=== PATIENT | female | born 1945 | race Caucasian/White ===

== ENCOUNTER → 2016-07-06 | Outpatient (CLI) | payer MEDICARE, BC ==
[2016-07-06 10:20] LABS: CHOLESTEROL 131.81 mg/dL (0-200); Direct HDL 52 mg/dL (>40); TRIGLYCERIDES 154 mg/dL (<150)
[2016-07-06 10:30] LABS: DIRECT LDL 56 mg/dL (<100)
[2016-07-06 10:31] LABS: VLDL CHOLESTEROL 30.8 mg/dL (10-31)
[2016-07-06 11:45] LABS: ABSOLUTE EOSINOPHILS # (AUTO) 0.2 10^3/uL (0.0-0.6); ABSOLUTE MONOCYTES (AUTO) 0.4 10^3/uL (0.1-1.4); ABSOLUTE NEUT (AUTO) 4.1 10^3/uL (1.7-8.2); BASOPHILS % (AUTO) 0.8 % (0-2); EOSINOPHILS % (AUTO) 3.3 % (0-6); HEMATOCRIT 35.7 % (36.0-47.0); HEMOGLOBIN 12.7 g/dL (12.0-15.5); HGB HCT DIFFERENCE 2.4; LYMPHOCYTES % (AUTO) 17.3 % (13-45); MEAN CORPUSCULAR HEMOGLOBIN 30.9 pg (27.0-33.4); MEAN CORPUSCULAR HGB CONC 35.5 g/dL (32.0-36.0); MEAN CORPUSCULAR VOLUME 87 fl (80-97); MONOCYTES % (AUTO) 7.7 % (3-13); RED CELL DISTRIBUTION WIDTH 13.2 % (11.5-14.0); SEGMENTED NEUTROPHILS % (AUTO) 70.9 % (42-78); WHITE BLOOD COUNT 5.8 10^3/uL (4.0-10.5)
[2016-07-06 11:59] LABS: ALANINE AMINOTRANSFERASE 16 U/L (9-52); ALBUMIN 3.8 g/dL (3.5-5.0); ALKALINE PHOSPHATASE 69 U/L (38-126); ANION GAP 13 (5-19); ASPARTATE AMINO TRANSFERASE 23 U/L (14-36); BILIRUBIN,TOTAL 0.9 mg/dL (0.2-1.3); BLOOD UREA NITROGEN 38 mg/dL (7-20); CALCIUM 9.6 mg/dL (8.4-10.2); CARBON DIOXIDE 25 mmol/L (22-30); CHLORIDE 106 mmol/L (98-107); CREATININE RESULT 1.16 mg/dL (0.52-1.25); GLUCOSE 73 mg/dL (75-110); MAGNESIUM 1.5 mg/dL (1.6-2.3); POTASSIUM 4.4 mmol/L (3.6-5.0); SODIUM 143.9 mmol/L (137-145); TOTAL PROTEIN 6.7 g/dL (6.3-8.2)
[2016-07-06 12:02] LABS: CHOLESTEROL 131.81 mg/dL (0-200); DIRECT LDL 56 mg/dL (<100); Direct HDL 52 mg/dL (>40); TRIGLYCERIDES 154 mg/dL (<150); VLDL CHOLESTEROL 30.8 mg/dL (10-31)
== END ==
LOC: OD 08:37
PROVIDERS: ATTEND Internal Medicine
DX: I25.10 Atherosclerotic heart disease of native coronary artery without angina pectoris (principal); D51.0 Vitamin B12 deficiency anemia due to intrinsic factor deficiency; N18.9 Chronic kidney disease, unspecified; E78.5 Hyperlipidemia, unspecified; M10.9 Gout, unspecified; R53.83 Other fatigue
CPT/HCPCS: 36415; 80053; 80061; 82607; 83735; 84443; 85025

== ENCOUNTER → 2017-03-28 | Outpatient (CLI) | payer MEDICARE, BC ==
[2017-03-28 17:40] LABS: ANION GAP 17 (5-19); BLOOD UREA NITROGEN 108 mg/dL (7-20); CARBON DIOXIDE 31 mmol/L (22-30); CHLORIDE 90 mmol/L (98-107); CREATININE RESULT 3.01 mg/dL (0.52-1.25); POTASSIUM 3.8 mmol/L (3.6-5.0); SODIUM 138.2 mmol/L (137-145)
[2017-03-29 10:10] LABS: APPEARANCE,URINE SLIGHTLY-CLOUDY; BILIRUBIN,URINE NEGATIVE (NEGATIVE); GLUCOSE, URINE NEGATIVE (NEGATIVE); KETONES,URINE NEGATIVE (NEGATIVE); LEUKOCYTE ESTERASE,URINE LARGE (NEGATIVE); NITRITE,URINE NEGATIVE (NEGATIVE); PROTEIN,URINE NEGATIVE (NEGATIVE); URINE SPECIFIC GRAVITY 1.013; UROBILINOGEN,URINE NEGATIVE mg/dL (<2.0)
== END ==
LOC: OD 15:53
PROVIDERS: ATTEND Internal Medicine
DX: I25.10 Atherosclerotic heart disease of native coronary artery without angina pectoris (principal); N39.0 Urinary tract infection, site not specified
CPT/HCPCS: 36415; 80051; 81001; 82565; 84520; 87086; 87088; 87186

== ENCOUNTER → 2017-07-17 | Outpatient (CLI) | payer MEDICARE, BC ==
[2017-07-17 17:03] LABS: ABSOLUTE EOSINOPHILS # (AUTO) 0.1 10^3/uL (0.0-0.6); ABSOLUTE LYMPHOCYTES (AUTO) 0.6 10^3/uL (0.5-4.7); ABSOLUTE MONOCYTES (AUTO) 0.7 10^3/uL (0.1-1.4); ABSOLUTE NEUT (AUTO) 6.5 10^3/uL (1.7-8.2); BASOPHILS % (AUTO) 0.4 % (0-2); EOSINOPHILS % (AUTO) 1.3 % (0-6); HEMATOCRIT 30.1 % (36.0-47.0); HEMOGLOBIN 10.4 g/dL (12.0-15.5); LYMPHOCYTES % (AUTO) 7.2 % (13-45); MEAN CORPUSCULAR HEMOGLOBIN 30.9 pg (27.0-33.4); MEAN CORPUSCULAR HGB CONC 34.5 g/dL (32.0-36.0); MEAN CORPUSCULAR VOLUME 90 fl (80-97); MONOCYTES % (AUTO) 9.3 % (3-13); PLATELET COUNT 179 10^3/uL (150-450); RED BLOOD COUNT 3.36 10^6/uL (3.72-5.28); RED CELL DISTRIBUTION WIDTH 16.8 % (11.5-14.0); SEGMENTED NEUTROPHILS % (AUTO) 81.8 % (42-78); TOTAL CELLS COUNTED % (AUTO) 100 %
[2017-07-17 17:32] LABS: ALANINE AMINOTRANSFERASE 29 U/L (9-52); ALBUMIN 4.6 g/dL (3.5-5.0); ALKALINE PHOSPHATASE 130 U/L (38-126); ASPARTATE AMINO TRANSFERASE 26 U/L (14-36); BILIRUBIN,DIRECT 0.7 mg/dL (0.0-0.4); BILIRUBIN,TOTAL 0.8 mg/dL (0.2-1.3); CALCIUM 9.8 mg/dL (8.4-10.2); GLUCOSE 102 mg/dL (75-110); MAGNESIUM 2.7 mg/dL (1.6-2.3); TOTAL PROTEIN 7.5 g/dL (6.3-8.2)
[2017-07-17 18:04] LABS: CARBON DIOXIDE 30 mmol/L (22-30); CHLORIDE 76 mmol/L (98-107); POTASSIUM 5.1 mmol/L (3.6-5.0)
[2017-07-17 18:10] LABS: BLOOD UREA NITROGEN 154 mg/dL (7-20); URIC ACID 17.5 mg/dL (2.5-7.5)
[2017-07-17 18:11] LABS: ANION GAP 22 (5-19)
== END ==
LOC: OD 15:39
PROVIDERS: ATTEND Internal Medicine
DX: N17.9 Acute kidney failure, unspecified (principal); N18.9 Chronic kidney disease, unspecified; K50.119 Crohn's disease of large intestine with unspecified complications; M10.9 Gout, unspecified; R53.83 Other fatigue
CPT/HCPCS: 36415; 80053; 83735; 84443; 84550; 85025

== ENCOUNTER → 2017-08-21 | Outpatient (CLI) | payer MEDICARE, BC ==
[2017-08-21 08:40] LABS: ABSOLUTE EOSINOPHILS # (AUTO) 0.1 10^3/uL (0.0-0.6); ABSOLUTE LYMPHOCYTES (AUTO) 0.9 10^3/uL (0.5-4.7); ABSOLUTE MONOCYTES (AUTO) 0.7 10^3/uL (0.1-1.4); ABSOLUTE NEUT (AUTO) 6.7 10^3/uL (1.7-8.2); BASOPHILS % (AUTO) 0.6 % (0-2); EOSINOPHILS % (AUTO) 1.2 % (0-6); HEMATOCRIT 26.6 % (36.0-47.0); HEMOGLOBIN 9.3 g/dL (12.0-15.5); LYMPHOCYTES % (AUTO) 10.8 % (13-45); MEAN CORPUSCULAR HEMOGLOBIN 30.8 pg (27.0-33.4); MEAN CORPUSCULAR VOLUME 88 fl (80-97); MONOCYTES % (AUTO) 8.4 % (3-13); PLATELET COUNT 239 10^3/uL (150-450); RED BLOOD COUNT 3.02 10^6/uL (3.72-5.28); RED CELL DISTRIBUTION WIDTH 17.1 % (11.5-14.0); TOTAL CELLS COUNTED % (AUTO) 100 %; WHITE BLOOD COUNT 8.5 10^3/uL (4.0-10.5)
[2017-08-21 08:56] LABS: ALANINE AMINOTRANSFERASE 26 U/L (9-52); ALBUMIN 4.2 g/dL (3.5-5.0); ALKALINE PHOSPHATASE 87 U/L (38-126); ASPARTATE AMINO TRANSFERASE 21 U/L (14-36); BILIRUBIN,DIRECT 0.6 mg/dL (0.0-0.4); BILIRUBIN,TOTAL 0.7 mg/dL (0.2-1.3); BLOOD UREA NITROGEN 106 mg/dL (7-20); CALCIUM 9.4 mg/dL (8.4-10.2); CHLORIDE 79 mmol/L (98-107); GLUCOSE 86 mg/dL (75-110); IRON(TIBC) 34.4 ug/dL (37-170); PHOSPHORUS 5.3 mg/dL (2.5-4.5); POTASSIUM 3.2 mmol/L (3.6-5.0); TOTAL PROTEIN 7.1 g/dL (6.3-8.2); URIC ACID 16.1 mg/dL (2.5-7.5)
[2017-08-21 09:01] LABS: APPEARANCE,URINE CLEAR; BILIRUBIN,URINE NEGATIVE (NEGATIVE); COLOR,URINE STRAW; GLUCOSE, URINE NEGATIVE (NEGATIVE); KETONES,URINE NEGATIVE (NEGATIVE); LEUKOCYTE ESTERASE,URINE MODERATE (NEGATIVE); NITRITE,URINE NEGATIVE (NEGATIVE); PROTEIN,URINE 30 mg/dL (NEGATIVE); URINE SPECIFIC GRAVITY 1.008; UROBILINOGEN,URINE NEGATIVE mg/dL (<2.0)
[2017-08-21 09:35] LABS: CARBON DIOXIDE 34 mmol/L (22-30); SODIUM 133.4 mmol/L (137-145)
[2017-08-21 09:38] LABS: ANION GAP 20 (5-19)
[2017-08-22 16:39] LABS: A/G RATIO 1.2 (0.7-1.7); ALBUMIN 2 3.8 g/dL (2.9-4.4); ALPHA-2-GLOBULIN 2 0.8 g/dL (0.4-1.0); BETA GLOBULINS 1.5 g/dL (0.7-1.3); GAMMA GLOBULIN 0.8 g/dL (0.4-1.8); GLOBULIN TOTAL 3.3 g/dL (2.2-3.9); MONOCLONAL SPIKE Not Observed g/dL (Not Observed); PROTEIN TOTAL SERUM 7.1 g/dL (6.0-8.5)
== END ==
LOC: OD 07:43
PROVIDERS: ATTEND Internal Medicine Nephrology
DX: N18.3 Chronic kidney disease, stage 3 (moderate) (principal); D64.9 Anemia, unspecified; E83.42 Hypomagnesemia; C34.90 Malignant neoplasm of unspecified part of unspecified bronchus or lung
CPT/HCPCS: 36415; 80053; 81001; 82533; 82728; 82784; 83540; 83550; 83735; 83970; 84100; 84165; 84550; 85025

== ENCOUNTER 2017-09-01 09:06 | Outpatient (CLI) | payer MEDICARE, BC ==
[2017-09-01] MEDS ORDERED: FERUMOXYTOL (NON-ESRD) 510 MG/NS 100 ML IV PRN ×2 (09:19)
[2017-09-01 10:58] VITALS: BP 135/40
== END 2017-09-01 11:25 | disposition home or self-care (01) ==
LOC: II 09:06 → 5TH 09:08 → II 11:25
PROVIDERS: ATTEND Internal Medicine Nephrology
PROC: 3E033GC Introduction of Other Therapeutic Substance into Peripheral Vein, Percutaneous Approach (ICD-10-PCS; principal; 2017-09-01)
DX: E61.1 Iron deficiency (principal); N18.9 Chronic kidney disease, unspecified
CPT/HCPCS: 96365; Q0138

== ENCOUNTER 2017-09-08 09:05 | Outpatient (CLI) | payer MEDICARE, BC ==
[2017-09-08] MEDS ORDERED: FERUMOXYTOL (ESRD) 510 MG/NS 100 ML IV PRN ×2 (10:00)
[2017-09-08 17:27] VITALS: BP 116/58
== END 2017-09-08 10:31 | disposition home or self-care (01) ==
LOC: II 09:05
PROVIDERS: ATTEND Internal Medicine Nephrology
PROC: 3E033GC Introduction of Other Therapeutic Substance into Peripheral Vein, Percutaneous Approach (ICD-10-PCS; principal; 2017-09-08)
DX: D50.8 Other iron deficiency anemias (principal); N18.9 Chronic kidney disease, unspecified
CPT/HCPCS: 96365; Q0139

== ENCOUNTER → 2017-10-11 | Outpatient (CLI) | payer MEDICARE, BC ==
[2017-10-11 12:22] LABS: HEMATOCRIT 29.3 % (36.0-47.0); HEMOGLOBIN 10.2 g/dL (12.0-15.5); MEAN CORPUSCULAR HEMOGLOBIN 32.5 pg (27.0-33.4); MEAN CORPUSCULAR HGB CONC 34.8 g/dL (32.0-36.0); MEAN CORPUSCULAR VOLUME 93 fl (80-97); PLATELET COUNT 181 10^3/uL (150-450); RED BLOOD COUNT 3.14 10^6/uL (3.72-5.28); RED CELL DISTRIBUTION WIDTH 18.4 % (11.5-14.0); WHITE BLOOD COUNT 6.4 10^3/uL (4.0-10.5)
[2017-10-11 12:23] LABS: APPEARANCE,URINE SLIGHTLY-CLOUDY; BILIRUBIN,URINE NEGATIVE (NEGATIVE); COLOR,URINE YELLOW; GLUCOSE, URINE NEGATIVE (NEGATIVE); KETONES,URINE NEGATIVE (NEGATIVE); LEUKOCYTE ESTERASE,URINE LARGE (NEGATIVE); NITRITE,URINE NEGATIVE (NEGATIVE); PROTEIN,URINE 30 mg/dL (NEGATIVE); URINE SPECIFIC GRAVITY 1.012; UROBILINOGEN,URINE NEGATIVE mg/dL (<2.0)
[2017-10-11 12:53] LABS: ALANINE AMINOTRANSFERASE 33 U/L (9-52); ALBUMIN 4.7 g/dL (3.5-5.0); ALKALINE PHOSPHATASE 83 U/L (38-126); ANION GAP 14 (5-19); ASPARTATE AMINO TRANSFERASE 31 U/L (14-36); BILIRUBIN,DIRECT 0.5 mg/dL (0.0-0.4); BILIRUBIN,TOTAL 0.5 mg/dL (0.2-1.3); CALCIUM 11.1 mg/dL (8.4-10.2); CARBON DIOXIDE 38 mmol/L (22-30); CHLORIDE 85 mmol/L (98-107); CREATINE KINASE 25 U/L (30-135); GLUCOSE 70 mg/dL (75-110); IRON(TIBC) 121.9 ug/dL (37-170); POTASSIUM 3.7 mmol/L (3.6-5.0); SODIUM 136.7 mmol/L (137-145); TOTAL PROTEIN 7.6 g/dL (6.3-8.2)
[2017-10-11 12:59] LABS: UR PRO/CREAT RATIO RESULT 0.5 mg/mg (0.0-0.2); URINE CREATININE 79.5 mg/dL (15-278); URINE PROTEIN 38.5 mg/dL (<12)
[2017-10-11 13:08] LABS: BLOOD UREA NITROGEN 136 mg/dL (7-20)
== END ==
LOC: OD 11:23
PROVIDERS: ATTEND Internal Medicine Nephrology
DX: N18.3 Chronic kidney disease, stage 3 (moderate) (principal); D64.9 Anemia, unspecified; E83.42 Hypomagnesemia; M10.00 Idiopathic gout, unspecified site; R30.0 Dysuria
CPT/HCPCS: 36415; 80053; 81001; 82043; 82550; 82570; 82728; 83540; 83550; 83735; 84156; 84443; 85027; 87086; 87088; 87186

== ENCOUNTER → 2017-10-16 | Outpatient (CLI) | payer MEDICARE, BC ==
[2017-10-16 10:19] LABS: HEMATOCRIT 27.3 % (36.0-47.0); HEMOGLOBIN 9.6 g/dL (12.0-15.5); MEAN CORPUSCULAR HEMOGLOBIN 32.8 pg (27.0-33.4); MEAN CORPUSCULAR HGB CONC 35.3 g/dL (32.0-36.0); MEAN CORPUSCULAR VOLUME 93 fl (80-97); PLATELET COUNT 159 10^3/uL (150-450); RED BLOOD COUNT 2.94 10^6/uL (3.72-5.28); RED CELL DISTRIBUTION WIDTH 17.6 % (11.5-14.0); WHITE BLOOD COUNT 6.1 10^3/uL (4.0-10.5)
[2017-10-16 10:46] LABS: PHOSPHORUS 4.4 mg/dL (2.5-4.5)
[2017-10-16 11:18] LABS: APPEARANCE,URINE CLEAR; BILIRUBIN,URINE NEGATIVE (NEGATIVE); COLOR,URINE YELLOW; GLUCOSE, URINE NEGATIVE (NEGATIVE); KETONES,URINE NEGATIVE (NEGATIVE); LEUKOCYTE ESTERASE,URINE MODERATE (NEGATIVE); NITRITE,URINE NEGATIVE (NEGATIVE); PROTEIN,URINE NEGATIVE (NEGATIVE); URINE SPECIFIC GRAVITY 1.009; UROBILINOGEN,URINE NEGATIVE mg/dL (<2.0)
[2017-10-16 12:19] LABS: ANION GAP 17 (5-19); BLOOD UREA NITROGEN 108 mg/dL (7-20); CALCIUM 10.1 mg/dL (8.4-10.2); CARBON DIOXIDE 33 mmol/L (22-30); CHLORIDE 82 mmol/L (98-107); GLUCOSE 116 mg/dL (75-110); SODIUM 131.9 mmol/L (137-145)
== END ==
LOC: OD 09:41
PROVIDERS: ATTEND Internal Medicine Nephrology
DX: I12.9 Hypertensive chronic kidney disease with stage 1 through stage 4 chronic kidney disease, or unspecified chronic kidney disease (principal); N18.4 Chronic kidney disease, stage 4 (severe)
CPT/HCPCS: 36415; 80048; 80053; 81001; 82533; 83735; 83970; 84100; 85027

== ENCOUNTER → 2017-11-04 | Outpatient (CLI) | payer MEDICARE, BC ==
[2017-11-04 13:01] LABS: HEMATOCRIT 27.5 % (36.0-47.0); HEMOGLOBIN 9.7 g/dL (12.0-15.5); MEAN CORPUSCULAR HEMOGLOBIN 32.9 pg (27.0-33.4); MEAN CORPUSCULAR HGB CONC 35.2 g/dL (32.0-36.0); MEAN CORPUSCULAR VOLUME 93 fl (80-97); PLATELET COUNT 180 10^3/uL (150-450); RED BLOOD COUNT 2.94 10^6/uL (3.72-5.28); RED CELL DISTRIBUTION WIDTH 15.2 % (11.5-14.0); WHITE BLOOD COUNT 7.6 10^3/uL (4.0-10.5)
[2017-11-04 13:17] LABS: OSMOLALITY,URINE 329 mOsm/kg (300-900)
[2017-11-04 13:24] LABS: ANION GAP 14 (5-19); BLOOD UREA NITROGEN 110 mg/dL (7-20); CALCIUM 10.3 mg/dL (8.4-10.2); CARBON DIOXIDE 38 mmol/L (22-30); CHLORIDE 80 mmol/L (98-107); GLUCOSE 86 mg/dL (75-110); PHOSPHORUS 5.3 mg/dL (2.5-4.5); POTASSIUM 3.9 mmol/L (3.6-5.0); SODIUM 131.5 mmol/L (137-145); URIC ACID 10.9 mg/dL (2.5-7.5)
[2017-11-04 13:37] LABS: URINE SODIUM < 5 mmol/L (30-90)
== END ==
LOC: OD 11:18
PROVIDERS: ATTEND Internal Medicine Nephrology
DX: N18.4 Chronic kidney disease, stage 4 (severe) (principal); D64.9 Anemia, unspecified; E87.6 Hypokalemia
CPT/HCPCS: 36415; 80048; 83735; 83930; 83935; 83970; 84100; 84300; 84550; 85027

== ENCOUNTER → 2017-11-10 | Outpatient (CLI) | payer MEDICARE, BC ==
[2017-11-10 17:05] LABS: ANION GAP 13 (5-19); BLOOD UREA NITROGEN 88 mg/dL (7-20); CALCIUM 10.2 mg/dL (8.4-10.2); CARBON DIOXIDE 34 mmol/L (22-30); CHLORIDE 88 mmol/L (98-107); GLUCOSE 136 mg/dL (75-110); SODIUM 135.3 mmol/L (137-145)
[2017-11-10 17:29] LABS: POTASSIUM 2.9 mmol/L (3.6-5.0)
== END ==
LOC: OD 16:05
PROVIDERS: ATTEND Internal Medicine Nephrology
DX: I12.0 Hypertensive chronic kidney disease with stage 5 chronic kidney disease or end stage renal disease (principal); N18.5 Chronic kidney disease, stage 5; E87.5 Hyperkalemia
CPT/HCPCS: 36415; 80048

== ENCOUNTER → 2017-12-04 | Outpatient (CLI) | payer MEDICARE, BC ==
[2017-12-04 09:35] LABS: HEMATOCRIT 25.6 % (36.0-47.0); HEMOGLOBIN 9.1 g/dL (12.0-15.5); MEAN CORPUSCULAR HEMOGLOBIN 32.6 pg (27.0-33.4); MEAN CORPUSCULAR HGB CONC 35.5 g/dL (32.0-36.0); MEAN CORPUSCULAR VOLUME 92 fl (80-97); PLATELET COUNT 171 10^3/uL (150-450); RED BLOOD COUNT 2.78 10^6/uL (3.72-5.28); WHITE BLOOD COUNT 5.1 10^3/uL (4.0-10.5)
[2017-12-04 10:04] LABS: ANION GAP 17 (5-19); BLOOD UREA NITROGEN 109 mg/dL (7-20); CALCIUM 10.3 mg/dL (8.4-10.2); CARBON DIOXIDE 37 mmol/L (22-30); CHLORIDE 77 mmol/L (98-107); GLUCOSE 82 mg/dL (75-110); PHOSPHORUS 6.1 mg/dL (2.5-4.5); POTASSIUM 3.4 mmol/L (3.6-5.0); SODIUM 130.6 mmol/L (137-145)
[2017-12-06 08:52] LABS: CHOLESTEROL 141.66 mg/dL (0-200); TRIGLYCERIDES 188 mg/dL (<150)
[2017-12-06 09:04] LABS: DIRECT LDL 67 mg/dL (<100)
[2017-12-06 09:10] LABS: VLDL CHOLESTEROL 37.6 mg/dL (10-31)
[2017-12-07 08:41] LABS: ALANINE AMINOTRANSFERASE 35 U/L (9-52); ALBUMIN 4.3 g/dL (3.5-5.0); ALKALINE PHOSPHATASE 86 U/L (38-126); ASPARTATE AMINO TRANSFERASE 32 U/L (14-36); BILIRUBIN,DIRECT 0.2 mg/dL (0.0-0.4); BILIRUBIN,TOTAL 0.4 mg/dL (0.2-1.3)
== END ==
LOC: OD 08:34
PROVIDERS: ATTEND Internal Medicine Nephrology
DX: I12.0 Hypertensive chronic kidney disease with stage 5 chronic kidney disease or end stage renal disease (principal); N18.5 Chronic kidney disease, stage 5; E87.1 Hypo-osmolality and hyponatremia; E87.5 Hyperkalemia; E78.2 Mixed hyperlipidemia
CPT/HCPCS: 36415; 80048; 80061; 80076; 83970; 84100; 85027

== ENCOUNTER 2017-12-13 09:07 | Outpatient (CLI) | payer MEDICARE, BC ==
[~2017-12-13 09:07] MED LIST: NORMAL SALINE 1000 ML 1,000 ML IV PRN
[2017-12-13] MEDS ORDERED: NORMAL SALINE 1000 ML 500 ML IV PRN (09:30)
[2017-12-13 09:53] VITALS: BP 103/46
== END 2017-12-13 13:18 | disposition home or self-care (01) ==
LOC: II 09:07 → 5TH 09:10 → II 13:18
PROVIDERS: ATTEND Internal Medicine
PROC: 3E0337Z Introduction of Electrolytic and Water Balance Substance into Peripheral Vein, Percutaneous Approach (ICD-10-PCS; principal; 2017-12-13)
DX: E86.0 Dehydration (principal); N17.9 Acute kidney failure, unspecified
CPT/HCPCS: 96360; 96361

== ENCOUNTER 2017-12-14 09:05 | Outpatient (CLI) | payer MEDICARE, BC ==
[~2017-12-14 09:05] MED LIST changes: -NORMAL SALINE 1000 ML 1,000 ML IV PRN; +NORMAL SALINE 1000 ML 500 ML IV PRN
[2017-12-14 10:26] VITALS: BP 108/48
== END 2017-12-14 13:28 | disposition home or self-care (01) ==
LOC: II 09:05 → 5TH 09:09 → II 13:28
PROVIDERS: ATTEND Internal Medicine
PROC: 3E033GC Introduction of Other Therapeutic Substance into Peripheral Vein, Percutaneous Approach (ICD-10-PCS; principal; 2017-12-14)
DX: E86.0 Dehydration (principal); N17.9 Acute kidney failure, unspecified
CPT/HCPCS: 96365; 96366

== ENCOUNTER 2017-12-17 19:35 | Inpatient (IN) | payer MEDICARE, BC ==
[2017-12-17] MEDS ORDERED: NORMAL SALINE 1000 ML 1,000 ML IV ONE (19:40)
--- NOTE | 2017-12-17 20:36 | ER Document Report ---
ED Respiratory Problem - General Chief Complaint: Breathing Difficulty Stated Complaint: DIFFICULTY BREATHING Time Seen by Provider: 12/17/17 19:39 Notes: The patient is a 72 yo female, PMHx COPD, CKD, Crohn's with ileostomy bag in 1987, high output from her ileostomy, presents with increased shortness of breath, fever and hypoxia down to 80% on room air. She was found to have a temperature of 101.7 by EMS and was given 975 mg Tylenol prior to arrival. She is not on any immunomodulators. Patient is supposed to have a central line placed by Dr. Haney tomorrow for IV hydration due to her high output ileostomy. Patient denies headache, neck stiffness, chest pain, rash, hemoptysis , abdominal pain or urinary symptoms. TRAVEL OUTSIDE OF THE [place] IN LAST 30 DAYS: No - Related Data Allergies/Adverse Reactions: allopurinol Allergy (Unknown, Verified 09/01/17 09:22) amoxicillin Allergy (Verified 09/01/17 09:22) Cephalosporins Allergy (Verified 09/01/17 09:23) levofloxacin [From Levaquin] Allergy (Verified 09/01/17 09:23) Past Medical History - General Information source: Patient, Emergency Med Personnel - Social History Smoking Status: Former Smoker Family History: Reviewed & Not Pertinent Pulmonary Medical History: Reports: Hx COPD, Hx Pneumonia GI Medical History: Reports: Hx Gastroesophageal Reflux Disease Review of Systems - Review of Systems Notes: REVIEW OF SYSTEMS: CONSTITUTIONAL: +fevers, +chills EENT: -eye pain, -difficulty swallowing, -nasal congestion CARDIOVASCULAR: -chest pain, -syncope. RESPIRATORY: +cough, +SOB GASTROINTESTINAL: -abdominal pain, -nausea, -vomiting, -diarrhea GENITOURINARY: -dysuria, -hematuria MUSCULOSKELETAL: -back pain, -neck pain SKIN: -rash or skin lesions. HEMATOLOGIC: -easy bruising or bleeding. LYMPHATIC: -swollen, enlarged glands. NEUROLOGICAL: -altered mental status or loss of consciousness, -headache, - neurologic symptoms PSYCHIATRIC: -anxiety, -depression. ALL OTHER SYSTEMS REVIEWED AND NEGATIVE. Physical Exam - Vital signs Vitals: Resp BP 28 H 102/56 L 12/17/17 20:08 12/17/17 20:08 - Notes Notes: PHYSICAL EXAMINATION: GENERAL: In no acute distress. HEAD: Atraumatic, normocephalic. EYES: Pupils equal round and reactive to light, extraocular movements intact, sclera anicteric, conjunctiva are normal. ENT: nares patent, oropharynx clear without exudates. Moist mucous membranes. NECK: Normal range of motion, supple without lymphadenopathy LUNGS: Left-sided rhonchi. HEART: Regular rate and rhythm without murmurs ABDOMEN: Soft, nontender, normoactive bowel sounds. No guarding, no rebound. No masses appreciated. EXTREMITIES: Normal range of motion, no pitting or edema. No cyanosis. NEUROLOGICAL: Cranial nerves grossly intact. Normal speech, normal gait. Normal sensory and motor exams. PSYCH: Normal mood, normal affect. SKIN: Warm, Dry, normal turgor, no rashes or lesions noted. Course - Re-evaluation Re-evalutation: Patient's hypoxia of 80% on room air improved to 98% on 3 L nasal cannula. She has a home pulse ox and said that her oxygenation usually runs above 95%. Oxygen was running 80-85% while at home over the past 2 days and she does not wear oxygen. Patient also has a productive cough and fever. Chest x-ray does not show a focal infiltrate, but will treat her for CAP. With her extensive Abx allergies (she thinks they were anphylaxis), will treat her with Doxycycline. Pt 's kidney function is at baseline and she follows with Dr. Cummings. Her potassium is low, most likely due to her high output ileostomy. Will replete, keeping in mind her CKD. Her PMD is Dr. Busby. With her hypoxia, she requires admission. 12/17/17 22:[address] Darvin Brandt and he has accepted the patient for admission. - Vital Signs Vital signs: Temp Pulse Resp BP Pulse Ox 18 115/59 L 83 L 12/17/17 21:01 12/17/17 21:01 12/17/17 21:18 - Laboratory Result Diagrams: 12/17/17 20:00 12/17/17 20:00 Laboratory results interpreted by me: 12/17/17 12/17/17 12/17/17 20:00 20:00 20:00 WBC 3.7 L RBC 2.72 L Hgb 8.7 L Hct 24.6 L RDW 16.3 H Plt Count 123 L Seg Neuts % (Manual) 84 H Lymphocytes % (Manual) 5 L Abs Lymphs (Manual) 0.2 L VBG pH VBG HCO3 Sodium 132.1 L Potassium 3.0 L* Chloride 80 L Carbon Dioxide 39 H BUN 63 H Creatinine 3.13 H Est GFR ( Amer) 18 L Est GFR (Non-Af Amer) 15 L Glucose 127 H Lactic Acid 2.8 H Calcium 10.4 H NT-Pro-B Natriuret Pep Urine Protein 12/17/17 12/17/17 12/17/17 20:00 20:00 21:25 WBC RBC Hgb Hct RDW Plt Count Seg Neuts % (Manual) Lymphocytes % (Manual) Abs Lymphs (Manual) VBG pH 7.50 H VBG HCO3 43.3 H Sodium Potassium Chloride Carbon Dioxide BUN Creatinine Est GFR ( Amer) Est GFR (Non-Af Amer) Glucose Lactic Acid Calcium NT-Pro-B Natriuret Pep 1000 H Urine Protein 100 H - Diagnostic Test Radiology reviewed: Image reviewed, Reports reviewed Radiology results interpreted by me: CXR: NAD - EKG Interpretation by Me EKG shows normal: Sinus rhythm, Herrin, Intervals, QRS Complexes, ST-T Waves Discharge - Discharge Clinical Impression: Hypoxia, Productive cough, Hypokalemia Sepsis Qualifiers: Sepsis type: sepsis due to unspecified organism Qualified Code(s): A41.9 - Sepsis, unspecified organism Condition: Stable Disposition: ADMITTED INPATIENT Admitting Provider: Hospitalist [facility] Admitted: Telemetry
[2017-12-17] MEDS ORDERED: DOXYCYCLINE HYCLATE INJ 100 MG VIAL IV ONE (20:40)
--- NOTE | 2017-12-17 20:47 | RADIOLOGY REPORT (SQ) ---
EXAM DESCRIPTION: CHEST SINGLE VIEW COMPLETED DATE/TIME: 12/17/2017 8:23 pm REASON FOR STUDY: hypoxia, fever COMPARISON: Chest x-ray 12/15/2017. EXAM PARAMETERS: NUMBER OF VIEWS: One view. TECHNIQUE: Single frontal radiographic view of the chest acquired. RADIATION DOSE: NA LIMITATIONS: None. FINDINGS: LUNGS AND PLEURA: No consolidation, pleural effusion or pneumothorax. Hyperlucent lungs a re suggestive of emphysema. MEDIASTINUM AND HILAR STRUCTURES: No masses. Contour normal. HEART AND VASCULAR STRUCTURES: Heart normal in size. Normal vasculature. BONES: Orthopedic hardware noted along the left 6 rib. HARDWARE: The patient is status post open heart surgery with sternotomy wires present. Surgical clip s are seen at the right axilla. IMPRESSION: No acute radiographic finding in the chest. Emphysema. TECHNICAL DOCUMENTATION: JOB ID: [id number] 2010 [employer]- All Rights Reserved Reading location - IP/workstation name: [email or web address]
[2017-12-17 21:01] LABS: HEMATOCRIT 24.6 % (36.0-47.0); HEMOGLOBIN 8.7 g/dL (12.0-15.5); MEAN CORPUSCULAR HEMOGLOBIN 31.8 pg (27.0-33.4); MEAN CORPUSCULAR HGB CONC 35.2 g/dL (32.0-36.0); MEAN CORPUSCULAR VOLUME 90 fl (80-97); PLATELET COUNT 123 10^3/uL (150-450); RED BLOOD COUNT 2.72 10^6/uL (3.72-5.28); RED CELL DISTRIBUTION WIDTH 16.3 % (11.5-14.0); WHITE BLOOD COUNT 3.7 10^3/uL (4.0-10.5)
--- NOTE | 2017-12-17 21:10 | EKG REPORT ---
SEVERITY:- ABNORMAL ECG - SINUS RHYTHM PROBABLE LEFT ATRIAL ABNORMALITY NONSPECIFIC INTRAVENTRICULAR CONDUCTION DELAY LEFT VENTRICULAR HYPERTROPHY : Confirmed by: Adonis Bermudez 17-Dec-2017 21:09:28
[2017-12-17 21:18] LABS: ALANINE AMINOTRANSFERASE 26 U/L (9-52); ALBUMIN 3.9 g/dL (3.5-5.0); ALKALINE PHOSPHATASE 68 U/L (38-126); APPEARANCE,URINE CLEAR; ASPARTATE AMINO TRANSFERASE 35 U/L (14-36); BILIRUBIN,DIRECT 0.4 mg/dL (0.0-0.4); BILIRUBIN,TOTAL 0.9 mg/dL (0.2-1.3); BILIRUBIN,URINE NEGATIVE (NEGATIVE); BLOOD UREA NITROGEN 63 mg/dL (7-20); CALCIUM 10.4 mg/dL (8.4-10.2); COLOR,URINE YELLOW; GLUCOSE 127 mg/dL (75-110); GLUCOSE, URINE NEGATIVE (NEGATIVE); KETONES,URINE NEGATIVE (NEGATIVE); LEUKOCYTE ESTERASE,URINE NEGATIVE (NEGATIVE); NITRITE,URINE NEGATIVE (NEGATIVE); PROTEIN,URINE 100 mg/dL (NEGATIVE); TOTAL PROTEIN 6.6 g/dL (6.3-8.2); URINE SPECIFIC GRAVITY 1.012; UROBILINOGEN,URINE NEGATIVE mg/dL (<2.0)
[2017-12-17] MEDS ORDERED: IPRATROPIUM/ALBUTEROL 0.5-2.5 MG/3 ML AMPUL NEB ONE (21:23)
[2017-12-17 21:28] LABS: ABSOLUTE LYMPHOCYTES# (MANUAL) 0.2 10^3/uL (0.5-4.7); ABSOLUTE MONOCYTES # (MANUAL) 0.4 10^3/uL (0.1-1.4); ABSOLUTE NEUTROPHILS# (MANUAL) 3.1 10^3/uL (1.7-8.2); BASOPHILS % (MANUAL) 0 % (0-2); EOSINOPHILS % (MANUAL) 1 % (0-6); LYMPHOCYTES % (MANUAL) 5 % (13-45); MONOCYTES % (MANUAL) 10 % (3-13); SEGMENTED NEUTROPHILS % (MAN) 84 % (42-78); TOTAL CELLS COUNTED 100
[2017-12-17 21:29] LABS: ANISOCYTOSIS 1+; HYPOCHROMASIA 2+; OVALOCYTES 1+; PLATELET COMMENT DECREASED; TROPONIN I 0.024 ng/mL
[2017-12-17 21:39] LABS: ANION GAP 13 (5-19); CARBON DIOXIDE 39 mmol/L (22-30); CHLORIDE 80 mmol/L (98-107); SODIUM 132.1 mmol/L (137-145)
[2017-12-17 21:40] LABS: VENOUS BLOOD BASE EXCESS 17.9 mmol/L; VENOUS BLOOD HCO3 43.3 mmol/L (20-32); VENOUS BLOOD PCO2 56.9 mmHg (35-63); VENOUS BLOOD PH 7.5 (7.30-7.42)
[2017-12-17] MEDS ORDERED: IPRATROPIUM/ALBUTEROL 0.5-2.5 MG/3 ML AMPUL NEB PRN (21:55)
[2017-12-17] MEDS ORDERED: ACETAMINOPHEN 325 MG TABLET PO PRN (21:55)
[2017-12-18] MEDS: NORMAL SALINE 1000 ML 1,000 ML IV PRN ×2 (00:23→04:33)
[2017-12-18] MEDS: POTASSI CL 20 MEQ/50 ML RIDER 20 MEQ/50 ML RTUPB IV SCH ×2 (00:26→02:08)
[2017-12-18] MEDS ORDERED: POTASSI CL 20 MEQ/50 ML RIDER 20 MEQ/50 ML RTUPB IV ONE (00:32)
[2017-12-18] MEDS: IPRATROPIUM/ALBUTEROL 0.5-2.5 MG/3 ML AMPUL NEB SCH ×4 (02:08→19:44)
[2017-12-18] MEDS: GUAIFENESIN SYRP 200 MG/10 ML UDC PO PRN ×2 (02:09→06:03)
[2017-12-18] MEDS ORDERED: CHLORPHENIRAMINE MALEATE 4 MG TABLET PO ONE (03:21)
[2017-12-18] MEDS ORDERED: HYDROCODONE BIT/HOMATROPINE SYRUP 5 ML UDCUP PO PRN (03:21)
[2017-12-18] MEDS ORDERED: FLUTICASONE NASAL SPRAY 50 MCG/SPRY 120 SPRAY/16 GM NASL ONE (03:45)
[2017-12-18] MEDS ORDERED: CHLORPHENIRAMINE MALEATE 4 MG TABLET ONE (03:47)
[2017-12-18] MEDS ORDERED: FLUTICASONE NASAL SPRAY 50 MCG/SPRY 120 SPRAY/16 GM ONE (03:47)
[2017-12-18] MEDS ORDERED: HYDROCODONE BIT/HOMATROPINE 5-1.5 MG TABLET PO PRN (04:21)
--- NOTE | 2017-12-18 05:12 | PDOC H&P ---
History of Present Illness Admission Date/PCP: 12/17/17 22:11 CLINT REED, Patient complains of: Shortness of breath History of Present Illness: FABRICIO BARR is a 72 year old female with an extensive past medical history including ulcerative colitis status post colectomy with colostomy resulting in high-output state, chronic metabolic alkalosis and kidney disease. She presents with 48 hours of rhinorrhea, postnasal drip, nonproductive cough, shortness of breath and a temperature of 101.7 by EMS. In the emergency room she is found to have an unremarkable chest x-ray but persistent shortness of breath, anemia, hypokalemia and chronic kidney disease with metabolic alkalosis. She started on empiric antibiotics and referred to the hospitalist for admission. She reports plan for port placement this week with surgeon Dr. Haney in an effort to optimize hydration and chronic kidney disease treated by sales and service consultant Dr. Vijay Cummings. Past Medical History Cardiac Medical History: Reports: Hypertension, Other - Aortic valve replacement Pulmonary Medical History: Reports: Bronchitis, Chronic Obstructive Pulmonary Disease (COPD), Pneumonia Endocrine Medical History: Reports: None Renal/ Medical History: Reports: End Stage Renal Disease GI Medical History: Reports: Gastroesophageal Reflux Disease, Ulcerative Colitis Musculoskeltal Medical History: Reports: None Skin Medical History: Reports: None Psychiatric Medical History: Reports: None Traumatic Medical History: Reports: None Hematology: Reports: Anemia Infectious Medical History: Reports: None Past Surgical History Past Surgical History: Reports: Valve Replacement - Aortic valve Social History Information Source: Patient Lives with: Spouse/Significant other Smoking Status: Former Smoker Number of Years Smokin Last Time Smoked: 2000 Frequency of Alcohol Use: Social Hx Recreational Drug Use: No Drugs: None Hx Prescription Drug Abuse: No - Advance Directive Resuscitation Status: Full Code Family History Family History: COPD, Hypertension Parental Family History Reviewed: Yes Children Family History Reviewed: Yes Sibling(s) Family History Reviewed.: Yes Medication/Allergy Home Medications: Alprazolam [Xanax] 1 tab PO TID PRN 12/18/17 Aspirin [Aspirin 81 mg Chewable Tablet] 1 tab PO DAILY 12/18/17 Calcitriol 1 cap PO DAILY 12/18/17 Calcium Carbonate [Calcium] 1 tab PO DAILY 12/18/17 Clindamycin HCl 4 cap PO ASDIR PRN 12/18/17 Colchicine [Colchicine 0.6 mg Tablet] 2 tab PO ASDIR PRN 12/18/17 Ergocalciferol (Vitamin D2) [Vitamin D2] 50,000 unit PO [id number] 12/18/17 Ezetimibe 1 tab PO DAILY 12/18/17 Famotidine [Pepcid AC] 1 tab PO QAM 12/18/17 Febuxostat [Uloric 40 mg Tablet] 1 tab PO DAILY 12/18/17 Magnesium Oxide [Magox] 2 tab PO BID 12/18/17 Meloxicam [Mobic 7.5 mg Tablet] 1 tab PO DAILY 12/18/17 [place]-3 Fatty Acids/Fish Oil [Fish Oil Concentrate Softgel] 1 cap PO DAILY 12/18 Potassium Chloride [Klor-Con M10] 1 tab PO DAILY 12/18/17 Promethazine HCl [Phenergan 25 mg Tablet] 1 tab PO QID PRN 12/18/17 Sertraline HCl 50 mg PO BID 12/18/17 Allergies/Adverse Reactions: allopurinol Allergy (Unknown, Verified 09/01/17 09:22) amoxicillin Allergy (Verified 09/01/17 09:22) Cephalosporins Allergy (Verified 09/01/17 09:23) levofloxacin [From Levaquin] Allergy (Verified 09/01/17 09:23) mesalamine [From Pentasa] Allergy (Verified 12/18/17 00:52) Review of Systems Constitutional: PRESENT: as per HPI, chills, fatigue, fever(s), weakness. ABSENT: headache(s), night sweats Eyes: ABSENT: visual disturbances Ears: ABSENT: hearing changes Cardiovascular: ABSENT: chest pain, dyspnea on exertion, edema, orthropnea, palpitations Respiratory: PRESENT: as per HPI, cough, dyspnea. ABSENT: hemoptysis, sputum Gastrointestinal: ABSENT: abdominal pain, constipation, diarrhea, hematemesis, hematochezia, nausea, vomiting Genitourinary: ABSENT: dysuria, hematuria Musculoskeletal: ABSENT: joint swelling Integumentary: ABSENT: rash, wounds Neurological: ABSENT: abnormal gait, abnormal speech, confusion, dizziness, focal weakness, syncope Psychiatric: ABSENT: anxiety, depression, homidical ideation, suicidal ideation Endocrine: ABSENT: cold intolerance, heat intolerance, polydipsia, polyuria Hematologic/Lymphatic: ABSENT: easy bleeding, easy bruising Physical Exam Vital Signs: Temp Pulse Resp BP Pulse Ox 99.3 F 81 17 136/53 H 95 12/18/17 03:10 12/18/17 03:10 12/18/17 03:10 12/18/17 03:10 12/18/17 03:10 Intake & Output 12/16/17 12/17/17 12/18/17 11:59 11:59 11:59 Output Total 300 Balance -300 Weight 46.4 kg General appearance: PRESENT: cooperative, mild distress, thin, other - Chronically ill appearing with temporal wasting. ABSENT: hard of hearing Head exam: PRESENT: atraumatic, normocephalic Eye exam: PRESENT: conjunctiva pink, EOMI, PERRLA. ABSENT: scleral icterus Ear exam: PRESENT: normal external ear exam Mouth exam: PRESENT: dry mucosa, neck supple, tongue midline. ABSENT: moist Neck exam: ABSENT: carotid bruit, JVD, lymphadenopathy, thyromegaly Respiratory exam: PRESENT: accessory muscle use, crackles, prolonged expiratory phas, rales, retraction, rhonchi, symmetrical, tachypnea Cardiovascular exam: PRESENT: RRR, systolic murmur. ABSENT: diastolic murmur, gallop, rubs Pulses: PRESENT: normal dorsalis pedis pul Vascular exam: PRESENT: normal capillary refill GI/Abdominal exam: PRESENT: normal bowel sounds, soft. ABSENT: distended, guarding, mass, organolmegaly, rebound, tenderness Rectal exam: PRESENT: deferred Extremities exam: PRESENT: full ROM. ABSENT: calf tenderness, clubbing, pedal edema Neurological exam: PRESENT: alert, awake, oriented to person, oriented to place , oriented to time, oriented to situation, CN II-XII grossly intact. ABSENT: motor sensory deficit Psychiatric exam: PRESENT: appropriate affect, normal mood. ABSENT: homicidal ideation, suicidal ideation Skin exam: PRESENT: dry, intact, warm. ABSENT: cyanosis, rash Results Laboratory Results: 12/18/17 00:34 Lactic Acid 2.1 Impressions: Chest X-Ray 12/17/17 19:39 IMPRESSION: No acute radiographic finding in the chest. Emphysema. Assessment & Plan - Diagnosis (1) Pneumonia Is this a current diagnosis for this admission?: Yes Plan: Pneumonia care set, Flonase, chlorpheniramine, empiric antibiotics, incentive spirometry, flutter valve, supplemental oxygen. Follow-up CBC and culture (2) Chronic kidney disease Is this a current diagnosis for this admission?: Yes Plan: Significantly prerenal, IV fluid challenge, consult sales and service consultant Dr. Vijay Cummings if not improved. (3) Metabolic alkalosis Is this a current diagnosis for this admission?: Yes Plan: Secondary to colostomy with high output state. IV fluid challenge, consider trial modified diet or cholestyramine. (4) Anemia Is this a current diagnosis for this admission?: Yes Plan: Likely secondary to chronic kidney disease, follow-up labs for anemia pending (5) Hypokalemia Is this a current diagnosis for this admission?: Yes Plan: Secondary to high-output colostomy state. Repletion and reevaluation (6) Sepsis Qualifiers: Sepsis type: sepsis due to unspecified organism Qualified Code(s): A41.9 - Sepsis, unspecified organism Is this a current diagnosis for this admission?: Yes Plan: Complicated by hypovolemia with pneumonia. Follow-up lactic acid, treatment of underlying cause underway. - Time Time Spent: 50 to 70 Minutes - Inpatient Certification Medical Necessity: Need Close Monitoring Due to Risk of Patient Decompensation
[2017-12-18] MEDS: HEPARIN SOD (PORCINE) 5,000 UNIT/ML 1 ML SYRINGE SUBCUT SCH ×3 (06:00→21:42)
[2017-12-18 06:48] LABS: ABSOLUTE LYMPHOCYTES (AUTO) 0.1 10^3/uL (0.5-4.7); ABSOLUTE MONOCYTES (AUTO) 0.4 10^3/uL (0.1-1.4); ABSOLUTE NEUT (AUTO) 2.3 10^3/uL (1.7-8.2); BASOPHILS % (AUTO) 0.2 % (0-2); HEMATOCRIT 22.6 % (36.0-47.0); LYMPHOCYTES % (AUTO) 5.1 % (13-45); MEAN CORPUSCULAR HGB CONC 34.7 g/dL (32.0-36.0); MEAN CORPUSCULAR VOLUME 89 fl (80-97); MONOCYTES % (AUTO) 14.5 % (3-13); RED BLOOD COUNT 2.53 10^6/uL (3.72-5.28); RED CELL DISTRIBUTION WIDTH 15.5 % (11.5-14.0); SEGMENTED NEUTROPHILS % (AUTO) 79.2 % (42-78); TOTAL CELLS COUNTED % (AUTO) 100 %; WHITE BLOOD COUNT 2.9 10^3/uL (4.0-10.5)
[2017-12-18 06:56] LABS: IRON(TIBC) 30.1 ug/dL (37-170)
[2017-12-18 07:03] LABS: ANION GAP 11 (5-19); BLOOD UREA NITROGEN 56 mg/dL (7-20); CARBON DIOXIDE 36 mmol/L (22-30); CHLORIDE 88 mmol/L (98-107); GLUCOSE 91 mg/dL (75-110); POTASSIUM 3.1 mmol/L (3.6-5.0); SODIUM 134.9 mmol/L (137-145)
[2017-12-18 07:11] LABS: ABSOLUTE RETICS # 0.053 10^6/uL (0.028-0.122)
[2017-12-18 07:43] LABS: HEMOGLOBIN 7.8 g/dL (12.0-15.5); PLATELET COUNT 99 10^3/uL (150-450)
--- NOTE | 2017-12-18 08:06 | PDOC PROGRESS REPORT ---
Subjective Progress Note for:: 12/18/17 Subjective:: The patient is complaining of being very short of breath. She has been given a lot of IV fluids down in the emergency room. She does complain of some cough. The events of Monday and Monday have been reviewed with patient. Reason For Visit: COPD EXACERBATION,PNEUMONIA,MET ALKALOSIS, Physical Exam Vital Signs: Temp Pulse Resp BP Pulse Ox 99.3 F 81 17 136/53 H 95 12/18/17 03:10 12/18/17 03:10 12/18/17 03:10 12/18/17 03:10 12/18/17 03:10 Intake & Output 12/17/17 12/18/17 12/19/17 06:59 06:59 06:59 Intake Total 1497 Output Total 500 Balance 997 Weight 46.4 kg General appearance: PRESENT: mild distress Head exam: PRESENT: atraumatic Eye exam: PRESENT: conjunctiva pink Neck exam: ABSENT: carotid bruit, JVD Respiratory exam: PRESENT: rales, rhonchi. ABSENT: wheezes Cardiovascular exam: PRESENT: RRR, +S1, +S2, systolic murmur Pulses: PRESENT: +1 pedal pulses bilateral GI/Abdominal exam: PRESENT: normal bowel sounds, soft Extremities exam: PRESENT: full ROM Musculoskeletal exam: PRESENT: full ROM Neurological exam: PRESENT: alert, awake Results Laboratory Results: 12/18/17 06:18 12/18/17 06:18 12/18/17 12/18/17 12/18/17 00:34 06:18 06:18 WBC 2.9 L RBC 2.53 L Hgb 7.8 L Hct 22.6 L MCV 89 MCH 31.0 MCHC 34.7 RDW 15.5 H Plt Count 99 L Seg Neutrophils % 79.2 H Lymphocytes % 5.1 L Monocytes % 14.5 H Eosinophils % 1.0 Basophils % 0.2 Absolute Neutrophils 2.3 Absolute Lymphocytes 0.1 L Absolute Monocytes 0.4 Absolute Eosinophils 0.0 Absolute Basophils 0.0 Retic Count (auto) Absolute Retic Sodium 134.9 L Potassium 3.1 L Chloride 88 L Carbon Dioxide 36 H Anion Gap 11 BUN 56 H Creatinine 2.84 H Est GFR ( Amer) 20 L Est GFR (Non-Af Amer) 16 L Glucose 91 Lactic Acid 2.1 Calcium 9.0 12/18/17 06:18 WBC RBC Hgb Hct MCV MCH MCHC RDW Plt Count Seg Neutrophils % Lymphocytes % Monocytes % Eosinophils % Basophils % Absolute Neutrophils Absolute Lymphocytes Absolute Monocytes Absolute Eosinophils Absolute Basophils Retic Count (auto) 2.10 Absolute Retic 0.053 Sodium Potassium Chloride Carbon Dioxide Anion Gap BUN Creatinine Est GFR ( Amer) Est GFR (Non-Af Amer) Glucose Lactic Acid Calcium Impressions: Chest X-Ray 12/17/17 19:39 IMPRESSION: No acute radiographic finding in the chest. Emphysema. Assessment & Plan - Diagnosis (1) CHF (congestive heart failure) Is this a current diagnosis for this admission?: Yes Plan: We will stop the IV fluids and start diuretics (2) Anemia Qualifiers: Anemia type: due to chronic kidney disease Chronic kidney disease stage: stage 4 (severe) Qualified Code(s): N18.4 - Chronic kidney disease, stage 4 ( severe); D63.1 - Anemia in chronic kidney disease; D63.1 - Anemia in chronic kidney disease Is this a current diagnosis for this admission?: Yes Plan: Nephrology consultation (3) Chronic kidney disease Is this a current diagnosis for this admission?: Yes Plan: Nephrology consultation (4) Hypoxia Is this a current diagnosis for this admission?: Yes Plan: We will force diureses (5) COPD (chronic obstructive pulmonary disease) Is this a current diagnosis for this admission?: Yes Plan: We will continue nebulizer treatments (6) Bronchitis Is this a current diagnosis for this admission?: Yes Plan: We will use doxycycline and azithromycin (7) Coronary artery disease Is this a current diagnosis for this admission?: Yes Plan: We will reduce to fluid intake and continue with diureses (8) CC (Crohn's colitis) Is this a current diagnosis for this admission?: Yes Plan: High output ileostomy will continue with hydration
[2017-12-18] MEDS: FUROSEMIDE INJ/PF 40 MG/4 ML SDV IV SCH ×2 (09:28→21:39)
[2017-12-18] MEDS: DOXYCYCLINE HYCLATE 100 MG in DEXTROSE 5%-WATER 250 ML IV SCH ×2 (09:29→21:39)
--- NOTE | 2017-12-18 10:54 | PDOC CONSULTATION ---
Consultation Consult reason:: Port placement History of Present Illness Admission Date/PCP: 12/17/17 22:11 CLINT REED, History of Present Illness: FABRICIO BARR is a 72 year old female The patient was seen by Dr. Haney 72 hours ago at [facility], and tentatively set up for a port placement today, December 18. During that visit the patient had shortness of breath and a dry cough. She had dyspnea on exertion. He was sent to [facility] for chest x-ray. Since that time she has been admitted with passive shortness of breath dry cough, and a working diagnosis of respiratory insufficiency due to either volume overload or sepsis. Past Medical History Cardiac Medical History: Reports: Hypertension, Other - Aortic valve replacement Pulmonary Medical History: Reports: Bronchitis, Chronic Obstructive Pulmonary Disease (COPD), Pneumonia Endocrine Medical History: Reports: None Renal/ Medical History: Reports: End Stage Renal Disease GI Medical History: Reports: Gastroesophageal Reflux Disease, Ulcerative Colitis Musculoskeltal Medical History: Reports: None Skin Medical History: Reports: None Psychiatric Medical History: Reports: None Traumatic Medical History: Reports: None Hematology: Reports: Anemia Infectious Medical History: Reports: None Past Surgical History Past Surgical History: Total abdominal colectomy, ileostomy for Crohn's disease; left lobectomy for lung carcinoma. Past Surgical History: Reports: Valve Replacement - Aortic valve, Other Social History Lives with: Spouse/Significant other Smoking Status: Former Smoker Number of Years Smokin Last Time Smoked: 2000 Frequency of Alcohol Use: Social Hx Recreational Drug Use: No Drugs: None Hx Prescription Drug Abuse: No - Advance Directive Resuscitation Status: Full Code Family History Family History: COPD, Hypertension Parental Family History Reviewed: Yes Children Family History Reviewed: Yes Sibling(s) Family History Reviewed.: Yes Medication/Allergy Home Medications: Alprazolam [Xanax] 1 tab PO TID PRN 12/18/17 Aspirin [Aspirin 81 mg Chewable Tablet] 1 tab PO DAILY 12/18/17 Calcitriol 1 cap PO DAILY 12/18/17 Calcium Carbonate [Calcium] 1 tab PO DAILY 12/18/17 Clindamycin HCl 4 cap PO ASDIR PRN 12/18/17 Colchicine [Colchicine 0.6 mg Tablet] 2 tab PO ASDIR PRN 12/18/17 Ergocalciferol (Vitamin D2) [Vitamin D2] 50,000 unit PO [id number] 12/18/17 Ezetimibe 1 tab PO DAILY 12/18/17 Famotidine [Pepcid AC] 1 tab PO QAM 12/18/17 Febuxostat [Uloric 40 mg Tablet] 1 tab PO DAILY 12/18/17 Magnesium Oxide [Magox] 2 tab PO BID 12/18/17 Meloxicam [Mobic 7.5 mg Tablet] 1 tab PO DAILY 12/18/17 [place]-3 Fatty Acids/Fish Oil [Fish Oil Concentrate Softgel] 1 cap PO DAILY 12/18 Potassium Chloride [Klor-Con M10] 1 tab PO DAILY 12/18/17 Promethazine HCl [Phenergan 25 mg Tablet] 1 tab PO QID PRN 12/18/17 Sertraline HCl 50 mg PO BID 12/18/17 Allergies/Adverse Reactions: allopurinol Allergy (Unknown, Verified 09/01/17 09:22) amoxicillin Allergy (Verified 09/01/17 09:22) Cephalosporins Allergy (Verified 09/01/17 09:23) levofloxacin [From Levaquin] Allergy (Verified 09/01/17 09:23) mesalamine [From Pentasa] Allergy (Verified 12/18/17 00:52) Review of Systems Constitutional: PRESENT: as per HPI Endocrine: ABSENT: cold intolerance, heat intolerance, polydipsia, polyuria Hematologic/Lymphatic: ABSENT: easy bleeding, easy bruising Physical Exam Vital Signs: Temp Pulse Resp BP Pulse Ox 99.6 F 86 22 H 136/62 H 92 12/18/17 07:38 12/18/17 08:42 12/18/17 08:42 12/18/17 07:38 12/18/17 08:42 Intake & Output 12/17/17 12/18/17 12/19/17 06:59 06:59 06:59 Intake Total 1497 Output Total 500 Balance 997 Weight 46.4 kg General appearance: PRESENT: mild distress Head exam: PRESENT: atraumatic Neck exam: PRESENT: full ROM Respiratory exam: PRESENT: other - Decrease lung volumes; mild tachypnea; mild rales. No JVD Results Laboratory Results: 12/18/17 06:18 12/18/17 06:18 12/18/17 12/18/17 12/18/17 00:34 06:18 06:18 WBC 2.9 L RBC 2.53 L Hgb 7.8 L Hct 22.6 L MCV 89 MCH 31.0 MCHC 34.7 RDW 15.5 H Plt Count 99 L Seg Neutrophils % 79.2 H Lymphocytes % 5.1 L Monocytes % 14.5 H Eosinophils % 1.0 Basophils % 0.2 Absolute Neutrophils 2.3 Absolute Lymphocytes 0.1 L Absolute Monocytes 0.4 Absolute Eosinophils 0.0 Absolute Basophils 0.0 Retic Count (auto) Absolute Retic Sodium 134.9 L Potassium 3.1 L Chloride 88 L Carbon Dioxide 36 H Anion Gap 11 BUN 56 H Creatinine 2.84 H Est GFR ( Amer) 20 L Est GFR (Non-Af Amer) 16 L Glucose 91 Lactic Acid 2.1 Calcium 9.0 Iron TIBC % Saturation Ferritin Vitamin B12 Folate 12/18/17 12/18/17 06:18 06:18 WBC RBC Hgb Hct MCV MCH MCHC RDW Plt Count Seg Neutrophils % Lymphocytes % Monocytes % Eosinophils % Basophils % Absolute Neutrophils Absolute Lymphocytes Absolute Monocytes Absolute Eosinophils Absolute Basophils Retic Count (auto) 2.10 Absolute Retic 0.053 Sodium Potassium Chloride Carbon Dioxide Anion Gap BUN Creatinine Est GFR ( Amer) Est GFR (Non-Af Amer) Glucose Lactic Acid Calcium Iron 30.1 L TIBC 466 H % Saturation 6 Ferritin 46.60 Vitamin B12 832.0 Folate 17.20 Impressions: Chest X-Ray 12/17/17 19:39 IMPRESSION: No acute radiographic finding in the chest. Emphysema. Assessment & Plan - Diagnosis (1) COPD (chronic obstructive pulmonary disease) Is this a current diagnosis for this admission?: Yes Plan: Exacerbation thereof versus respiratory infection. Recommendation: 1. Given the acute instability the patient's clinical condition we abort the port placement today, 2. Currently has satisfactory IV access; prone central line placement at this time; consult surgery if needed. (2) Metabolic alkalosis Is this a current diagnosis for this admission?: Yes (3) Productive cough Is this a current diagnosis for this admission?: Yes - Time Time Spent: 30 to 50 Minutes Smoking Cessation Education: over 10 minutes Medications reviewed and adjusted accordingly: Yes Anticipated discharge: Home - Inpatient Certification Based on my medical assessment, after consideration of the patient's comorbidities, presenting symptoms, or acuity I expect that the services needed warrant INPATIENT care.: Yes I certify that my determination is in accordance with my understanding of Medicare's requirements for reasonable and necessary INPATIENT services [42 CFR 412.3e].: Yes Medical Necessity: Need For IV Fluids
[2017-12-18] MEDS ORDERED: POTASSIUM CHLORIDE 10 MEQ CAPSULE.ER PO ONE (11:30)
[2017-12-18] MEDS: AZITHROMYCIN 500 MG in DEXTROSE 5%-WATER 250 ML IV SCH (11:43)
[2017-12-18] MEDS: ONDANSETRON 4 MG TAB.RAPDIS PO PRN ×3 (13:17→23:09)
--- NOTE | 2017-12-18 13:48 | PDOC CONSULTATION ---
Consultation Consult Date: 12/18/17 Consult reason:: Acute on chronic kidney disease History of Present Illness Admission Date/PCP: 12/17/17 22:11 DAVIDSON REED, History of Present Illness: FABRICIO BARR is a 72 year old female with history of complicated issues including COPD, ulcerative colitis status post colectomy with ileostomy and high output, CKD stage IV with base creatinine of around 3 with issues of acute exacerbations precipitated by her high-output status was admitted with history of progressive shortness of breath, nonproductive cough and fever.She just had been recently given gentle hydration followed by a unit of blood transfusion prior to her day of admission. After her recent admission she has been begun on antibiotics and vigorous fluid resuscitation. Dr. Sy saw the patient today and cut back on her fluids and began her on IV Lasix because of concern of fluid overload on top of her possible infective exacerbation of his COPD. Patient presently comfortable and she is able to talk well sitting upright.Labs and medications were reviewed with the patient. Past Medical History Cardiac Medical History: Reports: Other - Aortic valve replacement Pulmonary Medical History: Reports: Bronchitis, Chronic Obstructive Pulmonary Disease (COPD), Pneumonia Endocrine Medical History: Reports: None Complications of Diabetes: Reports: None Renal/ Medical History: Reports: Chronic Kidney Disease Stage IV GI Medical History: Reports: Gastroesophageal Reflux Disease, Ulcerative Colitis Musculoskeltal Medical History: Reports: None Skin Medical History: Reports: None Psychiatric Medical History: Reports: None Traumatic Medical History: Reports: None Infectious Medical History: Reports: None Hematology Medical History: Reports Anemia of Chronic Kidney Disease, Reports Iron Deficiency Anemia Past Surgical History Past Surgical History: Reports: Colostomy, Valve Replacement - Aortic valve, Other Social History Lives with: Spouse/Significant other Smoking Status: Former Smoker Number of Years Smokin Last Time Smoked: 2000 Frequency of Alcohol Use: Social Hx Recreational Drug Use: No Drugs: None Hx Prescription Drug Abuse: No - Advance Directive Resuscitation Status: Full Code Family History Parental Family History Reviewed: Yes - Negative for CKD Children Family History Reviewed: No Sibling(s) Family History Reviewed.: No Medication/Allergy Home Medications: Alprazolam [Xanax] 1 tab PO TID PRN 12/18/17 Aspirin [Aspirin 81 mg Chewable Tablet] 1 tab PO DAILY 12/18/17 Calcitriol 1 cap PO DAILY 12/18/17 Calcium Carbonate [Calcium] 1 tab PO DAILY 12/18/17 Clindamycin HCl 4 cap PO ASDIR PRN 12/18/17 Colchicine [Colchicine 0.6 mg Tablet] 2 tab PO ASDIR PRN 12/18/17 Ergocalciferol (Vitamin D2) [Vitamin D2] 50,000 unit PO [id number] 12/18/17 Ezetimibe 1 tab PO DAILY 12/18/17 Famotidine [Pepcid AC] 1 tab PO QAM 12/18/17 Febuxostat [Uloric 40 mg Tablet] 1 tab PO DAILY 12/18/17 Magnesium Oxide [Magox] 2 tab PO BID 12/18/17 Meloxicam [Mobic 7.5 mg Tablet] 1 tab PO DAILY 12/18/17 Edison-3 Fatty Acids/Fish Oil [Fish Oil Concentrate Softgel] 1 cap PO DAILY 12/18 Potassium Chloride [Klor-Con M10] 1 tab PO DAILY 12/18/17 Promethazine HCl [Phenergan 25 mg Tablet] 1 tab PO QID PRN 12/18/17 Sertraline HCl 50 mg PO BID 12/18/17 Allergies/Adverse Reactions: allopurinol Allergy (Unknown, Verified 09/01/17 09:22) amoxicillin Allergy (Verified 09/01/17 09:22) Cephalosporins Allergy (Verified 09/01/17 09:23) levofloxacin [From Levaquin] Allergy (Verified 09/01/17 09:23) mesalamine [From Pentasa] Allergy (Verified 12/18/17 00:52) Review of Systems Constitutional: PRESENT: fever(s), weakness. ABSENT: headache(s), night sweats Eyes: ABSENT: visual disturbances Ears: ABSENT: hearing changes Nose, Mouth, and Throat: ABSENT: headache(s), mouth pain, sore throat Cardiovascular: PRESENT: dyspnea on exertion, orthropnea. ABSENT: chest pain, edema, palpitations Respiratory: PRESENT: cough, dyspnea. ABSENT: hemoptysis Gastrointestinal: PRESENT: diarrhea, nausea. ABSENT: abdominal pain, constipation, dysphagia, heartburn, hematemesis, hematochezia, vomiting Neurological: ABSENT: abnormal movements, abnormal speech, focal weakness Hematologic/Lymphatic: ABSENT: easy bruising, lymphadenopathy Physical Exam Vital Signs: Temp Pulse Resp BP Pulse Ox 98.9 F 85 22 H 134/69 H 96 12/18/17 12:14 12/18/17 12:14 12/18/17 12:14 12/18/17 12:14 12/18/17 12:14 Intake & Output 12/17/17 12/18/17 12/19/17 06:59 06:59 06:59 Intake Total 1497 355 Output Total 500 400 Balance 997 -45 Weight 46.4 kg General appearance: PRESENT: no acute distress Eye exam: PRESENT: EOMI, PERRLA. ABSENT: conjunctiva pink Ear exam: PRESENT: normal external ear exam Mouth exam: PRESENT: neck supple. ABSENT: moist Neck exam: ABSENT: lymphadenopathy, meningismus, tenderness, thyromegaly, tracheal deviation Respiratory exam: PRESENT: clear to auscultation delfino, crackles, decreased breath sounds, rhonchi, symmetrical, tachypnea Cardiovascular exam: PRESENT: +S1, +S2, systolic murmur GI/Abdominal exam: PRESENT: normal bowel sounds, soft. ABSENT: distended, organomegaly, tenderness Extremities exam: ABSENT: calf tenderness, pedal edema Neurological exam: PRESENT: alert, awake, oriented to person, oriented to place Skin exam: ABSENT: cyanosis, erythema, mottled Results Laboratory Results: 12/18/17 06:18 12/18/17 06:18 12/18/17 12/18/17 12/18/17 00:34 06:18 06:18 WBC 2.9 L RBC 2.53 L Hgb 7.8 L Hct 22.6 L MCV 89 MCH 31.0 MCHC 34.7 RDW 15.5 H Plt Count 99 L Seg Neutrophils % 79.2 H Lymphocytes % 5.1 L Monocytes % 14.5 H Eosinophils % 1.0 Basophils % 0.2 Absolute Neutrophils 2.3 Absolute Lymphocytes 0.1 L Absolute Monocytes 0.4 Absolute Eosinophils 0.0 Absolute Basophils 0.0 Retic Count (auto) Absolute Retic Sodium 134.9 L Potassium 3.1 L Chloride 88 L Carbon Dioxide 36 H Anion Gap 11 BUN 56 H Creatinine 2.84 H Est GFR ( Amer) 20 L Est GFR (Non-Af Amer) 16 L Glucose 91 Lactic Acid 2.1 Calcium 9.0 Iron TIBC % Saturation Ferritin Vitamin B12 Folate 12/18/17 12/18/17 06:18 06:18 WBC RBC Hgb Hct MCV MCH MCHC RDW Plt Count Seg Neutrophils % Lymphocytes % Monocytes % Eosinophils % Basophils % Absolute Neutrophils Absolute Lymphocytes Absolute Monocytes Absolute Eosinophils Absolute Basophils Retic Count (auto) 2.10 Absolute Retic 0.053 Sodium Potassium Chloride Carbon Dioxide Anion Gap BUN Creatinine Est GFR ( Amer) Est GFR (Non-Af Amer) Glucose Lactic Acid Calcium Iron 30.1 L TIBC 466 H % Saturation 6 Ferritin 46.60 Vitamin B12 832.0 Folate 17.20 Impressions: Chest X-Ray 12/17/17 19:39 IMPRESSION: No acute radiographic finding in the chest. Emphysema. Assessment & Plan - Diagnosis (1) KAMILA (acute kidney injury) Plan: Patient is obviously benefited from the fluids even though I agree the fluid rate has been a bit on the higher side. She has evidences of both congestive heart failure and COPD exacerbation. Agree with stopping the fluids and starting on IV Lasix which can to be modified in the next day or 2. (2) Chronic renal disease, stage IV Plan: She has a baseline creatinine of between 2.5 and 3. Acute exacerbation of her CKD from dehydration. Monitor. No indications for renal replacements. (3) CHF (congestive heart failure) Is this a current diagnosis for this admission?: Yes Plan: Early. Agree with stoppage of IV fluids and starting IV Lasix. Monitor. (4) Iron deficiency anemia Plan: Plan for IV iron infusion. Discuss pros and cons including allergic reactions and anaphylaxis. Patient willing to proceed. Following this we will start on erythropoietin. (5) COPD (chronic obstructive pulmonary disease) Is this a current diagnosis for this admission?: Yes Plan: Acute infective exacerbation. Presently on antibiotics and seemingly better. As per Davidson Reed MD. (6) Hypokalemia Is this a current diagnosis for this admission?: Yes Plan: Needs replacement. Orders been placed. Monitor. (7) Hypoxia Is this a current diagnosis for this admission?: Yes Plan: From a combination of CHF and COPD exacerbation. Presently much better. Monitor. (8) Anemia in CKD (chronic kidney disease) Plan: Following IV iron replacements will consider starting on erythropoietin. (9) Metabolic alkalosis Is this a current diagnosis for this admission?: Yes Plan: Mainly from COPD. Monitor. (10) Ulcerative colitis Plan: With status post colectomy and now with ileostomy. High output state.Otherwise stable. (11) Ileostomy present Plan: High output. Leads to intermittent acute exacerbations of her CKD. She would need intermittent fluid hydration for which a Port-A-Cath was in the making. However this has been postponed by Dr. Haney given her current status.
[2017-12-18] MEDS: POTASSIUM CHLORIDE 10 MEQ CAPSULE.ER PO SCH (17:48)
[2017-12-18] MEDS: FLUTICASONE NASAL SPRAY 50 MCG/SPRY 120 SPRAY/16 GM NASL SCH (21:39)
[2017-12-19] MEDS: IPRATROPIUM/ALBUTEROL 0.5-2.5 MG/3 ML AMPUL NEB SCH ×4 (01:52→20:23)
[2017-12-19] MEDS: HEPARIN SOD (PORCINE) 5,000 UNIT/ML 1 ML SYRINGE SUBCUT SCH ×2 (05:21→17:17)
[2017-12-19 05:24] LABS: ABSOLUTE LYMPHOCYTES (AUTO) 0.3 10^3/uL (0.5-4.7); ABSOLUTE MONOCYTES (AUTO) 0.6 10^3/uL (0.1-1.4); ABSOLUTE NEUT (AUTO) 2.7 10^3/uL (1.7-8.2); BASOPHILS % (AUTO) 0.2 % (0-2); EOSINOPHILS % (AUTO) 0.8 % (0-6); HEMATOCRIT 21.2 % (36.0-47.0); LYMPHOCYTES % (AUTO) 7.6 % (13-45); MEAN CORPUSCULAR HEMOGLOBIN 31.5 pg (27.0-33.4); MEAN CORPUSCULAR HGB CONC 35.5 g/dL (32.0-36.0); MEAN CORPUSCULAR VOLUME 89 fl (80-97); PLATELET COUNT 100 10^3/uL (150-450); RED BLOOD COUNT 2.39 10^6/uL (3.72-5.28); RED CELL DISTRIBUTION WIDTH 16.1 % (11.5-14.0); SEGMENTED NEUTROPHILS % (AUTO) 74.4 % (42-78); TOTAL CELLS COUNTED % (AUTO) 100 %; WHITE BLOOD COUNT 3.7 10^3/uL (4.0-10.5)
[2017-12-19 05:50] LABS: HEMOGLOBIN 7.5 g/dL (12.0-15.5)
[2017-12-19 06:13] LABS: ALANINE AMINOTRANSFERASE 26 U/L (9-52); ALKALINE PHOSPHATASE 58 U/L (38-126); ANION GAP 12 (5-19); ASPARTATE AMINO TRANSFERASE 40 U/L (14-36); BILIRUBIN,DIRECT 0.5 mg/dL (0.0-0.4); BILIRUBIN,TOTAL 0.5 mg/dL (0.2-1.3); BLOOD UREA NITROGEN 54 mg/dL (7-20); CALCIUM 8.5 mg/dL (8.4-10.2); CARBON DIOXIDE 34 mmol/L (22-30); CHLORIDE 81 mmol/L (98-107); GLUCOSE 85 mg/dL (75-110); SODIUM 126.8 mmol/L (137-145); TOTAL PROTEIN 5.4 g/dL (6.3-8.2)
[2017-12-19 06:28] LABS: POTASSIUM 2.6 mmol/L (3.6-5.0)
[2017-12-19] MEDS ORDERED: FERUMOXYTOL (ESRD) 510 MG/NS 100 ML IV ONE ×2 (08:00)
--- NOTE | 2017-12-19 08:03 | PDOC PROGRESS REPORT ---
Subjective Progress Note for:: 12/19/17 Subjective:: The patient states to feel much better. She is still having some cough. Her breathing has improved. She had a nosebleed last night. She is upset about her renal diet. Reason For Visit: COPD EXACERBATION,PNEUMONIA,MET ALKALOSIS, Physical Exam Vital Signs: Temp Pulse Resp BP Pulse Ox 97.3 F 72 21 H 104/49 L 100 12/19/17 03:19 12/19/17 03:19 12/19/17 03:19 12/19/17 03:19 12/19/17 03:19 Intake & Output 12/18/17 12/19/17 12/20/17 06:59 06:59 06:59 Intake Total 1497 1797 Output Total 500 1335 Balance 997 462 Weight 46.4 kg 50.3 kg General appearance: PRESENT: mild distress Head exam: PRESENT: atraumatic Eye exam: PRESENT: conjunctiva pink Neck exam: PRESENT: carotid bruit. ABSENT: JVD Respiratory exam: PRESENT: crackles, rhonchi. ABSENT: wheezes Cardiovascular exam: PRESENT: RRR, +S1, +S2, systolic murmur GI/Abdominal exam: PRESENT: normal bowel sounds, soft Extremities exam: PRESENT: full ROM Musculoskeletal exam: PRESENT: ambulatory Neurological exam: PRESENT: awake Results Laboratory Results: 12/19/17 04:26 12/19/17 04:26 12/18/17 12/19/17 12/19/17 06:18 04:26 04:26 WBC 3.7 L RBC 2.39 L Hgb 7.5 L Hct 21.2 L MCV 89 MCH 31.5 MCHC 35.5 RDW 16.1 H Plt Count 100 L Seg Neutrophils % 74.4 Lymphocytes % 7.6 L Monocytes % 17.0 H Eosinophils % 0.8 Basophils % 0.2 Absolute Neutrophils 2.7 Absolute Lymphocytes 0.3 L Absolute Monocytes 0.6 Absolute Eosinophils 0.0 Absolute Basophils 0.0 Sodium 126.8 L Potassium 2.6 L* Chloride 81 L Carbon Dioxide 34 H Anion Gap 12 BUN 54 H Creatinine 2.65 H Est GFR ( Amer) 22 L Est GFR (Non-Af Amer) 18 L Glucose 85 Calcium 8.5 Iron 30.1 L TIBC 466 H % Saturation 6 Ferritin 46.60 Total Bilirubin 0.5 AST 40 H ALT 26 Alkaline Phosphatase 58 Total Protein 5.4 L Albumin 3.0 L Vitamin B12 832.0 Folate 17.20 Impressions: Chest X-Ray 12/17/17 19:39 IMPRESSION: No acute radiographic finding in the chest. Emphysema. Assessment & Plan - Diagnosis (1) CHF (congestive heart failure) Is this a current diagnosis for this admission?: Yes Plan: Continue diureses (2) Anemia Qualifiers: Anemia type: due to chronic kidney disease Chronic kidney disease stage: stage 4 (severe) Qualified Code(s): N18.4 - Chronic kidney disease, stage 4 ( severe); D63.1 - Anemia in chronic kidney disease; D63.1 - Anemia in chronic kidney disease Is this a current diagnosis for this admission?: Yes Plan: Nephrology consultation (3) Chronic kidney disease Is this a current diagnosis for this admission?: Yes Plan: Nephrology consultation (4) Hypoxia Is this a current diagnosis for this admission?: Yes Plan: Improved with diureses and antibiotics (5) COPD (chronic obstructive pulmonary disease) Is this a current diagnosis for this admission?: Yes Plan: Stable continue current treatment (6) Bronchitis Is this a current diagnosis for this admission?: Yes Plan: We will use doxycycline and azithromycin (7) Coronary artery disease Is this a current diagnosis for this admission?: Yes (8) CC (Crohn's colitis) Is this a current diagnosis for this admission?: Yes Plan: High output ileostomy will continue with hydration (9) Hypokalemia Is this a current diagnosis for this admission?: Yes Plan: We will supplement with potassium
[2017-12-19] MEDS ORDERED: POTASSI CL 20 MEQ/50 ML RIDER 20 MEQ/50 ML RTUPB IV SCH ×2 (08:15→18:00)
[2017-12-19] MEDS: FUROSEMIDE INJ/PF 40 MG/4 ML SDV IV SCH (10:15)
[2017-12-19] MEDS: FLUTICASONE NASAL SPRAY 50 MCG/SPRY 120 SPRAY/16 GM NASL SCH ×2 (10:15→23:14)
[2017-12-19] MEDS: POTASSI CL 20 MEQ/50 ML RIDER 20 MEQ/50 ML RTUPB IV SCH ×3 (10:16→23:15)
[2017-12-19] MEDS: DOXYCYCLINE HYCLATE 100 MG in DEXTROSE 5%-WATER 250 ML IV SCH ×2 (10:16→23:15)
[2017-12-19] MEDS: POTASSIUM CHLORIDE 10 MEQ CAPSULE.ER PO SCH (10:16)
[2017-12-19] MEDS: ONDANSETRON 4 MG TAB.RAPDIS PO PRN (10:29)
[2017-12-19] MEDS ORDERED: LOPERAMIDE HCL 2 MG CAPSULE PO PRN (14:35)
[2017-12-19] MEDS ORDERED: FUROSEMIDE INJ/PF 40 MG/4 ML SDV IV SCH (14:58)
[2017-12-19 15:29] LABS: ANION GAP 12 (5-19); BLOOD UREA NITROGEN 53 mg/dL (7-20); CALCIUM 8.9 mg/dL (8.4-10.2); CARBON DIOXIDE 34 mmol/L (22-30); CHLORIDE 85 mmol/L (98-107); GLUCOSE 114 mg/dL (75-110); POTASSIUM 3.3 mmol/L (3.6-5.0); SODIUM 130.7 mmol/L (137-145)
--- NOTE | 2017-12-19 15:32 | PDOC PROGRESS REPORT ---
Subjective Progress Note for:: 12/19/17 Reason For Visit: Patient seen today. She is up and eating. Her breathing is better. She is very unhappy with general situation. At one time earlier she had told me that she was emptying her ileostomy bag between 10 and 12 times a day. However she now clarifies that it is actually only about 5-6 full bags as she empties sometimes half fill bags.No complaints of any abdominal pains fever or chills. No history of any nausea vomiting. Labs and medications were reviewed with the patient which shows low potassium and sodium.She has been [facility] a [facility] for her ulcerative colitis and last saw him a long time ago. She has not had her frequent high output ileostomy delta looked at by anybody locally. Physical Exam Vital Signs: Temp Pulse Resp BP Pulse Ox 98.7 F 64 16 119/64 99 12/19/17 12:06 12/19/17 14:42 12/19/17 14:42 12/19/17 12:06 12/19/17 14:42 Intake & Output 12/18/17 12/19/17 12/20/17 06:59 06:59 06:59 Intake Total 1497 1797 237 Output Total 500 1335 200 Balance 997 462 37 Weight 46.4 kg 50.3 kg General appearance: PRESENT: no acute distress Respiratory exam: PRESENT: clear to auscultation delfino, decreased breath sounds, rales - Scattered, rhonchi Cardiovascular exam: PRESENT: +S1, +S2, systolic murmur GI/Abdominal exam: PRESENT: normal bowel sounds, soft. ABSENT: distended, organomegaly, tenderness Extremities exam: ABSENT: pedal edema Neurological exam: PRESENT: alert, awake, oriented to person, oriented to place Psychiatric exam: PRESENT: anxious Skin exam: PRESENT: dry. ABSENT: erythema, mottled Results Laboratory Results: 12/19/17 04:26 12/19/17 12/19/17 04:26 04:26 WBC 3.7 L RBC 2.39 L Hgb 7.5 L Hct 21.2 L MCV 89 MCH 31.5 MCHC 35.5 RDW 16.1 H Plt Count 100 L Seg Neutrophils % 74.4 Lymphocytes % 7.6 L Monocytes % 17.0 H Eosinophils % 0.8 Basophils % 0.2 Absolute Neutrophils 2.7 Absolute Lymphocytes 0.3 L Absolute Monocytes 0.6 Absolute Eosinophils 0.0 Absolute Basophils 0.0 Sodium 126.8 L Potassium 2.6 L* Chloride 81 L Carbon Dioxide 34 H Anion Gap 12 BUN 54 H Creatinine 2.65 H Est GFR ( Amer) 22 L Est GFR (Non-Af Amer) 18 L Glucose 85 Calcium 8.5 Total Bilirubin 0.5 AST 40 H ALT 26 Alkaline Phosphatase 58 Total Protein 5.4 L Albumin 3.0 L Impressions: Chest X-Ray 12/17/17 19:39 IMPRESSION: No acute radiographic finding in the chest. Emphysema. Assessment & Plan - Diagnosis (1) KAMILA (acute kidney injury) Plan: Nonoliguric. Presently stable creatinine. I would cut down her IV Lasix to 20 twice daily and follow-up. (2) Chronic renal disease, stage IV Plan: Latest renal numbers are stable. No indications for renal replacements. However she needs to have her high output ileostomy looked at because I think this might be 1 of the crux of her frequent acute exacerbations of her CKD. After discussion she is willing to see Dr. Javier here and I am going to place a consult for that. (3) CHF (congestive heart failure) Is this a current diagnosis for this admission?: Yes Plan: Resolved. cutdown on Lasix and monitor. (4) Iron deficiency anemia Plan: Plan for IV iron. She is been told about adverse effects including anaphylaxis and willing to proceed. Orders been placed. (5) COPD (chronic obstructive pulmonary disease) Is this a current diagnosis for this admission?: Yes Plan: Still active. Currently on antibiotics. Might consider steroids if needed especially if she has shortness of breath with exertion. (6) Hypokalemia Is this a current diagnosis for this admission?: Yes Plan: Combination of gastrointestinal losses and exacerbated by IV Lasix. She is got a deficit of approximately 120 mEq. Adjust dose IV as p.o. might exacerbate her high output. (7) Hypoxia Is this a current diagnosis for this admission?: Yes Plan: Improving. (8) Anemia in CKD (chronic kidney disease) Plan: Once the iron is replaced will start on erythropoietin. Had discussed with her earlier in my office and she was willing to proceed. (9) Metabolic alkalosis Is this a current diagnosis for this admission?: Yes Plan: From COPD. (10) Ileostomy present Plan: High output. This I believe is 1 of the causal factors for her frequent exacerbations of her CKD. We had discussed in the past about giving her IV fluid boluses on a regular basis in the week through a Port-A-Cath. However if we can fix her high output ileostomy than that might prevent her frequent need for rehydration and the need for a Port-A-Cath as well. Will hold off placing a Port-A-Cath for the moment and I discussed that with the patient as well as with Ms. Batista her treating nurse. I will start her on Imodium 2 8 hours for now until we can get Dr. Javier to consult her. (11) Hyponatremia Plan: Likely GI loss plus worsening with Lasix. I thought she was initially on normal saline by Davidson Ferguson MD but that was not the case. We will repeat her labs and then decide how to correct it.
[2017-12-19] MEDS: AZITHROMYCIN 500 MG in DEXTROSE 5%-WATER 250 ML IV SCH (17:15)
[2017-12-19] MEDS: MAGNESIUM SULFATE/D5W 1 GM/100 ML RTUPB IV SCH ×2 (20:11→23:14)
[2017-12-19] MEDS ORDERED: LORAZEPAM 1 MG TABLET ONE (20:46)
--- NOTE | 2017-12-19 22:36 | RADIOLOGY REPORT (SQ) ---
EXAM DESCRIPTION: CHEST SINGLE VIEW COMPLETED DATE/TIME: 12/19/2017 10:19 pm REASON FOR STUDY: central line COMPARISON: 12/17/2017 EXAM PARAMETERS: NUMBER OF VIEWS: One view. TECHNIQUE: Single frontal radiographic view of the chest acquired. RADIATION DOSE: NA LIMITATIONS: None. FINDINGS: LUNGS AND PLEURA: Lungs are hyperexpanded. Mild chronic interstitial changes. No infiltr ate or effusion. MEDIASTINUM AND HILAR STRUCTURES: No masses. Contour normal. HEART AND VASCULAR STRUCTURES: Heart normal in size. Normal vasculature. BONES: No acute findings. HARDWARE: Sternotomy wires. Left internal jugular catheter with its tip in the superior vena cava. OTHER: No other significant finding. IMPRESSION: Chronic lung changes. Catheter placement as described. TECHNICAL DOCUMENTATION: JOB ID: [id number] [employer]- All Rights Reserved Reading location - IP/workstation name: [email or web address]
[2017-12-19] MEDS: FUROSEMIDE INJ/PF 20 MG/2 ML SDV IV SCH (23:14)
[2017-12-20] MEDS: MAGNESIUM SULFATE/D5W 1 GM/100 ML RTUPB IV SCH (00:20)
[2017-12-20] MEDS: IPRATROPIUM/ALBUTEROL 0.5-2.5 MG/3 ML AMPUL NEB SCH ×4 (01:51→20:25)
[2017-12-20] MEDS: HEPARIN SOD (PORCINE) 5,000 UNIT/ML 1 ML SYRINGE SUBCUT SCH ×2 (05:09→17:22)
[2017-12-20] MEDS: POTASSI CL 20 MEQ/50 ML RIDER 20 MEQ/50 ML RTUPB IV SCH ×6 (05:51→17:49)
[2017-12-20 06:34] LABS: ANION GAP 11 (5-19); BLOOD UREA NITROGEN 48 mg/dL (7-20); CALCIUM 8.4 mg/dL (8.4-10.2); CARBON DIOXIDE 33 mmol/L (22-30); CHLORIDE 83 mmol/L (98-107); GLUCOSE 82 mg/dL (75-110); SODIUM 126.8 mmol/L (137-145)
[2017-12-20 06:35] LABS: ABSOLUTE LYMPHOCYTES (AUTO) 0.3 10^3/uL (0.5-4.7); ABSOLUTE MONOCYTES (AUTO) 0.6 10^3/uL (0.1-1.4); ABSOLUTE NEUT (AUTO) 2.4 10^3/uL (1.7-8.2); BASOPHILS % (AUTO) 0.4 % (0-2); EOSINOPHILS % (AUTO) 1.1 % (0-6); HEMATOCRIT 20.4 % (36.0-47.0); LYMPHOCYTES % (AUTO) 7.9 % (13-45); MEAN CORPUSCULAR HEMOGLOBIN 31.6 pg (27.0-33.4); MEAN CORPUSCULAR HGB CONC 35.8 g/dL (32.0-36.0); MEAN CORPUSCULAR VOLUME 88 fl (80-97); MONOCYTES % (AUTO) 17.3 % (3-13); PLATELET COUNT 100 10^3/uL (150-450); RED CELL DISTRIBUTION WIDTH 15.5 % (11.5-14.0); SEGMENTED NEUTROPHILS % (AUTO) 73.3 % (42-78); TOTAL CELLS COUNTED % (AUTO) 100 %; WHITE BLOOD COUNT 3.3 10^3/uL (4.0-10.5)
[2017-12-20 06:37] LABS: POTASSIUM 2.5 mmol/L (3.6-5.0)
[2017-12-20 06:40] LABS: HEMOGLOBIN 7.3 g/dL (12.0-15.5)
--- NOTE | 2017-12-20 08:19 | PDOC PROGRESS REPORT ---
Subjective Progress Note for:: 12/20/17 Subjective:: The patient states to feel better. She still having some cough. She had a central line placed last night. Her potassium and magnesium are low. Her H&H is drifting down. Reason For Visit: COPD EXACERBATION,PNEUMONIA,MET ALKALOSIS, Physical Exam Vital Signs: Temp Pulse Resp BP Pulse Ox 98.0 F 71 20 114/59 L 97 12/20/17 07:17 12/20/17 07:17 12/20/17 07:17 12/20/17 07:17 12/20/17 07:17 Intake & Output 12/19/17 12/20/17 12/21/17 06:59 06:59 06:59 Intake Total 1797 2254 Output Total 1335 200 Balance 462 2054 Weight 50.3 kg 51.5 kg General appearance: PRESENT: mild distress Head exam: PRESENT: atraumatic Eye exam: PRESENT: conjunctiva pink Neck exam: ABSENT: carotid bruit, JVD Respiratory exam: PRESENT: rhonchi Cardiovascular exam: PRESENT: +S1, +S2, systolic murmur GI/Abdominal exam: PRESENT: normal bowel sounds, soft Extremities exam: PRESENT: full ROM Musculoskeletal exam: PRESENT: ambulatory Neurological exam: PRESENT: alert, awake Results Laboratory Results: 12/20/17 05:15 12/20/17 05:15 12/19/17 12/19/17 12/20/17 14:48 14:48 05:15 WBC 3.3 L RBC 2.30 L Hgb 7.3 L Hct 20.4 L MCV 88 MCH 31.6 MCHC 35.8 RDW 15.5 H Plt Count 100 L Seg Neutrophils % 73.3 Lymphocytes % 7.9 L Monocytes % 17.3 H Eosinophils % 1.1 Basophils % 0.4 Absolute Neutrophils 2.4 Absolute Lymphocytes 0.3 L Absolute Monocytes 0.6 Absolute Eosinophils 0.0 Absolute Basophils 0.0 Sodium 130.7 L Potassium Cancelled 3.3 L Chloride 85 L Carbon Dioxide 34 H Anion Gap 12 BUN 53 H Creatinine 2.83 H Est GFR ( Amer) 20 L Est GFR (Non-Af Amer) 17 L Glucose 114 H Calcium 8.9 Magnesium 1.3 L 12/20/17 05:15 WBC RBC Hgb Hct MCV MCH MCHC RDW Plt Count Seg Neutrophils % Lymphocytes % Monocytes % Eosinophils % Basophils % Absolute Neutrophils Absolute Lymphocytes Absolute Monocytes Absolute Eosinophils Absolute Basophils Sodium 126.8 L Potassium 2.5 L* Chloride 83 L Carbon Dioxide 33 H Anion Gap 11 BUN 48 H Creatinine 2.11 H Est GFR ( Amer) 28 L Est GFR (Non-Af Amer) 23 L Glucose 82 Calcium 8.4 Magnesium Impressions: Chest X-Ray 12/19/17 00:00 IMPRESSION: Chronic lung changes. Catheter placement as described. Assessment & Plan - Diagnosis (1) CHF (congestive heart failure) Is this a current diagnosis for this admission?: Yes Plan: Continue diureses (2) Anemia Qualifiers: Anemia type: due to chronic kidney disease Chronic kidney disease stage: stage 4 (severe) Qualified Code(s): N18.4 - Chronic kidney disease, stage 4 ( severe); D63.1 - Anemia in chronic kidney disease; D63.1 - Anemia in chronic kidney disease Is this a current diagnosis for this admission?: Yes (3) Chronic kidney disease Is this a current diagnosis for this admission?: Yes (4) Hypoxia Is this a current diagnosis for this admission?: Yes Plan: We will recheck the O2 saturation on room air (5) COPD (chronic obstructive pulmonary disease) Is this a current diagnosis for this admission?: Yes Plan: Stable continue current treatment (6) Bronchitis Is this a current diagnosis for this admission?: Yes (7) Coronary artery disease Is this a current diagnosis for this admission?: Yes (8) CC (Crohn's colitis) Is this a current diagnosis for this admission?: Yes (9) Hypokalemia Is this a current diagnosis for this admission?: Yes Plan: Because of high output ileostomy the patient continues to drop the potassium and magnesium
[2017-12-20] MEDS: DOXYCYCLINE HYCLATE 100 MG TABLET PO SCH ×2 (10:18→21:22)
[2017-12-20] MEDS: AZITHROMYCIN 250 MG TABLET PO SCH (10:18)
[2017-12-20] MEDS: MAGNESIUM OXIDE 400 MG TABLET PO SCH ×2 (10:18→17:48)
[2017-12-20] MEDS: FUROSEMIDE INJ/PF 20 MG/2 ML SDV IV SCH (10:19)
[2017-12-20] MEDS: FLUTICASONE NASAL SPRAY 50 MCG/SPRY 120 SPRAY/16 GM NASL SCH ×2 (10:20→21:23)
[2017-12-20] MEDS ORDERED: LOPERAMIDE HCL ORAL SOLN 1 MG/5 ML UDC PO ONE (11:30)
[2017-12-20] MEDS: NORMAL SALINE 1000 ML 1,000 ML IV PRN (13:08)
--- NOTE | 2017-12-20 14:19 | PDOC PROGRESS REPORT ---
Subjective Progress Note for:: 12/20/17 Reason For Visit: Generally feeling about the same as yesterday. She is up and eating her breakfast. Denies any history of chest pains, fever or chills. No worsening breathing difficulties. Labs and medications were reviewed with the patient. Labs shows low potassium of 2.5 and is being replaced with IV riders. Her was at the bedside. He had no questions. Everything was also discussed with her treating nurse. Physical Exam Vital Signs: Temp Pulse Resp BP Pulse Ox 98.0 F 70 18 114/59 L 97 12/20/17 07:17 12/20/17 08:36 12/20/17 08:36 12/20/17 07:17 12/20/17 07:17 Intake & Output 12/19/17 12/20/17 12/21/17 06:59 06:59 06:59 Intake Total 1797 2254 Output Total 1335 200 Balance 462 2054 Weight 50.3 kg 51.5 kg General appearance: PRESENT: no acute distress Respiratory exam: PRESENT: clear to auscultation delfino, crackles, rhonchi - Scattered and harsh Cardiovascular exam: PRESENT: +S1, +S2, systolic murmur GI/Abdominal exam: PRESENT: normal bowel sounds, soft. ABSENT: distended, organomegaly, tenderness Neurological exam: PRESENT: alert, awake, oriented to person, oriented to place , oriented to time Results Laboratory Results: 12/20/17 05:15 12/20/17 05:15 12/19/17 12/19/17 12/20/17 14:48 14:48 05:15 WBC 3.3 L RBC 2.30 L Hgb 7.3 L Hct 20.4 L MCV 88 MCH 31.6 MCHC 35.8 RDW 15.5 H Plt Count 100 L Seg Neutrophils % 73.3 Lymphocytes % 7.9 L Monocytes % 17.3 H Eosinophils % 1.1 Basophils % 0.4 Absolute Neutrophils 2.4 Absolute Lymphocytes 0.3 L Absolute Monocytes 0.6 Absolute Eosinophils 0.0 Absolute Basophils 0.0 Sodium 130.7 L Potassium Cancelled 3.3 L Chloride 85 L Carbon Dioxide 34 H Anion Gap 12 BUN 53 H Creatinine 2.83 H Est GFR ( Amer) 20 L Est GFR (Non-Af Amer) 17 L Glucose 114 H Calcium 8.9 Magnesium 1.3 L 12/20/17 05:15 WBC RBC Hgb Hct MCV MCH MCHC RDW Plt Count Seg Neutrophils % Lymphocytes % Monocytes % Eosinophils % Basophils % Absolute Neutrophils Absolute Lymphocytes Absolute Monocytes Absolute Eosinophils Absolute Basophils Sodium 126.8 L Potassium 2.5 L* Chloride 83 L Carbon Dioxide 33 H Anion Gap 11 BUN 48 H Creatinine 2.11 H Est GFR ( Amer) 28 L Est GFR (Non-Af Amer) 23 L Glucose 82 Calcium 8.4 Magnesium Impressions: Chest X-Ray 12/19/17 00:00 IMPRESSION: Chronic lung changes. Catheter placement as described. Assessment & Plan - Diagnosis (1) KAMILA (acute kidney injury) Plan: Nonoliguric. Presently stable creatinine and back to baseline. Continue current medications. (2) Chronic renal disease, stage IV Plan: Latest renal numbers are stable. No indications for renal replacements. She has some of this being contributed by her high output ileostomy. Start on now Imodium 1 twice daily and hold for constipation. Discussed at length with the patient and her about dietary modifications which by itself can slow some of her fast transit times.Some more she seems willing to listen and at that and change her diet which would be interesting to see how her electrolytes react to that. (3) Hypokalemia Is this a current diagnosis for this admission?: Yes Plan: Combination of gastrointestinal losses and exacerbated by IV Lasix. She is got a deficit of approximately 120 mEq. Adjust dose IV as p.o. might exacerbate her high output. (4) CHF (congestive heart failure) Is this a current diagnosis for this admission?: Yes Plan: Resolved. Continue on current medications. (5) Iron deficiency anemia Plan: She received 1 dose of IV iron.The dose should be given to her next week either as an inpatient or as an outpatient depending on where she is. We will now start her on erythropoietin to which she has consented earlier. (6) Anemia in CKD (chronic kidney disease) Plan: Now that the iron is replaced will start on erythropoietin. (7) COPD (chronic obstructive pulmonary disease) Is this a current diagnosis for this admission?: Yes Plan: Still active. Currently on antibiotics. Might consider steroids if needed especially if she has shortness of breath with exertion. (8) Hypoxia Is this a current diagnosis for this admission?: Yes (9) Metabolic alkalosis Is this a current diagnosis for this admission?: Yes Plan: From COPD. (10) Ileostomy present Plan: High output. This I believe is 1 of the causal factors for her frequent exacerbations of her CKD. We had discussed in the past about giving her IV fluid boluses on a regular basis in the week through a Port-A-Cath. However if we can fix her high output ileostomy than that might prevent her frequent need for rehydration and the need for a Port-A-Cath as well. Will hold off placing a Port-A-Cath for the moment. I will start her on Imodium q 12 hours for now. See response to this and later can see Dr. Javier as an OP. (11) Hyponatremia Plan: Monitor. Advised fluid restrictions orally. (12) Hypomagnesemia Plan: Being replaced. Monitor.
[2017-12-20 15:55] LABS: ANION GAP 11 (5-19); BLOOD UREA NITROGEN 44 mg/dL (7-20); CALCIUM 8.7 mg/dL (8.4-10.2); CARBON DIOXIDE 31 mmol/L (22-30); CHLORIDE 89 mmol/L (98-107); GLUCOSE 109 mg/dL (75-110); SODIUM 131.2 mmol/L (137-145)
[2017-12-20] MEDS ORDERED: EPOETIN ALFA INJ 20000 UNIT/1 ML VIAL (RENAL) SUBCUT SCH (16:00)
[2017-12-20 16:05] LABS: POTASSIUM 3.5 mmol/L (3.6-5.0)
[2017-12-20] MEDS: LOPERAMIDE HCL ORAL SOLN 1 MG/5 ML UDC PO SCH (18:00)
[2017-12-20] MEDS ORDERED: FUROSEMIDE INJ/PF 20 MG/2 ML SDV IV ONE (20:00)
[2017-12-21] MEDS: ZOLPIDEM TARTRATE 5 MG TABLET PO PRN (00:09)
[2017-12-21] MEDS: IPRATROPIUM/ALBUTEROL 0.5-2.5 MG/3 ML AMPUL NEB SCH ×4 (02:06→20:27)
[2017-12-21] MEDS: HEPARIN SOD (PORCINE) 5,000 UNIT/ML 1 ML SYRINGE SUBCUT SCH ×2 (05:30→17:19)
[2017-12-21] MEDS ORDERED: FUROSEMIDE INJ/PF 20 MG/2 ML SDV IV SCH (06:00)
[2017-12-21 06:17] LABS: ABSOLUTE LYMPHOCYTES (AUTO) 0.3 10^3/uL (0.5-4.7); ABSOLUTE MONOCYTES (AUTO) 0.4 10^3/uL (0.1-1.4); ABSOLUTE NEUT (AUTO) 2.3 10^3/uL (1.7-8.2); BASOPHILS % (AUTO) 0.8 % (0-2); EOSINOPHILS % (AUTO) 1.5 % (0-6); HEMATOCRIT 21.4 % (36.0-47.0); LYMPHOCYTES % (AUTO) 10.3 % (13-45); MEAN CORPUSCULAR HEMOGLOBIN 31.5 pg (27.0-33.4); MEAN CORPUSCULAR HGB CONC 35.7 g/dL (32.0-36.0); MEAN CORPUSCULAR VOLUME 88 fl (80-97); MONOCYTES % (AUTO) 13.2 % (3-13); PLATELET COUNT 118 10^3/uL (150-450); RED BLOOD COUNT 2.43 10^6/uL (3.72-5.28); RED CELL DISTRIBUTION WIDTH 15.6 % (11.5-14.0); SEGMENTED NEUTROPHILS % (AUTO) 74.2 % (42-78); TOTAL CELLS COUNTED % (AUTO) 100 %; WHITE BLOOD COUNT 3.1 10^3/uL (4.0-10.5)
[2017-12-21 06:19] LABS: HEMOGLOBIN 7.6 g/dL (12.0-15.5)
[2017-12-21 06:29] LABS: ANION GAP 7 (5-19); BLOOD UREA NITROGEN 41 mg/dL (7-20); CALCIUM 8.4 mg/dL (8.4-10.2); CARBON DIOXIDE 32 mmol/L (22-30); CHLORIDE 94 mmol/L (98-107); GLUCOSE 80 mg/dL (75-110); SODIUM 132.9 mmol/L (137-145)
[2017-12-21] MEDS: POTASSI CL 20 MEQ/50 ML RIDER 20 MEQ/50 ML RTUPB IV SCH ×4 (07:30→16:19)
--- NOTE | 2017-12-21 08:29 | PDOC PROGRESS REPORT ---
Subjective Progress Note for:: 12/21/17 Subjective:: The patient states to feel slightly better. She is still having some cough. O2 saturation on room air was about 80%. Discussed the possibility of having to go home on oxygen Reason For Visit: COPD EXACERBATION,PNEUMONIA,MET ALKALOSIS, Physical Exam Vital Signs: Temp Pulse Resp BP Pulse Ox 98.4 F 76 16 125/55 L 99 12/21/17 07:36 12/21/17 07:36 12/21/17 07:36 12/21/17 07:36 12/21/17 07:36 Intake & Output 12/20/17 12/21/17 12/22/17 06:59 06:59 06:59 Intake Total 2254 3090 Output Total 200 1250 Balance 2053 1840 Weight 51.5 kg 49.7 kg General appearance: PRESENT: mild distress Head exam: PRESENT: atraumatic Eye exam: PRESENT: conjunctival injection Neck exam: PRESENT: carotid bruit. ABSENT: JVD Respiratory exam: PRESENT: rhonchi. ABSENT: wheezes Cardiovascular exam: PRESENT: RRR, +S1, +S2, systolic murmur GI/Abdominal exam: PRESENT: normal bowel sounds, soft Extremities exam: PRESENT: full ROM Musculoskeletal exam: PRESENT: ambulatory Neurological exam: PRESENT: alert, awake Results Laboratory Results: 12/21/17 06:00 12/21/17 06:00 12/20/17 12/21/17 12/21/17 15:20 06:00 06:00 WBC 3.1 L RBC 2.43 L Hgb 7.6 L Hct 21.4 L MCV 88 MCH 31.5 MCHC 35.7 RDW 15.6 H Plt Count 118 L Seg Neutrophils % 74.2 Lymphocytes % 10.3 L Monocytes % 13.2 H Eosinophils % 1.5 Basophils % 0.8 Absolute Neutrophils 2.3 Absolute Lymphocytes 0.3 L Absolute Monocytes 0.4 Absolute Eosinophils 0.0 Absolute Basophils 0.0 Sodium 131.2 L 132.9 L Potassium 3.5 L D 3.0 L* Chloride 89 L 94 L Carbon Dioxide 31 H 32 H Anion Gap 11 7 BUN 44 H 41 H Creatinine 1.97 H 1.62 H Est GFR ( Amer) 30 L 38 L Est GFR (Non-Af Amer) 25 L 31 L Glucose 109 80 Calcium 8.7 8.4 Magnesium 1.4 L Impressions: Chest X-Ray 12/19/17 00:00 IMPRESSION: Chronic lung changes. Catheter placement as described. Assessment & Plan - Diagnosis (1) CHF (congestive heart failure) Is this a current diagnosis for this admission?: Yes (2) Anemia Qualifiers: Anemia type: due to chronic kidney disease Chronic kidney disease stage: stage 4 (severe) Qualified Code(s): N18.4 - Chronic kidney disease, stage 4 ( severe); D63.1 - Anemia in chronic kidney disease; D63.1 - Anemia in chronic kidney disease Is this a current diagnosis for this admission?: Yes Plan: Stable we will continue current medications (3) Chronic kidney disease Is this a current diagnosis for this admission?: Yes Plan: Nephrology consultation (4) Hypoxia Is this a current diagnosis for this admission?: Yes Plan: We will obtain a blood gas and decide whether the patient needs outpatient oxygen (5) COPD (chronic obstructive pulmonary disease) Is this a current diagnosis for this admission?: Yes Plan: Stable continue current treatment (6) Bronchitis Is this a current diagnosis for this admission?: Yes (7) Coronary artery disease Is this a current diagnosis for this admission?: Yes Plan: We will reduce to fluid intake and continue with diureses (8) CC (Crohn's colitis) Is this a current diagnosis for this admission?: Yes Plan: High output ileostomy will continue with hydration (9) Hypokalemia Is this a current diagnosis for this admission?: Yes Plan: Recurrent because of high output ileostomy To supplement that and the magnesium will probably be a challenge
[2017-12-21] MEDS: POTASSIUM CHLORIDE 10 MEQ CAPSULE.ER PO SCH ×2 (10:02→21:16)
[2017-12-21] MEDS: LOPERAMIDE HCL ORAL SOLN 1 MG/5 ML UDC PO SCH ×2 (10:02→17:19)
[2017-12-21] MEDS: DOXYCYCLINE HYCLATE 100 MG TABLET PO SCH ×2 (10:03→21:16)
[2017-12-21] MEDS: MAGNESIUM OXIDE 400 MG TABLET PO SCH ×2 (10:03→17:18)
[2017-12-21] MEDS: AZITHROMYCIN 250 MG TABLET PO SCH (10:03)
[2017-12-21] MEDS: FLUTICASONE NASAL SPRAY 50 MCG/SPRY 120 SPRAY/16 GM NASL SCH ×2 (10:06→21:14)
--- NOTE | 2017-12-21 10:15 | RADIOLOGY REPORT (SQ) ---
EXAM DESCRIPTION: CHEST 2 VIEWS COMPLETED DATE/TIME: 12/21/2017 9:51 am REASON FOR STUDY: Shortness of breath. Decreased breath sounds on t COMPARISON: 12/15/2017 EXAM PARAMETERS: NUMBER OF VIEWS: two views TECHNIQUE: Digital Frontal and Lateral radiographic views of the chest acquired. RADIATION DOSE: NA LIMITATIONS: none FINDINGS: LUNGS AND PLEURA: No opacities, masses or pneumothorax. No pleural effusion. Again there is evidence for obstructive lung disease. MEDIASTINUM AND HILAR STRUCTURES: No masses or contour abnormalities. HEART AND VASCULAR STRUCTURES: Heart normal size. No evidence for failure. BONES: No acute findings. HARDWARE: Patient is status post median sternotomy with valvular replacement. Catheter is identified overlying the left upper hemithorax. Orthopedic hardware is again identified transfixing the left 5 th rib. OTHER: Postsurgical changes are again identified involving the left 6 rib. IMPRESSION: No significant interval change. Obstructive lung disease. No acute findings. Other fi ndings as noted above TECHNICAL DOCUMENTATION: JOB ID: [id number] [employer]- All Rights Reserved Reading location - IP/workstation name: [email or web address]
[2017-12-21 10:24] LABS: ARTERIAL BLOOD BASE EXCESS 7.4 mmol/L; ARTERIAL BLOOD FIO2 3L; ARTERIAL BLOOD H2CO3 1.25 mmol/L (1.05-1.35); ARTERIAL BLOOD HCO3 31.3 mmol/L (20-26); ARTERIAL BLOOD PCO2 41.4 mmHg (35-45); ARTERIAL BLOOD PO2 100.7 mmHg (80-100); ARTERIAL BLOOD TOTAL CO2 32.5 mmol/L (21-25)
--- NOTE | 2017-12-21 14:42 | PDOC PROGRESS REPORT ---
Subjective Progress Note for:: 12/21/17 Reason For Visit: Patient was seen today. She is about the same as yesterday. Still having some shortness of breath and is on continuous oxygen. No complaints of any chest pains, fever or chills. No abdominal pains. It looks like the ileostomy output is thickening after introduction to Imodium. She is quite unhappy with her low-salt diet. Labs and medications were reviewed. Potassium still low at around 3. Sodium has been corrected.I also discussed her with the treating nurse. Physical Exam Vital Signs: Temp Pulse Resp BP Pulse Ox 98.3 F 92 16 117/57 L 100 12/21/17 12:09 12/21/17 14:00 12/21/17 12:09 12/21/17 12:09 12/21/17 12:09 Intake & Output 12/20/17 12/21/17 12/22/17 06:59 06:59 06:59 Intake Total 2254 3090 236 Output Total 200 1250 152 Balance 2054 1840 84 Weight 51.5 kg 49.7 kg General appearance: PRESENT: mild distress Respiratory exam: PRESENT: clear to auscultation delfino, crackles - Scattered, rhonchi - Scattered Cardiovascular exam: PRESENT: +S1, +S2, systolic murmur GI/Abdominal exam: PRESENT: normal bowel sounds, soft. ABSENT: distended, organomegaly, tenderness Extremities exam: ABSENT: pedal edema Neurological exam: PRESENT: alert, awake, oriented to person, oriented to place Skin exam: ABSENT: cyanosis, erythema, rash Results Laboratory Results: 12/21/17 06:00 12/21/17 06:00 12/20/17 12/21/17 12/21/17 15:20 06:00 06:00 WBC 3.1 L RBC 2.43 L Hgb 7.6 L Hct 21.4 L MCV 88 MCH 31.5 MCHC 35.7 RDW 15.6 H Plt Count 118 L Seg Neutrophils % 74.2 Lymphocytes % 10.3 L Monocytes % 13.2 H Eosinophils % 1.5 Basophils % 0.8 Absolute Neutrophils 2.3 Absolute Lymphocytes 0.3 L Absolute Monocytes 0.4 Absolute Eosinophils 0.0 Absolute Basophils 0.0 Carbonic Acid HCO3/H2CO3 Ratio ABG pH ABG pCO2 ABG pO2 ABG HCO3 ABG O2 Saturation ABG Base Excess FiO2 Sodium 131.2 L 132.9 L Potassium 3.5 L D 3.0 L* Chloride 89 L 94 L Carbon Dioxide 31 H 32 H Anion Gap 11 7 BUN 44 H 41 H Creatinine 1.97 H 1.62 H Est GFR ( Amer) 30 L 38 L Est GFR (Non-Af Amer) 25 L 31 L Glucose 109 80 Calcium 8.7 8.4 Magnesium 1.4 L 12/21/17 09:00 WBC RBC Hgb Hct MCV MCH MCHC RDW Plt Count Seg Neutrophils % Lymphocytes % Monocytes % Eosinophils % Basophils % Absolute Neutrophils Absolute Lymphocytes Absolute Monocytes Absolute Eosinophils Absolute Basophils Carbonic Acid 1.25 HCO3/H2CO3 Ratio 25:1 ABG pH 7.50 H ABG pCO2 41.4 ABG pO2 100.7 H ABG HCO3 31.3 H ABG O2 Saturation 98.0 ABG Base Excess 7.4 FiO2 3L Sodium Potassium Chloride Carbon Dioxide Anion Gap BUN Creatinine Est GFR ( Amer) Est GFR (Non-Af Amer) Glucose Calcium Magnesium Impressions: Chest X-Ray 12/21/17 00:00 IMPRESSION: No significant interval change. Obstructive lung disease. No acute findings. Other findings as noted above Assessment & Plan - Diagnosis (1) KAMILA (acute kidney injury) Plan: Resolved.Continue current medications. (2) Chronic renal disease, stage IV Plan: Latest renal numbers are stable. Her latest creatinine is 1.8 which is quite remarkable for somebody who is creatinine was between 3 and 6 a few weeks earlier. One has to make her understand about the dietary and fluid modifications and restrictions and along with that if we can control her high output ileostomy I think things can be a whole lot better for her.Unfortunately she has a mind of her own but sometimes does not understand reasonings. (3) Hypokalemia Is this a current diagnosis for this admission?: Yes Plan: Continue IV replacements as ordered today. Meanwhile will start p.o. potassium replacements so that we can make a switch to the oral version and hopefully that will hold so as to discharge her home soon. (4) CHF (congestive heart failure) Is this a current diagnosis for this admission?: Yes Plan: Resolved. We will make a switch to p.o. Lasix. (5) Iron deficiency anemia Plan: Status post IV iron. (6) Anemia in CKD (chronic kidney disease) Plan: Started her on erythropoietin which will be initially every week followed by every fortnight. (7) COPD (chronic obstructive pulmonary disease) Is this a current diagnosis for this admission?: Yes Plan: Still active. Currently on antibiotics. Might consider steroids if needed especially if she has shortness of breath with exertion. (8) Hypoxia Is this a current diagnosis for this admission?: Yes (9) Metabolic alkalosis Is this a current diagnosis for this admission?: Yes (10) Ileostomy present Plan: High output. This I believe is 1 of the causal factors for her frequent exacerbations of her CKD. We had discussed in the past about giving her IV fluid boluses on a regular basis in the week through a Port-A-Cath. However if we can fix her high output ileostomy than that might prevent her frequent need for rehydration and the need for a Port-A-Cath as well. Will hold off placing a Port-A-Cath for the moment. Began her yesterday on Imodium q 12 hours for now. Showing some signs of thickening ileostomy output. (11) Hyponatremia Plan: Resolved. (12) Hypomagnesemia Plan: She is on p.o. but she also needs some more IV replacements which I am going to order.
[2017-12-21] MEDS ORDERED: MAGNESIUM SULFATE/D5W 1 GM/100 ML RTUPB IV ONE (16:00)
[2017-12-21] MEDS: FUROSEMIDE 40 MG TABLET PO SCH (17:18)
[2017-12-21] MEDS: ONDANSETRON 4 MG TAB.RAPDIS PO PRN (17:26)
[2017-12-22] MEDS: ONDANSETRON 4 MG TAB.RAPDIS PO PRN ×2 (00:07→14:50)
[2017-12-22] MEDS: ZOLPIDEM TARTRATE 5 MG TABLET PO PRN (02:08)
[2017-12-22] MEDS: IPRATROPIUM/ALBUTEROL 0.5-2.5 MG/3 ML AMPUL NEB SCH ×4 (02:29→20:07)
[2017-12-22 05:16] LABS: ABSOLUTE EOSINOPHILS # (AUTO) 0.1 10^3/uL (0.0-0.6); ABSOLUTE LYMPHOCYTES (AUTO) 0.5 10^3/uL (0.5-4.7); ABSOLUTE MONOCYTES (AUTO) 0.6 10^3/uL (0.1-1.4); ABSOLUTE NEUT (AUTO) 3.2 10^3/uL (1.7-8.2); BASOPHILS % (AUTO) 0.4 % (0-2); EOSINOPHILS % (AUTO) 2.5 % (0-6); HEMATOCRIT 22.1 % (36.0-47.0); LYMPHOCYTES % (AUTO) 10.9 % (13-45); MEAN CORPUSCULAR HEMOGLOBIN 31.3 pg (27.0-33.4); MEAN CORPUSCULAR VOLUME 89 fl (80-97); MONOCYTES % (AUTO) 13.7 % (3-13); PLATELET COUNT 118 10^3/uL (150-450); RED BLOOD COUNT 2.47 10^6/uL (3.72-5.28); RED CELL DISTRIBUTION WIDTH 15.7 % (11.5-14.0); SEGMENTED NEUTROPHILS % (AUTO) 72.5 % (42-78); TOTAL CELLS COUNTED % (AUTO) 100 %; WHITE BLOOD COUNT 4.4 10^3/uL (4.0-10.5)
[2017-12-22 05:20] LABS: HEMOGLOBIN 7.7 g/dL (12.0-15.5)
[2017-12-22 05:21] LABS: ANION GAP 9 (5-19); BLOOD UREA NITROGEN 35 mg/dL (7-20); CALCIUM 8.3 mg/dL (8.4-10.2); CARBON DIOXIDE 27 mmol/L (22-30); CHLORIDE 103 mmol/L (98-107); GLUCOSE 80 mg/dL (75-110); POTASSIUM 3.5 mmol/L (3.6-5.0); SODIUM 138.7 mmol/L (137-145)
[2017-12-22] MEDS: HEPARIN SOD (PORCINE) 5,000 UNIT/ML 1 ML SYRINGE SUBCUT SCH ×2 (05:40→17:39)
--- NOTE | 2017-12-22 08:20 | PDOC PROGRESS REPORT ---
Subjective Progress Note for:: 12/22/17 Subjective:: The patient is complaining of shortness of breath. She is having a lot of exertional dyspnea. Her electrolytes have improved significantly but I do not think that she is ready to go home yet. She does not have oxygen at home. Reason For Visit: COPD EXACERBATION,PNEUMONIA,MET ALKALOSIS, Physical Exam Vital Signs: Temp Pulse Resp BP Pulse Ox 98.4 F 93 17 147/85 H 98 12/22/17 07:26 12/22/17 07:26 12/22/17 07:26 12/22/17 07:26 12/22/17 07:26 Intake & Output 12/21/17 12/22/17 12/23/17 06:59 06:59 06:59 Intake Total 3090 1910 Output Total 1250 852 Balance 1840 1058 Weight 49.7 kg 51.5 kg General appearance: PRESENT: mild distress Head exam: PRESENT: atraumatic Eye exam: PRESENT: conjunctiva pink Neck exam: ABSENT: carotid bruit, JVD Respiratory exam: PRESENT: rhonchi, tachypnea, wheezes Cardiovascular exam: PRESENT: clicks, +S1, +S2 Pulses: PRESENT: +1 pedal pulses bilateral GI/Abdominal exam: PRESENT: normal bowel sounds, soft Extremities exam: PRESENT: full ROM Musculoskeletal exam: PRESENT: full ROM Neurological exam: PRESENT: alert, awake Results Laboratory Results: 12/22/17 04:50 12/22/17 04:50 12/21/17 12/22/17 12/22/17 09:00 04:50 04:50 WBC 4.4 RBC 2.47 L Hgb 7.7 L Hct 22.1 L MCV 89 MCH 31.3 MCHC 35.0 RDW 15.7 H Plt Count 118 L Seg Neutrophils % 72.5 Lymphocytes % 10.9 L Monocytes % 13.7 H Eosinophils % 2.5 Basophils % 0.4 Absolute Neutrophils 3.2 Absolute Lymphocytes 0.5 Absolute Monocytes 0.6 Absolute Eosinophils 0.1 Absolute Basophils 0.0 Carbonic Acid 1.25 HCO3/H2CO3 Ratio 25:1 ABG pH 7.50 H ABG pCO2 41.4 ABG pO2 100.7 H ABG HCO3 31.3 H ABG O2 Saturation 98.0 ABG Base Excess 7.4 FiO2 3L Sodium 138.7 Potassium 3.5 L Chloride 103 Carbon Dioxide 27 Anion Gap 9 BUN 35 H Creatinine 1.61 H Est GFR ( Amer) 38 L Est GFR (Non-Af Amer) 32 L Glucose 80 Calcium 8.3 L Magnesium 1.3 L Impressions: Chest X-Ray 12/21/17 00:00 IMPRESSION: No significant interval change. Obstructive lung disease. No acute findings. Other findings as noted above Assessment & Plan - Diagnosis (1) CHF (congestive heart failure) Is this a current diagnosis for this admission?: Yes Plan: Resolved we will continue with fluid restriction and diuretics (2) Anemia Qualifiers: Anemia type: due to chronic kidney disease Chronic kidney disease stage: stage 4 (severe) Qualified Code(s): N18.4 - Chronic kidney disease, stage 4 ( severe); D63.1 - Anemia in chronic kidney disease; D63.1 - Anemia in chronic kidney disease Is this a current diagnosis for this admission?: Yes Plan: Stable continue current treatment (3) Chronic kidney disease Is this a current diagnosis for this admission?: Yes Plan: Stable continue current treatment (4) Hypoxia Is this a current diagnosis for this admission?: Yes Plan: Most probably related to COPD fluid overload and anemia. Will start some steroids. Will discuss with nephrology if a blood transfusion would benefit. (5) COPD (chronic obstructive pulmonary disease) Is this a current diagnosis for this admission?: Yes Plan: Continue neb treatments and start steroids (6) Bronchitis Is this a current diagnosis for this admission?: Yes Plan: Continue antibiotics (7) Coronary artery disease Is this a current diagnosis for this admission?: Yes Plan: We will reduce to fluid intake and continue with diureses (8) CC (Crohn's colitis) Is this a current diagnosis for this admission?: Yes Plan: High output ileostomy will continue with hydration (9) Hypokalemia Is this a current diagnosis for this admission?: Yes Plan: Recurrent because of high output ileostomy To supplement that and the magnesium will probably be a challenge
[2017-12-22] MEDS ORDERED: MAGNESIUM SULFATE INJ 8 MEQ/2 ML IV ONE (08:26)
[2017-12-22] MEDS ORDERED: NORMAL SALINE 250 ML IV PRN ×2 (08:32)
[2017-12-22] MEDS: FLUTICASONE NASAL SPRAY 50 MCG/SPRY 120 SPRAY/16 GM NASL SCH ×2 (09:52→22:17)
[2017-12-22] MEDS: MAGNESIUM SULFATE 1 GM/D5W 100 ML IV SCH ×2 (09:52→13:06)
[2017-12-22] MEDS: AZITHROMYCIN 250 MG TABLET PO SCH (09:53)
[2017-12-22] MEDS: LOPERAMIDE HCL ORAL SOLN 1 MG/5 ML UDC PO SCH ×2 (09:54→17:39)
[2017-12-22] MEDS: MAGNESIUM OXIDE 400 MG TABLET PO SCH ×2 (09:54→17:38)
[2017-12-22] MEDS: PREDNISONE 20 MG TABLET PO SCH ×2 (09:54→17:37)
[2017-12-22] MEDS: DOXYCYCLINE HYCLATE 100 MG TABLET PO SCH ×2 (09:54→22:16)
[2017-12-22] MEDS: FUROSEMIDE 40 MG TABLET PO SCH ×2 (09:54→17:37)
[2017-12-22] MEDS: POTASSIUM CHLORIDE 10 MEQ CAPSULE.ER PO SCH ×2 (13:06→22:16)
--- NOTE | 2017-12-22 17:16 | XCELERA REPORT ---
[address] [address] Transthoracic Echocardiogram Report Name: FABRICIO BARR Age: 72 yrs Gender: Female : 1945 Patient Status: Inpatient Patient Location: [address] [place] [address] Study Date: 12/22/2017 09:43 AM Height: 63 in Weight: 113 lb BSA: 1.5 m2 Procedure: A two-dimensional transthoracic echocardiogram with color flow and Doppler was performed. Study Quality: Fair. Reason For Study: Exertional dyspnea. Artificial valve (AVR) History: Exertional dyspnea. Artificial valve (AVR). Ordering Physician: CLINT REED Performed By: Latasha Naqvi Interpretation Summary Recommend SBE prophylaxis prior to Dental , GI,and procedures or surgeries. The left ventricle is normal in size. There is normal left ventricular wall thickness. LV EF is > than 65% Left ventricular systolic function is normal. Doppler measurements suggest normal left ventricular diastolic function The left ventricular wall motion is normal. There is no thrombus. The right ventricle is grossly normal size. The right atrium is normal. The left atrium is mildly dilated. The interatrial septum is intact with no evidence for an atrial septal defect. There is no evidence of mitral valve prolapse. There is no vegetation seen on the mitral valve. There is no mitral valve stenosis. There is a mild amount of mitral regurgitation There is no aortic valvular vegetation. There is a bioprosthetic aortic valve. There is a trace amount of aortic regurgitation There is no LVOT obstruction. There is a Peak gradient of 32 mm of Hg , and a mean gradient of 16 mm of Hg , which may be very insignicant stenosis of the Bioprosthetic Aortic valve. There is no tricuspid stenosis. There is a mild amount of tricuspid regurgitation There is moderate pulmonary hypertension by echo RVSP is 53 to 58 mm of Hg , with RA mean of 5 to 10. The inferior vena cava appeared normal and decreased > 50% with respiration (RAP 5-10 mmHg) There is no pericardial effusion. Recommend SBE prophylaxis prior to Dental , GI,and procedures or surgeries. MMode/2D Measurements & Calculations RVDd: 2.2 cm LVIDd: 4.4 cm FS: 44.8 % Ao root diam: IVSd: 0.73 cm LVIDs: 2.4 cm EDV(Teich): 2.9 cm LVPWd: 0.72 cm 85.5 ml Ao root area: ESV(Teich): 20.3 ml 6.7 cm2 EF(Teich): LA dimension: 76.3 % 4.3 cm LVOT diam: 1.9 cm LA A2Cs: LA A4Cs: LA length: 4.5 cm LVOT area: 2.8 cm2 18.1 cm2 19.5 cm2 LA Vol Index (BP): LA Volume: 67.0 ml 44.1 ml/m2 Doppler Measurements & Calculations MV E max aryan: MV P1/2t max aryan: Ao V2 max: LV V1 max P.4 cm/sec 125.4 cm/sec 284.6 cm/sec 7.6 mmHg MV A max aryan: MV P1/2t: 59.0 msec Ao max PG: LV V1 mean P.5 cm/sec MVA(P1/2t): 3.7 cm2 32.4 mmHg 3.2 mmHg MV E/A: 1.1 MV dec slope: Ao V2 mean: LV V1 max: 179.3 cm/sec 137.7 cm/sec 622.2 cm/sec2 Ao mean PG: LV V1 mean: MV dec time: 15.9 mmHg 80.7 cm/sec 0.20 sec Ao V2 VTI: 56.7 cm LV V1 VTI: WILLIAMS(I,D): 1.1 cm2 23.3 cm WILLIAMS(V,D): 1.3 cm2 SV(LVOT): 64.9 ml PA V2 max: PI end-d aryan: TR max aryan: 101.7 cm/sec 194.1 cm/sec 344.8 cm/sec PA max P.1 mmHg TR max P.5 mmHg Left Ventricle The left ventricle is normal in size. There is normal left ventricular wall thickness. LV EF is > than 65%. Left ventricular systolic function is normal. Doppler measurements suggest normal left ventricular diastolic function. The left ventricular wall motion is normal. There is no thrombus. There is no ventricular septal defect visualized. Right Ventricle The right ventricle is grossly normal size. Atria The right atrium is normal. The left atrium is mildly dilated. The interatrial septum is intact with no evidence for an atrial septal defect. Mitral Valve There is no evidence of mitral valve prolapse. There is no vegetation seen on the mitral valve. There is no mitral valve stenosis. There is a mild amount of mitral regurgitation. Aortic Valve There is no aortic valvular vegetation. There is no LVOT obstruction. There is a trace amount of aortic regurgitation. There is a bioprosthetic aortic valve. There is a Peak gradient of 32 mm of Hg , and a mean gradient of 16 mm of Hg , which may be very insignicant stenosis of the Bioprosthetic Aortic valve. Tricuspid Valve There is no tricuspid stenosis. There is a mild amount of tricuspid regurgitation. There is moderate pulmonary hypertension by echo. RVSP is 53 to 58 mm of Hg , with RA mean of 5 to 10. Pulmonic Valve There is no pulmonic valvular stenosis. There is a trace amount of pulmonic regurgitation. Great Vessels The aortic root is not well visualized. The inferior vena cava appeared normal and decreased > 50% with respiration (RAP 5-10 mmHg). Effusions There is no pericardial effusion. : CLINT REED > Kaela Valdez
--- NOTE | 2017-12-22 17:19 | PDOC PROGRESS REPORT ---
Subjective Progress Note for:: 12/22/17 Reason For Visit: Patient seen today. She is complaining of progressive shortness of breath with exertion. No complaints of any chest pain, fever or chills. She is making good amounts of urine output. Her ileostomy is getting a bit more thickened. Labs and medications were reviewed with the patient. She is getting blood transfusion. Physical Exam Vital Signs: Temp Pulse Resp BP Pulse Ox 98.4 F 80 18 147/85 H 95 12/22/17 07:26 12/22/17 08:13 12/22/17 08:13 12/22/17 07:26 12/22/17 08:13 Intake & Output 12/21/17 12/22/17 12/23/17 06:59 06:59 06:59 Intake Total 3090 1910 Output Total 1250 852 Balance 1840 1058 Weight 49.7 kg 51.5 kg General appearance: PRESENT: mild distress Respiratory exam: PRESENT: clear to auscultation delfino, crackles - Scattered, rhonchi - Scattered Cardiovascular exam: PRESENT: +S1, +S2, systolic murmur GI/Abdominal exam: PRESENT: normal bowel sounds, soft. ABSENT: distended, organomegaly, tenderness Extremities exam: ABSENT: pedal edema Neurological exam: PRESENT: alert, awake, oriented to person, oriented to place Psychiatric exam: PRESENT: anxious Skin exam: ABSENT: erythema, mottled, rash Results Laboratory Results: 12/22/17 04:50 12/22/17 04:50 12/22/17 12/22/17 12/22/17 04:50 04:50 09:02 WBC 4.4 RBC 2.47 L Hgb 7.7 L Hct 22.1 L MCV 89 MCH 31.3 MCHC 35.0 RDW 15.7 H Plt Count 118 L Seg Neutrophils % 72.5 Lymphocytes % 10.9 L Monocytes % 13.7 H Eosinophils % 2.5 Basophils % 0.4 Absolute Neutrophils 3.2 Absolute Lymphocytes 0.5 Absolute Monocytes 0.6 Absolute Eosinophils 0.1 Absolute Basophils 0.0 Sodium 138.7 Potassium 3.5 L Chloride 103 Carbon Dioxide 27 Anion Gap 9 BUN 35 H Creatinine 1.61 H Est GFR ( Amer) 38 L Est GFR (Non-Af Amer) 32 L Glucose 80 Calcium 8.3 L Magnesium 1.3 L Blood Type O POSITIVE Antibody Screen NEGATIVE Impressions: Chest X-Ray 12/21/17 00:00 IMPRESSION: No significant interval change. Obstructive lung disease. No acute findings. Other findings as noted above Assessment & Plan - Diagnosis (1) KAMILA (acute kidney injury) Plan: Resolved.Continue current medications. (2) Chronic renal disease, stage IV Plan: Latest renal numbers are stable. Her latest creatinine is 1.6 which is quite remarkable for somebody who is creatinine was between 3 and 6 a few weeks earlier. One has to make her understand about the dietary and fluid modifications and restrictions and along with that if we can control her high output ileostomy I think things can be a whole lot better for her. (3) Hypokalemia Is this a current diagnosis for this admission?: Yes Plan: Continue IV replacements as ordered today. Meanwhile will start p.o. potassium replacements so that we can make a switch to the oral version and hopefully that will hold so as to discharge her home soon. (4) CHF (congestive heart failure) Is this a current diagnosis for this admission?: Yes Plan: Given her extreme COPD sometimes it is difficult to differentiate between worsening heart failure. It looks clinically she had improved with initial diuretic regimen. However given her progressive shortness of breath after discussions with Davidson Ferguson MD proceed with the echocardiogram.Based on that might need to make a switch back to intravenous diuretics if needed. (5) Iron deficiency anemia Plan: Status post IV iron. (6) Anemia in CKD (chronic kidney disease) Plan: Started her on erythropoietin which will be initially every week followed by every fortnight.Hemoglobin still low in the 7 range. As per discussions done with Dr. Dora Can will proceed with blood transfusions especially given her history of congestive heart failure. (7) COPD (chronic obstructive pulmonary disease) Is this a current diagnosis for this admission?: Yes Plan: Still active. Currently on antibiotics. Might consider steroids if needed especially if she has shortness of breath with exertion. (8) Hypoxia Is this a current diagnosis for this admission?: Yes (9) Metabolic alkalosis Is this a current diagnosis for this admission?: Yes (10) Ileostomy present Plan: Some response to the initiation with Imodium. (12) Hypomagnesemia Plan: Ordering IV mag sulfate today.
[2017-12-22] MEDS: NORMAL SALINE 1000 ML 1,000 ML IV PRN (22:27)
[2017-12-22 23:48] LABS: HEMATOCRIT 28.1 % (36.0-47.0); MEAN CORPUSCULAR HEMOGLOBIN 30.9 pg (27.0-33.4); MEAN CORPUSCULAR HGB CONC 34.4 g/dL (32.0-36.0); MEAN CORPUSCULAR VOLUME 90 fl (80-97); PLATELET COUNT 166 10^3/uL (150-450); RED BLOOD COUNT 3.13 10^6/uL (3.72-5.28); RED CELL DISTRIBUTION WIDTH 15.2 % (11.5-14.0); WHITE BLOOD COUNT 3.3 10^3/uL (4.0-10.5)
[2017-12-22 23:59] LABS: HEMOGLOBIN 9.7 g/dL (12.0-15.5)
[2017-12-23] MEDS: IPRATROPIUM/ALBUTEROL 0.5-2.5 MG/3 ML AMPUL NEB SCH ×4 (01:59→20:02)
[2017-12-23] MEDS: ZOLPIDEM TARTRATE 5 MG TABLET PO PRN (02:40)
[2017-12-23] MEDS: POTASSIUM CHLORIDE 10 MEQ CAPSULE.ER PO SCH ×3 (06:07→21:23)
[2017-12-23] MEDS: HEPARIN SOD (PORCINE) 5,000 UNIT/ML 1 ML SYRINGE SUBCUT SCH ×2 (06:07→17:14)
[2017-12-23] MEDS: FUROSEMIDE 40 MG TABLET PO SCH ×2 (09:43→17:13)
[2017-12-23] MEDS: MAGNESIUM OXIDE 400 MG TABLET PO SCH ×2 (09:44→17:13)
[2017-12-23] MEDS: PREDNISONE 20 MG TABLET PO SCH ×2 (09:44→17:13)
[2017-12-23] MEDS: AZITHROMYCIN 250 MG TABLET PO SCH (09:44)
[2017-12-23] MEDS: FLUTICASONE NASAL SPRAY 50 MCG/SPRY 120 SPRAY/16 GM NASL SCH ×2 (09:45→21:17)
[2017-12-23] MEDS: LOPERAMIDE HCL ORAL SOLN 1 MG/5 ML UDC PO SCH ×2 (09:45→17:13)
[2017-12-23] MEDS: DOXYCYCLINE HYCLATE 100 MG TABLET PO SCH ×2 (09:45→21:24)
[2017-12-23] MEDS ORDERED: LACTOBACILLUS ACIDOPHILUS 250 MG TAB PO SCH (10:00)
--- NOTE | 2017-12-23 12:00 | PDOC PROGRESS REPORT ---
Subjective Progress Note for:: 12/23/17 Subjective:: The patient is a 72-year-old female with past medical history of Crohn's disease status post total colostomy and ileostomy resulting in high output state Chronic metabolic alkalosis Chronic kidney disease stage IV, baseline creatinine around 3 GERD COPD Bioprosthetic aortic valve Lung cancer s/p L upper lobectomy in 2017 She presented to the hospital on December 17 with shortness of breath cough and fever of 102. The patient was diagnosed with sepsis started on antibiotics and IV fluids. She developed worsening shortness of breath which was felt to be due to aggressive fluid resuscitation. She was subsequently started on some diuretics. She is currently on 3L by MN Reason For Visit: COPD EXACERBATION,PNEUMONIA,MET ALKALOSIS, Physical Exam Vital Signs: Temp Pulse Resp BP Pulse Ox 97.8 F 75 20 121/47 L 100 12/23/17 03:38 12/23/17 07:00 12/23/17 03:38 12/23/17 03:38 12/23/17 03:38 Intake & Output 12/22/17 12/23/17 12/24/17 06:59 06:59 06:59 Intake Total 1910 1312 Output Total 852 3000 Balance 1058 -1688 Weight 51.5 kg 51 kg General appearance: PRESENT: no acute distress, thin Head exam: PRESENT: normocephalic Mouth exam: PRESENT: moist Respiratory exam: PRESENT: symmetrical, unlabored. ABSENT: crackles Cardiovascular exam: PRESENT: RRR GI/Abdominal exam: PRESENT: normal bowel sounds, soft. ABSENT: tenderness Rectal exam: PRESENT: deferred Extremities exam: ABSENT: pedal edema Neurological exam: PRESENT: alert, awake, oriented to person, oriented to place , oriented to time, oriented to situation Psychiatric exam: PRESENT: appropriate affect Skin exam: ABSENT: jaundice Results Laboratory Results: 12/22/17 23:25 12/22/17 04:50 12/22/17 12/22/17 09:02 23:25 WBC 3.3 L RBC 3.13 L Hgb 9.7 L Hct 28.1 L MCV 90 MCH 30.9 MCHC 34.4 RDW 15.2 H Plt Count 166 Blood Type O POSITIVE Antibody Screen NEGATIVE Impressions: Chest X-Ray 12/21/17 00:00 IMPRESSION: No significant interval change. Obstructive lung disease. No acute findings. Other findings as noted above Assessment & Plan - Diagnosis (1) Acute respiratory failure with hypoxia Is this a current diagnosis for this admission?: Yes (2) COPD exacerbation Is this a current diagnosis for this admission?: Yes (3) Anemia of chronic disease Is this a current diagnosis for this admission?: Yes (4) Acute diastolic CHF (congestive heart failure), NYHA class 4 Is this a current diagnosis for this admission?: Yes (5) Hypokalemia Is this a current diagnosis for this admission?: Yes (6) Hypomagnesemia Is this a current diagnosis for this admission?: Yes (7) Hyponatremia Is this a current diagnosis for this admission?: Yes (8) Ileostomy present Is this a current diagnosis for this admission?: Yes (9) Pneumonia Is this a current diagnosis for this admission?: Yes (10) Sepsis Qualifiers: Sepsis type: sepsis due to unspecified organism Qualified Code(s): A41.9 - Sepsis, unspecified organism Is this a current diagnosis for this admission?: Yes (11) CC (Crohn's colitis) Is this a current diagnosis for this admission?: Yes (12) Chronic renal disease, stage IV Is this a current diagnosis for this admission?: Yes (13) Coronary artery disease Is this a current diagnosis for this admission?: Yes - Time Time Spent with patient: 25-34 minutes
[2017-12-23] MEDS: ONDANSETRON 4 MG TAB.RAPDIS PO PRN (23:44)
[2017-12-24] MEDS: ZOLPIDEM TARTRATE 5 MG TABLET PO PRN ×2 (00:36→23:43)
[2017-12-24] MEDS: IPRATROPIUM/ALBUTEROL 0.5-2.5 MG/3 ML AMPUL NEB SCH ×4 (01:45→20:22)
[2017-12-24] MEDS: HEPARIN SOD (PORCINE) 5,000 UNIT/ML 1 ML SYRINGE SUBCUT SCH ×2 (05:15→18:38)
[2017-12-24] MEDS: POTASSIUM CHLORIDE 10 MEQ CAPSULE.ER PO SCH (05:16)
[2017-12-24 05:48] LABS: ANION GAP 8 (5-19); BLOOD UREA NITROGEN 55 mg/dL (7-20); CALCIUM 9.8 mg/dL (8.4-10.2); CARBON DIOXIDE 31 mmol/L (22-30); CHLORIDE 99 mmol/L (98-107); GLUCOSE 88 mg/dL (75-110); PHOSPHORUS 3.2 mg/dL (2.5-4.5); POTASSIUM 4.9 mmol/L (3.6-5.0); SODIUM 138.3 mmol/L (137-145)
[2017-12-24] MEDS: PREDNISONE 20 MG TABLET PO SCH ×2 (10:20→18:36)
[2017-12-24] MEDS: FUROSEMIDE 40 MG TABLET PO SCH ×2 (10:20→18:36)
[2017-12-24] MEDS: DOXYCYCLINE HYCLATE 100 MG TABLET PO SCH ×2 (10:20→22:48)
[2017-12-24] MEDS: MAGNESIUM OXIDE 400 MG TABLET PO SCH ×2 (10:20→18:36)
[2017-12-24] MEDS: FLUTICASONE NASAL SPRAY 50 MCG/SPRY 120 SPRAY/16 GM NASL SCH ×2 (10:21→22:49)
[2017-12-24] MEDS: AZITHROMYCIN 250 MG TABLET PO SCH (10:21)
[2017-12-24] MEDS: LOPERAMIDE HCL ORAL SOLN 1 MG/5 ML UDC PO SCH (10:21)
--- NOTE | 2017-12-24 11:58 | PDOC PROGRESS REPORT ---
Subjective Progress Note for:: 12/24/17 Subjective:: The patient is a 72-year-old female with past medical history of Crohn's disease status post total colostomy and ileostomy resulting in high output state Chronic metabolic alkalosis Chronic kidney disease stage IV, baseline creatinine around 3 GERD COPD Bioprosthetic aortic valve Lung cancer s/p L upper lobectomy in 2017 She presented to the hospital on December 17 with shortness of breath cough and fever of 102. The patient was diagnosed with sepsis due to pneumonia started on antibiotics and IV fluids. Continues to feel weak, is requesting Imodium liquid to be changed to capsule form. Reason For Visit: COPD EXACERBATION,PNEUMONIA,MET ALKALOSIS, Physical Exam Vital Signs: Temp Pulse Resp BP Pulse Ox 97.9 F 81 18 130/62 H 94 12/24/17 07:43 12/24/17 08:17 12/24/17 08:17 12/24/17 07:43 12/24/17 08:17 Intake & Output 12/23/17 12/24/17 12/25/17 06:59 06:59 06:59 Intake Total 1312 770 Output Total 3000 1350 Balance -1688 -580 Weight 51 kg 50.4 kg General appearance: PRESENT: no acute distress, thin Head exam: PRESENT: normocephalic Mouth exam: PRESENT: moist Neck exam: ABSENT: tracheal deviation Respiratory exam: PRESENT: symmetrical. ABSENT: crackles Cardiovascular exam: PRESENT: RRR GI/Abdominal exam: PRESENT: normal bowel sounds, soft, other - Ileostomy present Rectal exam: PRESENT: deferred Extremities exam: ABSENT: pedal edema Neurological exam: PRESENT: alert, awake, oriented to person, oriented to place , oriented to time, oriented to situation Psychiatric exam: PRESENT: appropriate affect Results Laboratory Results: 12/22/17 23:25 12/24/17 05:28 12/24/17 05:28 Sodium 138.3 Potassium 4.9 Chloride 99 Carbon Dioxide 31 H Anion Gap 8 BUN 55 H Creatinine 2.09 H Est GFR ( Amer) 28 L Est GFR (Non-Af Amer) 23 L Glucose 88 Calcium 9.8 Phosphorus 3.2 Magnesium 1.6 Impressions: Chest X-Ray 12/21/17 00:00 IMPRESSION: No significant interval change. Obstructive lung disease. No acute findings. Other findings as noted above Assessment & Plan - Diagnosis (1) Acute respiratory failure with hypoxia Is this a current diagnosis for this admission?: Yes Plan: Multifactorial due to pneumonia, COPD and diastolic CHF (2) COPD exacerbation Is this a current diagnosis for this admission?: Yes Plan: Improving, continue current treatment (3) Anemia of chronic disease Is this a current diagnosis for this admission?: Yes Plan: Received PRBC transfusioj (4) Acute diastolic CHF (congestive heart failure), NYHA class 4 Is this a current diagnosis for this admission?: Yes Plan: On PO lasix (5) Hypokalemia Is this a current diagnosis for this admission?: Yes Plan: Resolved. PO Potassium stopped (6) Hypomagnesemia Is this a current diagnosis for this admission?: Yes Plan: Replace (7) Hyponatremia Is this a current diagnosis for this admission?: Yes Plan: Improving (8) Ileostomy present Is this a current diagnosis for this admission?: Yes (9) Pneumonia Is this a current diagnosis for this admission?: Yes Plan: On antibiotics (10) Sepsis Qualifiers: Sepsis type: sepsis due to unspecified organism Qualified Code(s): A41.9 - Sepsis, unspecified organism Is this a current diagnosis for this admission?: Yes Plan: Resolved (11) CC (Crohn's colitis) Is this a current diagnosis for this admission?: Yes (12) Chronic renal disease, stage IV Is this a current diagnosis for this admission?: Yes Plan: Management per Nephrology service (13) Coronary artery disease Is this a current diagnosis for this admission?: Yes Plan: Continue outpatient meds - Time Time Spent with patient: 25-34 minutes
[2017-12-24] MEDS ORDERED: LOPERAMIDE HCL 2 MG CAPSULE PO ONE (13:00)
[2017-12-24] MEDS: LOPERAMIDE HCL 2 MG CAPSULE PO SCH (18:38)
[2017-12-25] MEDS: IPRATROPIUM/ALBUTEROL 0.5-2.5 MG/3 ML AMPUL NEB SCH ×2 (02:30→08:09)
[2017-12-25] MEDS: HEPARIN SOD (PORCINE) 5,000 UNIT/ML 1 ML SYRINGE SUBCUT SCH (05:07)
[2017-12-25 06:51] LABS: HEMATOCRIT 30.8 % (36.0-47.0); HEMOGLOBIN 10.5 g/dL (12.0-15.5); MEAN CORPUSCULAR HEMOGLOBIN 31.1 pg (27.0-33.4); MEAN CORPUSCULAR HGB CONC 34.1 g/dL (32.0-36.0); MEAN CORPUSCULAR VOLUME 91 fl (80-97); PLATELET COUNT 301 10^3/uL (150-450); RED BLOOD COUNT 3.38 10^6/uL (3.72-5.28); RED CELL DISTRIBUTION WIDTH 15.3 % (11.5-14.0)
[2017-12-25 06:52] LABS: WHITE BLOOD COUNT 8.1 10^3/uL (4.0-10.5)
[2017-12-25 06:59] LABS: ANION GAP 13 (5-19); BLOOD UREA NITROGEN 66 mg/dL (7-20); CALCIUM 10.4 mg/dL (8.4-10.2); CARBON DIOXIDE 29 mmol/L (22-30); CHLORIDE 97 mmol/L (98-107); GLUCOSE 99 mg/dL (75-110); POTASSIUM 4.4 mmol/L (3.6-5.0); SODIUM 139.3 mmol/L (137-145)
--- NOTE | 2017-12-25 08:35 | PDOC DISCHARGE SUMMARY ---
General - Admit/Disc Date/PCP Admission Date/Primary Care Provider: 12/17/17 22:11 CLINT REED, Discharge Date: 12/25/17 - Discharge Diagnosis (1) CHF (congestive heart failure) Is this a current diagnosis for this admission?: Yes Summary: Resolved we will continue a small amount of diuretic and follow-up with nephrology (2) Anemia Is this a current diagnosis for this admission?: Yes Summary: Improved with blood transfusion and iron infusion and diureses (3) Chronic kidney disease Is this a current diagnosis for this admission?: Yes Summary: Stable continue current treatment (4) Hypoxia Is this a current diagnosis for this admission?: Yes Summary: O2 saturation on room air is less than 87%. Will obtain home O2 and portable O2 (5) COPD (chronic obstructive pulmonary disease) Is this a current diagnosis for this admission?: Yes Summary: We will continue prednisone 10 mg twice a day for 7 more days then 10 mg a day for 7 days. (6) Bronchitis Is this a current diagnosis for this admission?: Yes Summary: We will stop the antibiotics. (7) Coronary artery disease Is this a current diagnosis for this admission?: Yes (8) CC (Crohn's colitis) Is this a current diagnosis for this admission?: Yes (9) Hypokalemia Is this a current diagnosis for this admission?: Yes Summary: Continue supplemental potassium - Additional Information Resuscitation Status: Full Code Discharge Diet: Cardiac Discharge Activity: Activity As Tolerated, Weigh Daily Prescriptions: Furosemide [Lasix 40 mg Tablet] 40 mg PO DAILY #30 tablet Loperamide HCl [Imodium 2 mg Capsule] 2 mg PO BID #60 capsule Prednisone [Deltasone 20 mg Tablet] 20 mg PO BID #60 tablet Home Medications: Albuterol Sulfate [Proair HFA] 1 puff IH QIDP PRN 12/18/17 Aspirin [Aspirin 81 mg Chewable Tablet] 1 tab PO DAILY 12/18/17 Calcitriol 0.5 mg PO DAILY 12/18/17 Cyanocobalamin (Vitamin B-12) [Vitamin B-12 Inj 1000 Mcg/1 ml Vial] 1,000 mcg SQ [id number] 12/18/17 Ergocalciferol (Vitamin D2) [Vitamin D2] 50,000 unit PO [id number] 12/18/17 Ezetimibe 1 tab PO DAILY 12/18/17 Febuxostat [Uloric 40 mg Tablet] 1 tab PO DAILY 12/18/17 Magnesium Oxide [Magox] 400 mg PO BID 12/18/17 Potassium Chloride [Klor-Con M10] 1 tab PO DAILY 12/18/17 Sertraline HCl 100 mg PO DAILY 12/18/17 Furosemide [Lasix 40 mg Tablet] 40 mg PO DAILY #30 tablet 12/25/17 Loperamide HCl [Imodium 2 mg Capsule] 2 mg PO BID #60 capsule 12/25/17 Prednisone [Deltasone 20 mg Tablet] 20 mg PO BID #60 tablet 12/25/17 History of Present Illness History of Present Illness: FABRICIO BARR is a 72 year old female Hospital Course Hospital Course: The patient was admitted directly from the emergency room. She needed significant amount of diureses. She was profoundly anemic with bronchitis that was exacerbating her COPD. She was started on antibiotics and she was diuresed. She has received 1 unit of packed red blood cells. She has been started on steroids. Her respiratory status has improved but she was still hypoxemic on room air less than 87%. Physical Exam Vital Signs: Temp Pulse Resp BP Pulse Ox 98.2 F 87 20 135/61 H 92 12/25/17 07:32 12/25/17 07:32 12/25/17 07:32 12/25/17 07:32 12/25/17 07:32 Intake & Output 12/24/17 12/25/17 12/26/17 06:59 06:59 06:59 Intake Total 770 892 Output Total 1350 1400 Balance -580 -508 Weight 50.4 kg 44.2 kg General appearance: PRESENT: no acute distress Head exam: PRESENT: atraumatic Eye exam: PRESENT: conjunctiva pink Neck exam: ABSENT: carotid bruit, JVD Respiratory exam: PRESENT: rhonchi Cardiovascular exam: PRESENT: clicks, RRR, +S1, +S2 Pulses: PRESENT: +1 pedal pulses bilateral GI/Abdominal exam: PRESENT: normal bowel sounds, soft Extremities exam: PRESENT: full ROM Musculoskeletal exam: PRESENT: ambulatory Neurological exam: PRESENT: alert, awake Results Laboratory Results: 12/25/17 05:10 12/25/17 05:10 12/25/17 12/25/17 05:10 05:10 WBC 8.1 D RBC 3.38 L Hgb 10.5 L Hct 30.8 L MCV 91 MCH 31.1 MCHC 34.1 RDW 15.3 H Plt Count 301 Sodium 139.3 Potassium 4.4 Chloride 97 L Carbon Dioxide 29 Anion Gap 13 BUN 66 H Creatinine 2.02 H Est GFR ( Amer) 29 L Est GFR (Non-Af Amer) 24 L Glucose 99 Calcium 10.4 H Magnesium 1.5 L Impressions: Chest X-Ray 12/21/17 00:00 IMPRESSION: No significant interval change. Obstructive lung disease. No acute findings. Other findings as noted above Qualifiers - * PATIENT BEING DISCHARGED WITH ANY OF THE FOLLOWING DIAGNOSIS: No
[2017-12-25] MEDS: LOPERAMIDE HCL 2 MG CAPSULE PO SCH (09:06)
[2017-12-25] MEDS: PREDNISONE 20 MG TABLET PO SCH (09:06)
[2017-12-25] MEDS: MAGNESIUM OXIDE 400 MG TABLET PO SCH (09:06)
[2017-12-25] MEDS: FLUTICASONE NASAL SPRAY 50 MCG/SPRY 120 SPRAY/16 GM NASL SCH (09:07)
[2017-12-25] MEDS: FUROSEMIDE 40 MG TABLET PO SCH (09:07)
[2017-12-25 12:08] VITALS: BP 149/78
== END 2017-12-25 14:18 | disposition home health service (06) | DRG 291 ==
LOC: ER 19:35 → EH 22:11 → 3W 12-18 00:09
PROVIDERS: ADMIT Internal Medicine; ATTEND Internal Medicine
PROC: 3E0F73Z Introduction of Anti-inflammatory into Respiratory Tract, Via Natural or Artificial Opening (ICD-10-PCS; 2017-12-18)
PROC: 30233N1 Transfusion of Nonautologous Red Blood Cells into Peripheral Vein, Percutaneous Approach (ICD-10-PCS; principal; 2017-12-22)
DX: I13.0 Hypertensive heart and chronic kidney disease with heart failure and stage 1 through stage 4 chronic kidney disease, or unspecified chronic kidney disease (principal); I50.31 Acute diastolic (congestive) heart failure; K50.10 Crohn's disease of large intestine without complications; N18.4 Chronic kidney disease, stage 4 (severe); N17.9 Acute kidney failure, unspecified; E87.3 Alkalosis; J44.0 Chronic obstructive pulmonary disease with (acute) lower respiratory infection; E87.1 Hypo-osmolality and hyponatremia; J43.9 Emphysema, unspecified; D63.1 Anemia in chronic kidney disease; R09.02 Hypoxemia; I25.10 Atherosclerotic heart disease of native coronary artery without angina pectoris; E87.6 Hypokalemia; K21.9 Gastro-esophageal reflux disease without esophagitis; E86.0 Dehydration; D50.9 Iron deficiency anemia, unspecified; E83.42 Hypomagnesemia; Z79.899 Other long term (current) drug therapy; Z90.49 Acquired absence of other specified parts of digestive tract; Z95.2 Presence of prosthetic heart valve; Z87.891 Personal history of nicotine dependence; Z79.82 Long term (current) use of aspirin; Z88.1 Allergy status to other antibiotic agents; Z88.3 Allergy status to other anti-infective agents; Z88.8 Allergy status to other drugs, medicaments and biological substances; Z93.2 Ileostomy status; Z90.2 Acquired absence of lung [part of]; Z85.89 Personal history of malignant neoplasm of other organs and systems; Z85.118 Personal history of other malignant neoplasm of bronchus and lung; Z82.49 Family history of ischemic heart disease and other diseases of the circulatory system; Z83.6 Family history of other diseases of the respiratory system
CPT/HCPCS: 36415; 36430; 36600; 71045; 71046; 80048; 80053; 81001; 82607; 82728; 82746; 82803; 83540; 83550; 83605; 83735; 83880; 84100; 84484; 85025; 85027; 85045; 86850; 86900; 86901; 86920; 87040; 87086; 93005; 93010; 93306; 94640; 94799; 96365; 96366; 99285; C1751; J0456; J1200; J1642; J1644; J1940; J3475; J3480; J3490; J7030; J7050; J7060; J7512; J7620; P9016; Q0139; Q4081; S0119

== ENCOUNTER → 2018-01-03 | Outpatient (CLI) | payer MEDICARE, BC ==
[2018-01-03 10:26] LABS: HEMATOCRIT 36.7 % (36.0-47.0); HEMOGLOBIN 12.5 g/dL (12.0-15.5); MEAN CORPUSCULAR HEMOGLOBIN 31.4 pg (27.0-33.4); MEAN CORPUSCULAR HGB CONC 34.1 g/dL (32.0-36.0); MEAN CORPUSCULAR VOLUME 92 fl (80-97); PLATELET COUNT 168 10^3/uL (150-450); RED BLOOD COUNT 3.99 10^6/uL (3.72-5.28); WHITE BLOOD COUNT 13.2 10^3/uL (4.0-10.5)
[2018-01-03 10:52] LABS: ANION GAP 16 (5-19); CALCIUM 10.4 mg/dL (8.4-10.2); CARBON DIOXIDE 31 mmol/L (22-30); CHLORIDE 89 mmol/L (98-107); GLUCOSE 121 mg/dL (75-110); POTASSIUM 5.4 mmol/L (3.6-5.0); SODIUM 135.8 mmol/L (137-145)
[2018-01-03 10:59] LABS: BLOOD UREA NITROGEN 119 mg/dL (7-20)
== END ==
LOC: OD 09:38
PROVIDERS: ATTEND Internal Medicine Nephrology
DX: N18.5 Chronic kidney disease, stage 5 (principal); E87.5 Hyperkalemia; E83.42 Hypomagnesemia; D64.9 Anemia, unspecified
CPT/HCPCS: 36415; 80048; 83970; 84100; 85027

== ENCOUNTER 2018-01-04 08:15 | Outpatient (CLI) | payer MEDICARE, BC ==
[2018-01-04] MEDS ORDERED: NORMAL SALINE 500 ML IV PRN (08:29)
[2018-01-04 08:39] VITALS: BP 110/59
== END 2018-01-04 13:45 | disposition home or self-care (01) ==
LOC: II 08:15 → 5TH 08:17 → II 13:45
PROVIDERS: ATTEND Internal Medicine
PROC: 3E0337Z Introduction of Electrolytic and Water Balance Substance into Peripheral Vein, Percutaneous Approach (ICD-10-PCS; principal; 2018-01-04)
DX: E86.0 Dehydration (principal); N17.9 Acute kidney failure, unspecified; N18.9 Chronic kidney disease, unspecified
CPT/HCPCS: 96360; 96361

== ENCOUNTER 2018-01-22 08:31 | Day surgery (SDC) | payer MEDICARE, BC ==
[~2018-01-22 08:31] MED LIST changes: +CLINDAMYCIN 600 MG/D5W RTU 600 MG/50 ML RTUPB IV PRN; +DEXTROSE 5%-1/2 NORMAL SALINE 1,000 ML IV PRN; +DIAZEPAM 5 MG TABLET PO PRN; -NORMAL SALINE 1000 ML 500 ML IV PRN; +OXYCODONE-ACETAMINOPHEN 5-325 MG TABLET PO PRN
[2018-01-22] MEDS ORDERED: MIDAZOLAM 2 MG/2 ML INJ ONE (08:41)
[2018-01-22] MEDS ORDERED: LIDOCAINE 0.5% INJ-PF (5 MG/ML) 50 ML SDV ONE (08:41)
[2018-01-22] MEDS ORDERED: FENTANYL CITRATE INJ/PF 100 MCG/2 ML AMPUL ONE (08:41)
[2018-01-22] MEDS ORDERED: BACITRACIN INJ 50,000 UNIT VIAL ONE (08:42)
[2018-01-22 09:31] LABS: HEMATOCRIT 25.9 % (36.0-47.0); HEMOGLOBIN 9.1 g/dL (12.0-15.5); MEAN CORPUSCULAR HEMOGLOBIN 32.4 pg (27.0-33.4); MEAN CORPUSCULAR HGB CONC 34.9 g/dL (32.0-36.0); MEAN CORPUSCULAR VOLUME 93 fl (80-97); PLATELET COUNT 191 10^3/uL (150-450); RED BLOOD COUNT 2.79 10^6/uL (3.72-5.28); RED CELL DISTRIBUTION WIDTH 17.6 % (11.5-14.0); WHITE BLOOD COUNT 6.2 10^3/uL (4.0-10.5)
[2018-01-22 09:53] LABS: ANION GAP 12 (5-19); BLOOD UREA NITROGEN 74 mg/dL (7-20); CARBON DIOXIDE 28 mmol/L (22-30); CHLORIDE 100 mmol/L (98-107); GLUCOSE 86 mg/dL (75-110); POTASSIUM 3.6 mmol/L (3.6-5.0); SODIUM 139.9 mmol/L (137-145)
--- NOTE | 2018-01-22 10:05 | RADIOLOGY REPORT (SQ) ---
EXAM DESCRIPTION: CHEST SINGLE VIEW COMPLETED DATE/TIME: 01/22/2018 9:34 am REASON FOR STUDY: pre-op E86.0 DEHYDRATION N18.9 CHRONIC KIDNEY DISEASE, UNSPECIFIED COMPARISON: 12/21/2017 NUMBER OF VIEWS: One view. TECHNIQUE: Single frontal radiographic view of the chest acquired. LIMITATIONS: None. FINDINGS: LUNGS AND PLEURA: No opacities, masses or pneumothorax. No pleural effusion. Attenuated bl ood vessels and flattened edgar-diaphragms. MEDIASTINUM AND HILAR STRUCTURES: No masses. Contour normal. HEART AND VASCULAR STRUCTURES: Heart normal in size. Normal vasculature. BONES: No acute findings. HARDWARE: CABG. OTHER: No other significant finding. IMPRESSION: COPD. NO ACUTE RADIOGRAPHIC FINDING IN THE CHEST. TECHNICAL DOCUMENTATION: JOB ID: [id number] [id number]- All Rights Reserved Reading location - IP/workstation name: [email or web address]
--- NOTE | 2018-01-22 11:45 | Discharge Summary ---
Discharge Summary (SDC) - Discharge Final Diagnosis: #1 Crohn's disease. 2. COPD. 3. Multiple comorbidities. Date of Surgery: 01/22/18 Discharge Date: 01/22/18 Condition: Good Treatment or Instructions: Discharge home [after recovery per ASU criteria]. Diet,as tolerated, when fully awake advance as tolerated. Activities within moderation encouraged. Follow up in my office by appointment in about [1 week]. Call for appointment. Leave wounds [covered], [keep clean and dry, until office visit in 1 week]. Meds per med rec. Percocet. Hold of on school/work [until evaluation in office]. May shower [in 48 hrs], [try to keep operated area as dry as possible]. Prescriptions: Oxycodone HCl/Acetaminophen [Percocet 5-325 mg Tablet] 1 tab PO ASDIR PRN #15 tab PRN Reason: Referrals: CLINT REED MD [Primary Care Provider] - Discharge Diet: As Tolerated Respiratory Treatments at Home: Deep Breathing/Coughing Report the Following to Your Physician Immediately: Shortness of Breath, Unusual Bleeding
--- NOTE | 2018-01-22 12:02 | Operative Report ---
Operative Report DATE OF SURGERY: 01/22/18 PREOPERATIVE DIAGNOSIS: #1 Crohn's disease. 2. COPD. 3. Multiple comorbidities. POSTOPERATIVE DIAGNOSIS: #1 Crohn's disease. 2. COPD. 3. Multiple comorbidities. OPERATION: 1. Ultrasound-guided access to the right internal jugular vein and evaluation. 2. Insertion of single-lumen Port-A-Cath via real time access in the right internal jugular vein. 3. Angiogram and interpretation. SURGEON: BEA HCEK GALVANIZER: None. TISSUE REMOVED OR ALTERED: Not applicable. COMPLICATIONS: None. ESTIMATED BLOOD LOSS: 5 mL. INTRAOPERATIVE FINDINGS: Of a satisfactory right internal jugular vein estimated to be 1.5 cm. Satisfactory and safe access gained under ultrasound guidance. Good position with the tip well down in the superior vena cava. Smooth flow of contrast through the lower superior vena cava, right atrium, ventricle PROCEDURE: After obtaining informed consent, the patient was taken to the [facility] and positioned supine. The [right] neck and chest were prepared with chlorhexidine and draped out with sterile linen. After the " universal timeout", in which it was verified that the patient continued to receive antibiotic, the procedure commenced. A steriley sheathed ultrasound probe was used to evaluate the [ right] internal jugular vein. Local anesthesia was infiltrated adjacent to the probe. Access into the [right] internal jugular vein was obtained using a micropuncture needle, followed by micropuncture wire and then a micropuncture catheter. This was followed by introduction of a 0.035 guidewire the tip of which was placed down into the inferior vena cava . The port sites was marked , locally anesthetized and incision made. Dissection now proceeded to the deep subcutaneous subcutaneous tissues so that a pocket for the port was made. Meticulous hemostasis was secured and the catheter was tunneled between the 2 incisions. Proximally, the catheter was now positioned using a peel-away sheath. Distally the catheter was tailored to an appropriate length and then mated to the port using the contained fixating device. The port was now placed in the pocket and the catheter optimally positioned. The port was accessed with a Ha needle and an angiogram done under digital subtraction. The findings as dictated. With adequate and satisfactory positioning, the lumen of the chamber were irrigated with heparinized solution. The wounds were now closed using interrupted 3-0 PDS to the subcutaneous tissues and a continuous subcuticular suture of 4-0 Monocryl to the skin. These are reinforced with Steri-Strips over benzoin and then dressings applied. Time: 0.1 minute. Dose: 4.81 m Gy Contrast: 5 mls. Isovue 300. Copies of the dictated operative report for Dr. Bea Sanchez MD.
[2018-01-22 13:11] VITALS: BP 98/55
--- NOTE | 2018-01-22 13:44 | RADIOLOGY REPORT (SQ) ---
EXAM DESCRIPTION: PORTACATH INSERTION; GUIDANCE ULTRASOUND; GUIDANCE FLUOROSCOPIC COMPLETED DATE/TIME: 01/22/2018 11:05 am REASON FOR STUDY: E86.0 DEHYDRATION, N18.6 CKD E86.0 DEHYDRATION N18.9 CHRONIC KIDNEY DISEASE, UNS PECIFIED COMPARISON: None. FLUOROSCOPY TIME: 0.1 minutes. 24 images saved to PACS. TECHNIQUE: Intra-operative images acquired during surgical procedure to evaluate progress. NUMBER OF IMAGES: 24 images. LIMITATIONS: None. FINDINGS: Images of the chest acquired during port placement. IMPRESSION: IMAGE(S) OBTAINED DURING PROCEDURE. COMMENT: Quality ID 145: Final reports for procedures using fluoroscopy that document radiation exp osure indices, or exposure time and number of fluorographic images (if radiation exposure indices are not available) Please consult full operative report of the attending physician for description of the procedure. TECHNICAL DOCUMENTATION: JOB ID: [id number] [employer]- All Rights Reserved Reading location - IP/workstation name: [facility]
--- NOTE | 2018-01-22 13:44 | RADIOLOGY REPORT (SQ) ---
EXAM DESCRIPTION: PORTACATH INSERTION; GUIDANCE ULTRASOUND; GUIDANCE FLUOROSCOPIC COMPLETED DATE/TIME: 01/22/2018 11:05 am REASON FOR STUDY: E86.0 DEHYDRATION, N18.6 CKD E86.0 DEHYDRATION N18.9 CHRONIC KIDNEY DISEASE, UNS PECIFIED COMPARISON: None. FLUOROSCOPY TIME: 0.1 minutes. 24 images saved to PACS. TECHNIQUE: Intra-operative images acquired during surgical procedure to evaluate progress. NUMBER OF IMAGES: 24 images. LIMITATIONS: None. FINDINGS: Images of the chest acquired during port placement. IMPRESSION: IMAGE(S) OBTAINED DURING PROCEDURE. COMMENT: Quality ID 145: Final reports for procedures using fluoroscopy that document radiation exp osure indices, or exposure time and number of fluorographic images (if radiation exposure indices are not available) Please consult full operative report of the attending physician for description of the procedure. TECHNICAL DOCUMENTATION: JOB ID: [id number] [employer]- All Rights Reserved Reading location - IP/workstation name: [facility]
--- NOTE | 2018-01-22 13:44 | RADIOLOGY REPORT (SQ) ---
EXAM DESCRIPTION: PORTACATH INSERTION; GUIDANCE ULTRASOUND; GUIDANCE FLUOROSCOPIC COMPLETED DATE/TIME: 01/22/2018 11:05 am REASON FOR STUDY: E86.0 DEHYDRATION, N18.6 CKD E86.0 DEHYDRATION N18.9 CHRONIC KIDNEY DISEASE, UNS PECIFIED COMPARISON: None. FLUOROSCOPY TIME: 0.1 minutes. 24 images saved to PACS. TECHNIQUE: Intra-operative images acquired during surgical procedure to evaluate progress. NUMBER OF IMAGES: 24 images. LIMITATIONS: None. FINDINGS: Images of the chest acquired during port placement. IMPRESSION: IMAGE(S) OBTAINED DURING PROCEDURE. COMMENT: Quality ID 145: Final reports for procedures using fluoroscopy that document radiation exp osure indices, or exposure time and number of fluorographic images (if radiation exposure indices are not available) Please consult full operative report of the attending physician for description of the procedure. TECHNICAL DOCUMENTATION: JOB ID: [id number] [employer]- All Rights Reserved Reading location - IP/workstation name: [facility]
== END 2018-01-22 13:05 | disposition home or self-care (01) ==
LOC: CCL 08:31
PROVIDERS: ATTEND Surgery
DX: K50.10 Crohn's disease of large intestine without complications (principal); J44.9 Chronic obstructive pulmonary disease, unspecified; E86.0 Dehydration; I12.9 Hypertensive chronic kidney disease with stage 1 through stage 4 chronic kidney disease, or unspecified chronic kidney disease; N18.9 Chronic kidney disease, unspecified; K21.9 Gastro-esophageal reflux disease without esophagitis; Z86.718 Personal history of other venous thrombosis and embolism; E78.5 Hyperlipidemia, unspecified; M10.9 Gout, unspecified; C34.90 Malignant neoplasm of unspecified part of unspecified bronchus or lung; I25.10 Atherosclerotic heart disease of native coronary artery without angina pectoris; Z79.899 Other long term (current) drug therapy; Z79.82 Long term (current) use of aspirin; Z79.51 Long term (current) use of inhaled steroids; Z95.2 Presence of prosthetic heart valve; Z88.0 Allergy status to penicillin; Z88.5 Allergy status to narcotic agent; Z88.6 Allergy status to analgesic agent; Z88.3 Allergy status to other anti-infective agents
CPT/HCPCS: 36415; 85027; 80048; 36561; 76937; 77001; 71045; C1752; C1788; Q9967; J2250; J3490 ×2; A9270 ×2; J3010; J1644

== ENCOUNTER 2018-02-06 11:05 | Outpatient (CLI) | payer MEDICARE, BC ==
[2018-02-06 11:52] VITALS: BP 134/53
[2018-02-06] MEDS ORDERED: NORMAL SALINE 500 ML IV PRN (11:56)
== END 2018-02-06 15:32 | disposition home or self-care (01) ==
LOC: II 11:05 → 5TH 11:10 → II 15:32
PROVIDERS: ATTEND Internal Medicine
PROC: 3E0437Z Introduction of Electrolytic and Water Balance Substance into Central Vein, Percutaneous Approach (ICD-10-PCS; principal; 2018-02-06)
DX: Z76.89 Persons encountering health services in other specified circumstances (principal)
CPT/HCPCS: 96360; 96361

== ENCOUNTER 2018-05-02 09:06 | Outpatient (CLI) | payer MEDICARE, BC ==
[~2018-05-02 09:06] MED LIST changes: -CLINDAMYCIN 600 MG/D5W RTU 600 MG/50 ML RTUPB IV PRN; -DEXTROSE 5%-1/2 NORMAL SALINE 1,000 ML IV PRN; -DIAZEPAM 5 MG TABLET PO PRN; +FERRIC CARBOXYMALTOSE 750 MG in NORMAL SALINE 250 ML IV PRN; -OXYCODONE-ACETAMINOPHEN 5-325 MG TABLET PO PRN
[2018-05-02 09:30] VITALS: BP 126/83
== END 2018-05-02 10:41 | disposition home or self-care (01) ==
LOC: II 09:06 → 5TH 09:08 → II 10:41
PROVIDERS: ATTEND Internal Medicine Nephrology
PROC: 3E043GC Introduction of Other Therapeutic Substance into Central Vein, Percutaneous Approach (ICD-10-PCS; principal; 2018-05-02)
DX: D50.8 Other iron deficiency anemias (principal); N18.4 Chronic kidney disease, stage 4 (severe)
CPT/HCPCS: 96365; J7050; J1439; 96372

== ENCOUNTER 2018-05-09 08:36 | Outpatient (CLI) | payer MEDICARE, BC ==
[2018-05-09 09:16] VITALS: BP 151/69
== END 2018-05-09 09:48 | disposition home or self-care (01) ==
LOC: II 08:36 → 5TH 09:14 → II 09:48
PROVIDERS: ATTEND Internal Medicine Nephrology
PROC: 3E043GC Introduction of Other Therapeutic Substance into Central Vein, Percutaneous Approach (ICD-10-PCS; principal; 2018-05-09)
DX: D50.8 Other iron deficiency anemias (principal); N18.4 Chronic kidney disease, stage 4 (severe)
CPT/HCPCS: 96367; J7050; J1439; 96365

== ENCOUNTER 2018-06-01 08:39 | Outpatient (CLI) | payer MEDICARE, BC ==
[2018-06-01] MEDS ORDERED: NORMAL SALINE 1000 ML 2,000 ML IV PRN (09:02)
[2018-06-01 09:05] VITALS: BP 163/82
== END 2018-06-01 12:35 | disposition home or self-care (01) ==
LOC: II 08:39 → 5TH 08:42 → II 12:35
PROVIDERS: ATTEND Physician Assistant Medical
PROC: 3E0437Z Introduction of Electrolytic and Water Balance Substance into Central Vein, Percutaneous Approach (ICD-10-PCS; principal; 2018-06-01)
DX: E86.0 Dehydration (principal); N18.4 Chronic kidney disease, stage 4 (severe)
CPT/HCPCS: 96360; 96361; 96374

== ENCOUNTER 2018-06-14 07:53 | Outpatient (CLI) | payer MEDICARE, BC ==
[2018-06-14] MEDS ORDERED: NORMAL SALINE 1000 ML 2,000 ML IV PRN (08:09)
[2018-06-14 08:18] VITALS: BP 125/59
== END 2018-06-14 11:49 | disposition home or self-care (01) ==
LOC: II 07:53 → 5TH 07:54 → II 11:49
PROVIDERS: ATTEND Physician Assistant Medical
PROC: 3E0437Z Introduction of Electrolytic and Water Balance Substance into Central Vein, Percutaneous Approach (ICD-10-PCS; principal; 2018-06-14)
DX: E86.0 Dehydration (principal); E87.0 Hyperosmolality and hypernatremia
CPT/HCPCS: 96360; 96361; 96374

== ENCOUNTER → 2018-06-28 | Outpatient (CLI) | payer MEDICARE, BC ==
[2018-06-28 14:45] LABS: HEMATOCRIT 32.3 % (36.0-47.0); HEMOGLOBIN 11.1 g/dL (12.0-15.5); MEAN CORPUSCULAR HEMOGLOBIN 31.6 pg (27.0-33.4); MEAN CORPUSCULAR HGB CONC 34.2 g/dL (32.0-36.0); MEAN CORPUSCULAR VOLUME 92 fl (80-97); PLATELET COUNT 134 10^3/uL (150-450); RED CELL DISTRIBUTION WIDTH 21.3 % (11.5-14.0); WHITE BLOOD COUNT 11.8 10^3/uL (4.0-10.5)
[2018-06-28 15:02] LABS: ALANINE AMINOTRANSFERASE 36 U/L (9-52); ALBUMIN 3.8 g/dL (3.5-5.0); ALKALINE PHOSPHATASE 79 U/L (38-126); ANION GAP 9 (5-19); ASPARTATE AMINO TRANSFERASE 25 U/L (14-36); BILIRUBIN,DIRECT 0.3 mg/dL (0.0-0.4); BILIRUBIN,TOTAL 0.6 mg/dL (0.2-1.3); BLOOD UREA NITROGEN 81 mg/dL (7-20); CALCIUM 11.2 mg/dL (8.4-10.2); CARBON DIOXIDE 27 mmol/L (22-30); CHLORIDE 103 mmol/L (98-107); GLUCOSE 112 mg/dL (75-110); IRON(TIBC) 90.1 ug/dL (37-170); PHOSPHORUS 5.3 mg/dL (2.5-4.5); POTASSIUM 4.2 mmol/L (3.6-5.0); SODIUM 139.2 mmol/L (137-145); TOTAL PROTEIN 6.5 g/dL (6.3-8.2)
== END ==
LOC: OD 14:16
PROVIDERS: ATTEND Internal Medicine Nephrology
DX: N18.4 Chronic kidney disease, stage 4 (severe) (principal); D64.9 Anemia, unspecified; E83.42 Hypomagnesemia
CPT/HCPCS: 36415; 80053; 82728; 83540; 83550; 83735; 83970; 84100; 85027

== ENCOUNTER 2018-07-05 09:05 | Day surgery (SDC) | payer MEDICARE, BC ==
[~2018-07-05 09:05] MED LIST changes: +BUPIVACAINE HCL 0.75% INJ/PF (7.5 MG/1 ML) 10 ML SDV OD PRN; +CHONDR SU A NA/HYALUR INTRAOC KIT (SURGICARE) ONE; +EPINEPHRINE INJ/PF 1 MG/1 ML AMPULE ONE; -FERRIC CARBOXYMALTOSE 750 MG in NORMAL SALINE 250 ML IV PRN; +LIDOCAINE 1% INJ-PF (10 MG/ML) 30 ML SDV ONE; +LIDOCAINE 4% INJ/PF (40 MG/ML) 5 ML AMPUL OD PRN
[2018-07-05] MEDS ORDERED: KETOROLAC TROMETHAMINE 0.45% 4 DROP/0.4 ML DROPERETTE OD PRN (10:50)
[2018-07-05] MEDS: TROPICAMIDE 1% OPH SOLN 3 ML OD PRN ×3 (11:00→11:20)
[2018-07-05] MEDS: CYCLOPENTOLATE 0.2%/PHENYLEPHRINE 1% OPH SOLN 2 ML OD PRN ×3 (11:00→11:20)
[2018-07-05] MEDS: TETRACAINE HCL 0.5% OPH SOLN 0.6 ML DROPERETTE OD PRN ×2 (11:00→11:20)
[2018-07-05] MEDS: BESIFLOXACIN HCL 0.6% OPH SUSP 5 ML BOTTLE OD PRN ×4 (11:15→12:26)
[2018-07-05] MEDS ORDERED: MIDAZOLAM 2 MG/2 ML INJ ONE (11:38)
[2018-07-05] MEDS ORDERED: FENTANYL CITRATE INJ/PF 100 MCG/2 ML AMPUL ONE (11:39)
--- NOTE | 2018-07-06 12:32 | [facility] DISCHARGE SUMMARY E ---
[facility] Discharge Summary NAME: FABRICIO BARR AGE: 73Y ADMITTED: 07/05/2018 DISCHARGED: HOSPITAL COURSE: The patient is a 73-year-old lady who underwent uneventful cataract extraction with intraocular lens implant right eye on 07/05/2018. She will be discharged to home. She is instructed to resume preoperative medications. Take Tylenol if needed for discomfort. Keep her eye shielded. To use Durezol, Prolensa, and Besivance at 3:00 p.m. and 8:00 p.m. To follow up in my office in one day. DICTATING PHYSICIAN: JUDAH DANIEL M.D. [id number] PHY#: [id number] ID: [id number] JOB#: [id number] ACCT: [id number] cc:JUDAH DANIEL M.D. >
--- NOTE | 2018-07-06 12:32 | [facility] OPERATIVE REPORT E ---
[facility] Operative Report NAME: FABRICIO BARR AGE: 73Y DATE OF SURGERY: 07/05/2018 ROOM: [facility] Operative Report PREOPERATIVE DIAGNOSIS: CATARACT, RIGHT EYE. POSTOPERATIVE DIAGNOSIS: CATARACT, RIGHT EYE. PROCEDURE PERFORMED: PHACOEMULSIFICATION WITH TORIC INTRAOCULAR LENS IMPLANT, RIGHT EYE. SURGEON: JUDAH DANIEL MD ANESTHESIA: TOPICAL WITH MAC. INDICATIONS FOR SURGERY: Difficulty reading road signs and words on TV. PROCEDURE: Prior to surgery, the patient was placed in the seated position and the 0270 and 180 degree axis of the eye was marked using a marking level. Prior to placing the lens implant, the 10 degree axis was marked on the eye. The lens was centered at this axis. The patient was brought to the Operating Room and placed on the operative table. Following tetracaine drops, topical anesthesia was administered. This consisted of instrument wipe pledgets soaked in a solution of 4% Xylocaine mixed with 0.75% Marcaine in a 1:2 ratio. A 2 x 1 cm pledget was placed in the superior fornix. A 1 x 1 cm pledget was placed in the inferior fornix. The eye was patched shut for 5 minutes. The patch was removed. The eye was sterilely prepped and draped in the usual manner. Lid speculum was placed in the eye. The pledgets were removed. 4-0 black silk sutures were placed around the superior and the inferior rectus muscles to be used as traction. A conjunctival peritomy was made at the 10 o'clock position. Hemostasis was obtained with bipolar cautery. A posterior limbal groove was created using a crescent knife and dissected anteriorly towards the cornea. A sharp point blade was used to create a paracentesis site at the 2 o'clock position. A 2.4 mm keratome was used to enter the anterior chamber through the groove. Viscoelastic was injected into the anterior chamber. An anterior capsulotomy was performed using Utrata forceps in a capsulorrhexis fashion. Hydrodissection and hydrodelineation were performed. Phacoemulsification was performed in kyjyid-lnk-weprdzu technique. A total of 6.62 seconds phaco time was used. Following this, the I/A unit was used to remove residual cortex. Viscoelastic was injected into the capsular bag. Intraocular lens model [id number], 19.5 diopters, serial number [id number] was placed in the capsular bag. The I/A unit was used to remove residual viscoelastic. The wound was seen to be watertight under high and low pressure, and no sutures were placed. The intraocular lens was well centered. The pressure was adjusted in the eye to normal pressure. The 4-0 black silk sutures and lid speculum were removed. The eye was shielded after Besivance drops were placed. The patient tolerated the procedure well and was sent to the Recovery Room in good condition. DICTATING PHYSICIAN: JUDAH DANIEL M.D. DICTATING PHYSICIAN: JUDAH DANIEL M.D. [id number] PHY#: [id number] ID: [id number] JOB#: [id number] ACCT: [id number] cc:JUDAH DANIEL M.D. >
== END 2018-07-05 13:47 | disposition home or self-care (01) ==
LOC: SC 09:05
PROVIDERS: ATTEND Ophthalmology
DX: H25.13 Age-related nuclear cataract, bilateral (principal); H04.123 Dry eye syndrome of bilateral lacrimal glands; H43.813 Vitreous degeneration, bilateral; H35.62 Retinal hemorrhage, left eye; H52.4 Presbyopia; J44.9 Chronic obstructive pulmonary disease, unspecified; I10 Essential (primary) hypertension; D64.9 Anemia, unspecified; R06.02 Shortness of breath; R06.00 Dyspnea, unspecified; Z85.3 Personal history of malignant neoplasm of breast; Z85.118 Personal history of other malignant neoplasm of bronchus and lung; Z87.891 Personal history of nicotine dependence
CPT/HCPCS: 66984; V2787; J2250; J3490 ×4; J0171; J3010; 142

== ENCOUNTER 2018-07-24 08:01 | Day surgery (SDC) | payer MEDICARE, BC ==
[~2018-07-24 08:01] MED LIST changes: -BUPIVACAINE HCL 0.75% INJ/PF (7.5 MG/1 ML) 10 ML SDV OD PRN; +BUPIVACAINE HCL 0.75% INJ/PF (7.5 MG/1 ML) 10 ML SDV OS PRN; -CHONDR SU A NA/HYALUR INTRAOC KIT (SURGICARE) ONE; -EPINEPHRINE INJ/PF 1 MG/1 ML AMPULE ONE; +FENTANYL CITRATE INJ/PF 100 MCG/2 ML AMPUL ONE; +KETOROLAC TROMETHAMINE 0.45% 4 DROP/0.4 ML DROPERETTE OS PRN; -LIDOCAINE 1% INJ-PF (10 MG/ML) 30 ML SDV ONE; -LIDOCAINE 4% INJ/PF (40 MG/ML) 5 ML AMPUL OD PRN; +LIDOCAINE 4% INJ/PF (40 MG/ML) 5 ML AMPUL OS PRN; +MIDAZOLAM 2 MG/2 ML INJ ONE; +ONDANSETRON HCL INJ/PF 4 MG/2 ML SDV ONE
[2018-07-24] MEDS: BESIFLOXACIN HCL 0.6% OPH SUSP 5 ML BOTTLE OS PRN ×4 (08:42→09:57)
[2018-07-24] MEDS: CYCLOPENTOLATE 0.2%/PHENYLEPHRINE 1% OPH SOLN 2 ML OS PRN ×3 (08:42→09:03)
[2018-07-24] MEDS: TROPICAMIDE 1% OPH SOLN 3 ML OS PRN ×3 (08:42→09:03)
[2018-07-24] MEDS: TETRACAINE HCL 0.5% OPH SOLN 0.6 ML DROPERETTE OS PRN ×2 (08:42→09:20)
[2018-07-24] MEDS ORDERED: EPINEPHRINE INJ/PF 1 MG/1 ML AMPULE ONE (08:51)
[2018-07-24] MEDS ORDERED: CHONDR SU A NA/HYALUR INTRAOC KIT (SURGICARE) ONE (08:51)
[2018-07-24] MEDS ORDERED: LIDOCAINE 1% INJ-PF (10 MG/ML) 30 ML SDV ONE (08:51)
[2018-07-24] MEDS ORDERED: NORMAL SALINE INJ/PF 0.9% 10 ML SDV ONE (09:14)
[2018-07-24] MEDS: DORZOLAMIDE HCL 2%/TIMOLOL MALEAT 0.5% OPH SOLN 10 ML OS PRN ×2 (09:57)
--- NOTE | 2018-07-24 11:02 | [facility] DISCHARGE SUMMARY E ---
[facility] Discharge Summary NAME: FABRICIO BARR AGE: 73Y ADMITTED: 07/24/2018 DISCHARGED: 07/24/2018 FINAL DIAGNOSIS: Cataract, left eye. HOSPITAL COURSE: The patient is a 73-year-old woman who underwent uneventful cataract extraction with intraocular lens implant, left eye, on 07/24/2018. She will be discharged to home. She was instructed to resume preoperative medications; to take Tylenol as needed for discomfort; to keep her eye shielded; to use Ketorolac, Besivance, and Durezol at 3 p.m. and 8 p.m.; and to follow up in my office in 1 day. DICTATING PHYSICIAN: JUDAH DANIEL M.D. [id number] PHY#: [id number] ID: [id number] JOB#: [id number] ACCT: [id number] cc:JUDAH DANIEL M.D. >
--- NOTE | 2018-07-24 11:02 | [facility] OPERATIVE REPORT E ---
[facility] Operative Report NAME: FABRICIO BARR AGE: 73Y DATE OF SURGERY: 07/24/2018 ROOM: PREOPERATIVE DIAGNOSIS: Cataract, left eye. POSTOPERATIVE DIAGNOSIS: Cataract, left eye. PROCEDURE PERFORMED: Phacoemulsification with posterior chamber intraocular lens, left eye. SURGEON: JUDAH DANIEL M.D. ANESTHESIA: Topical with MAC. INDICATIONS FOR SURGERY: Difficulty reading road signs. PROCEDURE: The patient was brought to the operating room and placed on the operative table. Following tetracaine drops, topical anesthesia was administered. This consisted of instrument wipe pledgets soaked in a solution of 4% Xylocaine mixed with 0.75% Marcaine in a 1:2 ratio. A 2 x 1 cm pledget was placed in the superior fornix. A 1 x 1 cm pledget was placed in the inferior fornix. The eye was patched shut for 5 minutes. The patch was removed. The eye was sterilely prepped and draped in the usual manner. Lid speculum was placed in the eye. The pledgets were removed and 4-0 black silk sutures were placed around the superior and the inferior rectus muscles to be used as traction. A conjunctival peritomy was made at the 10 o'clock position. Hemostasis was obtained with bipolar cautery. A posterior limbal groove was created using a crescent knife and dissected anteriorly towards the cornea. A sharp point blade was used to create a paracentesis site at the 2 o'clock position. A 2.4 mm keratome was used to enter the anterior chamber through the groove. Viscoelastic was injected into the anterior chamber. An anterior capsulotomy was performed using Utrata forceps in a capsulorrhexis fashion. Hydrodissection and hydrodelineation were performed. Phacoemulsification was performed in kothsw-ici-xbjpcuw technique. Total phaco time was 4.69 CDE. Following this, the I/A unit was used to remove residual cortex. Viscoelastic was injected into the capsular bag. Intraocular lens model [id number], 19.5 diopters, serial number [id number], was placed in the capsular bag. The I/A unit was used to remove residual viscoelastic. The wound was seen to be watertight under high and low pressure, and no sutures were placed. The intraocular lens was well centered. The pressure was adjusted in the eye to normal pressure. The 4-0 black silk sutures and lid speculum were removed. The eye was shielded after Besivance drops were placed. The patient tolerated the procedure well and was sent to the recovery room in good condition. DICTATING PHYSICIAN: JUDAH DANIEL M.D. [id number] PHY#: [id number] ID: [id number] JOB#: [id number] ACCT: [id number] cc:JUDAH DANIEL M.D. >
== END 2018-07-24 11:00 | disposition home or self-care (01) ==
LOC: SC 08:01
PROVIDERS: ATTEND Ophthalmology
DX: H25.12 Age-related nuclear cataract, left eye (principal); Z96.1 Presence of intraocular lens; J45.909 Unspecified asthma, uncomplicated; I10 Essential (primary) hypertension; K50.90 Crohn's disease, unspecified, without complications; Z79.51 Long term (current) use of inhaled steroids; Z86.73 Personal history of transient ischemic attack (TIA), and cerebral infarction without residual deficits; Z87.891 Personal history of nicotine dependence; Z85.3 Personal history of malignant neoplasm of breast; Z85.118 Personal history of other malignant neoplasm of bronchus and lung; Z79.82 Long term (current) use of aspirin; Z86.718 Personal history of other venous thrombosis and embolism
CPT/HCPCS: 66984; V2632; J2250; J3490 ×4; A9270; J0171; J3010; J2405; 142

== ENCOUNTER → 2018-08-15 | Outpatient (CLI) | payer MEDICARE, BC ==
[~2018-08-15] MED LIST changes: -BUPIVACAINE HCL 0.75% INJ/PF (7.5 MG/1 ML) 10 ML SDV OS PRN; -FENTANYL CITRATE INJ/PF 100 MCG/2 ML AMPUL ONE; -KETOROLAC TROMETHAMINE 0.45% 4 DROP/0.4 ML DROPERETTE OS PRN; -LIDOCAINE 4% INJ/PF (40 MG/ML) 5 ML AMPUL OS PRN; -MIDAZOLAM 2 MG/2 ML INJ ONE; +NORMAL SALINE 1000 ML 1,000 ML IV ONE; -ONDANSETRON HCL INJ/PF 4 MG/2 ML SDV ONE
[2018-08-15 16:52] VITALS: BP 170/82
== END ==
LOC: ASU 14:04
PROVIDERS: ATTEND Internal Medicine Nephrology
PROC: 3E0437Z Introduction of Electrolytic and Water Balance Substance into Central Vein, Percutaneous Approach (ICD-10-PCS; principal; 2018-08-15)
DX: E86.0 Dehydration (principal); E87.0 Hyperosmolality and hypernatremia
CPT/HCPCS: 96360; 96361

== ENCOUNTER → 2018-09-19 | Outpatient (CLI) | payer MEDICARE, BC ==
--- NOTE | 2018-09-19 18:04 | RADIOLOGY REPORT (SQ) ---
EXAM DESCRIPTION: CHEST 2 VIEWS COMPLETED DATE/TIME: 09/19/2018 5:38 pm REASON FOR STUDY: BILATERAL SUPRACLAVICALUR MASSES COMPARISON: 12/21/2017 TECHNIQUE: Frontal and lateral radiographic views of the chest acquired. NUMBER OF VIEWS: Two view. LIMITATIONS: None. FINDINGS: LUNGS AND PLEURA: No pneumothorax. No acute consolidation or pleural effusion. Chronic ba silar scarring-interstitial changes, stable. MEDIASTINUM AND HILAR STRUCTURES: Stable. HEART AND VASCULAR STRUCTURES: Stable. BONES: No acute findings. HARDWARE: Sternotomy -AVR. Right chest port. Left anterior-lateral rib hardware. Surgical clips in the right axilla. OTHER: No other significant finding. IMPRESSION: NO ACUTE FINDINGS. TECHNICAL DOCUMENTATION: JOB ID: [id number] [id number] 2010 [employer]- All Rights Reserved Reading location - IP/workstation name: [email or web address]
== END ==
LOC: RAD 17:16
PROVIDERS: ATTEND Internal Medicine
DX: R22.2 Localized swelling, mass and lump, trunk (principal)
CPT/HCPCS: 71046

== ENCOUNTER 2018-12-07 10:04 | Outpatient (CLI) | payer MEDICARE, BC ==
[~2018-12-07 10:04] MED LIST changes: +FERRIC CARBOXYMALTOSE 750 MG in NORMAL SALINE 250 ML IV PRN; -NORMAL SALINE 1000 ML 1,000 ML IV ONE
[2018-12-07 10:29] VITALS: BP 152/57
== END 2018-12-07 11:25 | disposition home or self-care (01) ==
LOC: II 10:04 → 5TH 10:07 → II 11:25
PROVIDERS: ATTEND Internal Medicine Nephrology
PROC: 3E043GC Introduction of Other Therapeutic Substance into Central Vein, Percutaneous Approach (ICD-10-PCS; principal; 2018-12-07)
DX: D50.8 Other iron deficiency anemias (principal)
CPT/HCPCS: 96365; J7050; J1642; J1439

== ENCOUNTER 2018-12-14 10:07 | Outpatient (CLI) | payer MEDICARE, BC ==
[2018-12-14 10:45] VITALS: BP 122/54
== END 2018-12-14 11:19 | disposition home or self-care (01) ==
LOC: II 10:07 → 5TH 10:11 → II 11:19
PROVIDERS: ATTEND Internal Medicine Nephrology
PROC: 3E033GC Introduction of Other Therapeutic Substance into Peripheral Vein, Percutaneous Approach (ICD-10-PCS; principal; 2018-12-14)
DX: D50.8 Other iron deficiency anemias (principal)
CPT/HCPCS: 96365; J7050; J1642; J1439

== ENCOUNTER 2018-12-24 13:14 | Inpatient (IN) | payer MEDICARE, BC ==
--- NOTE | 2018-12-24 13:44 | ER Document Report ---
ED Medical Screen (RME) - General Chief Complaint: Abnormal Lab Results Stated Complaint: ABNORMAL LABS Time Seen by Provider: 12/24/18 13:33 Primary Care Provider: BARBARA CHANDRA MD [Primary Care Provider] - Follow up as needed Mode of Arrival: Wheelchair Information source: Patient, Relative Notes: Patient presents complaining of generalized weakness with abnormal labs performed on outpatient basis. Patient had a hemoglobin of 5.3 results today as an outpatient. Patient denies any abnormal bleeding or bruising. hx: Breast cancer, lung cancer, COPD, Crohn's, aortic valve replacement, lobectomy I have greeted and performed a rapid initial assessment of this patient. A comprehensive ED assessment and evaluation of the patient, analysis of test results and completion of the medical decision making process will be conducted by additional ED providers. TRAVEL OUTSIDE OF THE [place] IN LAST 30 DAYS: No - Related Data Allergies/Adverse Reactions: indomethacin [From Indocin] Allergy (Severe, Verified 07/20/18 12:34) BODY SWELLING LOWER EXTREMITIES metronidazole [From Flagyl] Allergy (Severe, Verified 07/20/18 12:34) VEIN AGITATION naproxen [From Naprosyn] Allergy (Severe, Verified 07/20/18 12:34) SWELLING LOWER EXTREMITIES amoxicillin Allergy (Intermediate, Verified 07/20/18 12:34) HIVES/ITCHING levofloxacin [From Levaquin] Allergy (Intermediate, Verified 07/20/18 12:34) ITCHING penicillin G Allergy (Intermediate, Verified 07/20/18 12:34) HIVES/ITCHING codeine Allergy (Mild, Verified 07/20/18 12:34) Nausea allopurinol Allergy (Unknown, Verified 07/20/18 12:34) cephalexin [From Keflex] Allergy (Unknown, Verified 07/20/18 12:34) Cephalosporins Allergy (Unknown, Verified 07/20/18 12:34) mesalamine [From Pentasa] Allergy (Unknown, Verified 07/20/18 12:34) Past Medical History - Past Medical History Cardiac Medical History: Denies: Hx Coronary Artery Disease, Hx Heart Attack, Hx Hypertension Pulmonary Medical History: Reports: Hx Bronchitis, Hx COPD, Hx Pneumonia Denies: Hx Asthma Neurological Medical History: Reports: Hx Cerebrovascular Accident - NO ISSUES. Denies: Hx Seizures Renal/ Medical History: Reports: Hx End Stage Renal Disease. Denies: Hx Peritoneal Dialysis GI Medical History: Reports: Hx Gastroesophageal Reflux Disease, Hx Hiatal Hernia, Hx Ulcerative Colitis. Denies: Hx Hepatitis, Hx Ulcer Musculoskeltal Medical History: Reports Hx Arthritis - GOUT Infectious Medical History: Denies: Hx Hepatitis Past Surgical History: Reports: Hx Abdominal Surgery - illeostomy, Hx Cardiac Surgery - Aortic valve replacement, Hx Colostomy, Hx Open Heart Surgery - 2000, Hx Valve Replacement - Aortic valve, Other. Denies: Hx Mastectomy, Hx Pacemaker - Immunizations Hx Diphtheria, Pertussis, Tetanus Vaccination: Yes History of Influenza Vaccine for 03/2017 - 08/2017 Season: Yes Influenza Administration Date for 03/2017 - 08/2017 Season: 03/26/17 Physical Exam - Vital signs Vitals: Temp Pulse Resp BP Pulse Ox 99.1 F 77 18 92/56 L 96 12/24/18 13:18 12/24/18 13:18 12/24/18 13:18 12/24/18 13:18 12/24/18 13:18 - General General appearance: Appears well, Alert Course - Vital Signs Vital signs: Temp Pulse Resp BP Pulse Ox 99.1 F 77 18 92/56 L 96 12/24/18 13:18 12/24/18 13:18 12/24/18 13:18 12/24/18 13:18 12/24/18 13:18 Doctor's Discharge - Discharge Referrals: BARBARA CHANDRA MD [Primary Care Provider] - Follow up as needed
--- NOTE | 2018-12-24 15:23 | RADIOLOGY REPORT (SQ) ---
EXAM DESCRIPTION: CHEST 2 VIEWS COMPLETED DATE/TIME: 12/24/2018 2:49 pm REASON FOR STUDY: weak COMPARISON: 09/19/2018 NUMBER OF VIEWS: Two view. TECHNIQUE: Frontal and lateral radiographic views of the chest acquired. LIMITATIONS: None. FINDINGS: LUNGS AND PLEURA: No opacities, masses or pneumothorax. No pleural effusion. Attenuated bl ood vessels and flattened edgar-diaphragms. MEDIASTINUM AND HILAR STRUCTURES: No masses. No contour abnormalities. HEART AND VASCULAR STRUCTURES: Cardiomegaly. No evidence for failure. BONES: No acute findings. HARDWARE: CABG. Right side port. Old left posterior rib fracture. OTHER: No other significant finding. IMPRESSION: COPD. NO ACUTE RADIOGRAPHIC FINDING IN THE CHEST. TECHNICAL DOCUMENTATION: JOB ID: [id number] [employer] - [employer]- All Rights Reserved Reading location - IP/workstation name: [email or web address]
[2018-12-24 15:42] LABS: ABSOLUTE EOSINOPHILS # (AUTO) 0.1 10^3/uL (0.0-0.6); ABSOLUTE LYMPHOCYTES (AUTO) 0.6 10^3/uL (0.5-4.7); ABSOLUTE MONOCYTES (AUTO) 1.1 10^3/uL (0.1-1.4); BASOPHILS % (AUTO) 0.5 % (0-2); EOSINOPHILS % (AUTO) 0.6 % (0-6); MEAN CORPUSCULAR HGB CONC 34.2 g/dL (32.0-36.0); MEAN CORPUSCULAR VOLUME 102 fl (80-97); MONOCYTES % (AUTO) 12.2 % (3-13); PLATELET COUNT 133 10^3/uL (150-450); RED BLOOD COUNT 1.42 10^6/uL (3.72-5.28); RED CELL DISTRIBUTION WIDTH 22.9 % (11.5-14.0); SEGMENTED NEUTROPHILS % (AUTO) 79.7 % (42-78); TOTAL CELLS COUNTED % (AUTO) 100 %; WHITE BLOOD COUNT 8.8 10^3/uL (4.0-10.5)
[2018-12-24 15:44] LABS: HEMATOCRIT 14.5 % (36.0-47.0)
[2018-12-24 15:46] LABS: INTERNATIONAL RATION (INR) 0.97; PROTHROMBIN TIME 12.9 SEC (11.4-15.4)
[2018-12-24 15:47] LABS: PARTIAL THROMBOPLASTIN TIME 49.8 SEC (23.5-35.8)
[2018-12-24 15:52] LABS: ALANINE AMINOTRANSFERASE 17 U/L (9-52); ALBUMIN 3.2 g/dL (3.5-5.0); ALKALINE PHOSPHATASE 50 U/L (38-126); ANION GAP 10 (5-19); ASPARTATE AMINO TRANSFERASE 14 U/L (14-36); BILIRUBIN,DIRECT 0.3 mg/dL (0.0-0.4); BILIRUBIN,TOTAL 0.5 mg/dL (0.2-1.3); BLOOD UREA NITROGEN 115 mg/dL (7-20); CALCIUM 10.6 mg/dL (8.4-10.2); CARBON DIOXIDE 34 mmol/L (22-30); CHLORIDE 91 mmol/L (98-107); GLUCOSE 115 mg/dL (75-110); POTASSIUM 3.9 mmol/L (3.6-5.0); SODIUM 134.7 mmol/L (137-145); TOTAL PROTEIN 5.5 g/dL (6.3-8.2)
[2018-12-24] MEDS ORDERED: NORMAL SALINE 250 ML IV PRN (16:28)
[2018-12-24] MEDS ORDERED: ACETAMINOPHEN 325 MG TABLET PO PRN (17:15)
[2018-12-24 18:47] LABS: APPEARANCE,URINE CLEAR; BILIRUBIN,URINE NEGATIVE (NEGATIVE); COLOR,URINE YELLOW; GLUCOSE, URINE NEGATIVE (NEGATIVE); KETONES,URINE NEGATIVE (NEGATIVE); LEUKOCYTE ESTERASE,URINE SMALL (NEGATIVE); NITRITE,URINE NEGATIVE (NEGATIVE); PROTEIN,URINE NEGATIVE (NEGATIVE); URINE SPECIFIC GRAVITY 1.011; UROBILINOGEN,URINE NEGATIVE mg/dL (<2.0)
[2018-12-24] MEDS ORDERED: PROMETHAZINE HCL 25 MG TABLET PO PRN (20:11)
[2018-12-24] MEDS ORDERED: CYANOCOBALAMIN (VITAMIN B-12) INJ 1000 MCG/1 ML VIAL IM SCH (20:15)
--- NOTE | 2018-12-24 20:24 | PDOC H&P ---
History of Present Illness Admission Date/PCP: CLINT REED MD Patient complains of: Weakness and fatigue History of Present Illness: FABRICIO BARR is a 73 year old female with a past medical history of breast and lung cancer. She has chronic kidney disease. She also has COPD, hypertension and gout. She states that on Monday she began to feel poorly. She felt weak in general. Monday she still felt weak and somewhat lightheaded. She decided to remain at home and rest. Today however she was more lightheaded and dizzy and presented to the emergency department. She was found to have a hemoglobin of 5.3 with markedly elevated BUN and creatinine. She was referred to the hospital service for admission. Past Medical History Cardiac Medical History: Denies: Coronary Artery Disease, Myocardial Infarction, Hypertension Pulmonary Medical History: Reports: Bronchitis, Chronic Obstructive Pulmonary Disease (COPD), Pneumonia Denies: Asthma Neurological Medical History: Denies: Seizures Renal/ Medical History: Reports: End Stage Renal Disease GI Medical History: Reports: Gastroesophageal Reflux Disease, Hiatal Hernia, Ulcerative Colitis Denies: Hepatitis Musculoskeltal Medical History: Reports: Arthritis - GOUT Hematology: Reports: Anemia Denies: Sickle Cell Disease Past Surgical History Past Surgical History: Reports: Appendectomy, Colostomy, Valve Replacement - Aortic valve, Other Denies: Amputation, Mastectomy, Pacemaker Social History Smoking Status: Former Smoker Frequency of Alcohol Use: Social Hx Recreational Drug Use: No Drugs: None Hx Prescription Drug Abuse: No - Advance Directive Resuscitation Status: Full Code Family History Family History: COPD, Hypertension Parental Family History Reviewed: Yes Children Family History Reviewed: Yes Sibling(s) Family History Reviewed.: Yes Medication/Allergy Home Medications: Alprazolam [Xanax 0.5 mg Tablet] 0.5 mg PO QHS 12/24/18 Aspirin [Aspirin 81 mg Chewable Tablet] 81 mg PO DAILY 12/24/18 Calcitriol [Rocaltrol 0.25 Mcg Capsule] 0.75 mcg PO DAILY 12/24/18 Carboxymethylcellulose Sodium [Refresh Celluvisc] 1 each OU BID 12/24/18 Cyanocobalamin (Vitamin B-12) [Vitamin B-12 Inj 1000 Mcg/1 ml Vial] 1,000 mcg IM .MONTHLY 12/24/18 Ezetimibe [Zetia 10 mg Tablet] 10 mg PO DAILY 12/24/18 Febuxostat [Uloric 40 mg Tablet] 40 mg PO DAILY 12/24/18 Furosemide [Lasix 40 mg Tablet] 40 mg PO MOFR@1000 12/24/18 Levalbuterol HCl [Xopenex Neb 0.63 mg/3 ml Ampul] 0.63 mg NEB RTQ12 12/24/18 Loperamide HCl [Imodium 2 mg Capsule] 2 mg PO MOWEFR@1000 12/24/18 Loratadine [Claritin 10 mg Tablet] 10 mg PO DAILY 12/24/18 Magnesium Oxide [Mag-Ox 400 mg Tablet] 800 mg PO BID 12/24/18 Promethazine HCl [Phenergan 25 mg Tablet] 25 mg PO QIDP PRN 12/24/18 Sertraline HCl [Zoloft] 100 mg PO DAILY 12/24/18 Allergies/Adverse Reactions: indomethacin [From Indocin] Allergy (Severe, Verified 07/20/18 12:34) BODY SWELLING LOWER EXTREMITIES metronidazole [From Flagyl] Allergy (Severe, Verified 07/20/18 12:34) VEIN AGITATION naproxen [From Naprosyn] Allergy (Severe, Verified 07/20/18 12:34) SWELLING LOWER EXTREMITIES amoxicillin Allergy (Intermediate, Verified 07/20/18 12:34) HIVES/ITCHING levofloxacin [From Levaquin] Allergy (Intermediate, Verified 07/20/18 12:34) ITCHING penicillin G Allergy (Intermediate, Verified 07/20/18 12:34) HIVES/ITCHING codeine Allergy (Mild, Verified 07/20/18 12:34) Nausea allopurinol Allergy (Unknown, Verified 07/20/18 12:34) cephalexin [From Keflex] Allergy (Unknown, Verified 07/20/18 12:34) Cephalosporins Allergy (Unknown, Verified 07/20/18 12:34) mesalamine [From Pentasa] Allergy (Unknown, Verified 07/20/18 12:34) Review of Systems All systems: reviewed and no additional remarkable complaints except as stated Constitutional: PRESENT: fatigue, weakness Gastrointestinal: PRESENT: other - Permanent ileostomy Hematologic/Lymphatic: PRESENT: easy bruising Physical Exam Vital Signs: Temp Pulse Resp BP Pulse Ox 99.1 F 77 23 H 122/46 L 99 12/24/18 13:18 12/24/18 13:18 12/24/18 16:07 12/24/18 16:07 12/24/18 16:07 Intake & Output 12/23/18 12/24/18 12/25/18 06:59 06:59 06:59 Weight 53.3 kg General appearance: PRESENT: cooperative, mild distress, well-developed Head exam: PRESENT: atraumatic, normocephalic Eye exam: PRESENT: conjunctiva pale, EOMI. ABSENT: scleral icterus Ear exam: PRESENT: normal external ear exam Mouth exam: PRESENT: dry mucosa, tongue midline Neck exam: ABSENT: carotid bruit, lymphadenopathy, tenderness Respiratory exam: PRESENT: clear to auscultation delfino, symmetrical, unlabored. ABSENT: accessory muscle use, rales, rhonchi, tachypnea, wheezes Cardiovascular exam: PRESENT: RRR, +S1, +S2, systolic murmur - 5/6 GI/Abdominal exam: PRESENT: normal bowel sounds, soft, other - Ileostomy in place. ABSENT: distended, tenderness Rectal exam: PRESENT: deferred, other - Ileostomy in place Gentrourinary exam: ABSENT: indwelling catheter Extremities exam: ABSENT: joint swelling, pedal edema Musculoskeletal exam: PRESENT: ambulatory, normal inspection Neurological exam: PRESENT: alert, awake, oriented to person, oriented to place, oriented to time, oriented to situation, CN II-XII grossly intact Psychiatric exam: PRESENT: flat affect. ABSENT: agitated, anxious Focused psych exam: ABSENT: delusional, restlessness Skin exam: PRESENT: pallor Results Laboratory Results: 12/24/18 15:18 12/24/18 15:18 12/24/18 12/24/18 12/24/18 15:18 15:18 15:18 WBC 8.8 RBC 1.42 L Hgb 5.0 L* Hct 14.5 L* MCV 102 H MCH 35.0 H MCHC 34.2 RDW 22.9 H Plt Count 133 L Seg Neutrophils % 79.7 H Lymphocytes % 7.0 L Monocytes % 12.2 Eosinophils % 0.6 Basophils % 0.5 Absolute Neutrophils 7.0 Absolute Lymphocytes 0.6 Absolute Monocytes 1.1 Absolute Eosinophils 0.1 Absolute Basophils 0.0 Sodium 134.7 L Potassium 3.9 Chloride 91 L Carbon Dioxide 34 H Anion Gap 10 BUN 115 H Creatinine 4.37 H Est GFR ( Amer) 12 L Est GFR (Non-Af Amer) 10 L Glucose 115 H Calcium 10.6 H Total Bilirubin 0.5 AST 14 ALT 17 Alkaline Phosphatase 50 Total Protein 5.5 L Albumin 3.2 L Blood Type O POSITIVE Antibody Screen NEGATIVE 12/24/18 15:18 Troponin I 0.058 Impressions: Chest X-Ray 12/24/18 13:43 IMPRESSION: COPD. NO ACUTE RADIOGRAPHIC FINDING IN THE CHEST. Assessment and Plan - Diagnosis (1) Anemia in CKD (chronic kidney disease) Qualifiers: Chronic kidney disease stage: stage 4 (severe) Qualified Code(s): N18.4 - Chronic kidney disease, stage 4 (severe); D63.1 - Anemia in chronic kidney disease Is this a current diagnosis for this admission?: Yes Plan: 12/24/2018-the patient presents with profound anemia. In August it was 11, in November it was 7.1 and it is now 5.0. 2 units of packed red blood cells have been ordered. There is no evidence of acute bleeding. Consider anemia work-up. Hematology consult would be appropriate. (2) Acute renal failure superimposed on stage 4 chronic kidney disease Qualifiers: Acute renal failure type: with acute tubular necrosis Qualified Code(s): N17.0 - Acute kidney failure with tubular necrosis; N18.4 - Chronic kidney disease, stage 4 (severe) Is this a current diagnosis for this admission?: Yes Plan: 12/24/2018-the patient's GFR was 28 in August and it is 10 today. With the profound anemia it is likely that the kidneys suffered hypoperfusion with consequential ATN. The patient will receive IV fluids. Her BUN is markedly e levated. We will continue to monitor renal function and electrolytes. Nephrology will be seeing the patient as well. (3) CC (Crohn's colitis) Qualifiers: Digestive disease complication type: other complication Qualified Code(s): K50.118 - Crohn's disease of large intestine with other complication Is this a current diagnosis for this admission?: Yes Plan: 12/24/2018-the patient required a total colectomy and has an ileostomy. Currently stable. Not on any specific agents for her Crohn's. (4) Ileostomy present Is this a current diagnosis for this admission?: Yes Plan: We will need to monitor the ileostomy during the admission. The patient will typically change the apparatus every 3 to 5 days. (5) Hyperlipidemia Qualifiers: Hyperlipidemia type: unspecified Qualified Code(s): E78.5 - Hyperlipidemia, unspecified Is this a current diagnosis for this admission?: Yes Plan: We will substitute atorvastatin for her home statin Mevacor. The patient will be on a cardiac diet. (6) Hypomagnesemia Is this a current diagnosis for this admission?: Yes Plan: 12/24/2018-we will continue her magnesium oxide supplementation and monitor magnesium levels. (7) Gout Qualifiers: Gout site: unspecified site Gout etiology: due to renal impairment Chronicity: chronic Presence of tophus: without tophus Qualified Code(s): M1A.30X0 - Chronic gout due to renal impairment, unspecified site, without tophus (tophi) Is this a current diagnosis for this admission?: Yes Plan: 12/24/2018-we will continue the patient's Uloric. She is asymptomatic at this time. - Time Time Spent with patient: 35 or more minutes Medications reviewed and adjusted accordingly: Yes Anticipated discharge: Home - Inpatient Certification Based on my medical assessment, after consideration of the patient's comorbidit ies, presenting symptoms, or acuity I expect that the services needed warrant INPATIENT care.: Yes I certify that my determination is in accordance with my understanding of Me gaurav's requirements for reasonable and necessary INPATIENT services [42 CFR 412.3e].: Yes Medical Necessity: Significant Comorbidiites Make Outpatient Treatment Too Risky, Need For IV Fluids, Need For Continuous Telemetry Monitoring, Risk of Complication if Not Cared For in Hospital Post Hospital Care: D/C [employer] Documentation
[2018-12-24] MEDS: ALPRAZOLAM 0.5 MG TABLET PO SCH (21:06)
[2018-12-24] MEDS: HEPARIN SOD (PORCINE) 5,000 UNIT/ML 1 ML SYRINGE SUBCUT SCH (21:08)
[2018-12-24] MEDS: FAMOTIDINE 20 MG TABLET PO SCH (21:08)
--- NOTE | 2018-12-25 00:34 | EKG REPORT ---
SEVERITY:- ABNORMAL ECG - SINUS RHYTHM PROBABLE LVH WITH SECONDARY REPOL ABNRM : Confirmed by: Adonis Bermudez 25-Dec-2018 00:33:22
[2018-12-25] MEDS: NORMAL SALINE 1000 ML 1,000 ML IV PRN ×2 (00:45→17:26)
[2018-12-25 00:53] LABS: ANION GAP 9 (5-19); BLOOD UREA NITROGEN 119 mg/dL (7-20); CALCIUM 9.7 mg/dL (8.4-10.2); CARBON DIOXIDE 31 mmol/L (22-30); CHLORIDE 94 mmol/L (98-107); GLUCOSE 102 mg/dL (75-110); POTASSIUM 3.5 mmol/L (3.6-5.0); SODIUM 134.4 mmol/L (137-145)
[2018-12-25 01:11] LABS: ABSOLUTE EOSINOPHILS # (AUTO) 0.1 10^3/uL (0.0-0.6); ABSOLUTE LYMPHOCYTES (AUTO) 0.5 10^3/uL (0.5-4.7); ABSOLUTE MONOCYTES (AUTO) 0.8 10^3/uL (0.1-1.4); ABSOLUTE NEUT (AUTO) 4.5 10^3/uL (1.7-8.2); BASOPHILS % (AUTO) 0.5 % (0-2); EOSINOPHILS % (AUTO) 0.9 % (0-6); HEMATOCRIT 19.1 % (36.0-47.0); LYMPHOCYTES % (AUTO) 8.7 % (13-45); MEAN CORPUSCULAR HEMOGLOBIN 32.2 pg (27.0-33.4); MEAN CORPUSCULAR HGB CONC 34.8 g/dL (32.0-36.0); MONOCYTES % (AUTO) 13.1 % (3-13); RED BLOOD COUNT 2.06 10^6/uL (3.72-5.28); RED CELL DISTRIBUTION WIDTH 21.4 % (11.5-14.0); SEGMENTED NEUTROPHILS % (AUTO) 76.8 % (42-78); TOTAL CELLS COUNTED % (AUTO) 100 %; WHITE BLOOD COUNT 5.9 10^3/uL (4.0-10.5)
[2018-12-25 01:15] LABS: HEMOGLOBIN 6.6 g/dL (12.0-15.5)
[2018-12-25 01:16] LABS: MEAN CORPUSCULAR VOLUME 93 fl (80-97); PLATELET COUNT 88 10^3/uL (150-450)
[2018-12-25] MEDS: HEPARIN SOD (PORCINE) 5,000 UNIT/ML 1 ML SYRINGE SUBCUT SCH ×3 (05:24→21:12)
[2018-12-25 07:08] LABS: ANION GAP 7 (5-19); BLOOD UREA NITROGEN 119 mg/dL (7-20); CALCIUM 9.4 mg/dL (8.4-10.2); CARBON DIOXIDE 33 mmol/L (22-30); CHLORIDE 95 mmol/L (98-107); GLUCOSE 88 mg/dL (75-110); PHOSPHORUS 6.4 mg/dL (2.5-4.5); POTASSIUM 3.8 mmol/L (3.6-5.0); TRIGLYCERIDES 192 mg/dL (<150)
[2018-12-25 07:18] LABS: TROPONIN I 0.068 ng/mL
[2018-12-25 07:20] LABS: DIRECT LDL 46 mg/dL (<100)
[2018-12-25 07:22] LABS: VLDL CHOLESTEROL 38.4 mg/dL (10-31)
[2018-12-25] MEDS: LEVALBUTEROL HCL NEB 0.63 MG/3 ML AMPUL NEB SCH ×2 (08:13→20:26)
[2018-12-25] MEDS: EZETIMIBE 10 MG TABLET PO SCH (09:45)
[2018-12-25] MEDS: FEBUXOSTAT 40 MG TABLET PO SCH (09:46)
[2018-12-25] MEDS: SERTRALINE HCL 50 MG TABLET PO SCH (09:46)
[2018-12-25] MEDS: CALCITRIOL 0.25 MCG CAPSULE PO SCH (09:46)
[2018-12-25] MEDS: ASPIRIN 81 MG TABLET, CHEWABLE PO SCH (09:46)
[2018-12-25] MEDS: CARBOXYMETHYLCELLULOSE SOD 0.5% 0.4 ML DROPERETTE OU SCH ×2 (09:47→17:26)
[2018-12-25] MEDS: MAGNESIUM OXIDE 400 MG TABLET PO SCH ×2 (09:47→17:25)
[2018-12-25] MEDS: LORATADINE 10 MG TABLET PO SCH (09:47)
[2018-12-25] MEDS: FAMOTIDINE 20 MG TABLET PO SCH ×2 (09:47→21:12)
[2018-12-25 11:42] LABS: ABSOLUTE EOSINOPHILS # (AUTO) 0.1 10^3/uL (0.0-0.6); ABSOLUTE LYMPHOCYTES (AUTO) 0.6 10^3/uL (0.5-4.7); ABSOLUTE MONOCYTES (AUTO) 0.9 10^3/uL (0.1-1.4); ABSOLUTE NEUT (AUTO) 5.8 10^3/uL (1.7-8.2); BASOPHILS % (AUTO) 0.4 % (0-2); EOSINOPHILS % (AUTO) 1.3 % (0-6); HEMATOCRIT 28.1 % (36.0-47.0); LYMPHOCYTES % (AUTO) 8.5 % (13-45); MEAN CORPUSCULAR HEMOGLOBIN 31.2 pg (27.0-33.4); MEAN CORPUSCULAR HGB CONC 34.5 g/dL (32.0-36.0); MEAN CORPUSCULAR VOLUME 91 fl (80-97); MONOCYTES % (AUTO) 12.2 % (3-13); RED BLOOD COUNT 3.11 10^6/uL (3.72-5.28); RED CELL DISTRIBUTION WIDTH 18.1 % (11.5-14.0); SEGMENTED NEUTROPHILS % (AUTO) 77.6 % (42-78); TOTAL CELLS COUNTED % (AUTO) 100 %; WHITE BLOOD COUNT 7.5 10^3/uL (4.0-10.5)
[2018-12-25 12:02] LABS: HEMOGLOBIN 9.7 g/dL (12.0-15.5); PLATELET COUNT 89 10^3/uL (150-450)
--- NOTE | 2018-12-25 16:49 | PDOC PROGRESS REPORT ---
Subjective Progress Note for:: 12/25/18 Subjective:: This is 73 years old female patient with past medical history of stage v CKD, COPD, gastroesophageal reflux disease, gout and arthritis presented with chief complaint of weakness and fatigue. Patient found to have hemoglobin of 5. She reports this that she has been getting Procrit intermittently. Patient transfused 4 units of packed RBC. Latest hemoglobin is 9.7. Patient reports that her fatigue and weakness is improving. Reason For Visit: PROFOUND ANEMIA, ACUTE ON CHRONIC KIDNEY FAILURE, Physical Exam Vital Signs: Temp Pulse Resp BP Pulse Ox 98.8 F 64 17 133/54 H 100 12/25/18 15:22 12/25/18 15:22 12/25/18 15:22 12/25/18 15:22 12/25/18 15:22 Intake & Output 12/24/18 12/25/18 12/26/18 06:59 06:59 06:59 Intake Total 1000 880 Balance 1000 880 Weight 53.6 kg Results Laboratory Results: 12/25/18 11:20 12/25/18 05:50 12/24/18 12/24/18 12/24/18 15:18 15:18 18:25 WBC RBC Hgb 5.0 L* Hct 14.5 L* MCV MCH MCHC RDW Plt Count Seg Neutrophils % Lymphocytes % Monocytes % Eosinophils % Basophils % Absolute Neutrophils Absolute Lymphocytes Absolute Monocytes Absolute Eosinophils Absolute Basophils Sodium Potassium Chloride Carbon Dioxide Anion Gap BUN Creatinine Est GFR ( Amer) Est GFR (Non-Af Amer) Glucose Calcium Phosphorus Magnesium Triglycerides Cholesterol LDL Cholesterol Direct VLDL Cholesterol HDL Cholesterol Urine Color YELLOW Urine Appearance CLEAR Urine pH 5.0 Ur Specific [place] 1.011 Urine Protein NEGATIVE Urine Glucose (UA) NEGATIVE Urine Ketones NEGATIVE Urine Blood NEGATIVE Urine Nitrite NEGATIVE Ur Leukocyte Esterase SMALL H Urine WBC (Auto) 10 Urine RBC (Auto) 0 Blood Type O POSITIVE Antibody Screen NEGATIVE 12/24/18 12/25/18 12/25/18 23:00 00:55 05:50 WBC 5.9 RBC 2.06 L Hgb 6.6 L Hct 19.1 L MCV 93 D MCH 32.2 MCHC 34.8 RDW 21.4 H Plt Count 88 L Seg Neutrophils % 76.8 Lymphocytes % 8.7 L Monocytes % 13.1 H Eosinophils % 0.9 Basophils % 0.5 Absolute Neutrophils 4.5 Absolute Lymphocytes 0.5 Absolute Monocytes 0.8 Absolute Eosinophils 0.1 Absolute Basophils 0.0 Sodium 134.4 L 135.0 L Potassium 3.5 L 3.8 Chloride 94 L 95 L Carbon Dioxide 31 H 33 H Anion Gap 9 7 BUN 119 H 119 H Creatinine 3.76 H 3.53 H Est GFR ( Amer) 14 L 15 L Est GFR (Non-Af Amer) 12 L 13 L Glucose 102 88 Calcium 9.7 9.4 Phosphorus 6.4 H Magnesium 2.7 H 3.0 H Triglycerides 192 H Cholesterol 98.80 LDL Cholesterol Direct 46 VLDL Cholesterol 38.4 H HDL Cholesterol 28 L Urine Color Urine Appearance Urine pH Ur Specific [place] Urine Protein Urine Glucose (UA) Urine Ketones Urine Blood Urine Nitrite Ur Leukocyte Esterase Urine WBC (Auto) Urine RBC (Auto) Blood Type Antibody Screen 12/25/18 11:20 WBC 7.5 RBC 3.11 L Hgb 9.7 L D Hct 28.1 L MCV 91 MCH 31.2 MCHC 34.5 RDW 18.1 H Plt Count 89 L Seg Neutrophils % 77.6 Lymphocytes % 8.5 L Monocytes % 12.2 Eosinophils % 1.3 Basophils % 0.4 Absolute Neutrophils 5.8 Absolute Lymphocytes 0.6 Absolute Monocytes 0.9 Absolute Eosinophils 0.1 Absolute Basophils 0.0 Sodium Potassium Chloride Carbon Dioxide Anion Gap BUN Creatinine Est GFR ( Amer) Est GFR (Non-Af Amer) Glucose Calcium Phosphorus Magnesium Triglycerides Cholesterol LDL Cholesterol Direct VLDL Cholesterol HDL Cholesterol Urine Color Urine Appearance Urine pH Ur Specific [place] Urine Protein Urine Glucose (UA) Urine Ketones Urine Blood Urine Nitrite Ur Leukocyte Esterase Urine WBC (Auto) Urine RBC (Auto) Blood Type Antibody Screen 12/24/18 12/24/18 12/25/18 15:18 23:00 05:50 Troponin I 0.058 0.065 0.068 NT-Pro-B Natriuret Pep 2490 H Impressions: Chest X-Ray 12/24/18 13:43 IMPRESSION: COPD. NO ACUTE RADIOGRAPHIC FINDING IN THE CHEST. Assessment and Plan - Diagnosis (1) Anemia in CKD (chronic kidney disease) Qualifiers: Chronic kidney disease stage: stage 5, not on chronic dialysis Qualified Code(s): N18.5 - Chronic kidney disease, stage 5; D63.1 - Anemia in chronic kidney disease Is this a current diagnosis for this admission?: Yes Plan: Patient might have underlying concomitant iron deficiency. She got 4 units of packed RBC her latest hemoglobin is 9.7. (2) Acute kidney injury superimposed on chronic kidney disease Is this a current diagnosis for this admission?: Yes Plan: On stage V CKD. We will avoid nephrotoxic agents. (3) Hyperlipidemia Qualifiers: Hyperlipidemia type: unspecified Qualified Code(s): E78.5 - Hyperlipidemia, unspecified Is this a current diagnosis for this admission?: Yes Plan: Continue her home medication (4) History of Crohn's colitis Is this a current diagnosis for this admission?: Yes Plan: Status post total colectomy and ileostomy. (5) Hypomagnesemia Is this a current diagnosis for this admission?: Yes Plan: Resolved (6) Gout Is this a current diagnosis for this admission?: Yes Plan: In remission
[2018-12-25] MEDS: ALPRAZOLAM 0.5 MG TABLET PO SCH (21:12)
[2018-12-26 05:37] LABS: ABSOLUTE RETICS # 0.125 10^6/uL (0.028-0.122); BLOOD UREA NITROGEN 110 mg/dL (7-20); CALCIUM 9.4 mg/dL (8.4-10.2); GLUCOSE 90 mg/dL (75-110); HEMATOCRIT 21.9 % (36.0-47.0); IRON(TIBC) 74.6 ug/dL (37-170); MEAN CORPUSCULAR HEMOGLOBIN 30.8 pg (27.0-33.4); MEAN CORPUSCULAR HGB CONC 33.6 g/dL (32.0-36.0); MEAN CORPUSCULAR VOLUME 92 fl (80-97); POTASSIUM 3.6 mmol/L (3.6-5.0); RED BLOOD COUNT 2.39 10^6/uL (3.72-5.28); RED CELL DISTRIBUTION WIDTH 18.4 % (11.5-14.0); RETICULOCYTE COUNT (AUTO) 5.22 % (0.66-2.85); WHITE BLOOD COUNT 4.2 10^3/uL (4.0-10.5)
[2018-12-26 05:42] LABS: ANION GAP 5 (5-19); CARBON DIOXIDE 32 mmol/L (22-30); CHLORIDE 103 mmol/L (98-107); SODIUM 139.6 mmol/L (137-145)
[2018-12-26] MEDS: HEPARIN SOD (PORCINE) 5,000 UNIT/ML 1 ML SYRINGE SUBCUT SCH (05:48)
[2018-12-26 06:05] LABS: HEMOGLOBIN 7.4 g/dL (12.0-15.5); PLATELET COUNT 73 10^3/uL (150-450)
[2018-12-26 06:42] LABS: FOLATE 6.32 ng/mL (>2.76)
[2018-12-26] MEDS ORDERED: NORMAL SALINE 250 ML IV PRN ×2 (06:49)
[2018-12-26] MEDS ORDERED: DESMOPRESSIN ACETATE INJ 4 MCG/1 ML AMPULE IV ONE (06:52)
[2018-12-26] MEDS ORDERED: DESMOPRESSIN ACETATE 17 MCG in NORMAL SALINE 50 ML IV ONE (08:00)
[2018-12-26] MEDS: LEVALBUTEROL HCL NEB 0.63 MG/3 ML AMPUL NEB SCH ×2 (08:15→20:34)
[2018-12-26] MEDS: MAGNESIUM OXIDE 400 MG TABLET PO SCH ×2 (10:06→17:58)
[2018-12-26] MEDS: ASPIRIN 81 MG TABLET, CHEWABLE PO SCH (10:08)
[2018-12-26] MEDS: LOPERAMIDE HCL 2 MG CAPSULE PO SCH (10:11)
[2018-12-26] MEDS: SERTRALINE HCL 50 MG TABLET PO SCH (10:12)
[2018-12-26] MEDS: FAMOTIDINE 20 MG TABLET PO SCH (10:12)
[2018-12-26] MEDS: LORATADINE 10 MG TABLET PO SCH (10:12)
[2018-12-26] MEDS: CALCITRIOL 0.25 MCG CAPSULE PO SCH (10:12)
[2018-12-26 10:14] LABS: PATH REVIEW PATHOLOGIST REVIEWED
[2018-12-26] MEDS: EZETIMIBE 10 MG TABLET PO SCH (10:15)
[2018-12-26] MEDS: FEBUXOSTAT 40 MG TABLET PO SCH (10:15)
[2018-12-26] MEDS: CARBOXYMETHYLCELLULOSE SOD 0.5% 0.4 ML DROPERETTE OU SCH ×2 (10:15→17:39)
--- NOTE | 2018-12-26 11:58 | PDOC PROGRESS REPORT ---
Subjective Progress Note for:: 12/26/18 Subjective:: This is 73 years old female patient with past medical history of stage v CKD, COPD, gastroesophageal reflux disease, gout and arthritis presented with chief complaint of weakness and fatigue. Patient found to have hemoglobin of 5. She reports this that she has been getting Procrit intermittently. Patient transfused 4 units of packed RBC. Latest hemoglobin is 9.7. Patient reports that her fatigue and weakness is improving. 12/26/2018: Patient seen propped up in bed. Yesterday she transfused 4 units of PRBC and her hemoglobin picked up to 9.7 then again this morning dropped to 7.4. Stomal bleeding suspected. Dr. Puri has been consulted. Patient is going to be transferred and has 3 units of packed RBCs Reason For Visit: PROFOUND ANEMIA, ACUTE ON CHRONIC KIDNEY FAILURE, Physical Exam Vital Signs: Temp Pulse Resp BP Pulse Ox 98.2 F 72 16 155/74 H 100 12/26/18 11:51 12/26/18 11:51 12/26/18 11:51 12/26/18 11:51 12/26/18 11:51 Intake & Output 12/25/18 12/26/18 12/27/18 06:59 06:59 06:59 Intake Total 1000 2120 532 Balance 1000 2120 532 Weight 53.6 kg 55.8 kg General appearance: PRESENT: no acute distress Head exam: PRESENT: atraumatic Eye exam: PRESENT: conjunctiva pale Neck exam: ABSENT: carotid bruit, JVD, lymphadenopathy, thyromegaly Respiratory exam: PRESENT: clear to auscultation delfino. ABSENT: rales, rhonchi, wheezes Cardiovascular exam: PRESENT: RRR. ABSENT: diastolic murmur, rubs, systolic murmur GI/Abdominal exam: PRESENT: normal bowel sounds, soft. ABSENT: distended, guarding, mass, organolmegaly, rebound, tenderness Neurological exam: PRESENT: alert, awake, oriented to person, oriented to place, oriented to situation Results Laboratory Results: 12/26/18 05:00 12/26/18 05:00 12/24/18 12/25/18 12/26/18 15:18 11:20 05:00 WBC 7.5 4.2 RBC 3.11 L 2.39 L Hgb 9.7 L D 7.4 L D Hct 28.1 L 21.9 L MCV 91 92 MCH 31.2 30.8 MCHC 34.5 33.6 RDW 18.1 H 18.4 H Plt Count 89 L 73 L Seg Neutrophils % 77.6 Lymphocytes % 8.5 L Monocytes % 12.2 Eosinophils % 1.3 Basophils % 0.4 Absolute Neutrophils 5.8 Absolute Lymphocytes 0.6 Absolute Monocytes 0.9 Absolute Eosinophils 0.1 Absolute Basophils 0.0 Retic Count (auto) 5.22 H Absolute Retic 0.125 H Sodium Potassium Chloride Carbon Dioxide Anion Gap BUN Creatinine Est GFR ( Amer) Est GFR (Non-Af Amer) Glucose Calcium Phosphorus Magnesium Iron TIBC % Saturation Ferritin Vitamin B12 Folate Stool Occult Blood Blood Type O POSITIVE Antibody Screen NEGATIVE 12/26/18 12/26/18 05:00 06:15 WBC RBC Hgb Hct MCV MCH MCHC RDW Plt Count Seg Neutrophils % Lymphocytes % Monocytes % Eosinophils % Basophils % Absolute Neutrophils Absolute Lymphocytes Absolute Monocytes Absolute Eosinophils Absolute Basophils Retic Count (auto) Absolute Retic Sodium 139.6 Potassium 3.6 Chloride 103 Carbon Dioxide 32 H Anion Gap 5 BUN 110 H Creatinine 2.97 H Est GFR ( Amer) 19 L Est GFR (Non-Af Amer) 16 L Glucose 90 Calcium 9.4 Phosphorus 5.0 H Magnesium 3.1 H Iron 74.6 TIBC 332 % Saturation 22 Ferritin 441.00 H Vitamin B12 > 1000.0 H Folate 6.32 Stool Occult Blood POSITIVE Blood Type Antibody Screen 12/24/18 12/24/18 12/25/18 15:18 23:00 05:50 Troponin I 0.058 0.065 0.068 NT-Pro-B Natriuret Pep 2490 H Impressions: Chest X-Ray 12/24/18 13:43 IMPRESSION: COPD. NO ACUTE RADIOGRAPHIC FINDING IN THE CHEST. Assessment and Plan - Diagnosis (1) Anemia in CKD (chronic kidney disease) Qualifiers: Chronic kidney disease stage: stage 5, not on chronic dialysis Qualified Code(s): N18.5 - Chronic kidney disease, stage 5; D63.1 - Anemia in chronic kidney disease Is this a current diagnosis for this admission?: Yes Plan: Maybe with superimposed GI bleeding. Her hemoglobin dropped from 9.7-7.4. Patient scheduled to get [address] Puri has evaluated the patient. (2) Acute kidney injury superimposed on chronic kidney disease Is this a current diagnosis for this admission?: Yes Plan: On stage V CKD. We will avoid nephrotoxic agents. (3) Hyperlipidemia Qualifiers: Hyperlipidemia type: unspecified Qualified Code(s): E78.5 - Hyperlipidemia, unspecified Is this a current diagnosis for this admission?: Yes Plan: Continue her home medication (4) History of Crohn's colitis Is this a current diagnosis for this admission?: Yes Plan: Status post total colectomy and ileostomy. (5) Hypomagnesemia Is this a current diagnosis for this admission?: Yes Plan: Resolved (6) Gout Is this a current diagnosis for this admission?: Yes
[2018-12-26] MEDS ORDERED: EPOETIN ALFA INJ 20000 UNIT/1 ML VIAL (RENAL) SUBCUT ONE (16:08)
--- NOTE | 2018-12-26 16:11 | PDOC CONSULTATION ---
Consultation Consult Date: 12/25/18 Provider Consulted: Rosio MIRANDA Consult reason:: KAMILA on CKD 3/4. History of Present Illness Admission Date/PCP: 12/24/18 17:59 CLINT REED MD History of Present Illness: FABRICIO BARR is a 73 year old female with a past medical history of CKD stage IV with a base creatinine of around 2.5, COPD, hypertension and gout, anemia of CKD and she is on Procrit here through my office, history of Crohn's disease status post colectomy with ileostomy, history of cancer of the breast and lungs,who apparently has been feeling rather weak over the last few days but began to get severely orthostatic last night and more so today. She came to my office to get her Procrit shots and was found to be severely anemic and then was sent to the ER where her hemoglobin was found to be 5.3. She denies any apparent history of any GI bleeds with no history of any hematochezia into the ileostomy bag or hematemesis. No complaints with abdominal pains. She denies being on any NSAIDs other than her baby aspirin 1 a day. Evaluation of the ER revealed that she was severely anemic with a hemoglobin of 5+ and she had acute on chronic kidney disease. She states she has been having 5 6 ileostomy filling up with semisolid stools and she controls her her previous liquid stools with antimotility agents.Currently she is being seen after having received transfusion and she is feeling better. No complaints with chest pain or shortness of breath. No complaints of any fever or chills. Past Medical History Cardiac Medical History: Reports: Hypertension-primary Denies: Coronary Artery Disease, Myocardial Infarction Pulmonary Medical History: Reports: Bronchitis, Chronic Obstructive Pulmonary Disease (COPD), Pneumonia Denies: Asthma Neurological Medical History: Denies: Seizures Renal/ Medical History: Reports: Chronic Kidney Disease Stage IV GI Medical History: Reports: Gastroesophageal Reflux Disease, Hiatal Hernia, Ulcerative Colitis Denies: Hepatitis Musculoskeltal Medical History: Reports: Arthritis - GOUT Psychiatric Medical History: Reports: Depression Hematology Medical History: Reports Anemia of Chronic Kidney Disease Past Surgical History Past Surgical History: Reports: Appendectomy, Colostomy, Valve Replacement - Aortic valve, Other Denies: Mastectomy, Pacemaker Social History Smoking Status: Former Smoker Frequency of Alcohol Use: Social Hx Recreational Drug Use: No Drugs: None Hx Prescription Drug Abuse: No - Advance Directive Resuscitation Status: Full Code Family History Parental Family History Reviewed: Yes - Negative for ESRD Children Family History Reviewed: No Sibling(s) Family History Reviewed.: No Medication/Allergy Home Medications: Alprazolam [Xanax 0.5 mg Tablet] 0.5 mg PO QHS 12/24/18 Aspirin [Aspirin 81 mg Chewable Tablet] 81 mg PO DAILY 12/24/18 Calcitriol [Rocaltrol 0.25 Mcg Capsule] 0.75 mcg PO DAILY 12/24/18 Carboxymethylcellulose Sodium [Refresh Celluvisc] 1 each OU BID 12/24/18 Cyanocobalamin (Vitamin B-12) [Vitamin B-12 Inj 1000 Mcg/1 ml Vial] 1,000 mcg IM .MONTHLY 12/24/18 Ezetimibe [Zetia 10 mg Tablet] 10 mg PO DAILY 12/24/18 Febuxostat [Uloric 40 mg Tablet] 40 mg PO DAILY 12/24/18 Furosemide [Lasix 40 mg Tablet] 40 mg PO MOFR@1000 12/24/18 Levalbuterol HCl [Xopenex Neb 0.63 mg/3 ml Ampul] 0.63 mg NEB RTQ12 12/24/18 Loperamide HCl [Imodium 2 mg Capsule] 2 mg PO MOWEFR@1000 12/24/18 Loratadine [Claritin 10 mg Tablet] 10 mg PO DAILY 12/24/18 Magnesium Oxide [Mag-Ox 400 mg Tablet] 800 mg PO BID 12/24/18 Promethazine HCl [Phenergan 25 mg Tablet] 25 mg PO QIDP PRN 12/24/18 Sertraline HCl [Zoloft] 100 mg PO DAILY 12/24/18 Allergies/Adverse Reactions: indomethacin [From Indocin] Allergy (Severe, Verified 07/20/18 12:34) BODY SWELLING LOWER EXTREMITIES metronidazole [From Flagyl] Allergy (Severe, Verified 07/20/18 12:34) VEIN AGITATION naproxen [From Naprosyn] Allergy (Severe, Verified 07/20/18 12:34) SWELLING LOWER EXTREMITIES amoxicillin Allergy (Intermediate, Verified 07/20/18 12:34) HIVES/ITCHING levofloxacin [From Levaquin] Allergy (Intermediate, Verified 07/20/18 12:34) ITCHING penicillin G Allergy (Intermediate, Verified 07/20/18 12:34) HIVES/ITCHING codeine Allergy (Mild, Verified 07/20/18 12:34) Nausea allopurinol Allergy (Unknown, Verified 07/20/18 12:34) cephalexin [From Keflex] Allergy (Unknown, Verified 07/20/18 12:34) Cephalosporins Allergy (Unknown, Verified 07/20/18 12:34) mesalamine [From Pentasa] Allergy (Unknown, Verified 07/20/18 12:34) Review of Systems Constitutional: PRESENT: fatigue, fever(s), headache(s), night sweats, weakness. ABSENT: anorexia Nose, Mouth, and Throat: ABSENT: mouth pain, sore throat Cardiovascular: PRESENT: dyspnea on exertion. ABSENT: chest pain, edema, orthropnea, palpitations Respiratory: PRESENT: dyspnea. ABSENT: cough, hemoptysis Gastrointestinal: PRESENT: bloating, diarrhea. ABSENT: abdominal pain, coffee ground emesis, constipation, dysphagia, heartburn, hematemesis, hematochezia, melena, nausea, vomiting Genitourinary: ABSENT: difficulty urinating, dysuria, hematuria Musculoskeletal: ABSENT: deformity, joint swelling Integumentary: ABSENT: lesions, pruritus, rash Neurological: ABSENT: abnormal movements, abnormal speech, confusion, focal weakness, frequent falls, lack of coordination Endocrine: ABSENT: polydipsia Hematologic/Lymphatic: ABSENT: easy bleeding, easy bruising, lymphadenopathy Physical Exam Vital Signs: Temp Pulse Resp BP Pulse Ox 98.0 F 67 16 142/60 H 100 12/25/18 11:22 12/25/18 14:00 12/25/18 11:22 12/25/18 11:22 12/25/18 09:15 Intake & Output 12/24/18 12/25/18 12/26/18 06:59 06:59 06:59 Intake Total 1000 880 Balance 1000 880 Weight 53.6 kg General appearance: PRESENT: no acute distress Eye exam: PRESENT: EOMI, PERRLA Ear exam: PRESENT: normal external ear exam Mouth exam: PRESENT: neck supple. ABSENT: moist Neck exam: ABSENT: meningismus, tenderness, thyromegaly, tracheal deviation Respiratory exam: PRESENT: clear to auscultation delfino, decreased breath sounds. ABSENT: crackles GI/Abdominal exam: PRESENT: normal bowel sounds - Has ileostomy bag which is half full with semisolid stools, soft. ABSENT: organomegaly, tenderness Extremities exam: ABSENT: pedal edema Neurological exam: PRESENT: alert, awake, oriented to person, oriented to place Psychiatric exam: PRESENT: appropriate affect Skin exam: PRESENT: dry. ABSENT: erythema, mottled, rash Results Laboratory Results: 12/25/18 11:20 12/25/18 05:50 12/24/18 12/24/18 12/24/18 15:18 15:18 18:25 WBC RBC Hgb 5.0 L* Hct 14.5 L* MCV MCH MCHC RDW Plt Count Seg Neutrophils % Lymphocytes % Monocytes % Eosinophils % Basophils % Absolute Neutrophils Absolute Lymphocytes Absolute Monocytes Absolute Eosinophils Absolute Basophils Sodium Potassium Chloride Carbon Dioxide Anion Gap BUN Creatinine Est GFR ( Amer) Est GFR (Non-Af Amer) Glucose Calcium Phosphorus Magnesium Triglycerides Cholesterol LDL Cholesterol Direct VLDL Cholesterol HDL Cholesterol Urine Color YELLOW Urine Appearance CLEAR Urine pH 5.0 Ur Specific [place] 1.011 Urine Protein NEGATIVE Urine Glucose (UA) NEGATIVE Urine Ketones NEGATIVE Urine Blood NEGATIVE Urine Nitrite NEGATIVE Ur Leukocyte Esterase SMALL H Urine WBC (Auto) 10 Urine RBC (Auto) 0 Blood Type O POSITIVE Antibody Screen NEGATIVE 12/24/18 12/25/18 12/25/18 23:00 00:55 05:50 WBC 5.9 RBC 2.06 L Hgb 6.6 L Hct 19.1 L MCV 93 D MCH 32.2 MCHC 34.8 RDW 21.4 H Plt Count 88 L Seg Neutrophils % 76.8 Lymphocytes % 8.7 L Monocytes % 13.1 H Eosinophils % 0.9 Basophils % 0.5 Absolute Neutrophils 4.5 Absolute Lymphocytes 0.5 Absolute Monocytes 0.8 Absolute Eosinophils 0.1 Absolute Basophils 0.0 Sodium 134.4 L 135.0 L Potassium 3.5 L 3.8 Chloride 94 L 95 L Carbon Dioxide 31 H 33 H Anion Gap 9 7 BUN 119 H 119 H Creatinine 3.76 H 3.53 H Est GFR ( Amer) 14 L 15 L Est GFR (Non-Af Amer) 12 L 13 L Glucose 102 88 Calcium 9.7 9.4 Phosphorus 6.4 H Magnesium 2.7 H 3.0 H Triglycerides 192 H Cholesterol 98.80 LDL Cholesterol Direct 46 VLDL Cholesterol 38.4 H HDL Cholesterol 28 L Urine Color Urine Appearance Urine pH Ur Specific [place] Urine Protein Urine Glucose (UA) Urine Ketones Urine Blood Urine Nitrite Ur Leukocyte Esterase Urine WBC (Auto) Urine RBC (Auto) Blood Type Antibody Screen 12/25/18 11:20 WBC 7.5 RBC 3.11 L Hgb 9.7 L D Hct 28.1 L MCV 91 MCH 31.2 MCHC 34.5 RDW 18.1 H Plt Count 89 L Seg Neutrophils % 77.6 Lymphocytes % 8.5 L Monocytes % 12.2 Eosinophils % 1.3 Basophils % 0.4 Absolute Neutrophils 5.8 Absolute Lymphocytes 0.6 Absolute Monocytes 0.9 Absolute Eosinophils 0.1 Absolute Basophils 0.0 Sodium Potassium Chloride Carbon Dioxide Anion Gap BUN Creatinine Est GFR ( Amer) Est GFR (Non-Af Amer) Glucose Calcium Phosphorus Magnesium Triglycerides Cholesterol LDL Cholesterol Direct VLDL Cholesterol HDL Cholesterol Urine Color Urine Appearance Urine pH Ur Specific [place] Urine Protein Urine Glucose (UA) Urine Ketones Urine Blood Urine Nitrite Ur Leukocyte Esterase Urine WBC (Auto) Urine RBC (Auto) Blood Type Antibody Screen 12/24/18 12/24/18 12/25/18 15:18 23:00 05:50 Troponin I 0.058 0.065 0.068 NT-Pro-B Natriuret Pep 2490 H Impressions: Chest X-Ray 12/24/18 13:43 IMPRESSION: COPD. NO ACUTE RADIOGRAPHIC FINDING IN THE CHEST. Assessment & Plan - Diagnosis (1) Severe anemia Plan: Patient has been transfused. No obvious GI bleeds. However if she is stool occult positive. Further evaluations as per hospitalist/surgery. Currently hemodynamically stable. Will continue with erythropoietin.Stop the baby aspirin. (2) Acute kidney injury superimposed on chronic kidney disease Is this a current diagnosis for this admission?: Yes Plan: She is got AK I in the face of severe dehydration/hypotension. Patient's baseline creatinine is around 2. Continue with fluid resuscitation after she has had a transfusions. Discussed with treating nurse. (3) Anemia in CKD (chronic kidney disease) Qualifiers: Chronic kidney disease stage: stage 5, not on chronic dialysis Qualified Code(s): N18.5 - Chronic kidney disease, stage 5; D63.1 - Anemia in chronic kidney disease Is this a current diagnosis for this admission?: Yes Plan: Get iron studies and follow-up with erythropoietin. (4) History of Crohn's colitis Is this a current diagnosis for this admission?: Yes Plan: Status post ileostomy. (5) Chronic renal disease, stage IV Plan: Patient's baseline creatinine is around 2. She has had acute exacerbations periodically because of high output ileostomy which has been better managed of lately. (6) Ileostomy present Is this a current diagnosis for this admission?: Yes Plan: Status quo.
--- NOTE | 2018-12-26 16:14 | PDOC PROGRESS REPORT ---
Subjective Progress Note for:: 12/26/18 Reason For Visit: Patient seen today. Relatively stable and comfortable. However hemoglobin dropped to 7 and she is being transfused again. She denies any history of abdominal pains. Labs and medications were reviewed with the patient. Slight improvement in her renal functions. No indications for renal replacements. Physical Exam Vital Signs: Temp Pulse Resp BP Pulse Ox 98.3 F 70 18 132/56 H 100 12/26/18 14:26 12/26/18 14:26 12/26/18 14:26 12/26/18 14:26 12/26/18 13:05 Intake & Output 12/25/18 12/26/18 12/27/18 06:59 06:59 06:59 Intake Total 1000 2120 1886 Balance 1000 2120 1886 Weight 53.6 kg 55.8 kg General appearance: PRESENT: no acute distress Respiratory exam: PRESENT: clear to auscultation delfino. ABSENT: crackles Cardiovascular exam: PRESENT: +S1, +S2, systolic murmur GI/Abdominal exam: PRESENT: normal bowel sounds - Has ileostomy bag which is half full with semisolid stools, soft. ABSENT: organomegaly, tenderness Extremities exam: ABSENT: pedal edema Neurological exam: PRESENT: alert, awake, oriented to person, oriented to place Psychiatric exam: PRESENT: appropriate affect Results Laboratory Results: 12/26/18 05:00 12/26/18 05:00 12/24/18 12/26/18 12/26/18 15:18 05:00 05:00 WBC 4.2 RBC 2.39 L Hgb 7.4 L D Hct 21.9 L MCV 92 MCH 30.8 MCHC 33.6 RDW 18.4 H Plt Count 73 L Retic Count (auto) 5.22 H Absolute Retic 0.125 H Sodium 139.6 Potassium 3.6 Chloride 103 Carbon Dioxide 32 H Anion Gap 5 BUN 110 H Creatinine 2.97 H Est GFR ( Amer) 19 L Est GFR (Non-Af Amer) 16 L Glucose 90 Calcium 9.4 Phosphorus 5.0 H Magnesium 3.1 H Iron 74.6 TIBC 332 % Saturation 22 Ferritin 441.00 H Vitamin B12 > 1000.0 H Folate 6.32 Stool Occult Blood Blood Type O POSITIVE Antibody Screen NEGATIVE 12/26/18 06:15 WBC RBC Hgb Hct MCV MCH MCHC RDW Plt Count Retic Count (auto) Absolute Retic Sodium Potassium Chloride Carbon Dioxide Anion Gap BUN Creatinine Est GFR ( Amer) Est GFR (Non-Af Amer) Glucose Calcium Phosphorus Magnesium Iron TIBC % Saturation Ferritin Vitamin B12 Folate Stool Occult Blood POSITIVE Blood Type Antibody Screen 12/24/18 12/24/18 12/25/18 15:18 23:00 05:50 Troponin I 0.058 0.065 0.068 NT-Pro-B Natriuret Pep 2490 H Impressions: Chest X-Ray 12/24/18 13:43 IMPRESSION: COPD. NO ACUTE RADIOGRAPHIC FINDING IN THE CHEST. Assessment & Plan - Diagnosis (1) Severe anemia Plan: Still unstable. Dropping hemoglobin and being transfused. Further management as per hospitalist/surgeons.Ordered erythropoietin. Iron studies adequate. (2) Acute kidney injury superimposed on chronic kidney disease Is this a current diagnosis for this admission?: Yes Plan: Showing some improvement from admission. Continue normal saline hydration between transfusions. (3) Anemia in CKD (chronic kidney disease) Qualifiers: Chronic kidney disease stage: stage 5, not on chronic dialysis Qualified Code(s): N18.5 - Chronic kidney disease, stage 5; D63.1 - Anemia in chronic kidney disease Is this a current diagnosis for this admission?: Yes Plan: Ordered erythropoietin. Monitor. (4) History of Crohn's colitis Is this a current diagnosis for this admission?: Yes Plan: With ileostomy. (5) Chronic renal disease, stage IV Plan: Possibly with acute decompensation. No indications for renal replacements currently. (6) Ileostomy present Is this a current diagnosis for this admission?: Yes
[2018-12-26] MEDS ORDERED: EPOETIN ALFA EPBX SUBCUT ONE (17:15)
[2018-12-26] MEDS: PANTOPRAZOLE SODIUM 40 MG VIAL IV SCH (17:33)
[2018-12-26] MEDS: SUCRALFATE 1 GM TABLET PO SCH ×2 (17:39→21:08)
[2018-12-26] MEDS: NORMAL SALINE 1000 ML 1,000 ML IV PRN (17:40)
[2018-12-26] MEDS ORDERED: CONTAINER EMPTY IV ONE (18:00)
[2018-12-26] MEDS ORDERED: EPOETIN ALFA EPBX IV ONE (18:00)
[2018-12-26 18:52] LABS: HEMATOCRIT 34.2 % (36.0-47.0); MEAN CORPUSCULAR HGB CONC 34.2 g/dL (32.0-36.0); MEAN CORPUSCULAR VOLUME 91 fl (80-97); PLATELET COUNT 115 10^3/uL (150-450); RED BLOOD COUNT 3.78 10^6/uL (3.72-5.28); RED CELL DISTRIBUTION WIDTH 16.8 % (11.5-14.0)
[2018-12-26] MEDS ORDERED: DEXTROSE 50%-WATER 25 GM/50 ML DISP.SYRIN IV PRN ×2 (19:06)
[2018-12-26] MEDS ORDERED: GLUCAGON,HUMAN RECOMB 1 MG INJ SUBCUT PRN (19:06)
[2018-12-26] MEDS ORDERED: DEXTROSE 40% GEL 15 GM TUBE PO PRN ×2 (19:06)
[2018-12-26 19:09] LABS: HEMOGLOBIN 11.7 g/dL (12.0-15.5); WHITE BLOOD COUNT 9.3 10^3/uL (4.0-10.5)
[2018-12-26 19:13] LABS: ABSOLUTE LYMPHOCYTES# (MANUAL) 0.6 10^3/uL (0.5-4.7); ABSOLUTE MONOCYTES # (MANUAL) 0.2 10^3/uL (0.1-1.4); BASOPHILS % (MANUAL) 0 % (0-2); EOSINOPHILS % (MANUAL) 1 % (0-6); LYMPHOCYTES % (MANUAL) 6 % (13-45); MONOCYTES % (MANUAL) 2 % (3-13); SEGMENTED NEUTROPHILS % (MAN) 91 % (42-78); TOTAL CELLS COUNTED 100
[2018-12-26 19:14] LABS: ANISOCYTOSIS 1+; OVALOCYTES 1+; PLATELET CLUMPS PRESENT; PLATELET COMMENT DECREASED; POIKILOCYTOSIS 1+; TEAR DROP CELLS SLIGHT
--- NOTE | 2018-12-26 19:47 | PDOC CONSULTATION ---
Consultation Consult Date: 12/26/18 Provider Consulted: SURGICAL SURGICALIST Consult reason:: anemia History of Present Illness Admission Date/PCP: 12/24/18 17:59 CLINT REED MD Patient complains of: anemia, weakness, dizziness. History of Present Illness: FABRICIO BARR is a 73 year old female with a long and complicated medical and surgical history. She has a history of Crohn's disease, necessitating a total proctocolectomy. The patient has no colon in situ, and has an end ileostomy. The patient has not been treated for Crohn's disease in several years, as she reports she is "in remission". She also has short gut syndrome per her report and is in end-stage renal failure. Currently, the patient denies any abdominal pain, nausea, vomiting, hematemesis. She reports that several days ago she began feeling weak and tired. She became dizzy with standing. She presented to her doctor where hemoglobin was drawn and found to be 5. She was taken to the hospital for transfusion. Patient received 4 units of transfusion and her hemoglobin improved accordingly. Over the last 24 hours her hemoglobin has drifted proximally 1.5 g. I have been consulted to evaluate her anemia with possible endoscopy. The patient denies taking any PPIs, H2 blockers, or other antiacid medications. She also denies significant caffeine intake, alcohol intake, nicotine intake, NSAID use, steroid use, or soda pop. Past Medical History Cardiac Medical History: Denies: Coronary Artery Disease, Myocardial Infarction, Hypertension Pulmonary Medical History: Reports: Bronchitis, Chronic Obstructive Pulmonary Disease (COPD), Pneumonia Denies: Asthma Neurological Medical History: Denies: Seizures Renal/ Medical History: Reports: End Stage Renal Disease GI Medical History: Reports: Gastroesophageal Reflux Disease, Hiatal Hernia, Ulcerative Colitis Denies: Hepatitis Musculoskeltal Medical History: Reports: Arthritis - GOUT Psychiatric Medical History: Reports: Depression Hematology: Reports: Anemia Denies: Sickle Cell Disease Past Surgical History Past Surgical History: Reports: Appendectomy, Colostomy, Valve Replacement - Aortic valve, Other Denies: Amputation, Mastectomy, Pacemaker Social History Smoking Status: Former Smoker Frequency of Alcohol Use: Social Hx Recreational Drug Use: No Drugs: None Hx Prescription Drug Abuse: No - Advance Directive Resuscitation Status: Full Code Family History Family History: COPD, Hypertension Parental Family History Reviewed: Yes Children Family History Reviewed: Yes Sibling(s) Family History Reviewed.: Yes Medication/Allergy Home Medications: Alprazolam [Xanax 0.5 mg Tablet] 0.5 mg PO QHS 12/24/18 Aspirin [Aspirin 81 mg Chewable Tablet] 81 mg PO DAILY 12/24/18 Calcitriol [Rocaltrol 0.25 Mcg Capsule] 0.75 mcg PO DAILY 12/24/18 Carboxymethylcellulose Sodium [Refresh Celluvisc] 1 each OU BID 12/24/18 Cyanocobalamin (Vitamin B-12) [Vitamin B-12 Inj 1000 Mcg/1 ml Vial] 1,000 mcg IM .MONTHLY 12/24/18 Ezetimibe [Zetia 10 mg Tablet] 10 mg PO DAILY 12/24/18 Febuxostat [Uloric 40 mg Tablet] 40 mg PO DAILY 12/24/18 Furosemide [Lasix 40 mg Tablet] 40 mg PO MOFR@1000 12/24/18 Levalbuterol HCl [Xopenex Neb 0.63 mg/3 ml Ampul] 0.63 mg NEB RTQ12 12/24/18 Loperamide HCl [Imodium 2 mg Capsule] 2 mg PO MOWEFR@1000 12/24/18 Loratadine [Claritin 10 mg Tablet] 10 mg PO DAILY 12/24/18 Magnesium Oxide [Mag-Ox 400 mg Tablet] 800 mg PO BID 12/24/18 Promethazine HCl [Phenergan 25 mg Tablet] 25 mg PO QIDP PRN 12/24/18 Sertraline HCl [Zoloft] 100 mg PO DAILY 12/24/18 Allergies/Adverse Reactions: indomethacin [From Indocin] Allergy (Severe, Verified 07/20/18 12:34) BODY SWELLING LOWER EXTREMITIES metronidazole [From Flagyl] Allergy (Severe, Verified 07/20/18 12:34) VEIN AGITATION naproxen [From Naprosyn] Allergy (Severe, Verified 07/20/18 12:34) SWELLING LOWER EXTREMITIES amoxicillin Allergy (Intermediate, Verified 07/20/18 12:34) HIVES/ITCHING levofloxacin [From Levaquin] Allergy (Intermediate, Verified 07/20/18 12:34) ITCHING penicillin G Allergy (Intermediate, Verified 07/20/18 12:34) HIVES/ITCHING codeine Allergy (Mild, Verified 07/20/18 12:34) Nausea allopurinol Allergy (Unknown, Verified 07/20/18 12:34) cephalexin [From Keflex] Allergy (Unknown, Verified 07/20/18 12:34) Cephalosporins Allergy (Unknown, Verified 07/20/18 12:34) mesalamine [From Pentasa] Allergy (Unknown, Verified 07/20/18 12:34) Review of Systems Constitutional: PRESENT: anorexia, fatigue, weakness. ABSENT: chills, fever(s), headache(s) Ears: ABSENT: hearing changes Nose, Mouth, and Throat: ABSENT: sore throat Cardiovascular: ABSENT: chest pain Respiratory: ABSENT: cough Gastrointestinal: ABSENT: abdominal pain, bloating, nausea, vomiting Genitourinary: ABSENT: dysuria Musculoskeletal: ABSENT: back pain Integumentary: ABSENT: pruritus, rash Neurological: PRESENT: dizziness, weakness. ABSENT: confusion, convulsions Psychiatric: ABSENT: anxiety Endocrine: ABSENT: cold intolerance, heat intolerance Hematologic/Lymphatic: ABSENT: easy bleeding, easy bruising Physical Exam Vital Signs: Temp Pulse Resp BP Pulse Ox 98.4 F 74 20 114/74 100 12/26/18 17:10 12/26/18 17:10 12/26/18 17:10 12/26/18 17:10 12/26/18 13:05 Intake & Output 12/25/18 12/26/18 12/27/18 06:59 06:59 06:59 Intake Total 1000 2120 2561 Balance 1000 2120 2561 Weight 53.6 kg 55.8 kg General appearance: PRESENT: no acute distress, cooperative Head exam: PRESENT: atraumatic, normocephalic Eye exam: PRESENT: EOMI, PERRLA. ABSENT: scleral icterus Mouth exam: PRESENT: moist, neck supple Neck exam: ABSENT: meningismus, tenderness, thyromegaly, tracheal deviation Respiratory exam: PRESENT: unlabored. ABSENT: chest wall tenderness, rales, retraction, tachypnea Cardiovascular exam: PRESENT: RRR Pulses: PRESENT: normal radial pulses GI/Abdominal exam: PRESENT: soft. ABSENT: distended, tenderness Rectal exam: PRESENT: other - Rectum has been surgically removed Extremities exam: ABSENT: clubbing Musculoskeletal exam: ABSENT: deformity Neurological exam: PRESENT: alert, awake, oriented to person, oriented to place, oriented to time, oriented to situation, CN II-XII grossly intact Psychiatric exam: ABSENT: agitated, anxious Focused psych exam: ABSENT: delusional Skin exam: ABSENT: cyanosis, erythema, jaundice Results Laboratory Results: 12/26/18 18:37 12/26/18 05:00 12/24/18 12/26/18 12/26/18 15:18 05:00 05:00 WBC 4.2 RBC 2.39 L Hgb 7.4 L D Hct 21.9 L MCV 92 MCH 30.8 MCHC 33.6 RDW 18.4 H Plt Count 73 L Seg Neutrophils % Lymphocytes % Monocytes % Eosinophils % Basophils % Absolute Neutrophils Absolute Lymphocytes Absolute Monocytes Absolute Eosinophils Absolute Basophils Retic Count (auto) 5.22 H Absolute Retic 0.125 H Sodium 139.6 Potassium 3.6 Chloride 103 Carbon Dioxide 32 H Anion Gap 5 BUN 110 H Creatinine 2.97 H Est GFR ( Amer) 19 L Est GFR (Non-Af Amer) 16 L Glucose 90 Calcium 9.4 Phosphorus 5.0 H Magnesium 3.1 H Iron 74.6 TIBC 332 % Saturation 22 Ferritin 441.00 H Vitamin B12 > 1000.0 H Folate 6.32 Stool Occult Blood Blood Type O POSITIVE Antibody Screen NEGATIVE 12/26/18 12/26/18 06:15 18:37 WBC 9.3 D RBC 3.78 Hgb 11.7 L D Hct 34.2 L MCV 91 MCH 31.0 MCHC 34.2 RDW 16.8 H Plt Count 115 L Seg Neutrophils % Not Reportable Lymphocytes % Not Reportable Monocytes % Not Reportable Eosinophils % Not Reportable Basophils % Not Reportable Absolute Neutrophils Not Reportable Absolute Lymphocytes Not Reportable Absolute Monocytes Not Reportable Absolute Eosinophils Not Reportable Absolute Basophils Not Reportable Retic Count (auto) Absolute Retic Sodium Potassium Chloride Carbon Dioxide Anion Gap BUN Creatinine Est GFR ( Amer) Est GFR (Non-Af Amer) Glucose Calcium Phosphorus Magnesium Iron TIBC % Saturation Ferritin Vitamin B12 Folate Stool Occult Blood POSITIVE Blood Type Antibody Screen 12/24/18 12/24/18 12/25/18 15:18 23:00 05:50 Troponin I 0.058 0.065 0.068 NT-Pro-B Natriuret Pep 2490 H Impressions: Chest X-Ray 12/24/18 13:43 IMPRESSION: COPD. NO ACUTE RADIOGRAPHIC FINDING IN THE CHEST. Assessment & Plan - Diagnosis (1) Anemia Qualifiers: Anemia type: due to chronic kidney disease Chronic kidney disease stage: stage 4 (severe) Qualified Code(s): N18.4 - Chronic kidney disease, stage 4 (severe); D63.1 - Anemia in chronic kidney disease; D63.1 - Anemia in chronic kidney disease Is this a current diagnosis for this admission?: Yes - Plan Summary Plan Summary: This is a 73-year-old female with severe anemia. I believe her anemia to be multifactorial. She likely has anemia of chronic disease, including anemia associated with her chronic renal failure. She also has short gut syndrome, which can contribute to anemia because of decreased resorption of vitamins like B12. The patient has no colon, so lower GI bleeding is impossible. At this institution, it is impossible to evaluate for bleeding in the small intestines. I have recommended she follow-up with her [facility]er [facility] at [place] to evaluate for this. Currently, the patient denies any risk factors for gastric ulcers. She does not exhibit any signs of life-threatening, ongoing hemorrhage which would require emergency upper endoscopy. I have discussed the possibility of EGD to evaluate for gastric ulcers and biopsy her gastric mucosa. The patient is interested in pursuing this, when it is feasible. Continue with supportive care. Continue with transfusions. Start Protonix 40 mg i.v. twice daily. Start Carafate after meals and at bedtime. Will follow this patient closely with you.
[2018-12-26] MEDS: ALPRAZOLAM 0.5 MG TABLET PO SCH (21:08)
--- NOTE | 2018-12-26 23:08 | ER Document Report ---
Entered by CLINT BOWDEN SCRIBE 12/24/18 0226 Acting as scribe for:DEVENDRA BURT MD ED General - General Chief Complaint: Abnormal Lab Results Stated Complaint: ABNORMAL LABS Time Seen by Provider: 12/24/18 13:33 Mode of Arrival: Wheelchair Information source: Patient Notes: Patient is a 73-year-old female presenting to the emergency department complaining of abnormal lab results with associated generalized weakness. Patient states that she has been feeling excessively tired and exhausted. Patient states that ordered a repeat she currently takes medicine for her triglyceride, and she was put on for Spiriva last week. Patient states that she had a blood transfusion about 2 weeks apart recently here at [facility]. Patient denies having ulcerative colitis, but confirms she has Crohn's and has had long, breast cancer, and renal insufficiency. TRAVEL OUTSIDE OF THE [place] IN LAST 30 DAYS: No - Related Data Allergies/Adverse Reactions: indomethacin [From Indocin] Allergy (Severe, Verified 07/20/18 12:34) BODY SWELLING LOWER EXTREMITIES metronidazole [From Flagyl] Allergy (Severe, Verified 07/20/18 12:34) VEIN AGITATION naproxen [From Naprosyn] Allergy (Severe, Verified 07/20/18 12:34) SWELLING LOWER EXTREMITIES amoxicillin Allergy (Intermediate, Verified 07/20/18 12:34) HIVES/ITCHING levofloxacin [From Levaquin] Allergy (Intermediate, Verified 07/20/18 12:34) ITCHING penicillin G Allergy (Intermediate, Verified 07/20/18 12:34) HIVES/ITCHING codeine Allergy (Mild, Verified 07/20/18 12:34) Nausea allopurinol Allergy (Unknown, Verified 07/20/18 12:34) cephalexin [From Keflex] Allergy (Unknown, Verified 07/20/18 12:34) Cephalosporins Allergy (Unknown, Verified 07/20/18 12:34) mesalamine [From Pentasa] Allergy (Unknown, Verified 07/20/18 12:34) Past Medical History - General Information source: Patient, Relative, [facility] Records - Social History Smoking Status: Former Smoker Cigarette use (# per day): No Chew tobacco use (# tins/day): No Smoking Education Provided: No Frequency of alcohol use: Occasional Drug Abuse: None Lives with: Family Family History: COPD, Hypertension Patient has suicidal ideation: No Patient has homicidal ideation: No Pulmonary Medical History: Reports: Hx Bronchitis, Hx COPD, Hx Pneumonia Neurological Medical History: Reports: Hx Cerebrovascular Accident - NO ISSUES Renal/ Medical History: Reports: Hx End Stage Renal Disease GI Medical History: Reports: Hx Gastroesophageal Reflux Disease, Hx Hiatal Hernia Musculoskeletal Medical History: Reports Hx Arthritis - GOUT Past Surgical History: Reports: Hx Abdominal Surgery - illeostomy, Hx Appendectomy, Hx Breast Surgery - R lumpectomy for malignancy, Hx Colostomy, Hx Valve Replacement - Bovine aortic valve, Other - Immunizations Hx Diphtheria, Pertussis, Tetanus Vaccination: Yes Review of Systems - Review of Systems Constitutional: No symptoms reported EENT: No symptoms reported Cardiovascular: No symptoms reported Respiratory: No symptoms reported Gastrointestinal: No symptoms reported Genitourinary: No symptoms reported Female Genitourinary: No symptoms reported Musculoskeletal: No symptoms reported Skin: No symptoms reported Hematologic/Lymphatic: No symptoms reported Neurological/Psychological: See HPI, Weakness -: Yes All other systems reviewed and negative Physical Exam - Vital signs Vitals: Temp Pulse Resp BP Pulse Ox 99.1 F 77 18 92/56 L 96 12/24/18 13:18 12/24/18 13:18 12/24/18 13:18 12/24/18 13:18 12/24/18 13:18 - Notes Notes: Physical Exam: General: Alert, pallor. HEENT: Normocephalic. Atraumatic. PERRL. Extraocular movements intact. Oropharynx clear. Neck: Supple. Non-tender. Respiratory: Faint wheezes bilaterally. No respiratory distress. Cardiovascular: G2-3 systolic murmur. Regular rhythm. Abdominal: Ileostomy bag. Normal Inspection. Non-tender. No distension. Normal Bowel Sounds. Back: Non-tender. No deformity or step off. Extremities: Moves all four extremities. Upper extremities: Normal inspection. Normal ROM. Lower extremities: Normal inspection. No edema. Normal ROM. Neurological: Normal cognition. AAOx4. Normal speech. Psychological: Normal affect. Normal Mood. Skin: Warm. Dry. Normal color. Course - Vital Signs Vital signs: Temp Pulse Resp BP Pulse Ox 97.9 F 71 18 133/57 H 98 12/26/18 23:54 12/26/18 23:54 12/26/18 23:54 12/26/18 23:54 12/27/18 00:34 - Laboratory Result Diagrams: 12/26/18 18:37 12/26/18 05:00 Laboratory results interpreted by me: 12/24/18 12/24/18 12/24/18 15:18 15:18 15:18 RBC 1.42 L Hgb 5.0 L* Hct 14.5 L* MCV 102 H MCH 35.0 H RDW 22.9 H Plt Count 133 L Seg Neutrophils % 79.7 H Lymphocytes % 7.0 L APTT 49.8 H Sodium 134.7 L Chloride 91 L Carbon Dioxide 34 H BUN 115 H Creatinine 4.37 H Est GFR ( Amer) 12 L Est GFR (Non-Af Amer) 10 L Glucose 115 H Calcium 10.6 H Total Protein 5.5 L Albumin 3.2 L Crossmatch 12/24/18 15:18 RBC Hgb Hct MCV MCH RDW Plt Count Seg Neutrophils % Lymphocytes % APTT Sodium Chloride Carbon Dioxide BUN Creatinine Est GFR ( Amer) Est GFR (Non-Af Amer) Glucose Calcium Total Protein Albumin Crossmatch See Detail Discharge - Discharge Clinical Impression: KAMILA (acute kidney injury) Anemia Qualifiers: Anemia type: unspecified type Qualified Code(s): D64.9 - Anemia, unspecified Anemia in CKD (chronic kidney disease) Qualifiers: Chronic kidney disease stage: unspecified stage Qualified Code(s): N18.9 - Chronic kidney disease, unspecified; D63.1 - Anemia in chronic kidney disease Hypotension Qualifiers: Hypotension type: unspecified hypotension type Qualified Code(s): I95.9 - Hypotension, unspecified COPD (chronic obstructive pulmonary disease) Qualifiers: COPD type: unspecified COPD Qualified Code(s): J44.9 - Chronic obstructive pulmonary disease, unspecified Condition: Good Disposition: ADMITTED INPATIENT Admitting Provider: Juan A (Hospitalist) Unit Admitted: IMCU Scribe Attestation: 12/24/18 16:38 I personally performed the services described in the documentation, reviewed and edited the documentation which was dictated to the scribe in my presence, and it accurately records my words and actions. I personally performed the services described in the documentation, reviewed and edited the documentation which was dictated to the scribe in my presence, and it accurately records my words and actions.
[2018-12-27] MEDS: PANTOPRAZOLE SODIUM 40 MG VIAL IV SCH ×2 (05:10→18:07)
[2018-12-27 05:34] LABS: HEMATOCRIT 34.5 % (36.0-47.0); HEMOGLOBIN 11.8 g/dL (12.0-15.5); MEAN CORPUSCULAR HEMOGLOBIN 31.1 pg (27.0-33.4); MEAN CORPUSCULAR HGB CONC 34.1 g/dL (32.0-36.0); MEAN CORPUSCULAR VOLUME 91 fl (80-97); PLATELET COUNT 119 10^3/uL (150-450); RED BLOOD COUNT 3.79 10^6/uL (3.72-5.28); RED CELL DISTRIBUTION WIDTH 17.2 % (11.5-14.0); WHITE BLOOD COUNT 7.5 10^3/uL (4.0-10.5)
[2018-12-27] MEDS ORDERED: ONDANSETRON HCL INJ/PF 4 MG/2 ML SDV ONE ×2 (06:46→10:11)
[2018-12-27] MEDS ORDERED: ONDANSETRON HCL INJ/PF 4 MG/2 ML SDV IV ONE (07:00)
[2018-12-27 07:25] LABS: ABSOLUTE LYMPHOCYTES# (MANUAL) 0.6 10^3/uL (0.5-4.7); ABSOLUTE MONOCYTES # (MANUAL) 0.5 10^3/uL (0.1-1.4); BASOPHILS % (MANUAL) 0 % (0-2); EOSINOPHILS % (MANUAL) 0 % (0-6); LYMPHOCYTES % (MANUAL) 8 % (13-45); MONOCYTES % (MANUAL) 7 % (3-13); SEGMENTED NEUTROPHILS % (MAN) 85 % (42-78); TEAR DROP CELLS SLIGHT; TOTAL CELLS COUNTED 100; TOXIC GRANULATION SLIGHT; TOXIC VACUOLATION PRESENT
[2018-12-27 07:26] LABS: ANISOCYTOSIS 1+; OVALOCYTES SLIGHT; PLATELET CLUMPS PRESENT; PLATELET COMMENT DECREASED
[2018-12-27 07:27] LABS: ANION GAP 8 (5-19); BLOOD UREA NITROGEN 89 mg/dL (7-20); CALCIUM 10.8 mg/dL (8.4-10.2); CARBON DIOXIDE 29 mmol/L (22-30); CHLORIDE 105 mmol/L (98-107); GLUCOSE 140 mg/dL (75-110); PHOSPHORUS 6.5 mg/dL (2.5-4.5); POTASSIUM 4.1 mmol/L (3.6-5.0)
[2018-12-27] MEDS: LEVALBUTEROL HCL NEB 0.63 MG/3 ML AMPUL NEB SCH ×2 (08:14→20:14)
[2018-12-27] MEDS: MAGNESIUM OXIDE 400 MG TABLET PO SCH ×2 (09:02→18:07)
[2018-12-27] MEDS: SUCRALFATE 1 GM TABLET PO SCH ×4 (09:06→21:21)
[2018-12-27] MEDS ORDERED: DIPHENHYDRAMINE HCL 50 MG/ML VIAL ONE (10:11)
[2018-12-27] MEDS ORDERED: FENTANYL CITRATE INJ/PF 100 MCG/2 ML AMPUL ONE (10:11)
[2018-12-27] MEDS ORDERED: EPINEPHRINE INJ 1 MG/10 ML DISP.SYRIN ONE (10:12)
[2018-12-27] MEDS ORDERED: GLUCAGON,HUMAN RECOMB 1 MG INJ ONE (10:12)
[2018-12-27] MEDS ORDERED: FLUMAZENIL INJ 0.5 MG/5 ML VIAL ONE (10:12)
[2018-12-27] MEDS ORDERED: NALOXONE HCL INJ/PF 0.4 MG/1 ML SDV ONE (10:12)
[2018-12-27] MEDS: MIDAZOLAM 2 MG/2 ML INJ ONE ×2 (11:22→11:32)
--- NOTE | 2018-12-27 11:41 | Operative Report ---
Nonrecallable Operative Report DATE OF SURGERY: 12/27/18 PREOPERATIVE DIAGNOSIS: gi bleed POSTOPERATIVE DIAGNOSIS: gi bleed OPERATION: esophagogastroduodenoscopy SURGEON: ANGEL POSADAS ANESTHESIA: Moderate Sedation TISSUE REMOVED OR ALTERED: none COMPLICATIONS: none ESTIMATED BLOOD LOSS: 0 INTRAOPERATIVE FINDINGS: normal exam except for small hiatal hernia
--- NOTE | 2018-12-27 11:46 | Progress Note ---
Provider Note Provider Note: upper endoscopy did not reveal any source of gi bleed normal exam no evidence of upper gi bleed recommend, cont to follow hct if stable, suggest outpt gi f/u. surgery will sign off for now.
--- NOTE | 2018-12-27 12:05 | OPERATIVE REPORT E ---
Operative Report NAME: FABRICIO BARR : 1945 AGE: 73Y DATE OF SURGERY: 12/27/2018 ROOM: 318 PREOPERATIVE DIAGNOSIS: GASTROINTESTINAL BLEEDING. POSTOPERATIVE DIAGNOSIS: GASTROINTESTINAL BLEEDING. OPERATION: Esophagogastroduodenoscopy. SURGEON: ANGEL POSADAS M.D. INDICATION FOR PROCEDURE: This is a 73-year-old female with a history of total abdominal colectomy for Crohn's disease. She presented with anemia and required 4 units of blood transfusion and was noted to have heme positive stools. This examination is for an upper endoscopy to rule out ulcer disease. PROCEDURE: Patient brought to the endoscopy suite in awake, alert, and stable condition and placed on the endoscopy table in the left lateral decubitus position after appropriate timeout and site verification she was given IV sedation using Versed and Fentanyl. The Olympus gastroscope was passed into the posterior pharynx and easily passed down the esophagus and into the stomach and then through the pylorus into the duodenum. A slow withdrawal and examination of the mucosa revealed a normal duodenum without evidence of ulcer disease or bleeding. The stomach appeared to be normal and the gastric antrum and body were all examined as well as the fundus. The scope was retroflexed and examination of the GE junction revealed normal anatomy with a moderate sized hiatal hernia. We then slowly withdrew the scope through the GE junction up through the esophagus and it all appeared to be normal without evidence of bleeding. The scope was withdrawn. POSTOPERATIVE DIAGNOSIS: SMALL HIATAL HERNIA, NO EVIDENCE OF ANY UPPER GASTROINTESTINAL BLEEDING. DICTATING PHYSICIAN: ANGEL POSADAS M.D. [id number] Y#: [id number] ID: [id number] JOB#: [id number] ACCT: [id number] cc:ANGEL POSADAS M.D. >
--- NOTE | 2018-12-27 12:31 | PDOC PROGRESS REPORT ---
Subjective Progress Note for:: 12/27/18 Subjective:: This is 73 years old female patient with past medical history of stage v CKD, COPD, gastroesophageal reflux disease, gout and arthritis presented with chief complaint of weakness and fatigue. Patient found to have hemoglobin of 5. She reports this that she has been getting Procrit intermittently. Patient transfused 4 units of packed RBC. Latest hemoglobin is 9.7. Patient reports that her fatigue and weakness is improving. 12/26/2018: Patient seen propped up in bed. Yesterday she transfused 4 units of PRBC and her hemoglobin picked up to 9.7 then again this morning dropped to 7.4. Stomal bleeding suspected. Dr. Puri has been consulted. Patient is going to be transferred and has 3 units of packed RBCs 12/27/2018: Patient seen resting in bed. Yesterday her hemoglobin was 11.72 date is 11.8. She is seen and evaluated by Dr. Nagel who performed upper endoscopy this morning and reportedly no bleeding point identified and he recommended if her hemoglobin remained stable to discharge her and colonoscopy as outpatient Reason For Visit: PROFOUND ANEMIA, ACUTE ON CHRONIC KIDNEY FAILURE, Physical Exam Vital Signs: Temp Pulse Resp BP Pulse Ox 97.3 F 74 22 H 140/69 H 100 12/27/18 07:42 12/27/18 12:00 12/27/18 12:00 12/27/18 12:00 12/27/18 12:00 Intake & Output 12/26/18 12/27/18 12/28/18 06:59 06:59 06:59 Intake Total 2120 2931 100 Balance 2120 2931 100 Weight 55.8 kg 58 kg General appearance: PRESENT: no acute distress Eye exam: PRESENT: conjunctiva pink Respiratory exam: PRESENT: clear to auscultation delfino. ABSENT: rales, rhonchi, wheezes Cardiovascular exam: PRESENT: RRR. ABSENT: diastolic murmur, rubs, systolic murmur Neurological exam: PRESENT: alert, awake Results Laboratory Results: 12/27/18 04:47 12/27/18 07:02 12/24/18 12/26/18 12/27/18 15:18 18:37 04:47 WBC 9.3 D 7.5 RBC 3.78 3.79 Hgb 11.7 L D 11.8 L Hct 34.2 L 34.5 L MCV 91 91 MCH 31.0 31.1 MCHC 34.2 34.1 RDW 16.8 H 17.2 H Plt Count 115 L 119 L Seg Neutrophils % Not Reportable Not Reportable Lymphocytes % Not Reportable Not Reportable Monocytes % Not Reportable Not Reportable Eosinophils % Not Reportable Not Reportable Basophils % Not Reportable Not Reportable Absolute Neutrophils Not Reportable Not Reportable Absolute Lymphocytes Not Reportable Not Reportable Absolute Monocytes Not Reportable Not Reportable Absolute Eosinophils Not Reportable Not Reportable Absolute Basophils Not Reportable Not Reportable Sodium Potassium Chloride Carbon Dioxide Anion Gap BUN Creatinine Est GFR ( Amer) Est GFR (Non-Af Amer) Glucose Calcium Phosphorus Magnesium Blood Type O POSITIVE Antibody Screen NEGATIVE 12/27/18 12/27/18 04:47 07:02 WBC RBC Hgb Hct MCV MCH MCHC RDW Plt Count Seg Neutrophils % Lymphocytes % Monocytes % Eosinophils % Basophils % Absolute Neutrophils Absolute Lymphocytes Absolute Monocytes Absolute Eosinophils Absolute Basophils Sodium Cancelled 142.0 Potassium Cancelled 4.1 Chloride Cancelled 105 Carbon Dioxide Cancelled 29 Anion Gap Cancelled 8 BUN Cancelled 89 H Creatinine Cancelled 2.62 H Est GFR ( Amer) Cancelled 22 L Est GFR (Non-Af Amer) Cancelled 18 L Glucose Cancelled 140 H Calcium Cancelled 10.8 H Phosphorus Cancelled 6.5 H Magnesium Cancelled 2.8 H Blood Type Antibody Screen 12/24/18 12/24/18 12/25/18 15:18 23:00 05:50 Troponin I 0.058 0.065 0.068 NT-Pro-B Natriuret Pep 2490 H Impressions: Chest X-Ray 12/24/18 13:43 IMPRESSION: COPD. NO ACUTE RADIOGRAPHIC FINDING IN THE CHEST. Assessment and Plan - Diagnosis (1) Anemia in CKD (chronic kidney disease) Qualifiers: Chronic kidney disease stage: unspecified stage Qualified Code(s): N18.9 - Chronic kidney disease, unspecified; D63.1 - Anemia in chronic kidney disease Is this a current diagnosis for this admission?: Yes Plan: Maybe with superimposed GI bleeding. Her hemoglobin dropped from 9.7-7.4. Patient scheduled to get [address] Puri has evaluated the patient. 12/27/2018. Her hemoglobin is 11.8 today after 3 units of packed RBC. Patient undergone EGD but it did not reveal any bleeding point. If her hemoglobin maintained she is potential discharge for tomorrow. (2) Acute kidney injury superimposed on chronic kidney disease Is this a current diagnosis for this admission?: Yes Plan: On stage V CKD. We will avoid nephrotoxic agents. (3) Hyperlipidemia Qualifiers: Hyperlipidemia type: unspecified Qualified Code(s): E78.5 - Hyperlipidemia, unspecified Is this a current diagnosis for this admission?: Yes Plan: Continue her home medication (4) History of Crohn's colitis Is this a current diagnosis for this admission?: Yes Plan: Status post total colectomy and ileostomy. (5) Hypomagnesemia Is this a current diagnosis for this admission?: Yes Plan: Resolved (6) Gout Is this a current diagnosis for this admission?: Yes Plan: In remission
--- NOTE | 2018-12-27 13:07 | PDOC PROGRESS REPORT ---
Subjective Progress Note for:: 12/27/18 Subjective:: Patient underwent EGD today by Dr. Nagel and found no active bleeding. Her hemoglobin is improved after blood transfusion again yesterday. So far there is no clinical evidence of active bleeding at this point. Nurse reports brown stools. at bedside is very concerned of possible recurrence once the patient is discharged home. Patient is still lethargic from endoscopy procedure at this point but has not indicated her verbalize any complaints. Reason For Visit: PROFOUND ANEMIA, ACUTE ON CHRONIC KIDNEY FAILURE, Physical Exam Vital Signs: Temp Pulse Resp BP Pulse Ox 97.3 F 74 22 H 140/69 H 100 12/27/18 07:42 12/27/18 12:00 12/27/18 12:00 12/27/18 12:00 12/27/18 12:00 Intake & Output 12/26/18 12/27/18 12/28/18 06:59 06:59 06:59 Intake Total 2120 2931 100 Balance 2120 2931 100 Weight 55.8 kg 58 kg Exam: General appearance: PRESENT: no acute distress, cooperative, well-developed, well-nourished Head exam: PRESENT: atraumatic, normocephalic Eye exam: PRESENT: conjunctiva pale PERRLA. ABSENT: scleral icterus Neck exam: ABSENT: JVD Respiratory exam: PRESENT: Normal breath sounds. ABSENT: crackles, rales, rhonchi, unlabored, wheezes Cardiovascular exam: PRESENT: Regular rate rhythm -+S1, +S2. ABSENT: diastolic murmur, systolic murmur GI/Abdominal exam: PRESENT: normal bowel sounds, soft. Right lower quadrant ileostomy in place ABSENT: guarding, mass, tenderness Extremities exam: ABSENT: No edema Neurological exam: PRESENT: alert, awake, oriented to person, place and time. Skin exam: PRESENT: dry, warm, positive pallor Cardiovascular exam: PRESENT: +S1, +S2, systolic murmur GI/Abdominal exam: PRESENT: normal bowel sounds - Has ileostomy bag which is half full with semisolid stools, soft. ABSENT: organomegaly, tenderness Results Laboratory Results: 12/27/18 04:47 12/27/18 07:02 12/24/18 12/26/18 12/27/18 15:18 18:37 04:47 WBC 9.3 D 7.5 RBC 3.78 3.79 Hgb 11.7 L D 11.8 L Hct 34.2 L 34.5 L MCV 91 91 MCH 31.0 31.1 MCHC 34.2 34.1 RDW 16.8 H 17.2 H Plt Count 115 L 119 L Seg Neutrophils % Not Reportable Not Reportable Lymphocytes % Not Reportable Not Reportable Monocytes % Not Reportable Not Reportable Eosinophils % Not Reportable Not Reportable Basophils % Not Reportable Not Reportable Absolute Neutrophils Not Reportable Not Reportable Absolute Lymphocytes Not Reportable Not Reportable Absolute Monocytes Not Reportable Not Reportable Absolute Eosinophils Not Reportable Not Reportable Absolute Basophils Not Reportable Not Reportable Sodium Potassium Chloride Carbon Dioxide Anion Gap BUN Creatinine Est GFR ( Amer) Est GFR (Non-Af Amer) Glucose Calcium Phosphorus Magnesium Blood Type O POSITIVE Antibody Screen NEGATIVE 12/27/18 12/27/18 04:47 07:02 WBC RBC Hgb Hct MCV MCH MCHC RDW Plt Count Seg Neutrophils % Lymphocytes % Monocytes % Eosinophils % Basophils % Absolute Neutrophils Absolute Lymphocytes Absolute Monocytes Absolute Eosinophils Absolute Basophils Sodium Cancelled 142.0 Potassium Cancelled 4.1 Chloride Cancelled 105 Carbon Dioxide Cancelled 29 Anion Gap Cancelled 8 BUN Cancelled 89 H Creatinine Cancelled 2.62 H Est GFR ( Amer) Cancelled 22 L Est GFR (Non-Af Amer) Cancelled 18 L Glucose Cancelled 140 H Calcium Cancelled 10.8 H Phosphorus Cancelled 6.5 H Magnesium Cancelled 2.8 H Blood Type Antibody Screen 12/24/18 12/24/18 12/25/18 15:18 23:00 05:50 Troponin I 0.058 0.065 0.068 NT-Pro-B Natriuret Pep 2490 H Impressions: Chest X-Ray 12/24/18 13:43 IMPRESSION: COPD. NO ACUTE RADIOGRAPHIC FINDING IN THE CHEST. Assessment & Plan - Diagnosis (1) Acute renal failure superimposed on stage 4 chronic kidney disease Qualifiers: Acute renal failure type: with acute tubular necrosis Qualified Code(s): N17.0 - Acute kidney failure with tubular necrosis; N18.4 - Chronic kidney disease, stage 4 (severe) Is this a current diagnosis for this admission?: Yes Plan: Kidney function is is slowly improving. Urine output is not being quantified so will ask for strict LELAND. No indication for any renal replacement therapy at this point. (2) Severe anemia Is this a current diagnosis for this admission?: Yes Plan: EGD done today and has no evidence of any source of active bleeding. Continue monitor for hemoglobin. I explained to the that if the patient's hemoglobin is starts decreasing again and is not stabilized then she probably needs to be reevaluated [facility] to look it to the small intestine. However if she stabilized and that can be done as an outpatient. (3) Anemia in CKD (chronic kidney disease) Qualifiers: Chronic kidney disease stage: unspecified stage Qualified Code(s): N18.9 - Chronic kidney disease, unspecified; D63.1 - Anemia in chronic kidney disease Is this a current diagnosis for this admission?: Yes Plan: Patient is needs to continue with her Procrit or recheck with here in the hospital but currently with increase in hemoglobin she will not needed today. (4) History of Crohn's colitis Is this a current diagnosis for this admission?: Yes (5) Ileostomy present Is this a current diagnosis for this admission?: Yes - Time Time with patient: 15-25 minutes
[2018-12-27] MEDS: SERTRALINE HCL 50 MG TABLET PO SCH (13:35)
[2018-12-27] MEDS: CALCITRIOL 0.25 MCG CAPSULE PO SCH ×2 (13:35→13:39)
[2018-12-27] MEDS: LORATADINE 10 MG TABLET PO SCH (13:35)
[2018-12-27] MEDS: EZETIMIBE 10 MG TABLET PO SCH (13:36)
[2018-12-27] MEDS: FEBUXOSTAT 40 MG TABLET PO SCH (13:36)
[2018-12-27] MEDS: FAMOTIDINE 20 MG TABLET PO SCH (13:36)
[2018-12-27] MEDS: CARBOXYMETHYLCELLULOSE SOD 0.5% 0.4 ML DROPERETTE OU SCH ×2 (13:36→18:08)
[2018-12-27] MEDS: ACETAMINOPHEN 325 MG TABLET PO PRN (15:52)
[2018-12-27] MEDS ORDERED: HYDRALAZINE HCL INJ/PF 20 MG/1 ML SDV IV PRN (20:19)
[2018-12-27] MEDS: ALPRAZOLAM 0.5 MG TABLET PO SCH (21:21)
[2018-12-27] MEDS ORDERED: AMLODIPINE BESYLATE 5 MG TABLET PO ONE (21:45)
[2018-12-27 22:06] LABS: VENOUS BLOOD BASE EXCESS -3.7 mmol/L; VENOUS BLOOD HCO3 22.7 mmol/L (20-32); VENOUS BLOOD PCO2 47.7 mmHg (35-63); VENOUS BLOOD PH 7.3 (7.30-7.42)
[2018-12-28] MEDS: LEVALBUTEROL HCL NEB 0.63 MG/3 ML AMPUL NEB PRN ×3 (01:01→16:45)
[2018-12-28 04:35] LABS: HEMATOCRIT 31.6 % (36.0-47.0); HEMOGLOBIN 10.6 g/dL (12.0-15.5); MEAN CORPUSCULAR HEMOGLOBIN 31.2 pg (27.0-33.4); MEAN CORPUSCULAR HGB CONC 33.7 g/dL (32.0-36.0); MEAN CORPUSCULAR VOLUME 93 fl (80-97); RED BLOOD COUNT 3.41 10^6/uL (3.72-5.28); RED CELL DISTRIBUTION WIDTH 17.8 % (11.5-14.0); WHITE BLOOD COUNT 6.4 10^3/uL (4.0-10.5)
[2018-12-28 04:55] LABS: BLOOD UREA NITROGEN 75 mg/dL (7-20); CALCIUM 10.5 mg/dL (8.4-10.2); GLUCOSE 113 mg/dL (75-110); POTASSIUM 3.9 mmol/L (3.6-5.0)
[2018-12-28 05:00] LABS: CARBON DIOXIDE 32 mmol/L (22-30); CHLORIDE 105 mmol/L (98-107); SODIUM 141.9 mmol/L (137-145)
[2018-12-28 05:05] LABS: ANION GAP 5 (5-19)
[2018-12-28 05:48] LABS: PLATELET COUNT 98 10^3/uL (150-450)
[2018-12-28] MEDS: PANTOPRAZOLE SODIUM 40 MG VIAL IV SCH ×3 (06:05→21:32)
[2018-12-28] MEDS: LEVALBUTEROL HCL NEB 0.63 MG/3 ML AMPUL NEB SCH ×2 (08:19→20:13)
[2018-12-28] MEDS: SUCRALFATE 1 GM TABLET PO SCH ×4 (10:26→21:32)
[2018-12-28] MEDS: AMLODIPINE BESYLATE 5 MG TABLET PO SCH (10:26)
[2018-12-28] MEDS: MAGNESIUM OXIDE 400 MG TABLET PO SCH ×2 (10:26→17:52)
[2018-12-28] MEDS: EZETIMIBE 10 MG TABLET PO SCH (10:26)
[2018-12-28] MEDS: FEBUXOSTAT 40 MG TABLET PO SCH (10:26)
[2018-12-28] MEDS: FAMOTIDINE 20 MG TABLET PO SCH (10:27)
[2018-12-28] MEDS: LOPERAMIDE HCL 2 MG CAPSULE PO SCH (10:27)
[2018-12-28] MEDS: SERTRALINE HCL 50 MG TABLET PO SCH (10:28)
[2018-12-28] MEDS: LORATADINE 10 MG TABLET PO SCH (10:28)
--- NOTE | 2018-12-28 11:02 | PDOC PROGRESS REPORT ---
Subjective Progress Note for:: 12/28/18 Subjective:: This is 73 years old female patient with past medical history of stage v CKD, COPD, gastroesophageal reflux disease, gout and arthritis presented with chief complaint of weakness and fatigue. Patient found to have hemoglobin of 5. She reports this that she has been getting Procrit intermittently. Patient transfused 4 units of packed RBC. Latest hemoglobin is 9.7. Patient reports that her fatigue and weakness is improving. 12/26/2018: Patient seen propped up in bed. Yesterday she transfused 4 units of PRBC and her hemoglobin picked up to 9.7 then again this morning dropped to 7.4. Stomal bleeding suspected. Dr. Puri has been consulted. Patient is going to be transferred and has 3 units of packed RBCs 12/27/2018: Patient seen resting in bed. Yesterday her hemoglobin was 11.72 date is 11.8. She is seen and evaluated by Dr. Nagel who performed upper endoscopy this morning and reportedly no bleeding point identified and he recommended if her hemoglobin remained stable to discharge her and colonoscopy as outpatient 12/28/2018: Today patient's more awake alert and conversant. Her hemoglobin is holding at 10.6 which is slightly decreased from yesterday. If she remained to have stable hemoglobin patient is a candidate for discharge tomorrow. Reason For Visit: PROFOUND ANEMIA, ACUTE ON CHRONIC KIDNEY FAILURE, Physical Exam Vital Signs: Temp Pulse Resp BP Pulse Ox 98.1 F 81 16 133/66 H 98 12/28/18 03:27 12/28/18 08:19 12/28/18 08:19 12/28/18 03:27 12/28/18 08:19 Intake & Output 12/27/18 12/28/18 12/29/18 06:59 06:59 06:59 Intake Total 2931 800 Output Total 475 Balance 2931 325 Weight 58 kg 57.5 kg General appearance: PRESENT: mild distress Eye exam: PRESENT: conjunctiva pink Neck exam: ABSENT: carotid bruit, JVD, lymphadenopathy, thyromegaly Cardiovascular exam: PRESENT: RRR. ABSENT: diastolic murmur, rubs, systolic murmur GI/Abdominal exam: PRESENT: normal bowel sounds, soft. ABSENT: distended, guarding, mass, organolmegaly, rebound, tenderness Neurological exam: PRESENT: alert Results Laboratory Results: 12/28/18 04:13 12/28/18 04:13 12/27/18 12/28/18 12/28/18 21:57 04:13 04:13 WBC 6.4 RBC 3.41 L Hgb 10.6 L Hct 31.6 L MCV 93 MCH 31.2 MCHC 33.7 RDW 17.8 H Plt Count 98 L VBG pH 7.30 VBG pCO2 47.7 VBG HCO3 22.7 VBG Base Excess -3.7 Sodium 141.9 Potassium 3.9 Chloride 105 Carbon Dioxide 32 H Anion Gap 5 BUN 75 H Creatinine 2.78 H Est GFR ( Amer) 20 L Est GFR (Non-Af Amer) 17 L Glucose 113 H Calcium 10.5 H 12/24/18 12/24/18 12/25/18 15:18 23:00 05:50 Troponin I 0.058 0.065 0.068 NT-Pro-B Natriuret Pep 2490 H Impressions: Chest X-Ray 12/24/18 13:43 IMPRESSION: COPD. NO ACUTE RADIOGRAPHIC FINDING IN THE CHEST. Assessment and Plan - Diagnosis (1) Anemia in CKD (chronic kidney disease) Qualifiers: Chronic kidney disease stage: unspecified stage Qualified Code(s): N18.9 - Chronic kidney disease, unspecified; D63.1 - Anemia in chronic kidney disease Is this a current diagnosis for this admission?: Yes Plan: Yesterday her hemoglobin was 11.8 to date is 10.6. So far patient has been hummel sfused with 7 units of PRBC. If her hemoglobin is stable she is potential discharge for tomorrow. (2) Acute kidney injury superimposed on chronic kidney disease Is this a current diagnosis for this admission?: Yes Plan: Management per her primary mental health clinician. (3) Hyperlipidemia Qualifiers: Hyperlipidemia type: unspecified Qualified Code(s): E78.5 - Hyperlipidemia, unspecified Is this a current diagnosis for this admission?: Yes Plan: Continue her home medication (4) History of Crohn's colitis Is this a current diagnosis for this admission?: Yes Plan: Status post total colectomy and ileostomy. (5) Hypomagnesemia Is this a current diagnosis for this admission?: Yes Plan: Resolved (6) Gout Is this a current diagnosis for this admission?: Yes Plan: In remission (7) Chronic respiratory failure Is this a current diagnosis for this admission?: Yes Plan: She has been on oxygen 16/01.
--- NOTE | 2018-12-28 11:36 | PDOC PROGRESS REPORT ---
Subjective Progress Note for:: 12/28/18 Subjective:: Patient is doing fine today. She is more awake when I entered the room. She does not have any acute new complaints. Reason For Visit: PROFOUND ANEMIA, ACUTE ON CHRONIC KIDNEY FAILURE, Physical Exam Vital Signs: Temp Pulse Resp BP Pulse Ox 98.1 F 81 16 133/66 H 98 12/28/18 03:27 12/28/18 08:19 12/28/18 08:19 12/28/18 03:27 12/28/18 08:19 Intake & Output 12/27/18 12/28/18 12/29/18 06:59 06:59 06:59 Intake Total 2931 800 Output Total 475 Balance 2931 325 Weight 58 kg 57.5 kg Exam: General appearance: PRESENT: no acute distress, cooperative, well-developed, well-nourished Head exam: PRESENT: atraumatic, normocephalic Eye exam: PRESENT: conjunctiva pale, PERRLA. ABSENT: scleral icterus Neck exam: ABSENT: JVD Respiratory exam: PRESENT: Normal breath sounds. ABSENT: crackles, rales, rhonchi, unlabored, wheezes Cardiovascular exam: PRESENT: Regular rate rhythm -+S1, +S2. Grade 3/6 systolic murmur GI/Abdominal exam: PRESENT: normal bowel sounds, soft. Ileostomy bag in place ABSENT: guarding, mass, tenderness Extremities exam: ABSENT: No edema Neurological exam: PRESENT: alert, awake, oriented to person, place and time. Skin exam: PRESENT: dry, warm, positive mild pallor Cardiovascular exam: PRESENT: +S1, +S2, systolic murmur GI/Abdominal exam: PRESENT: normal bowel sounds - Has ileostomy bag which is half full with semisolid stools, soft. ABSENT: organomegaly, tenderness Results Laboratory Results: 12/28/18 04:13 12/28/18 04:13 12/27/18 12/28/18 12/28/18 21:57 04:13 04:13 WBC 6.4 RBC 3.41 L Hgb 10.6 L Hct 31.6 L MCV 93 MCH 31.2 MCHC 33.7 RDW 17.8 H Plt Count 98 L VBG pH 7.30 VBG pCO2 47.7 VBG HCO3 22.7 VBG Base Excess -3.7 Sodium 141.9 Potassium 3.9 Chloride 105 Carbon Dioxide 32 H Anion Gap 5 BUN 75 H Creatinine 2.78 H Est GFR ( Amer) 20 L Est GFR (Non-Af Amer) 17 L Glucose 113 H Calcium 10.5 H 12/24/18 12/24/18 12/25/18 15:18 23:00 05:50 Troponin I 0.058 0.065 0.068 NT-Pro-B Natriuret Pep 2490 H Impressions: Chest X-Ray 12/24/18 13:43 IMPRESSION: COPD. NO ACUTE RADIOGRAPHIC FINDING IN THE CHEST. Assessment & Plan - Diagnosis (1) Acute renal failure superimposed on stage 4 chronic kidney disease Qualifiers: Acute renal failure type: with acute tubular necrosis Qualified Code(s): N17.0 - Acute kidney failure with tubular necrosis; N18.4 - Chronic kidney disease, stage 4 (severe) Is this a current diagnosis for this admission?: Yes Plan: Kidney function is is slowly improving. Her kidney function is most likely very close to her baseline at this point. Urine output is not being quantified so will ask for strict I/O. No indication for any renal replacement therapy at this point. (2) Severe anemia Is this a current diagnosis for this admission?: Yes Plan: EGD done today and has no evidence of any source of active bleeding. Continue monitor for hemoglobin. I explained to the that if the patient's hem oglobin is starts decreasing again and is not stabilized then she probably needs to be reevaluated [facility] to look it to the small intestine. However if she stabilized and that can be done as an outpatient. Discussed with Dr. Anali vasquez today as well. Her hemoglobin dropped from 11.8-10.6 today. I recommended that if her hemoglobin continues to decrease for the next 24 to 48 hours the patient be transferred to [facility]. Otherwise if it stable then patient can probably be to safely discharged home. (3) Anemia in CKD (chronic kidney disease) Qualifiers: Chronic kidney disease stage: unspecified stage Qualified Code(s): N18.9 - Chronic kidney disease, unspecified; D63.1 - Anemia in chronic kidney disease Is this a current diagnosis for this admission?: Yes Plan: Patient is needs to continue with her Procrit but currently with increase in hemoglobin she will not needed today. (4) Hypercalcemia Is this a current diagnosis for this admission?: Yes Plan: Hold calcitriol until calcium level is within normal limits. (5) History of Crohn's colitis Is this a current diagnosis for this admission?: Yes Plan: Patient was previously followed at [facility] for this. (6) Ileostomy present Is this a current diagnosis for this admission?: Yes - Time Time with patient: 15-25 minutes
[2018-12-28] MEDS: CARBOXYMETHYLCELLULOSE SOD 0.5% 0.4 ML DROPERETTE OU SCH ×3 (15:06→21:32)
[2018-12-28] MEDS: ALPRAZOLAM 0.5 MG TABLET PO SCH (21:32)
[2018-12-28] MEDS: ACETAMINOPHEN 325 MG TABLET PO PRN (21:33)
[2018-12-29] MEDS: LEVALBUTEROL HCL NEB 0.63 MG/3 ML AMPUL NEB SCH ×2 (02:03→08:46)
[2018-12-29 09:08] LABS: HEMATOCRIT 30.7 % (36.0-47.0); HEMOGLOBIN 10.3 g/dL (12.0-15.5); MEAN CORPUSCULAR HEMOGLOBIN 31.1 pg (27.0-33.4); MEAN CORPUSCULAR HGB CONC 33.5 g/dL (32.0-36.0); MEAN CORPUSCULAR VOLUME 93 fl (80-97); RED CELL DISTRIBUTION WIDTH 17.5 % (11.5-14.0)
[2018-12-29 09:48] LABS: PLATELET COUNT 99 10^3/uL (150-450)
[2018-12-29] MEDS: SERTRALINE HCL 50 MG TABLET PO SCH (09:59)
[2018-12-29] MEDS: MAGNESIUM OXIDE 400 MG TABLET PO SCH ×2 (09:59→10:02)
[2018-12-29] MEDS: AMLODIPINE BESYLATE 5 MG TABLET PO SCH (09:59)
[2018-12-29] MEDS: FEBUXOSTAT 40 MG TABLET PO SCH (10:00)
[2018-12-29] MEDS: PANTOPRAZOLE SODIUM 40 MG VIAL IV SCH (10:00)
[2018-12-29] MEDS: CARBOXYMETHYLCELLULOSE SOD 0.5% 0.4 ML DROPERETTE OU SCH (10:00)
[2018-12-29] MEDS: SUCRALFATE 1 GM TABLET PO SCH ×2 (10:00→12:32)
[2018-12-29] MEDS: LORATADINE 10 MG TABLET PO SCH (10:00)
[2018-12-29] MEDS: FAMOTIDINE 20 MG TABLET PO SCH (10:00)
[2018-12-29] MEDS: EZETIMIBE 10 MG TABLET PO SCH (10:01)
--- NOTE | 2018-12-29 10:09 | PDOC DISCHARGE SUMMARY ---
General - Admit/Disc Date/PCP Admission Date/Primary Care Provider: 12/24/18 17:59 CLINT REED MD Discharge Date: 12/29/18 - Discharge Diagnosis (1) Anemia in CKD (chronic kidney disease) Is this a current diagnosis for this admission?: Yes (2) Acute kidney injury superimposed on chronic kidney disease Is this a current diagnosis for this admission?: Yes (3) Hyperlipidemia Is this a current diagnosis for this admission?: Yes (4) History of Crohn's colitis Is this a current diagnosis for this admission?: Yes (5) Hypomagnesemia Is this a current diagnosis for this admission?: Yes (6) Gout Is this a current diagnosis for this admission?: Yes (7) Chronic respiratory failure Is this a current diagnosis for this admission?: Yes - Additional Information Resuscitation Status: Full Code Home Medications: Alprazolam [Xanax 0.5 mg Tablet] 0.5 mg PO QHS 12/24/18 Aspirin [Aspirin 81 mg Chewable Tablet] 81 mg PO DAILY 12/24/18 Calcitriol [Rocaltrol 0.25 Mcg Capsule] 0.75 mcg PO DAILY 12/24/18 Carboxymethylcellulose Sodium [Refresh Celluvisc] 1 each OU BID 12/24/18 Cyanocobalamin (Vitamin B-12) [Vitamin B-12 Inj 1000 Mcg/1 ml Vial] 1,000 mcg IM .MONTHLY 12/24/18 Ezetimibe [Zetia 10 mg Tablet] 10 mg PO DAILY 12/24/18 Febuxostat [Uloric 40 mg Tablet] 40 mg PO DAILY 12/24/18 Furosemide [Lasix 40 mg Tablet] 40 mg PO MOFR@1000 12/24/18 Levalbuterol HCl [Xopenex Neb 0.63 mg/3 ml Ampul] 0.63 mg NEB RTQ12 12/24/18 Loperamide HCl [Imodium 2 mg Capsule] 2 mg PO MOWEFR@1000 12/24/18 Loratadine [Claritin 10 mg Tablet] 10 mg PO DAILY 12/24/18 Magnesium Oxide [Mag-Ox 400 mg Tablet] 800 mg PO BID 12/24/18 Promethazine HCl [Phenergan 25 mg Tablet] 25 mg PO QIDP PRN 12/24/18 Sertraline HCl [Zoloft] 100 mg PO DAILY 12/24/18 History of Present Illness History of Present Illness: FABRICIO BARR is a 73 year old female with a past medical history of breast and lung cancer. She has chronic kidney disease. She also has COPD, hypertension and gout. She states that on Monday she began to feel poorly. She felt weak in general. Monday she still felt weak and somewhat lightheaded. She decided to remain at home and rest. Today however she was more lightheaded and dizzy and presented to the emergency department. She was found to have a hemoglobin of 5.3 with markedly elevated BUN and creatinine. She was referred to the hospital service for admission. Hospital Course Hospital Course: This is 73 years old female patient with past medical history of stage v CKD, COPD, gastroesophageal reflux disease, gout and arthritis presented with chief complaint of weakness and fatigue. Patient found to have hemoglobin of 5. She reports this that she has been getting Procrit intermittently. Patient transfused 4 units of packed RBC. Latest hemoglobin is 9.7. Patient reports that her fatigue and weakness is improving. 12/26/2018: Patient seen propped up in bed. Yesterday she transfused 4 units of PRBC and her hemoglobin picked up to 9.7 then again this morning dropped to 7.4. Stomal bleeding suspected. Dr. Puri has been consulted. Patient is going to be transferred and has 3 units of packed RBCs 12/27/2018: Patient seen resting in bed. Yesterday her hemoglobin was 11.72 date is 11.8. She is seen and evaluated by Dr. Nagel who performed upper end oscopy this morning and reportedly no bleeding point identified and he recommended if her hemoglobin remained stable to discharge her and colonoscopy as outpatient 12/28/2018: Today patient's more awake alert and conversant. Her hemoglobin is holding at 10.6 which is slightly decreased from yesterday. If she remained to have stable hemoglobin patient is a candidate for discharge tomorrow. 12/29/2018: Patient seen and examined while she is resting in bed. She is not in pain or distress. She is awake alert oriented. Patient transfused a total of 7 units of packed RBC. Her hemoglobin is maintained between 11.8 and 10.3. Her magnesium is a bit high so I will reduce the dose of her magnesium from 800 twice a day to 400 mg twice daily. Patient needs follow-up in 1 week with her primary physical medicine specialist at [facility]. I will continue the rest of her medication and I will send her with iron sulfate. Physical Exam Vital Signs: Temp Pulse Resp BP Pulse Ox 98.1 F 77 22 H 138/65 H 96 12/29/18 07:40 12/29/18 08:46 12/29/18 08:46 12/29/18 07:40 12/29/18 08:46 Intake & Output 12/28/18 12/29/18 12/30/18 06:59 06:59 06:59 Intake Total 800 470 240 Output Total 475 Balance 325 470 240 Weight 57.5 kg 58.7 kg General appearance: PRESENT: no acute distress Head exam: PRESENT: atraumatic Eye exam: PRESENT: conjunctiva pink Mouth exam: PRESENT: dry mucosa Neck exam: ABSENT: carotid bruit, JVD, lymphadenopathy, thyromegaly Respiratory exam: PRESENT: clear to auscultation delfino. ABSENT: rales, rhonchi, wheezes GI/Abdominal exam: PRESENT: normal bowel sounds, soft. ABSENT: distended, guarding, mass, organolmegaly, rebound, tenderness Neurological exam: PRESENT: alert, awake, oriented to person, oriented to time, oriented to situation Results Laboratory Results: 12/29/18 08:52 12/28/18 04:13 12/29/18 08:52 WBC 5.0 RBC 3.30 L Hgb 10.3 L Hct 30.7 L MCV 93 MCH 31.1 MCHC 33.5 RDW 17.5 H Plt Count 99 L 12/24/18 12/24/18 12/25/18 15:18 23:00 05:50 Troponin I 0.058 0.065 0.068 NT-Pro-B Natriuret Pep 2490 H Impressions: Chest X-Ray 12/24/18 13:43 IMPRESSION: COPD. NO ACUTE RADIOGRAPHIC FINDING IN THE CHEST. Qualifiers - * PATIENT BEING DISCHARGED WITH ANY OF THE FOLLOWING DIAGNOSIS: No Acute Heart Failure - Is this a Heart Failure Patient?: No LVEF < 40%?: No- if no continue to question #3 3. Anticoagulant therapy for permanect/persistent/paraoxysmal Afib or Aflutter: N/A
[2018-12-29 11:39] VITALS: BP 161/65
== END 2018-12-29 13:23 | disposition home or self-care (01) | DRG 683 ==
LOC: ER 13:14 → EH 17:59 → 3W 20:00
PROVIDERS: ADMIT Hospitalist; ATTEND Hospitalist
PROC: 30233N1 Transfusion of Nonautologous Red Blood Cells into Peripheral Vein, Percutaneous Approach (ICD-10-PCS; 2018-12-25)
PROC: 0DJ08ZZ Inspection of Upper Intestinal Tract, Via Natural or Artificial Opening Endoscopic (ICD-10-PCS; principal; 2018-12-27 10:30)
DX: N17.0 Acute kidney failure with tubular necrosis (principal); K50.90 Crohn's disease, unspecified, without complications; K91.2 Postsurgical malabsorption, not elsewhere classified; J96.10 Chronic respiratory failure, unspecified whether with hypoxia or hypercapnia; I12.9 Hypertensive chronic kidney disease with stage 1 through stage 4 chronic kidney disease, or unspecified chronic kidney disease; N18.4 Chronic kidney disease, stage 4 (severe); J44.9 Chronic obstructive pulmonary disease, unspecified; Z88.0 Allergy status to penicillin; Z88.1 Allergy status to other antibiotic agents; Z88.5 Allergy status to narcotic agent; Z99.2 Dependence on renal dialysis; M19.90 Unspecified osteoarthritis, unspecified site; M10.9 Gout, unspecified; K21.9 Gastro-esophageal reflux disease without esophagitis; D63.1 Anemia in chronic kidney disease; E78.5 Hyperlipidemia, unspecified; E83.42 Hypomagnesemia; K44.9 Diaphragmatic hernia without obstruction or gangrene
CPT/HCPCS: 36415; 36430; 43235; 71046; 80048; 80053; 80061; 81001; 82272; 82607; 82728; 82746; 82803; 83540; 83550; 83735; 83880; 84100; 84484; 85025; 85027; 85045; 85610; 85730; 86850; 86900; 86901; 86920; 93005; 93010; 99284; J0171; J1200; J1610; J1642; J2250; J2310; J2405; J2597; J3010; J3490; J7030; J7614; P9016; P9035; Q5105; S0164

== ENCOUNTER → 2018-12-24 | Outpatient (CLI) | payer MEDICARE, BC ==
[2018-12-24 11:46] LABS: HEMATOCRIT 15.5 % (36.0-47.0); MEAN CORPUSCULAR HEMOGLOBIN 35.2 pg (27.0-33.4); MEAN CORPUSCULAR HGB CONC 34.2 g/dL (32.0-36.0); PLATELET COUNT 122 10^3/uL (150-450); RED BLOOD COUNT 1.51 10^6/uL (3.72-5.28); RED CELL DISTRIBUTION WIDTH 22.9 % (11.5-14.0); WHITE BLOOD COUNT 7.7 10^3/uL (4.0-10.5)
[2018-12-24 12:00] LABS: HEMOGLOBIN 5.3 g/dL (12.0-15.5)
[2018-12-24 12:01] LABS: MEAN CORPUSCULAR VOLUME 103 fl (80-97)
== END ==
LOC: OD 10:47
PROVIDERS: ATTEND Internal Medicine Nephrology
DX: N18.4 Chronic kidney disease, stage 4 (severe) (principal); D63.1 Anemia in chronic kidney disease
CPT/HCPCS: 36415; 85027

== ENCOUNTER 2019-02-16 03:15 | Inpatient (IN) | payer MEDICARE, BC ==
[2019-02-16] MEDS ORDERED: PANTOPRAZOLE SODIUM 40 MG VIAL IV ONE (03:36)
[2019-02-16] MEDS ORDERED: ONDANSETRON HCL INJ/PF 4 MG/2 ML SDV IV ONE (03:39)
--- NOTE | 2019-02-16 03:49 | ER Document Report ---
ED GI/ <MARIO MOODY - Last Filed: 02/16/19 06:01> - General TRAVEL OUTSIDE OF THE [place] IN LAST 30 DAYS: No <MYLENE MAIER - Last Filed: 02/16/19 08:22> - General Chief Complaint: GI Bleeding Stated Complaint: NAUSEA,VOMITING Time Seen by Provider: 02/16/19 03:28 Notes: Patient is a 73-year-old female that comes emergency department for chief complaint of vomiting x2 and poor oral intake for the past couple of days. Patient states she does not know what the vomit looked like, EMS reported that it looked dark, possible coffee-ground emesis. She states she currently feels nauseated, she denies any abdominal or chest pain, she denies lightheadedness or dizziness, denies any other complaints. Patient has a history of Crohn's disease with total colectomy and ostomy bag. She also has a history of COPD, hypertension, formerly breast and lung cancer and currently has a port. She also has a history of chronic kidney disease. She was admitted here in December for abdominal bleeding and had a negative scope at that time but they report that she was seen within the past 2 to 3 weeks at week for a bleed as well. She states she had multiple endoscopies and her last one was clear. Patient is not on a blood thinner. (MYLENE MAIER) - Related Data Allergies/Adverse Reactions: indomethacin [From Indocin] Allergy (Severe, Verified 07/20/18 12:34) BODY SWELLING LOWER EXTREMITIES metronidazole [From Flagyl] Allergy (Severe, Verified 07/20/18 12:34) VEIN AGITATION naproxen [From Naprosyn] Allergy (Severe, Verified 07/20/18 12:34) SWELLING LOWER EXTREMITIES amoxicillin Allergy (Intermediate, Verified 07/20/18 12:34) HIVES/ITCHING levofloxacin [From Levaquin] Allergy (Intermediate, Verified 07/20/18 12:34) ITCHING penicillin G Allergy (Intermediate, Verified 07/20/18 12:34) HIVES/ITCHING codeine Allergy (Mild, Verified 07/20/18 12:34) Nausea allopurinol Allergy (Unknown, Verified 07/20/18 12:34) cephalexin [From Keflex] Allergy (Unknown, Verified 07/20/18 12:34) Cephalosporins Allergy (Unknown, Verified 07/20/18 12:34) mesalamine [From Pentasa] Allergy (Unknown, Verified 07/20/18 12:34) Past Medical History - General Information source: Patient - Social History Smoking Status: Former Smoker Frequency of alcohol use: None Drug Abuse: None Lives with: Family Family History: COPD, Hypertension - Past Medical History Cardiac Medical History: Denies: Hx Coronary Artery Disease, Hx Heart Attack, Hx Hypertension Pulmonary Medical History: Reports: Hx Bronchitis, Hx COPD, Hx Pneumonia Denies: Hx Asthma Neurological Medical History: Reports: Hx Cerebrovascular Accident - NO ISSUES. Denies: Hx Seizures Renal/ Medical History: Reports: Hx End Stage Renal Disease. Denies: Hx Peritoneal Dialysis GI Medical History: Reports: Hx Gastroesophageal Reflux Disease, Hx Hiatal Hernia. Denies: Hx Hepatitis, Hx Ulcer, Hx Ulcerative Colitis Musculoskeletal Medical History: Reports Hx Arthritis - GOUT Psychiatric Medical History: Reports: Hx Depression Infectious Medical History: Denies: Hx Hepatitis Past Surgical History: Reports: Hx Abdominal Surgery - illeostomy, Hx Appendectomy, Hx Breast Surgery - R lumpectomy for malignancy, Hx Cardiac Surgery - Aortic valve replacement, Hx Colostomy, Hx Open Heart Surgery - 2000, Hx Valve Replacement - Bovine aortic valve, Other. Denies: Hx Mastectomy, Hx Pacemaker - Immunizations Hx Diphtheria, Pertussis, Tetanus Vaccination: Yes <MYLENE MAIER - Last Filed: 02/16/19 08:22> Review of Systems - Review of Systems Constitutional: See HPI EENT: No symptoms reported Cardiovascular: No symptoms reported Respiratory: No symptoms reported Gastrointestinal: See HPI Genitourinary: No symptoms reported Female Genitourinary: No symptoms reported Musculoskeletal: No symptoms reported Skin: No symptoms reported Hematologic/Lymphatic: No symptoms reported Neurological/Psychological: No symptoms reported <MYLENE MAIER - Last Filed: 02/16/19 08:22> Physical Exam <MYLENE MAIER - Last Filed: 02/16/19 08:22> - Vital signs Vitals: Temp 97.9 F 02/16/19 03:34 - Notes Notes: GENERAL: Alert, interacts well. No acute distress. HEAD: Normocephalic, atraumatic. EYES: Pupils equal, round, and reactive to light. Extraocular movements intact. ENT: Oral mucosa dry, tongue midline. Oropharynx unremarkable. Airway patent. Nares patent, no nasal septal hematoma LUNGS: Clear to auscultation bilaterally, no wheezes, rales, or rhonchi. No respiratory distress. HEART: Regular rate and rhythm. No murmur ABDOMEN: Soft, non-tender. Non-distended. Bowel sounds present in all 4 quadrants. EXTREMITIES: Moves all 4 extremities spontaneously. No edema, normal radial and dorsalis pedis pulses bilaterally. No cyanosis. BACK: no cervical, thoracic, lumbar midline tenderness. No saddle anesthesia, normal distal neurovascular exam. NEUROLOGICAL: Alert and oriented x3. Normal speech. Cranial nerves II through XII grossly intact. PSYCH: Normal affect, normal mood. SKIN: Warm, dry, normal turgor. No rashes or lesions noted. (MYLENE MAIER) Course - Laboratory Result Diagrams: 02/16/19 04:27 02/16/19 03:50 <MARIO MOODY - Last Filed: 02/16/19 06:01> - Laboratory Result Diagrams: 02/16/19 04:27 02/16/19 03:50 <MYLENE MAIER - Last Filed: 02/16/19 08:22> - Re-evaluation Re-evalutation: 02/16/19 05:28 Patient seen and evaluated. She presented today complaining of dark emesis. She is alert and in no acute distress. She understands her current medical conditions. Her lab work today shows no significant change in her hemoglobin. She is hemodynamically stable. All questions were answered and patient in agreement with plan of care to admit. (MARIO MOODY) Hemoglobin is 10.8, not significantly down from 11.3 as previously. Patient has some black stool and had some dark vomit, suspect she is slowly bleeding and digesting this. She is very uremic, she is also dehydrated, renal failure is significantly worse than chronic kidney disease previously, average around 2.5 before, now greater than 6. We do have nephrology communications maintainer. Bicarbonate of 11 noted. She was started on some IV fluids. Type and screen in place. She has not vomited on my evaluation. Protonix initiated, given a one-time bolus of octreotide. Patient discussed with Dr. Moody. 02/16/19 EKG shows sinus rhythm at a rate of 68, repeat T waves, some T wave inversions laterally. Appears to have J-point elevation anteriorly. Patient has no chest pain. Suspect this is from renal failure, potassium is 5.2, I did discuss with Dr. Moody, giving medications for hyperkalemia including calcium gluconate. On reevaluation patient remains well-appearing, no hypotension, no tachycardia. She has not vomited again. Suspect she has a slow upper GI bleed, decreased p.o. intake, and subsequent renal failure. Will discuss with hospitalist for admission. Discussed with Dr. Zavala, patient will be excepted for admission to telemetry. (MYLENE MAIER) - Vital Signs Vital signs: Temp Pulse Resp BP Pulse Ox 97.9 F 17 133/48 H 99 02/16/19 07:00 02/16/19 07:00 02/16/19 05:01 02/16/19 07:00 - Laboratory Laboratory results interpreted by me: 02/16/19 02/16/19 02/16/19 03:50 03:50 04:27 WBC 15.5 H Hgb 10.8 L Hct 32.6 L RDW 17.0 H Seg Neuts % (Manual) 95 H Lymphocytes % (Manual) 3 L Monocytes % (Manual) 2 L Abs Neuts (Manual) 14.7 H APTT 39.2 H Sodium 135.0 L Potassium 5.2 H Chloride 109 H Carbon Dioxide 11 L BUN 117 H Creatinine 6.46 H Est GFR ( Amer) 8 L Est GFR (MDRD) Non-Af 6 L Calcium 7.1 L Total Protein 5.3 L Albumin 2.8 L Lipase 395.7 H Critical Care Note - Critical Care Note Total time excluding time spent on procedures (mins): 35 - Acute renal failure, upper GI bleed, hyperkalemia <MYLENE MAIER - Last Filed: 02/16/19 08:22> - Critical Care Note Comments: Please allow 35 minutes of critical care time for evaluation and management of patient with upper GI bleed, acute renal failure, hyperkalemia, metabolic acidosis. Interventions including Protonix, Protonix bolus, octreotide, IV fluids, and hyperkalemia interventions. Multiple re-evaluations performed. Consultation and admission to hospital. (MYLENE MAIER) Discharge <MARIO MOODY - Last Filed: 02/16/19 06:01> - Discharge Admitting Provider: Sally (Hospitalist) Unit Admitted: Telemetry <MYLENE MAIER - Last Filed: 02/16/19 08:22> - Discharge Clinical Impression: Upper GI bleed, Hyperkalemia Acute renal failure (ARF) Qualifiers: Acute renal failure type: unspecified Qualified Code(s): N17.9 - Acute kidney failure, unspecified Condition: Stable Disposition: ADMITTED INPATIENT
[2019-02-16 04:11] LABS: INTERNATIONAL RATION (INR) 1.03; PROTHROMBIN TIME 13.6 SEC (11.4-15.4)
--- NOTE | 2019-02-16 04:11 | RADIOLOGY REPORT (SQ) ---
CLINICAL HISTORY: vomiting blood COMPARISON: December 24, 2018. TECHNIQUE: XR CHEST 1 VIEW 02/16/2019 3:34 AM CDT FINDINGS: The heart is normal in size. Sternotomy was performed. Lungs are hyperinflated. There is no focal consolidation. There is no pleural effusion. There is no pneumothorax. Left rib fracture repair was performed. Right axillary lymph node dissection was performed. Right chest port catheter tip is in the mid SVC. IMPRESSION: Emphysema without pneumonia.
[2019-02-16 04:12] LABS: PARTIAL THROMBOPLASTIN TIME 39.2 SEC (23.5-35.8)
[2019-02-16 04:22] LABS: ALBUMIN 2.8 g/dL (3.5-5.0); ALKALINE PHOSPHATASE 72 U/L (38-126); ANION GAP 15 (5-19); ASPARTATE AMINO TRANSFERASE 17 U/L (14-36); BILIRUBIN,DIRECT 0.2 mg/dL (0.0-0.4); BILIRUBIN,TOTAL 0.3 mg/dL (0.2-1.3); BLOOD UREA NITROGEN 117 mg/dL (7-20); CALCIUM 7.1 mg/dL (8.4-10.2); CARBON DIOXIDE 11 mmol/L (22-30); CHLORIDE 109 mmol/L (98-107); GLUCOSE 94 mg/dL (75-110); POTASSIUM 5.2 mmol/L (3.6-5.0); TOTAL PROTEIN 5.3 g/dL (6.3-8.2)
[2019-02-16 04:49] LABS: HEMATOCRIT 32.6 % (36.0-47.0); HEMOGLOBIN 10.8 g/dL (12.0-15.5); MEAN CORPUSCULAR HEMOGLOBIN 27.3 pg (27.0-33.4); MEAN CORPUSCULAR HGB CONC 33.2 g/dL (32.0-36.0); MEAN CORPUSCULAR VOLUME 82 fl (80-97); PLATELET COUNT 191 10^3/uL (150-450); RED BLOOD COUNT 3.96 10^6/uL (3.72-5.28); WHITE BLOOD COUNT 15.5 10^3/uL (4.0-10.5)
[2019-02-16] MEDS ORDERED: PANTOPRAZOLE SODIUM 40 MG VIAL IV PRN (04:49)
[2019-02-16] MEDS ORDERED: NORMAL SALINE 500 ML IV ONE (04:57)
[2019-02-16] MEDS ORDERED: OCTREOTIDE ACETATE INJ/PF 100 MCG/1 ML SDV IV ONE (04:58)
[2019-02-16 05:12] LABS: ABSOLUTE LYMPHOCYTES# (MANUAL) 0.5 10^3/uL (0.5-4.7); ABSOLUTE MONOCYTES # (MANUAL) 0.3 10^3/uL (0.1-1.4); BASOPHILS % (MANUAL) 0 % (0-2); EOSINOPHILS % (MANUAL) 0 % (0-6); LYMPHOCYTES % (MANUAL) 3 % (13-45); MONOCYTES % (MANUAL) 2 % (3-13); RBC MORPHOLOGY COMMENT NORMO-CYTIC/CHROMIC; SEGMENTED NEUTROPHILS % (MAN) 95 % (42-78); TOTAL CELLS COUNTED 100
[2019-02-16 05:13] LABS: PLATELET COMMENT ADEQUATE
[2019-02-16] MEDS ORDERED: CALCIUM GLUCONATE 1000 MG/10 ML INJ IV ONE (05:23)
[2019-02-16] MEDS ORDERED: INSULIN REG, HUMAN 100 UNIT/ML 3 ML VIAL (PYX) IV ONE (05:23)
[2019-02-16] MEDS ORDERED: ALBUTEROL SULFATE 0.083% NEB 2.5 MG/3 ML AMPUL NEB ONE (05:24)
[2019-02-16] MEDS ORDERED: DEXTROSE 50%-WATER 25 GM/50 ML DISP.SYRIN IV ONE (05:24)
[2019-02-16] MEDS ORDERED: NORMAL SALINE 1000 ML 1,000 ML IV PRN (06:05)
[2019-02-16] MEDS ORDERED: HYDRALAZINE HCL INJ/PF 20 MG/1 ML SDV IV PRN (06:11)
[2019-02-16] MEDS ORDERED: NALBUPHINE HCL INJ 10 MG/1 ML AMPULE IV PRN (06:11)
[2019-02-16] MEDS ORDERED: LEVALBUTEROL HCL NEB 0.63 MG/3 ML AMPUL NEB PRN (06:17)
[2019-02-16 06:53] LABS: FREE T3 4.11 pg/mL (2.77-5.27); FREE T4 (FREE THYROXINE) 1.43 ng/dL (0.78-2.19)
--- NOTE | 2019-02-16 07:04 | PDOC H&P ---
History of Present Illness Admission Date/PCP: 02/16/2019 04:44 CLINT REED MD Patient complains of: Melena History of Present Illness: FABRICIO GRIDER is a 73 year old female who presented to the emergency room with a 2-day history of hematemesis. Patient admits having 2 episodes of vomiting over the last 2 days of dark brown coffee-ground appearing emesis and associated nausea. She also reports the accompanying symptoms of dark-colored stool in her ileostomy bag over the last 2 days. She denies other associated or accompanying signs or symptoms. She admits prior similar episodes related to her Crohn's disease with GI bleeding. She has not identified any aggravating or a meliorating factors for her hematemesis. In the emergency room her emesis and stool were guaiac positive. Her hemoglobin was stable at baseline level. Her white blood count was elevated at 15,500 and her creatinine was markedly elevated over baseline at 6.46 with a BUN of 115. Patient's potassium was 5.2. She was subsequently admitted to the hospital for further evaluation and treatment. Past Medical History Cardiac Medical History: Denies: Atrial Fibrillation, Coronary Artery Disease, Myocardial Infarction, Hypertension Pulmonary Medical History: Reports: Bronchitis, Chronic Obstructive Pulmonary Disease (COPD), Pneumonia Denies: Asthma EENT Medical History: Reports: Nose - Allergic rhinitis Denies: Cataracts, Ears - Hearing aids Neurological Medical History: Denies: Hemorrhagic CVA, Ischemic CVA, Seizures Endocrine Medical History: Denies: Diabetes Mellitus Type 1, Diabetes Mellitus Type 2, Hyperthyroidism, Hypothyroidism Renal/ Medical History: Reports: Chronic Kidney Disease Denies: Nephrolithiasis Malignancy Medical History: Reports: None GI Medical History: Reports: Crohn's Disease, Gastroesophageal Reflux Disease, Hiatal Hernia Denies: Cirrhosis, Hepatitis, Ulcerative Colitis Musculoskeltal Medical History: Reports: Arthritis - GOUT Denies: Gout Skin Medical History: Denies: Eczema, Psoriasis Psychiatric Medical History: Reports: Depression Denies: Alcohol Dependency, Substance Abuse, Tobacco Dependency Hematology: Reports: Anemia Denies: Sickle Cell Disease Past Surgical History Past Surgical History: Reports: Appendectomy, Colostomy, Ileostomy - Status post total colectomy for Crohn's disease, Valve Replacement - Bovine aortic valve Social History Information Source: Patient Lives with: Family Smoking Status: Former Smoker Frequency of Alcohol Use: Social Hx Recreational Drug Use: No Drugs: None Hx Prescription Drug Abuse: No - Advance Directive Resuscitation Status: Full Code Surrogate healthcare decision maker:: Dimitri Grider Family History Family History: COPD, Hypertension Parental Family History Reviewed: Yes Children Family History Reviewed: No Sibling(s) Family History Reviewed.: Yes Medication/Allergy Home Medications: Alprazolam [Xanax 0.5 mg Tablet] 0.5 mg PO TID PRN 12/24/18 Calcitriol [Rocaltrol 0.25 mcg Capsule] 0.75 mcg PO DAILY 12/24/18 Carboxymethylcellulose Sodium [Refresh Celluvisc Drops] 1 each OU BID 12/24/18 Cyanocobalamin (Vitamin B-12) [Vitamin B-12 Inj 1000 Mcg/1 ml Vial] 1,000 mcg IM .MONTHLY 12/24/18 Ezetimibe [Zetia 10 mg Tablet] 10 mg PO DAILY 12/24/18 Febuxostat [Uloric 40 mg Tablet] 40 mg PO DAILY 12/24/18 Furosemide [Lasix 40 mg Tablet] 40 mg PO MOFR@1000 12/24/18 Levalbuterol HCl [Xopenex Neb 0.63 mg/3 ml Ampul] 0.63 mg NEB RTQ12 12/24/18 Loperamide HCl [Imodium 2 mg Capsule] 2 mg PO BID 12/24/18 Loratadine [Claritin 10 mg Tablet] 10 mg PO DAILY 12/24/18 Promethazine HCl [Phenergan 25 mg Tablet] 25 mg PO QIDP PRN 12/24/18 Sertraline HCl [Zoloft] 100 mg PO DAILY 12/24/18 Magnesium Oxide [Mag-Ox 400 mg Tablet] 400 mg PO BID #60 tablet 12/29/18 Omeprazole 20 mg PO DAILY 02/16/19 Allergies/Adverse Reactions: indomethacin [From Indocin] Allergy (Severe, Verified 07/20/18 12:34) BODY SWELLING LOWER EXTREMITIES metronidazole [From Flagyl] Allergy (Severe, Verified 07/20/18 12:34) VEIN AGITATION naproxen [From Naprosyn] Allergy (Severe, Verified 07/20/18 12:34) SWELLING LOWER EXTREMITIES amoxicillin Allergy (Intermediate, Verified 07/20/18 12:34) HIVES/ITCHING levofloxacin [From Levaquin] Allergy (Intermediate, Verified 07/20/18 12:34) ITCHING penicillin G Allergy (Intermediate, Verified 07/20/18 12:34) HIVES/ITCHING codeine Allergy (Mild, Verified 07/20/18 12:34) Nausea allopurinol Allergy (Unknown, Verified 07/20/18 12:34) cephalexin [From Keflex] Allergy (Unknown, Verified 07/20/18 12:34) Cephalosporins Allergy (Unknown, Verified 07/20/18 12:34) mesalamine [From Pentasa] Allergy (Unknown, Verified 07/20/18 12:34) Review of Systems Constitutional: ABSENT: chills, fever(s) Eyes: ABSENT: visual disturbances, other - Eye pain Ears: ABSENT: hearing changes, other - Ear pain Nose, Mouth, and Throat: ABSENT: mouth pain, sore throat Cardiovascular: ABSENT: chest pain, palpitations Respiratory: ABSENT: cough, dyspnea Gastrointestinal: PRESENT: hematemesis, melena, nausea, vomiting. ABSENT: abdominal pain, constipation, diarrhea Genitourinary: ABSENT: dysuria, hematuria Musculoskeletal: ABSENT: back pain, joint swelling, muscle weakness Integumentary: ABSENT: pruritus, rash Neurological: ABSENT: confusion, convulsions, focal weakness, memory loss, syncope Psychiatric: ABSENT: anxiety, depression Endocrine: ABSENT: cold intolerance, heat intolerance Hematologic/Lymphatic: ABSENT: easy bleeding, easy bruising Allergic/Immunologic: ABSENT: seasonal rhinorrhea Physical Exam Vital Signs: Temp Pulse Resp BP Pulse Ox 97.9 F 17 129/93 H 100 02/16/19 03:34 02/16/19 04:01 02/16/19 04:01 02/16/19 04:01 Intake & Output 02/14/19 02/15/19 02/16/19 23:59 23:59 23:59 Weight 106.6 kg General appearance: PRESENT: no acute distress, cooperative Head exam: PRESENT: atraumatic, normocephalic Eye exam: PRESENT: conjunctiva pink. ABSENT: conjunctival injection, scleral icterus Ear exam: PRESENT: normal external ear exam. ABSENT: bleeding, drainage Mouth exam: PRESENT: dry mucosa, neck supple Neck exam: ABSENT: thyromegaly, tracheal deviation Respiratory exam: PRESENT: clear to auscultation delfino, symmetrical, unlabored Cardiovascular exam: PRESENT: RRR. ABSENT: clicks, gallop, rubs Pulses: PRESENT: normal radial pulses, normal dorsalis pedis pul Vascular exam: PRESENT: normal capillary refill. ABSENT: pallor GI/Abdominal exam: PRESENT: hypoactive bowel sounds, soft, other - Ileostomy noted. ABSENT: tenderness Rectal exam: PRESENT: deferred Extremities exam: ABSENT: joint swelling, pedal edema Musculoskeletal exam: ABSENT: deformity, dislocation Neurological exam: PRESENT: alert, oriented to person, oriented to place, oriented to time, oriented to situation, CN II-XII grossly intact. ABSENT: motor sensory deficit Psychiatric exam: PRESENT: appropriate affect, normal mood Skin exam: PRESENT: dry, intact, warm. ABSENT: jaundice, rash, urticaria Results Laboratory Results: 02/16/19 04:27 02/16/19 03:50 02/16/19 02/16/19 02/16/19 03:50 03:50 04:27 WBC 15.5 H RBC 3.96 Hgb 10.8 L Hct 32.6 L MCV 82 MCH 27.3 MCHC 33.2 RDW 17.0 H Plt Count 191 Seg Neutrophils % Not Reportable Sodium 135.0 L Potassium 5.2 H Chloride 109 H Carbon Dioxide 11 L Anion Gap 15 BUN 117 H Creatinine 6.46 H Est GFR ( Amer) 8 L Glucose 94 Calcium 7.1 L Total Bilirubin 0.3 AST 17 Alkaline Phosphatase 72 Total Protein 5.3 L Albumin 2.8 L Lipase 395.7 H Blood Type O POSITIVE Antibody Screen NEGATIVE Impressions: Chest X-Ray 02/16/19 03:34 IMPRESSION: Emphysema without pneumonia. Assessment and Plan - Diagnosis (1) Upper GI bleed Is this a current diagnosis for this admission?: Yes Plan: Patient will be monitored with serial hemoglobins and close observation in the hospital. A surgical consultation will be obtained with Dr. Mott later this morning. Patient will be treated with Protonix 40 mg IV every 12 hours and IV fluids as supportive therapy. Patient's nausea will be treated with Zofran 4 mg IV every 4 hours on a as needed basis. Should the patient develop abdominal pain she will be treated with Nubain 10 mg IV every 3 hours on a as needed basis. (2) Acute kidney injury superimposed on chronic kidney disease Is this a current diagnosis for this admission?: Yes Plan: Patient be treated with IV fluids and a nephrology consultation will be obtained with Dr. Marin as soon as possible. Her renal functions be monitored with regular daily metabolic profiles and magnesium levels. (3) CHF (congestive heart failure) Qualifiers: Heart failure type: diastolic Heart failure chronicity: chronic Qualified Code(s): I50.32 - Chronic diastolic (congestive) heart failure Is this a current diagnosis for this admission?: Yes Plan: Patient will be observed closely for signs of heart failure and her usual medications will need to be adjusted due to her acute renal failure. Input for this adjustment will be obtained from Dr. Marin and her consultation. (4) COPD (chronic obstructive pulmonary disease) Qualifiers: COPD type: unspecified COPD Qualified Code(s): J44.9 - Chronic obstructive pulmonary disease, unspecified Is this a current diagnosis for this admission?: Yes Plan: Patient be continued on her usual regimen for chronic obstructive pulmonary disease or a reasonable facsimile letter of per formulary substitution. (5) Coronary artery disease Qualifiers: Coronary Disease-Associated Artery/Lesion type: [place] artery [place] vs. transplanted heart: [place] heart Associated angina: without angina Qualified Code(s): I25.10 - Atherosclerotic heart disease of [place] coronary artery without angina pectoris Is this a current diagnosis for this admission?: Yes Plan: Patient will be continued on her usual regimen for coronary artery disease with the exception of changes which may be required due to her acute on chronic renal failure. Input into this will be obtained from Dr. Marin during her consult. (6) Hyperlipidemia Qualifiers: Hyperlipidemia type: unspecified Qualified Code(s): E78.5 - Hyperlipidemia, unspecified Is this a current diagnosis for this admission?: Yes Plan: Patient will be continued on her usual lipid therapy and a cardiac diet. A lipid profile will be obtained to assess the efficacy of current therapy. - Time Time Spent with patient: 15-24 minutes Medications reviewed and adjusted accordingly: Yes Anticipated discharge: Home - Inpatient Certification Based on my medical assessment, after consideration of the patient's comorbi dities, presenting symptoms, or acuity I expect that the services needed warrant INPATIENT care.: Yes I certify that my determination is in accordance with my understanding of Medicare's requirements for reasonable and necessary INPATIENT services [42 CFR 412.3e].: Yes Medical Necessity: Significant Comorbidiites Make Outpatient Treatment Too Risky, Need Close Monitoring Due to Risk of Patient Decompensation, Need For IV Fluids, Need For Continuous Telemetry Monitoring, Risk of Complication if Not Cared For in Hospital
[2019-02-16 07:07] LABS: THYROID STIMULATING HORMONE 4.47 uIU/mL (0.47-4.68)
[2019-02-16 07:15] LABS: VENOUS BLOOD BASE EXCESS -13.1 mmol/L; VENOUS BLOOD PCO2 36.9 mmHg (35-63); VENOUS BLOOD PH 7.2 (7.30-7.42)
[2019-02-16] MEDS: PROMETHAZINE HCL INJ 25 MG/1 ML VIAL IV PRN (07:42)
[2019-02-16] MEDS: LEVALBUTEROL HCL NEB 0.63 MG/3 ML AMPUL NEB SCH ×2 (08:35→20:36)
[2019-02-16] MEDS ORDERED: PANTOPRAZOLE SODIUM 40 MG VIAL IV SCH (10:00)
[2019-02-16] MEDS ORDERED: LIDOCAINE 2% JELLY 5 ML TUBE TOP ONE (11:50)
--- NOTE | 2019-02-16 11:50 | PDOC CONSULTATION ---
Consultation Consult Date: 02/16/19 Provider Consulted: MARIA LUISA RODRIGUEZ Consult reason:: Coffee-ground emesis and heme positive stools History of Present Illness Admission Date/PCP: 02/16/19 06:25 CLINT REED MD History of Present Illness: FABRICIO BARR is a 73 year old female mated the emergency room on February 16, 2019. To decrease the patient is a history of Crohn's colitis and underwent total colectomy with end ileostomy years ago. According to the patient she is currently on remission. The patient was admitted from the emergency room because of a 2-day history of coffee-ground emesis and dark stools as per partially digested blood. Her initial hemoglobin hematocrit was 10.8 and 32.6, respectively. The patient gives a history of recent admission at this hospital on December 24 with a hemoglobin of 5.6 and hematocrit of 14. During the hospitalization she underwent an upper endoscopy which was negative. She was then discharged to home with a hemoglobin of about 11. However, about 3 weeks later she was admitted at [facility] because of hematemesis. An upper endoscopy was done which identified what looks like a bleeding ulcer this was cauterized. There, the patient was hospitalized for about 11 days and discharged with stable hemoglobin/hematocrit. However, no antacids were given to the patient upon discharge. She returns to the hospital with the above symp toms. Past Medical History Cardiac Medical History: Denies: Atrial Fibrillation, Coronary Artery Disease, Myocardial Infarction, Hypertension Pulmonary Medical History: Reports: Bronchitis, Chronic Obstructive Pulmonary Disease (COPD), Pneumonia Denies: Asthma EENT Medical History: Reports: Nose - Allergic rhinitis Denies: Cataracts, Ears - Hearing aids Neurological Medical History: Denies: Hemorrhagic CVA, Ischemic CVA, Seizures Endocrine Medical History: Denies: Diabetes Mellitus Type 1, Diabetes Mellitus Type 2, Hyperthyroidism, Hypothyroidism Renal/ Medical History: Reports: Chronic Kidney Disease, End Stage Renal Disease Denies: Nephrolithiasis Malignancy Medical History: Reports: None GI Medical History: Reports: Crohn's Disease, Gastroesophageal Reflux Disease, Hiatal Hernia Denies: Cirrhosis, Hepatitis, Ulcerative Colitis Musculoskeltal Medical History: Reports: Arthritis - GOUT Denies: Gout Skin Medical History: Denies: Eczema, Psoriasis Psychiatric Medical History: Reports: Depression Denies: Alcohol Dependency, Substance Abuse, Tobacco Dependency Hematology: Reports: Anemia Denies: Sickle Cell Disease Past Surgical History Past Surgical History: Reports: Appendectomy, Colostomy, Ileostomy - Status post total colectomy for Crohn's disease, Valve Replacement - Bovine aortic valve, Other Denies: Amputation, Mastectomy, Pacemaker Social History Lives with: Family Smoking Status: Former Smoker Frequency of Alcohol Use: Social Hx Recreational Drug Use: No Drugs: None Hx Prescription Drug Abuse: No - Advance Directive Resuscitation Status: Full Code Family History Family History: COPD, Hypertension Parental Family History Reviewed: No Children Family History Reviewed: No Sibling(s) Family History Reviewed.: No Medication/Allergy Home Medications: Alprazolam [Xanax 0.5 mg Tablet] 0.5 mg PO Q8HP PRN 12/24/18 Calcitriol [Rocaltrol 0.25 mcg Capsule] 0.75 mcg PO DAILY 12/24/18 Carboxymethylcellulose Sodium [Refresh Celluvisc Drops] 1 each OU BID 12/24/18 Cyanocobalamin (Vitamin B-12) [Vitamin B-12 Inj 1000 Mcg/1 ml Vial] 1,000 mcg IM .MONTHLY 12/24/18 Ezetimibe [Zetia 10 mg Tablet] 10 mg PO DAILY 12/24/18 Febuxostat [Uloric 40 mg Tablet] 40 mg PO DAILY 12/24/18 Furosemide [Lasix 40 mg Tablet] 40 mg PO MOFR@1000 12/24/18 Levalbuterol HCl [Xopenex Neb 0.63 mg/3 ml Ampul] 0.63 mg NEB RTQ12 12/24/18 Loperamide HCl [Imodium 2 mg Capsule] 2 mg PO BID 12/24/18 Loratadine [Claritin 10 mg Tablet] 10 mg PO DAILY 12/24/18 Promethazine HCl [Phenergan 25 mg Tablet] 25 mg PO QIDP PRN 12/24/18 Sertraline HCl [Zoloft] 100 mg PO DAILY 12/24/18 Magnesium Oxide [Mag-Ox 400 mg Tablet] 400 mg PO BID #60 tablet 12/29/18 Albuterol Sulfate [Albuterol Sulfate Hfa] 2 puff IH Q6HP PRN 02/16/19 Omeprazole 20 mg PO DAILY 02/16/19 Allergies/Adverse Reactions: indomethacin [From Indocin] Allergy (Severe, Verified 07/20/18 12:34) BODY SWELLING LOWER EXTREMITIES metronidazole [From Flagyl] Allergy (Severe, Verified 07/20/18 12:34) VEIN AGITATION naproxen [From Naprosyn] Allergy (Severe, Verified 07/20/18 12:34) SWELLING LOWER EXTREMITIES amoxicillin Allergy (Intermediate, Verified 07/20/18 12:34) HIVES/ITCHING levofloxacin [From Levaquin] Allergy (Intermediate, Verified 07/20/18 12:34) ITCHING penicillin G Allergy (Intermediate, Verified 07/20/18 12:34) HIVES/ITCHING codeine Allergy (Mild, Verified 07/20/18 12:34) Nausea allopurinol Allergy (Unknown, Verified 07/20/18 12:34) cephalexin [From Keflex] Allergy (Unknown, Verified 07/20/18 12:34) Cephalosporins Allergy (Unknown, Verified 07/20/18 12:34) mesalamine [From Pentasa] Allergy (Unknown, Verified 07/20/18 12:34) Physical Exam Vital Signs: Temp Pulse Resp BP Pulse Ox 99 F 80 23 H 147/46 H 100 02/16/19 08:41 02/16/19 08:41 02/16/19 08:41 02/16/19 08:41 02/16/19 08:41 Intake & Output 02/15/19 02/16/19 02/17/19 06:59 06:59 06:59 Intake Total 500 Balance 500 Weight 106.6 kg General appearance: PRESENT: no acute distress, other - Rest Head exam: PRESENT: atraumatic Eye exam: PRESENT: EOMI, PERRLA Mouth exam: PRESENT: dry mucosa Teeth exam: PRESENT: poor dentation Neck exam: PRESENT: full ROM Respiratory exam: PRESENT: clear to auscultation delfino Cardiovascular exam: PRESENT: RRR, other - Right upper chest Port-A-Cath GI/Abdominal exam: PRESENT: normal bowel sounds, soft - Flat, tenderness - Throughout the entire abdomen on palpation, other - Ostomy bag in the right lower quadrant filled with gas, no stools Extremities exam: PRESENT: full ROM Musculoskeletal exam: PRESENT: full ROM Neurological exam: PRESENT: alert, altered Psychiatric exam: PRESENT: depressed Skin exam: PRESENT: warm Results Laboratory Results: 02/16/19 04:27 02/16/19 03:50 02/16/19 02/16/19 02/16/19 03:50 03:50 03:50 WBC RBC Hgb Hct MCV MCH MCHC RDW Plt Count Seg Neutrophils % VBG pH VBG pCO2 VBG HCO3 VBG Base Excess Sodium 135.0 L Potassium 5.2 H Chloride 109 H Carbon Dioxide 11 L Anion Gap 15 BUN 117 H Creatinine 6.46 H Est GFR ( Amer) 8 L Glucose 94 Calcium 7.1 L Total Bilirubin 0.3 AST 17 Alkaline Phosphatase 72 Total Protein 5.3 L Albumin 2.8 L Lipase 395.7 H TSH 4.47 Free T4 1.43 Free T3 pg/mL 4.11 Blood Type O POSITIVE Antibody Screen NEGATIVE 02/16/19 02/16/19 04:27 07:05 WBC 15.5 H RBC 3.96 Hgb 10.8 L Hct 32.6 L MCV 82 MCH 27.3 MCHC 33.2 RDW 17.0 H Plt Count 191 Seg Neutrophils % Not Reportable VBG pH 7.20 L VBG pCO2 36.9 VBG HCO3 14.0 L VBG Base Excess -13.1 Sodium Potassium Chloride Carbon Dioxide Anion Gap BUN Creatinine Est GFR ( Amer) Glucose Calcium Total Bilirubin AST Alkaline Phosphatase Total Protein Albumin Lipase TSH Free T4 Free T3 pg/mL Blood Type Antibody Screen Impressions: Chest X-Ray 02/16/19 03:34 IMPRESSION: Emphysema without pneumonia. Assessment & Plan - Diagnosis (2) Acute renal failure (ARF) Qualifiers: Acute renal failure type: unspecified Qualified Code(s): N17.9 - Acute kidney failure, unspecified Is this a current diagnosis for this admission?: Yes - Plan Summary Plan Summary: Assessment/ Coffee-ground emesis Digestive bladder identified in the ileostomy bag Borderline anemia (hemoglobin/hematocrit = 10.20 36.8) Severe anemia identified on December 24 with a hemoglobin of 5.6 History of EGD done in this hospital in December which was negative History of EGD at the end of December at [facility] which identified an actively bleeding ulcer which was cauterized History of total colectomy for Crohn's disease in remission Elevated BUN/creatinine (117/6.4) as per severe prerenal failure due to dehydration Plan/ Aggressive rehydration Insertion of nasogastric tube Insertion of Ortiz catheter Start Protonix drip Carafate 1 g every 6 p.o. Plan EGD with biopsy under IV sedation tomorrow Procedure risks benefits, and complications were explained to the patient, her questions were answered, and she decided to proceed The procedure may be postponed if the patient is not medically stable tomorrow.
[2019-02-16] MEDS ORDERED: BENZOCAINE 20% AEROSOL SPRAY 60 GM TP PRN (11:51)
[2019-02-16] MEDS ORDERED: MAG HYDROX/AL HYDROX/SIMETH SUSP 30 ML UDCUP NG SCH (12:15)
[2019-02-16 14:02] LABS: APPEARANCE,URINE TURBID; BILIRUBIN,URINE NEGATIVE (NEGATIVE); COLOR,URINE AMBER; GLUCOSE, URINE NEGATIVE (NEGATIVE); KETONES,URINE NEGATIVE (NEGATIVE); LEUKOCYTE ESTERASE,URINE LARGE (NEGATIVE); NITRITE,URINE NEGATIVE (NEGATIVE); PROTEIN,URINE 30 mg/dL (NEGATIVE); URINE SPECIFIC GRAVITY 1.012; UROBILINOGEN,URINE NEGATIVE mg/dL (<2.0)
[2019-02-16] MEDS: NORMAL SALINE 1000 ML 1,000 ML IV PRN ×2 (14:23→22:18)
--- NOTE | 2019-02-16 15:11 | RADIOLOGY REPORT (SQ) ---
EXAM DESCRIPTION: KUB/ABDOMEN (SINGLE VIEW) COMPLETED DATE/TIME: 02/16/2019 2:58 pm REASON FOR STUDY: ng tube placement COMPARISON: Chest x-ray 02/16/2019, abdominal series 02/21/2007. NUMBER OF VIEWS: One view. TECHNIQUE: 1 supine radiographic image of the chest/upper abdomen acquired. LIMITATIONS: None. FINDINGS: BOWEL GAS PATTERN: No dilated bowel loops at the visualized upper abdomen. HARDWARE: An enteric tube terminates at the left upper quadrant, in the expected location of the adrián froilan body. There is a right-sided Port-A-Cath with the tip at the SVC. Median sternotomy wires and c ardiac valve prosthesis are noted. Surgical clips at the right axilla. BONES: Multilevel degenerative changes at the spine. Orthopedic hardware at a left rib. IMPRESSION: Enteric tube terminates at the expected location of the gastric body. TECHNICAL DOCUMENTATION: JOB ID: [id number] [employer]- All Rights Reserved Reading location - IP/workstation name: [email or web address]
[2019-02-16] MEDS ORDERED: PANTOPRAZOLE SODIUM 80 MG in NORMAL SALINE 100 ML IV ONE (16:00)
[2019-02-16] MEDS: NORMAL SALINE 100 ML with PANTOPRAZOLE SODIUM 80 MG IV PRN ×2 (16:09)
--- NOTE | 2019-02-16 16:34 | PDOC PROGRESS REPORT ---
Subjective Progress Note for:: 02/16/19 Subjective:: This is 73 years old female patient was multiple complex medical problems including stage V CKD, COPD, chronic respiratory failure O2 dependent 16/01, coronary 30s, history of [place], hypertension brought with chief complaint of vomiting of coffee-ground material of 2 days history. Her emesis and stool are positive for heme. Her blood work also shows elevated creatinine of 6.46 and BUN of 115. Her baseline creatinine is around 3. Dr. Mott evaluated this patient and he started on Protonix pump and is scheduled her for upper GI endoscopy tomorrow. Dr. Marin has been consulted for KAMILA on CKD. I seen patient this morning she is resting in bed comfortably. Accepted this patient. Reason For Visit: GI BLEED,KAMILA ON CKD Physical Exam Vital Signs: Temp Pulse Resp BP Pulse Ox 99.0 F 71 23 H 129/46 H 97 02/16/19 12:04 02/16/19 12:04 02/16/19 08:41 02/16/19 12:04 02/16/19 12:04 Intake & Output 02/15/19 02/16/19 02/17/19 06:59 06:59 06:59 Intake Total 500 1000 Balance 500 1000 Weight 106.6 kg Results Laboratory Results: 02/16/19 04:27 02/16/19 03:50 02/16/19 02/16/19 02/16/19 03:50 03:50 03:50 WBC RBC Hgb Hct MCV MCH MCHC RDW Plt Count Seg Neutrophils % VBG pH VBG pCO2 VBG HCO3 VBG Base Excess Sodium 135.0 L Potassium 5.2 H Chloride 109 H Carbon Dioxide 11 L Anion Gap 15 BUN 117 H Creatinine 6.46 H Est GFR ( Amer) 8 L Glucose 94 Calcium 7.1 L Total Bilirubin 0.3 AST 17 Alkaline Phosphatase 72 Total Protein 5.3 L Albumin 2.8 L Lipase 395.7 H TSH 4.47 Free T4 1.43 Free T3 pg/mL 4.11 Urine Color Urine Appearance Urine pH Ur Specific [place] Urine Protein Urine Glucose (UA) Urine Ketones Urine Blood Urine Nitrite Ur Leukocyte Esterase Urine WBC (Auto) Urine RBC (Auto) Blood Type O POSITIVE Antibody Screen NEGATIVE 02/16/19 02/16/19 02/16/19 04:27 07:05 12:55 WBC 15.5 H RBC 3.96 Hgb 10.8 L Hct 32.6 L MCV 82 MCH 27.3 MCHC 33.2 RDW 17.0 H Plt Count 191 Seg Neutrophils % Not Reportable VBG pH 7.20 L VBG pCO2 36.9 VBG HCO3 14.0 L VBG Base Excess -13.1 Sodium Potassium Chloride Carbon Dioxide Anion Gap BUN Creatinine Est GFR ( Amer) Glucose Calcium Total Bilirubin AST Alkaline Phosphatase Total Protein Albumin Lipase TSH Free T4 Free T3 pg/mL Urine Color SKYE Urine Appearance TURBID Urine pH 6.0 Ur Specific [place] 1.012 Urine Protein 30 H Urine Glucose (UA) NEGATIVE Urine Ketones NEGATIVE Urine Blood SMALL H Urine Nitrite NEGATIVE Ur Leukocyte Esterase LARGE H Urine WBC (Auto) >182 Urine RBC (Auto) 13 Blood Type Antibody Screen Impressions: KUB X-Ray 02/16/19 00:00 IMPRESSION: Enteric tube terminates at the expected location of the gastric body. Chest X-Ray 02/16/19 03:34 IMPRESSION: Emphysema without pneumonia.
[2019-02-16] MEDS: SUCRALFATE 1 GM TABLET NG SCH (18:43)
--- NOTE | 2019-02-16 19:07 | EKG REPORT ---
SEVERITY:- ABNORMAL ECG - SINUS RHYTHM LVH WITH IVCD AND SECONDARY REPOL ABNRM : Confirmed by: Kaela Valdez MD 16-Feb-2019 19:06:09
--- NOTE | 2019-02-16 19:07 | EKG REPORT ---
SEVERITY:- ABNORMAL ECG - SINUS RHYTHM LEFT ATRIAL ABNORMALITY LVH WITH IVCD AND SECONDARY REPOL ABNRM : Confirmed by: Kaela Valdez MD 16-Feb-2019 19:06:05
[2019-02-17] MEDS: SUCRALFATE 1 GM TABLET NG SCH ×3 (00:45→13:32)
[2019-02-17] MEDS: PROMETHAZINE HCL INJ 25 MG/1 ML VIAL IV PRN ×3 (04:16→22:59)
[2019-02-17 04:59] LABS: ANION GAP 14 (5-19); CALCIUM 9.4 mg/dL (8.4-10.2); CARBON DIOXIDE 13 mmol/L (22-30); CHLORIDE 110 mmol/L (98-107); CHOLESTEROL 149.59 mg/dL (0-200); GLUCOSE 87 mg/dL (75-110); POTASSIUM 5.8 mmol/L (3.6-5.0); TRIGLYCERIDES 242 mg/dL (<150)
[2019-02-17 05:10] LABS: BLOOD UREA NITROGEN 137 mg/dL (7-20); DIRECT LDL 83 mg/dL (<100); VLDL CHOLESTEROL 48.4 mg/dL (10-31)
[2019-02-17] MEDS: NORMAL SALINE 1000 ML 1,000 ML IV PRN ×2 (07:00→23:13)
[2019-02-17] MEDS: LEVALBUTEROL HCL NEB 0.63 MG/3 ML AMPUL NEB SCH ×2 (08:08→19:30)
[2019-02-17 10:45] LABS: ABSOLUTE LYMPHOCYTES (AUTO) 0.5 10^3/uL (0.5-4.7); ABSOLUTE MONOCYTES (AUTO) 0.7 10^3/uL (0.1-1.4); ABSOLUTE NEUT (AUTO) 5.5 10^3/uL (1.7-8.2); BASOPHILS % (AUTO) 0.4 % (0-2); EOSINOPHILS % (AUTO) 0.4 % (0-6); HEMATOCRIT 24.2 % (36.0-47.0); MEAN CORPUSCULAR HEMOGLOBIN 27.4 pg (27.0-33.4); MEAN CORPUSCULAR HGB CONC 32.9 g/dL (32.0-36.0); MEAN CORPUSCULAR VOLUME 84 fl (80-97); MONOCYTES % (AUTO) 9.8 % (3-13); PLATELET COUNT 102 10^3/uL (150-450); SEGMENTED NEUTROPHILS % (AUTO) 82.4 % (42-78); TOTAL CELLS COUNTED % (AUTO) 100 %; WHITE BLOOD COUNT 6.6 10^3/uL (4.0-10.5)
[2019-02-17 10:48] LABS: HEMOGLOBIN 7.9 g/dL (12.0-15.5)
[2019-02-17] MEDS ORDERED: NORMAL SALINE 250 ML IV PRN ×2 (11:01)
[2019-02-17] MEDS: NORMAL SALINE 100 ML with PANTOPRAZOLE SODIUM 80 MG IV PRN ×2 (11:10)
[2019-02-17] MEDS ORDERED: PROPOFOL INJ 200 MG/20 ML VIAL IV ONE (12:14)
--- NOTE | 2019-02-17 13:06 | Operative Report ---
Operative Report DATE OF SURGERY: 02/17/19 PREOPERATIVE DIAGNOSIS: anemia; hx coffee ground emesis POSTOPERATIVE DIAGNOSIS: anemia, normal EGD OPERATION: EGD SURGEON: MARIA LUISA RODRIGUEZ ANESTHESIA: LMAC TISSUE REMOVED OR ALTERED: n/a COMPLICATIONS: none ESTIMATED BLOOD LOSS: n/a INTRAOPERATIVE FINDINGS: Normal EGD PROCEDURE: The procedure was done in surgery, the patient was placed in a lateral decubitus on the surgical bed; IV sedation was provided by the anesthesiologist, the gastroscope was inserted into the mouth, esophagus, stomach, and first and second third portion of the duodenum. The preparation was good, and no masses, polyps, strictures, mucosal changes, or ulcerations were noted. The scope was then slowly withdrawn into the stomach retroflexed and the fundus and the GE junction appeared to be normal limits. The scope was slowly withdrawn into the esophagus which appeared to be normal, removed from the patient mouth without difficulty. The patient tolerated procedure well and transferred to the recovery room in satisfactory conditions.
--- NOTE | 2019-02-17 13:43 | Progress Note ---
Provider Note Provider Note: EGD negative without any significant source of upper gastrointestinal bleeding Assessment and plan Negative EGD No blood identified in the nasogastric tube or in the ileostomy bag Plan: Consult Dr. Mullen for capsule endoscopy I will sign off. Please call me with questions
--- NOTE | 2019-02-17 14:04 | PDOC PROGRESS REPORT ---
Subjective Progress Note for:: 02/17/19 Subjective:: This is 73 years old female patient was multiple complex medical problems including stage V CKD, COPD, chronic respiratory failure O2 dependent 16/01, coronary 30s, history of [place], hypertension brought with chief complaint of vomiting of coffee-ground material of 2 days history. Her emesis and stool are positive for heme. Her blood work also shows elevated creatinine of 6.46 and BUN of 115. Her baseline creatinine is around 3. Dr. Mott evaluated this patient and he started on Protonix pump and is scheduled her for upper GI endoscopy tomorrow. Dr. Marin has been consulted for KAMILA on CKD. I seen patient this morning she is resting in bed comfortably. Accepted this patient. 02/17/2019: Patient seen resting in bed comfortably. Today her hemoglobin dropped from 10.8-7.9. She is going to be transfused 2 units of packed RBC. Patient taken to GI unit where Dr. Mott performed upper endoscopy and he states that no bleeding point identified. He consulted Dr. Ramos for possible capsule endoscopy. Her creatinine also get worse from 6.[address] Marin has been consulted. Patient getting normal saline at rate of 150 mm/h now it is tapered to 125 mL/h. Reason For Visit: GI BLEED,KAMILA ON CKD Physical Exam Vital Signs: Temp Pulse Resp BP Pulse Ox 97.8 F 72 16 114/58 L 99 02/17/19 13:00 02/17/19 13:00 02/17/19 13:00 02/17/19 13:00 02/17/19 13:00 Intake & Output 02/16/19 02/17/19 02/18/19 06:59 06:59 06:59 Intake Total 500 3000 150 Output Total 850 350 Balance 500 2150 -200 Weight 106.6 kg General appearance: PRESENT: no acute distress Head exam: PRESENT: atraumatic Eye exam: PRESENT: conjunctiva pink Mouth exam: PRESENT: dry mucosa Neck exam: ABSENT: carotid bruit, JVD, lymphadenopathy, thyromegaly Respiratory exam: PRESENT: decreased breath sounds Cardiovascular exam: PRESENT: systolic murmur - Loud ejection systolic murmur radiating to her next. Neurological exam: PRESENT: alert, awake, oriented to person, oriented to place, oriented to time, oriented to situation Results Laboratory Results: 02/17/19 10:27 02/17/19 04:23 02/16/19 02/16/19 02/17/19 03:50 12:55 04:23 WBC Cancelled RBC Cancelled Hgb Cancelled Hct Cancelled MCV Cancelled MCH Cancelled MCHC Cancelled RDW Cancelled Plt Count Cancelled Seg Neutrophils % Cancelled Sodium Potassium Chloride Carbon Dioxide Anion Gap BUN Creatinine Est GFR ( Amer) Glucose Calcium Magnesium Triglycerides Cholesterol LDL Cholesterol Direct VLDL Cholesterol HDL Cholesterol Urine Color SKYE Urine Appearance TURBID Urine pH 6.0 Ur Specific [place] 1.012 Urine Protein 30 H Urine Glucose (UA) NEGATIVE Urine Ketones NEGATIVE Urine Blood SMALL H Urine Nitrite NEGATIVE Ur Leukocyte Esterase LARGE H Urine WBC (Auto) >182 Urine RBC (Auto) 13 Blood Type O POSITIVE Antibody Screen NEGATIVE 02/17/19 02/17/19 04:23 10:27 WBC 6.6 RBC 2.90 L Hgb 7.9 L D Hct 24.2 L MCV 84 MCH 27.4 MCHC 32.9 RDW 17.0 H Plt Count 102 L Seg Neutrophils % 82.4 H Sodium 137.2 Potassium 5.8 H Chloride 110 H Carbon Dioxide 13 L Anion Gap 14 BUN 137 H Creatinine 8.10 H Est GFR ( Amer) 6 L Glucose 87 Calcium 9.4 Magnesium 1.5 L Triglycerides 242 H Cholesterol 149.59 LDL Cholesterol Direct 83 VLDL Cholesterol 48.4 H HDL Cholesterol 35 L Urine Color Urine Appearance Urine pH Ur Specific [place] Urine Protein Urine Glucose (UA) Urine Ketones Urine Blood Urine Nitrite Ur Leukocyte Esterase Urine WBC (Auto) Urine RBC (Auto) Blood Type Antibody Screen Impressions: KUB X-Ray 02/16/19 00:00 IMPRESSION: Enteric tube terminates at the expected location of the gastric body. Chest X-Ray 02/16/19 03:34 IMPRESSION: Emphysema without pneumonia. Assessment and Plan - Diagnosis (1) Acute blood loss anemia Is this a current diagnosis for this admission?: Yes Plan: Patient presented with hematemesis and melena. Her stool and her emesis is positive for heme. This morning undergone upper endoscopy but no bleeding point identified. Her hemoglobin dropped from 10.5-7.9. She is going to transfuse [address] packed RBC[address] Dr. Mott consulted Dr. Ramos for possible capsule endoscopy. (2) KAMILA on CKD stage V Is this a current diagnosis for this admission?: Yes Plan: Patient has been hydrated cautiously with normal saline. Her primary hair boiler Dr. Cummings put on-call hair boiler Dr. Marin has been consulted. (3) COPD with chronic respiratory failure Is this a current diagnosis for this admission?: Yes Plan: Continue supplemental oxygen and PRN bronchodilators. (4) Hyperlipidemia Is this a current diagnosis for this admission?: Yes Plan: Continue home medication (5) Gout Is this a current diagnosis for this admission?: Yes Plan: In remission (6) History of Crohn's disease Is this a current diagnosis for this admission?: Yes Plan: Status post total colectomy and ileostomy.
[2019-02-17] MEDS: SERTRALINE HCL 50 MG TABLET PO SCH (14:08)
--- NOTE | 2019-02-17 15:19 | Progress Note ---
Provider Note Provider Note: There is no capsule endoscopy available here at [facility].
[2019-02-18] MEDS: PROMETHAZINE HCL INJ 25 MG/1 ML VIAL IV PRN (05:37)
[2019-02-18] MEDS: LEVALBUTEROL HCL NEB 0.63 MG/3 ML AMPUL NEB SCH ×2 (07:47→19:57)
[2019-02-18 08:23] LABS: HEMATOCRIT 22.8 % (36.0-47.0); MEAN CORPUSCULAR HEMOGLOBIN 29.1 pg (27.0-33.4); MEAN CORPUSCULAR HGB CONC 33.9 g/dL (32.0-36.0); MEAN CORPUSCULAR VOLUME 86 fl (80-97); RED BLOOD COUNT 2.66 10^6/uL (3.72-5.28); RED CELL DISTRIBUTION WIDTH 16.3 % (11.5-14.0); WHITE BLOOD COUNT 6.8 10^3/uL (4.0-10.5)
[2019-02-18 08:40] LABS: ANION GAP 8 (5-19); CALCIUM 9.3 mg/dL (8.4-10.2); CARBON DIOXIDE 15 mmol/L (22-30); CHLORIDE 115 mmol/L (98-107); GLUCOSE 102 mg/dL (75-110); POTASSIUM 4.9 mmol/L (3.6-5.0)
[2019-02-18 08:51] LABS: BLOOD UREA NITROGEN 134 mg/dL (7-20)
[2019-02-18 08:53] LABS: HEMOGLOBIN 7.7 g/dL (12.0-15.5); PLATELET COUNT 84 10^3/uL (150-450)
[2019-02-18] MEDS: SERTRALINE HCL 50 MG TABLET PO SCH (11:17)
[2019-02-18] MEDS: NORMAL SALINE 1000 ML 1,000 ML IV PRN (11:22)
--- NOTE | 2019-02-18 11:49 | PDOC CONSULTATION ---
Consultation Consult Date: 02/18/19 Provider Consulted: Rosio MIRANDA Consult reason:: Acute on chronic kidney disease History of Present Illness Admission Date/PCP: 02/16/19 06:25 DAVIDSON REED MD History of Present Illness: FABRICIO BARR is a 73 year old female with a complex medical history of CKD stage IV with a base creatinine of around 2.5, hypertension,Crohn's colitis and underwent total colectomy with end ileostomy years ago, history of endocarditis for which she underwent a bioprosthetic AVR, history of fatty liver, nephrolithiasis, osteoporosis, DJD, VRE, CA of the lungs for which she had a lobectomy in 2016, cancer of the breast-right for which she had lumpectomy 2000. The patient was admitted day before from the emergency room because of a 2-day history of coffee-ground emesis and dark stools in Illeostomy bag. Her initial hemoglobin hematocrit was 10.8. Today's hemoglobin is 7.9 and she is being prepped for transfusions.Currently the patient is feeling overall slightly better. She is on clear liquids and seems to be tolerating that. No complaints of any abdominal pains, fever or chills. No history of any reji hematemesis or hematochezia.The patient has gone on to have an EGD done yesterday by Dr. Mott and was negative.Current labs and medications were reviewed. Her current hemoglobin is 7.9 with a white count 6.6 and platelets of 141. Her ch emistry shows sodium 138, potassium 4.9, chloride of 115, CO2 15, BUN/creatinine 137/6.0. Patient is currently getting IV normal saline. The patient gives a history of recent admission at this hospital on December 24 with a hemoglobin of 5.6. During the hospitalization she underwent an upper endoscopy which was negative. She was transfused and stabilized. She was then discharged to home with a hemoglobin of about 11. I saw her soon after her discharge from the hospital and she was doing well and her creatinine at that time was 2.3. However she had arthritic issues and she was on a Medrol Dosepak from Davidson Reed MD. However, about 3 weeks later she was admitted at [facility] because of hematemesis. An upper endoscopy was done which identified what looks like a bleeding ulcer this was cauterized. There, the patient was hospitalized for about 11 days and discharged with stable hemoglobin/hematocrit. Past Medical History Cardiac Medical History: Reports: Hypertension-primary Denies: Atrial Fibrillation, Coronary Artery Disease, Myocardial Infarction Pulmonary Medical History: Reports: Bronchitis, Chronic Obstructive Pulmonary Disease (COPD), Pneumonia Denies: Asthma EENT Medical History: Reports: Nose - Allergic rhinitis Denies: Cataracts, Ears - Hearing aids Neurological Medical History: Denies: Hemorrhagic CVA, Ischemic CVA, Seizures Endocrine Medical History: Denies: Diabetes Mellitus Type 1, Diabetes Mellitus Type 2, Hyperthyroidism, Hypothyroidism Renal/ Medical History: Reports: Chronic Kidney Disease Stage IV, Secondary Hyperparathyroidism Denies: Nephrolithiasis Malignancy Medical History: Reports: None GI Medical History: Reports: Crohn's Disease, Gastroesophageal Reflux Disease, Hiatal Hernia Denies: Cirrhosis, Hepatitis, Ulcerative Colitis Musculoskeltal Medical History: Reports: Arthritis - GOUT Denies: Gout Skin Medical History: Denies: Eczema, Psoriasis Psychiatric Medical History: Reports: Depression Denies: Alcohol Dependency, Substance Abuse, Tobacco Dependency Hematology Medical History: Reports Anemia of Chronic Kidney Disease Past Surgical History Past Surgical History: Reports: Appendectomy, Colostomy, Ileostomy - Status post total colectomy for Crohn's disease, Valve Replacement - Bovine aortic valve, Other Denies: Mastectomy, Pacemaker Social History Lives with: Family Smoking Status: Former Smoker Frequency of Alcohol Use: Social Hx Recreational Drug Use: No Drugs: None Hx Prescription Drug Abuse: No - Advance Directive Resuscitation Status: Full Code Family History Parental Family History Reviewed: Yes - Negative for ESRD. Children Family History Reviewed: Yes - Negative for CKD Sibling(s) Family History Reviewed.: No Medication/Allergy Home Medications: Alprazolam [Xanax 0.5 mg Tablet] 0.5 mg PO DAILYP PRN 12/24/18 Carboxymethylcellulose Sodium [Refresh Celluvisc Drops] 1 each OU BIDP PRN 12/24/18 Cyanocobalamin (Vitamin B-12) [Vitamin B-12 Inj 1000 Mcg/1 ml Vial] 1,000 mcg IM .[id number] 12/24/18 Ezetimibe [Zetia 10 mg Tablet] 10 mg PO DAILY 12/24/18 Febuxostat [Uloric 40 mg Tablet] 40 mg PO DAILY 12/24/18 Levalbuterol HCl [Xopenex Neb 0.63 mg/3 ml Ampul] 0.63 mg NEB RTQ12 12/24/18 Loperamide HCl [Imodium 2 mg Capsule] 2 mg PO MOWEFR@1000 12/24/18 Loratadine [Claritin 10 mg Tablet] 10 mg PO DAILY 12/24/18 Sertraline HCl [Zoloft] 50 mg PO DAILY 12/24/18 Albuterol Sulfate [Albuterol Sulfate Hfa] 2 puff IH Q6HP PRN 02/16/19 Magnesium Oxide [Mag-Oxide Magnesium] 200 mg PO DAILY 02/16/19 Omeprazole 20 mg PO DAILY 02/16/19 Allergies/Adverse Reactions: indomethacin [From Indocin] Allergy (Severe, Verified 07/20/18 12:34) BODY SWELLING LOWER EXTREMITIES metronidazole [From Flagyl] Allergy (Severe, Verified 07/20/18 12:34) VEIN AGITATION naproxen [From Naprosyn] Allergy (Severe, Verified 07/20/18 12:34) SWELLING LOWER EXTREMITIES amoxicillin Allergy (Intermediate, Verified 07/20/18 12:34) HIVES/ITCHING levofloxacin [From Levaquin] Allergy (Intermediate, Verified 07/20/18 12:34) ITCHING penicillin G Allergy (Intermediate, Verified 07/20/18 12:34) HIVES/ITCHING codeine Allergy (Mild, Verified 07/20/18 12:34) Nausea allopurinol Allergy (Unknown, Verified 07/20/18 12:34) cephalexin [From Keflex] Allergy (Unknown, Verified 07/20/18 12:34) Cephalosporins Allergy (Unknown, Verified 07/20/18 12:34) mesalamine [From Pentasa] Allergy (Unknown, Verified 07/20/18 12:34) Review of Systems Constitutional: PRESENT: anorexia, fatigue, weakness. ABSENT: chills, fever(s) Nose, Mouth, and Throat: ABSENT: mouth pain, sore throat Cardiovascular: PRESENT: dyspnea on exertion. ABSENT: chest pain, palpitations Respiratory: ABSENT: cough, dyspnea, hemoptysis Gastrointestinal: PRESENT: bloating, coffee ground emesis, diarrhea, melena, nausea, vomiting. ABSENT: abdominal pain, constipation, dysphagia, heartburn, hematemesis, hematochezia Genitourinary: ABSENT: dysuria, hematuria Musculoskeletal: ABSENT: back pain, deformity, joint swelling Integumentary: ABSENT: erythema, lesions, pruritus, rash Neurological: PRESENT: dizziness. ABSENT: abnormal speech, confusion, convulsions, focal weakness, frequent falls, lack of coordination Hematologic/Lymphatic: ABSENT: easy bleeding, easy bruising, lymphadenopathy Physical Exam Vital Signs: Temp Pulse Resp BP Pulse Ox 99.0 F 71 17 133/51 H 99 02/17/19 22:50 02/18/19 02:00 02/17/19 22:50 02/17/19 22:50 02/17/19 22:50 Intake & Output 02/17/19 02/18/19 02/19/19 06:59 06:59 06:59 Intake Total 3000 2040 Output Total 850 1550 Balance 2150 490 General appearance: PRESENT: no acute distress Eye exam: PRESENT: conjunctiva pale, EOMI, PERRLA. ABSENT: periorbital swelling Ear exam: PRESENT: normal external ear exam Mouth exam: PRESENT: neck supple. ABSENT: moist Neck exam: ABSENT: lymphadenopathy, meningismus, tenderness, thyromegaly, tracheal deviation Respiratory exam: PRESENT: clear to auscultation delfino. ABSENT: crackles Cardiovascular exam: PRESENT: +S1, +S2, systolic murmur GI/Abdominal exam: PRESENT: normal bowel sounds, soft. ABSENT: organomegaly, tenderness Extremities exam: ABSENT: pedal edema Neurological exam: PRESENT: alert, awake, oriented to person, oriented to place Psychiatric exam: PRESENT: appropriate affect Skin exam: ABSENT: cyanosis, erythema, normal color, rash Results Laboratory Results: 02/18/19 07:54 02/18/19 07:54 02/16/19 02/18/19 02/18/19 03:50 07:54 07:54 WBC 6.8 RBC 2.66 L Hgb 7.7 L Hct 22.8 L MCV 86 MCH 29.1 MCHC 33.9 RDW 16.3 H Plt Count 84 L Sodium 138.4 Potassium 4.9 Chloride 115 H Carbon Dioxide 15 L Anion Gap 8 BUN 134 H Creatinine 6.04 H Est GFR ( Amer) 8 L Glucose 102 Calcium 9.3 Magnesium 1.1 L* Blood Type O POSITIVE Antibody Screen NEGATIVE Impressions: KUB X-Ray 02/16/19 00:00 IMPRESSION: Enteric tube terminates at the expected location of the gastric body. Chest X-Ray 02/16/19 03:34 IMPRESSION: Emphysema without pneumonia. Assessment & Plan - Diagnosis (1) KAMILA on CKD stage V Is this a current diagnosis for this admission?: Yes Plan: Patient obviously has got some hemodynamic instability from her upper GI bleed leading her to KAMILA on CKD stage IV/V. Patient is currently is getting IV fluids wihich I would continue while she is being prepped for getting transfusions. Continue to monitor. No acute indications for renal replacements. Potassium was high but this seems to have stabilized today. Monitor. (2) Acute blood loss anemia Is this a current diagnosis for this admission?: Yes Plan: She had 2 episodes of her recent GI bleed. First was in beginning of December with a negative endoscopy. She was transfused, stabilized and discharged. 3 weeks later she had a further acute blood loss anemia for which she was admitted at [facility] where she underwent an EGD that found bleeding stomach ulcer which was apparently cauterized. She has a history of interim Medrol Dosepak between these 2 episodes. I would encourage the patient to be put on IV PPI as was done initially. However currently she is not on. Will discuss with hospitalist. Further management as per hospitalist and surgeons. (3) Hyperkalemia Plan: Currently stable with a potassium of 4.9. We will continue to monitor. Since she has active upper GI bleed along with KAMILA/CKD stage IV/V she is at high risk for hyperkalemia. (4) Upper GI bleed Is this a current diagnosis for this admission?: Yes Plan: Given her recent history for bleeding gastric ulcer at [facility] and cauterization I would request that she be put back on PPI intravenously.She has a history of fatty liver but her INR was only 1.0. Further management as per hospitalist/surgeons. (5) CC (Crohn's colitis) Qualifiers: Digestive disease complication type: other complication Qualified Code(s): K50.118 - Crohn's disease of large intestine with other complication Plan: There could be an element of activity also. Management as per hospitalist. (6) Ileostomy present Plan: Status quo.
[2019-02-18] MEDS ORDERED: NALBUPHINE HCL INJ 10 MG/1 ML AMPULE IV PRN ×2 (12:12→12:13)
[2019-02-18] MEDS: MAGNESIUM SULFATE/D5W 1 GM/100 ML RTUPB IV SCH ×2 (12:22→13:45)
[2019-02-18] MEDS ORDERED: PROMETHAZINE HCL INJ 25 MG/1 ML VIAL IV PRN (12:30)
[2019-02-18] MEDS ORDERED: NORMAL SALINE 250 ML IV PRN ×4 (13:31→18:18)
[2019-02-18] MEDS ORDERED: AZTREONAM 1 GM in DEXTROSE 5%-WATER 50 ML IV SCH (15:30)
--- NOTE | 2019-02-18 17:50 | PDOC PROGRESS REPORT ---
Subjective Progress Note for:: 02/18/19 Subjective:: This is 73 years old female patient was multiple complex medical problems including stage V CKD, COPD, chronic respiratory failure O2 dependent 16/01, coronary 30s, history of [place], hypertension brought with chief complaint of vomiting of coffee-ground material of 2 days history. Her emesis and stool are positive for heme. Her blood work also shows elevated creatinine of 6.46 and BUN of 115. Her baseline creatinine is around 3. Dr. Mott evaluated this patient and he started on Protonix pump and is scheduled her for upper GI endoscopy tomorrow. Dr. Marin has been consulted for KAMILA on CKD. I seen patient this morning she is resting in bed comfortably. Accepted this patient. 02/17/2019: Patient seen resting in bed comfortably. Today her hemoglobin dropped from 10.8-7.9. She is going to be transfused 2 units of packed RBC. Patient taken to GI unit where Dr. Mott performed upper endoscopy and he states that no bleeding point identified. He consulted Dr. Ramos for possible capsule endoscopy. Her creatinine also get worse from 6.[address] Marin has been consulted. Patient getting normal saline at rate of 150 mm/h now it is tapered to 125 mL/h. 02/18/2019: Patient seen while she is in sound sleep. Mr. Grider her is in the room. He states that the patient has recurrent GI bleeding this is her third time and he requested if she can be transfused to [facility] where her primary decontamination technician used to be. I contacted Dr. Lara decontamination technician at [facility] and she is okay with the transfer. Patient is accepted by Dr. Yoni Huerta hospitalist. Currently patient is in the waiting list 0 out of bed. Her labs shows drop in her hemoglobin from 10-7.7 and she has also hypomagnesemia which is being replaced. Patient also going to be transfused 1 unit of packed RBC. Reason For Visit: GI BLEED,KAMILA ON CKD Physical Exam Vital Signs: Temp Pulse Resp BP Pulse Ox 99.0 F 71 17 133/51 H 99 02/17/19 22:50 02/18/19 02:00 02/17/19 22:50 02/17/19 22:50 02/17/19 22:50 Intake & Output 02/17/19 02/18/19 02/19/19 06:59 06:59 06:59 Intake Total 3000 2040 1456 Output Total 850 1550 1300 Balance 2150 490 156 General appearance: PRESENT: mild distress Eye exam: PRESENT: conjunctiva pale Mouth exam: PRESENT: dry mucosa Neck exam: ABSENT: carotid bruit, JVD, lymphadenopathy, thyromegaly Respiratory exam: PRESENT: clear to auscultation delfino. ABSENT: rales, rhonchi, wheezes Results Laboratory Results: 02/18/19 07:54 02/18/19 07:54 02/16/19 02/18/19 02/18/19 03:50 07:54 07:54 WBC 6.8 RBC 2.66 L Hgb 7.7 L Hct 22.8 L MCV 86 MCH 29.1 MCHC 33.9 RDW 16.3 H Plt Count 84 L Sodium 138.4 Potassium 4.9 Chloride 115 H Carbon Dioxide 15 L Anion Gap 8 BUN 134 H Creatinine 6.04 H Est GFR ( Amer) 8 L Glucose 102 Calcium 9.3 Magnesium 1.1 L* Blood Type O POSITIVE Antibody Screen NEGATIVE Impressions: KUB X-Ray 02/16/19 00:00 IMPRESSION: Enteric tube terminates at the expected location of the gastric body. Chest X-Ray 02/16/19 03:34 IMPRESSION: Emphysema without pneumonia. Assessment and Plan - Diagnosis (1) Hypomagnesemia Is this a current diagnosis for this admission?: Yes Plan: Is being replaced (2) Acute blood loss anemia Is this a current diagnosis for this admission?: Yes Plan: Her hemoglobin still dropping but she does not have any hematemesis or melena. She is going to be transfused 1 unit of packed RBC. Patient is going to transfer to [facility] as soon as bed is available. (3) KAMILA on CKD stage V Is this a current diagnosis for this admission?: Yes Plan: Improving Patient has been evaluated by Dr. Cummings her primary bulk pigment reducer today. (4) COPD with chronic respiratory failure Is this a current diagnosis for this admission?: Yes Plan: Continue supplemental oxygen and PRN bronchodilators. (5) Hyperlipidemia Is this a current diagnosis for this admission?: Yes Plan: Continue home medication (6) Gout Is this a current diagnosis for this admission?: Yes Plan: In remission (7) History of Crohn's disease Is this a current diagnosis for this admission?: Yes Plan: Status post total colectomy and ileostomy.
--- NOTE | 2019-02-18 18:26 | PDOC TRANSFER SUMMARY ---
General Admission Date/PCP: 02/16/19 06:25 CLINT REED MD Transfer Date: 02/19/19 Resuscitation Status: Full Code - Transfer Diagnosis (1) Hypomagnesemia Is this a current diagnosis for this admission?: Yes (2) Acute blood loss anemia Is this a current diagnosis for this admission?: Yes (3) KAMILA on CKD stage V Is this a current diagnosis for this admission?: Yes (4) COPD with chronic respiratory failure Is this a current diagnosis for this admission?: Yes (5) Hyperlipidemia Is this a current diagnosis for this admission?: Yes (6) Gout Is this a current diagnosis for this admission?: Yes (7) History of Crohn's disease Is this a current diagnosis for this admission?: Yes - Transfer Medications Home Medications: Alprazolam [Xanax 0.5 mg Tablet] 0.5 mg PO DAILYP PRN 12/24/18 Carboxymethylcellulose Sodium [Refresh Celluvisc Drops] 1 each OU BIDP PRN 12/24/18 Cyanocobalamin (Vitamin B-12) [Vitamin B-12 Inj 1000 Mcg/1 ml Vial] 1,000 mcg IM .[id number] 12/24/18 Ezetimibe [Zetia 10 mg Tablet] 10 mg PO DAILY 12/24/18 Febuxostat [Uloric 40 mg Tablet] 40 mg PO DAILY 12/24/18 Levalbuterol HCl [Xopenex Neb 0.63 mg/3 ml Ampul] 0.63 mg NEB RTQ12 12/24/18 Loperamide HCl [Imodium 2 mg Capsule] 2 mg PO MOWEFR@1000 12/24/18 Loratadine [Claritin 10 mg Tablet] 10 mg PO DAILY 12/24/18 Sertraline HCl [Zoloft] 50 mg PO DAILY 12/24/18 Albuterol Sulfate [Albuterol Sulfate Hfa] 2 puff IH Q6HP PRN 02/16/19 Magnesium Oxide [Mag-Oxide Magnesium] 200 mg PO DAILY 02/16/19 Omeprazole 20 mg PO DAILY 02/16/19 Transfer Medications: Current Medications Benzocaine (Hurricaine 20% Aerosol [place]) 1 spray TP PRN PRN PRN Reason: while inserting NGT Stop: 03/18/19 11:50 Last Admin: 02/16/19 14:19 Dose: 1 spr Documented by: Hydralazine HCl (Apresoline Inj/Pf 20 Mg/1 Ml Sdv) 20 mg IV Q4HP PRN PRN Reason: Give For Sbp > 160 / Dbp > 100 Stop: 03/18/19 06:10 Sodium Chloride (Nacl 0.9% 1000 Ml Iv Soln) 1,000 mls @ 125 mls/hr IV CONTINUOUS PRN PRN Reason: THIS MED IS NOT "PRN" Stop: 03/18/19 06:04 Last Admin: 02/18/19 11:22 Dose: 125 mls/hr Documented by: Sodium Chloride (Nacl 0.9% 250 Ml Iv Soln) 250 mls @ 30 mls/hr IV .DURING TRANSFUSION PRN PRN Reason: THIS MED IS NOT "PRN" Stop: 02/19/19 13:30 Sodium Chloride (Nacl 0.9% 250 Ml Iv Soln) 250 mls @ 0 mls/hr IV CONTINUOUS PRN PRN Reason: AFTER EACH UNIT Stop: 02/19/19 13:30 Aztreonam 0.25 gm/ Dextrose 50 mls @ 100 mls/hr IV Q8A [facility] Stop: 02/25/19 17:59 Sodium Chloride (Nacl 0.9% 250 Ml Iv Soln) 250 mls @ 30 mls/hr IV .DURING TRANSFUSION PRN PRN Reason: THIS MED IS NOT "PRN" Stop: 02/19/19 18:17 Sodium Chloride (Nacl 0.9% 250 Ml Iv Soln) 250 mls @ 0 mls/hr IV CONTINUOUS PRN PRN Reason: AFTER EACH UNIT Stop: 02/19/19 18:17 Levalbuterol HCl (Xopenex Neb 0.63 Mg/3 Ml Ampul) 0.63 mg NEB RTQ12 [facility] Stop: 03/18/19 07:59 Last Admin: 02/18/19 07:47 Dose: Not Given Documented by: Levalbuterol HCl (Xopenex Neb 0.63 Mg/3 Ml Ampul) 0.63 mg NEB RTQ2HP PRN PRN Reason: SHORTNESS OF BREATH Stop: 03/18/19 06:16 Nalbuphine HCl (Nubain Inj 10 Mg/1 Ml Ampule) 5 mg IV Q3HP PRN; Protocol PRN Reason: PAIN SCALE 1-3 Stop: 02/25/19 12:11 Nalbuphine HCl (Nubain Inj 10 Mg/1 Ml Ampule) 10 mg IV Q3HP PRN; Protocol PRN Reason: PAIN SCALE 4-5 Stop: 02/25/19 12:12 Pantoprazole Sodium (Protonix Iv Inj 40 Mg Vial) 40 mg IV Q12 [facility] Stop: 02/21/19 13:29 Promethazine HCl (Phenergan Inj 25 Mg/1 Ml Vial) 12.5 mg IV Q4HP PRN PRN Reason: FOR NAUSEA/VOMITING Stop: 03/18/19 06:04 Sertraline HCl (Zoloft 50 Mg Tablet) 100 mg PO DAILY [facility] Stop: 03/21/19 09:59 Sodium Chloride (Saline Flush 2.5 Ml Monoject Prefil Syrin) 2.5 ml IV Q8 [facility] Stop: 03/18/19 13:59 Last Admin: 02/18/19 05:44 Dose: Not Given Documented by: - Allergies Allergies/Adverse Reactions: indomethacin [From Indocin] Allergy (Severe, Verified 07/20/18 12:34) BODY SWELLING LOWER EXTREMITIES metronidazole [From Flagyl] Allergy (Severe, Verified 07/20/18 12:34) VEIN AGITATION naproxen [From Naprosyn] Allergy (Severe, Verified 07/20/18 12:34) SWELLING LOWER EXTREMITIES amoxicillin Allergy (Intermediate, Verified 07/20/18 12:34) HIVES/ITCHING levofloxacin [From Levaquin] Allergy (Intermediate, Verified 07/20/18 12:34) ITCHING penicillin G Allergy (Intermediate, Verified 07/20/18 12:34) HIVES/ITCHING codeine Allergy (Mild, Verified 07/20/18 12:34) Nausea allopurinol Allergy (Unknown, Verified 07/20/18 12:34) cephalexin [From Keflex] Allergy (Unknown, Verified 07/20/18 12:34) Cephalosporins Allergy (Unknown, Verified 07/20/18 12:34) mesalamine [From Pentasa] Allergy (Unknown, Verified 07/20/18 12:34) Hospital Course Hospital Course: FABRICIO GRIDER is a 73 year old female with a complex medical history of CKD s tage IV with a base creatinine of around 2.5, hypertension,Crohn's colitis and underwent total colectomy with end ileostomy years ago, history of endocarditis for which she underwent a bioprosthetic AVR, history of fatty liver, nephrolithiasis, osteoporosis, DJD, VRE, CA of the lungs for which she had a lobectomy in 2017, cancer of the breast-right for which she had lumpectomy 2000. This is 73 years old female patient was multiple complex medical problems including stage V CKD, COPD, chronic respiratory failure O2 dependent /, coronary 30s, history of [place], hypertension brought with chief complaint of vomiting of coffee-ground material of 2 days history. Her emesis and stool are positive for heme. Her blood work also shows elevated creatinine of 6.46 and BUN of 115. Her baseline creatinine is around 3. Dr. Mott evaluated this patient and he started on Protonix pump and is scheduled her for upper GI endoscopy tomorrow. Dr. Marin has been consulted for KAMILA on CKD. I seen patient this morning she is resting in bed comfortably. Accepted this patient. 02/17/2019: Patient seen resting in bed comfortably. Today her hemoglobin dropped from 10.8-7.9. She is going to be transfused 2 units of packed RBC. Patient taken to GI unit where Dr. Mott performed upper endoscopy and he states that no bleeding point identified. He consulted Dr. Ramos for possible capsule endoscopy. Her creatinine also get worse from 6.[address] Marin has been consulted. Patient getting normal saline at rate of 150 mm/h now it is tapered to 125 mL/h. 02/18/2019: Patient seen while she is in sound sleep. Mr. Grider her is in the room. He states that the patient has recurrent GI bleeding this is her third time and he requested if she can be transfused to [facility] where her primary centrifuge separator operator used to be. I contacted Dr. Lara centrifuge separator operator at [facility] and she is okay with the transfer. Patient is accepted by Dr. Yoni Huerta hospitalist. Currently patient is in the waiting list and probably she will get me tomorrow.. Her labs shows drop in her hemoglobin from 10 to 7.7 and she has also hypomagnesemia which is being replaced. Patient is going to be transfused 3 units of packed RBC. Physical Exam Vital Signs: Temp Pulse Resp BP Pulse Ox 99.0 F 71 17 133/51 H 99 02/17/19 22:50 02/18/19 02:00 02/17/19 22:50 02/17/19 22:50 02/17/19 22:50 Intake & Output 02/17/19 02/18/19 02/19/19 06:59 06:59 06:59 Intake Total 3000 2040 1456 Output Total 850 1550 1300 Balance 2150 490 156 General appearance: PRESENT: mild distress Eye exam: PRESENT: conjunctiva pale Mouth exam: PRESENT: dry mucosa Neck exam: ABSENT: carotid bruit, JVD, lymphadenopathy, thyromegaly Respiratory exam: PRESENT: clear to auscultation delfino. ABSENT: rales, rhonchi, wheezes Cardiovascular exam: PRESENT: RRR. ABSENT: diastolic murmur, rubs, systolic murmur Neurological exam: PRESENT: alert, awake. ABSENT: motor sensory deficit Results Laboratory Results: 02/18/19 07:54 02/18/19 07:54 02/16/19 02/18/19 02/18/19 03:50 07:54 07:54 WBC 6.8 RBC 2.66 L Hgb 7.7 L Hct 22.8 L MCV 86 MCH 29.1 MCHC 33.9 RDW 16.3 H Plt Count 84 L Sodium 138.4 Potassium 4.9 Chloride 115 H Carbon Dioxide 15 L Anion Gap 8 BUN 134 H Creatinine 6.04 H Est GFR ( Amer) 8 L Glucose 102 Calcium 9.3 Magnesium 1.1 L* Blood Type O POSITIVE Antibody Screen NEGATIVE Impressions: KUB X-Ray 02/16/19 00:00 IMPRESSION: Enteric tube terminates at the expected location of the gastric body. Chest X-Ray 02/16/19 03:34 IMPRESSION: Emphysema without pneumonia.
[2019-02-18] MEDS: PANTOPRAZOLE SODIUM 40 MG VIAL IV SCH ×2 (20:38→22:20)
[2019-02-18] MEDS: AZTREONAM 0.25 GM in DEXTROSE 5%-WATER 50 ML IV SCH (20:42)
[2019-02-18] MEDS: ONDANSETRON HCL INJ/PF 4 MG/2 ML SDV IV PRN (22:20)
[2019-02-19] MEDS: AZTREONAM 0.25 GM in DEXTROSE 5%-WATER 50 ML IV SCH ×3 (03:49→18:20)
[2019-02-19] MEDS: LEVALBUTEROL HCL NEB 0.63 MG/3 ML AMPUL NEB SCH ×2 (08:24→19:47)
[2019-02-19] MEDS ORDERED: SERTRALINE HCL 50 MG TABLET PO SCH (10:00)
[2019-02-19] MEDS: PANTOPRAZOLE SODIUM 40 MG VIAL IV SCH (12:44)
--- NOTE | 2019-02-19 14:57 | PDOC PROGRESS REPORT ---
Subjective Progress Note for:: 02/19/19 Subjective:: No adverse events overnight. She said her port is not flowing as well because they could not pull labs off of it this morning. Appetite is fair to poor. She is not noted any blood in her bowel movement. Reason For Visit: GI BLEED,KAMILA ON CKD Physical Exam Vital Signs: Temp Pulse Resp BP Pulse Ox 98.6 F 69 18 129/42 H 98 02/19/19 08:00 02/19/19 08:24 02/19/19 08:24 02/19/19 08:00 02/19/19 08:24 Intake & Output 02/18/19 02/19/19 02/20/19 06:59 06:59 06:59 Intake Total 0 2055 Output Total 1550 3050 240 Balance 490 -994 -240 General appearance: PRESENT: no acute distress, cooperative, disheveled Respiratory exam: PRESENT: clear to auscultation delifno, symmetrical, unlabored. ABSENT: accessory muscle use, chest wall tenderness, crackles, prolonged expiratory phas, rhonchi, tachypnea, wheezes Cardiovascular exam: PRESENT: RRR, +S1, +S2, systolic murmur Pulses: PRESENT: normal carotid pulses Vascular exam: PRESENT: normal capillary refill GI/Abdominal exam: PRESENT: normal bowel sounds, soft. ABSENT: distended, guarding, rebound, tenderness Extremities exam: ABSENT: clubbing, pedal edema Musculoskeletal exam: PRESENT: normal inspection. ABSENT: deformity Neurological exam: PRESENT: alert, awake, oriented to person, oriented to place, oriented to situation Psychiatric exam: PRESENT: flat affect Skin exam: PRESENT: dry, warm Results Laboratory Results: 02/18/19 07:54 02/18/19 07:54 02/16/19 02/18/19 02/19/19 03:50 18:31 05:10 Magnesium 2.0 Blood Type O POSITIVE O POSITIVE Antibody Screen NEGATIVE NEGATIVE Impressions: KUB X-Ray 02/16/19 00:00 IMPRESSION: Enteric tube terminates at the expected location of the gastric b karly. Chest X-Ray 02/16/19 03:34 IMPRESSION: Emphysema without pneumonia. Assessment and Plan - Diagnosis (1) KAMILA on CKD stage V Is this a current diagnosis for this admission?: Yes Plan: Creatinine peaked around 8 and was down to 6 yesterday. Soon as we can get some blood, will repeat the check on that and see how its going. Nephrology is consulted. (2) Acute blood loss anemia Is this a current diagnosis for this admission?: Yes Plan: Blood counts seem to have stabilized. Were trying to get some more blood so that we can follow the trend to see if she still dropping. (3) History of Crohn's disease Is this a current diagnosis for this admission?: Yes Plan: Currently does not appear to be acutely exacerbated (4) Upper GI bleed Is this a current diagnosis for this admission?: Yes Plan: Transfer to [facility] pending. She had endoscopic evaluation here and no source could be found. She has had most of her services up at [facility] including gastr oenterology. - Time Time Spent with patient: 15-24 minutes
[2019-02-19 16:03] LABS: HEMOGLOBIN 9.5 g/dL (12.0-15.5); MEAN CORPUSCULAR HEMOGLOBIN 29.2 pg (27.0-33.4); MEAN CORPUSCULAR VOLUME 86 fl (80-97); RED BLOOD COUNT 3.26 10^6/uL (3.72-5.28); WHITE BLOOD COUNT 7.9 10^3/uL (4.0-10.5)
[2019-02-19 16:16] LABS: ANION GAP 7 (5-19); BLOOD UREA NITROGEN 108 mg/dL (7-20); CALCIUM 9.4 mg/dL (8.4-10.2); CARBON DIOXIDE 15 mmol/L (22-30); CHLORIDE 115 mmol/L (98-107); GLUCOSE 91 mg/dL (75-110); POTASSIUM 4.4 mmol/L (3.6-5.0)
[2019-02-19 16:28] LABS: PLATELET COUNT 63 10^3/uL (150-450)
--- NOTE | 2019-02-19 17:47 | PDOC PROGRESS REPORT ---
Subjective Progress Note for:: 02/19/19 Reason For Visit: Patient seen this morning. She is still looks very fragile and very weak. However she thinks she is feeling a little bit better than from yesterday. She is still continuing to tolerate clear liquids but she also try to have some amount of speech and kept it inside. She is still continuing to have black tarry stools in the ileostomy but is not as liquid as it was yesterday which is encouraging. No complaints of any abdominal pains, fever or chills. No history of any nausea vomiting. Labs and medications were reviewed that shows improving creatinine. She was transfused 4 units of blood or over the last 24 hours. Physical Exam Vital Signs: Temp Pulse Resp BP Pulse Ox 98.7 F 74 20 123/43 L 100 02/19/19 15:13 02/19/19 15:13 02/19/19 15:13 02/19/19 15:13 02/19/19 15:13 Intake & Output 02/18/19 02/19/19 02/20/19 06:59 06:59 06:59 Intake Total 2040 3056 Output Total 1550 3050 240 Balance 490 6 -240 General appearance: PRESENT: disheveled - Looks very weak and fragile. Mouth exam: PRESENT: neck supple. ABSENT: moist Respiratory exam: PRESENT: clear to auscultation delfino, crackles - Few scattered. Cardiovascular exam: PRESENT: +S1, +S2, systolic murmur GI/Abdominal exam: PRESENT: normal bowel sounds, soft. ABSENT: organomegaly, tenderness Extremities exam: ABSENT: pedal edema Neurological exam: PRESENT: alert, awake, oriented to person, oriented to place Psychiatric exam: PRESENT: appropriate affect Skin exam: ABSENT: erythema, mottled, rash Results Laboratory Results: 02/19/19 15:13 02/19/19 15:13 02/16/19 02/18/19 02/19/19 03:50 18:31 05:10 WBC RBC Hgb Hct MCV MCH MCHC RDW Plt Count Sodium Potassium Chloride Carbon Dioxide Anion Gap BUN Creatinine Est GFR ( Amer) Glucose Calcium Magnesium 2.0 Blood Type O POSITIVE O POSITIVE Antibody Screen NEGATIVE NEGATIVE 02/19/19 02/19/19 15:13 15:13 WBC 7.9 RBC 3.26 L Hgb 9.5 L Hct 28.0 L MCV 86 MCH 29.2 MCHC 34.0 RDW 15.0 H Plt Count 63 L Sodium 136.8 L Potassium 4.4 Chloride 115 H Carbon Dioxide 15 L Anion Gap 7 BUN 108 H Creatinine 4.36 H Est GFR ( Amer) 12 L Glucose 91 Calcium 9.4 Magnesium 1.6 Blood Type Antibody Screen Impressions: KUB X-Ray 02/16/19 00:00 IMPRESSION: Enteric tube terminates at the expected location of the gastric body. Chest X-Ray 02/16/19 03:34 IMPRESSION: Emphysema without pneumonia. Assessment & Plan - Diagnosis (1) KAMILA on CKD stage V Is this a current diagnosis for this admission?: Yes Plan: Nonoliguric. Her renal numbers are improving. Continue on fluid resuscitation as such. (2) Acute blood loss anemia Is this a current diagnosis for this admission?: Yes Plan: Status post 4 units of transfusion over the last 24 hours. She still showing probably active signs of upper GI bleed given her black tarry stools. However patient is hemodynamically stable. Discussed with Dr. Sanders hospitalist and he is in the process of transferring her to [facility]. (3) Hyperkalemia Plan: Stable. Monitor. (4) Upper GI bleed Is this a current diagnosis for this admission?: Yes Plan: Currently still active given her black tarry stools and ileostomy. (5) CC (Crohn's colitis) Qualifiers: Digestive disease complication type: other complication Qualified Code(s): K50.118 - Crohn's disease of large intestine with other complication Plan: Status quo. Unsure if there is any activity related to this as a cause for her upper GI bleed. (6) Ileostomy present Plan: Now showing black tarry stools.
[2019-02-19] MEDS: ONDANSETRON HCL INJ/PF 4 MG/2 ML SDV IV PRN (19:59)
[2019-02-19 21:01] VITALS: BP 134/49
== END 2019-02-19 20:47 | disposition short-term general hospital (02) | DRG 378 ==
LOC: ER 03:15 → EH 06:25 → 4N 08:13
PROVIDERS: ADMIT Emergency Medicine; ATTEND Emergency Medicine
PROC: 30233N1 Transfusion of Nonautologous Red Blood Cells into Peripheral Vein, Percutaneous Approach (ICD-10-PCS; 2019-02-17)
PROC: 0DJ08ZZ Inspection of Upper Intestinal Tract, Via Natural or Artificial Opening Endoscopic (ICD-10-PCS; principal; 2019-02-17 12:30)
DX: K92.1 Melena (principal); N17.9 Acute kidney failure, unspecified; I50.32 Chronic diastolic (congestive) heart failure; K50.90 Crohn's disease, unspecified, without complications; I13.0 Hypertensive heart and chronic kidney disease with heart failure and stage 1 through stage 4 chronic kidney disease, or unspecified chronic kidney disease; J96.10 Chronic respiratory failure, unspecified whether with hypoxia or hypercapnia; D62 Acute posthemorrhagic anemia; N18.4 Chronic kidney disease, stage 4 (severe); K21.9 Gastro-esophageal reflux disease without esophagitis; Z93.3 Colostomy status; M19.90 Unspecified osteoarthritis, unspecified site; F32.9 Major depressive disorder, single episode, unspecified; J44.9 Chronic obstructive pulmonary disease, unspecified; E87.5 Hyperkalemia; E78.5 Hyperlipidemia, unspecified; E83.42 Hypomagnesemia; E86.0 Dehydration; M10.9 Gout, unspecified; Z90.49 Acquired absence of other specified parts of digestive tract; Z95.2 Presence of prosthetic heart valve; Z87.891 Personal history of nicotine dependence; D63.1 Anemia in chronic kidney disease; K44.9 Diaphragmatic hernia without obstruction or gangrene; Z95.828 Presence of other vascular implants and grafts; Z88.0 Allergy status to penicillin; Z88.1 Allergy status to other antibiotic agents; Z88.5 Allergy status to narcotic agent; Z88.8 Allergy status to other drugs, medicaments and biological substances; K76.0 Fatty (change of) liver, not elsewhere classified; Z86.73 Personal history of transient ischemic attack (TIA), and cerebral infarction without residual deficits; Z99.81 Dependence on supplemental oxygen; M81.0 Age-related osteoporosis without current pathological fracture; Z85.3 Personal history of malignant neoplasm of breast; Z85.118 Personal history of other malignant neoplasm of bronchus and lung
CPT/HCPCS: 36415; 36430; 43235; 71045; 74018; 80048; 80053; 80061; 81001; 82803; 83690; 83735; 84439; 84443; 84481; 85025; 85027; 85610; 85730; 86850; 86900; 86901; 86920; 87086; 87088; 87186; 93005; 93010; 94640; 96361; 96374; 96375; 99291; J0610; J1815; J2300; J2354; J2405; J2550; J2704; J3475; J3490; J7030; J7040; J7050; J7060; J7614; P9016; S0164

== ENCOUNTER → 2019-04-05 | Outpatient (CLI) | payer MEDICARE, BC ==
[~2019-04-05] MED LIST changes: -FERRIC CARBOXYMALTOSE 750 MG in NORMAL SALINE 250 ML IV PRN; +NORMAL SALINE 1000 ML 1,000 ML IV PRN
[2019-04-05] MEDS: MAGNESIUM SULFATE 1 GM/D5W 100 ML IV SCH ×2 (15:15→16:19)
[2019-04-05 16:56] VITALS: BP 105/60
== END ==
LOC: ASU 13:58
PROVIDERS: ATTEND Internal Medicine Nephrology
PROC: 3E043GC Introduction of Other Therapeutic Substance into Central Vein, Percutaneous Approach (ICD-10-PCS; principal; 2019-04-05)
PROC: 3E0437Z Introduction of Electrolytic and Water Balance Substance into Central Vein, Percutaneous Approach (ICD-10-PCS; 2019-04-05)
DX: E83.42 Hypomagnesemia (principal); E86.0 Dehydration
CPT/HCPCS: 96365; 96366; 96361; J3475; J1642

== ENCOUNTER 2019-04-29 21:06 | Inpatient (IN) | payer MEDICARE, BC ==
[2019-04-29] MEDS ORDERED: NORMAL SALINE 1000 ML 1,000 ML IV ONE (21:34)
--- NOTE | 2019-04-29 21:36 | ER Document Report ---
ED General - General Chief Complaint: Breathing Difficulty Stated Complaint: TROUBLE BREATHING Time Seen by Provider: 04/29/19 21:27 Primary Care Provider: CLINT REED MD [Primary Care Provider] - Follow up as needed TRAVEL OUTSIDE OF THE [place] IN LAST 30 DAYS: No - HPI Notes: Patient is a 73-year-old female who presents to the emergency department for evaluation of weakness and altered mental status. The patient herself is a very poor historian. She denies any pain at this point. She states her ostomy output has been normal. She states she just feels weak all over. With prompting she admits to a small amount of coughing. She really cannot offer me any more significant history. She states she is taking her medications as prescribed. - Related Data Allergies/Adverse Reactions: indomethacin [From Indocin] Allergy (Severe, Verified 07/20/18 12:34) BODY SWELLING LOWER EXTREMITIES metronidazole [From Flagyl] Allergy (Severe, Verified 07/20/18 12:34) VEIN AGITATION naproxen [From Naprosyn] Allergy (Severe, Verified 07/20/18 12:34) SWELLING LOWER EXTREMITIES amoxicillin Allergy (Intermediate, Verified 07/20/18 12:34) HIVES/ITCHING levofloxacin [From Levaquin] Allergy (Intermediate, Verified 07/20/18 12:34) ITCHING penicillin G Allergy (Intermediate, Verified 07/20/18 12:34) HIVES/ITCHING codeine Allergy (Mild, Verified 07/20/18 12:34) Nausea allopurinol Allergy (Unknown, Verified 07/20/18 12:34) cephalexin [From Keflex] Allergy (Unknown, Verified 07/20/18 12:34) Cephalosporins Allergy (Unknown, Verified 07/20/18 12:34) mesalamine [From Pentasa] Allergy (Unknown, Verified 07/20/18 12:34) Home Medications: List is extensive, please see notes Past Medical History - General Information source: Patient, [facility] Records - Social History Smoking Status: Unknown if Ever Smoked Family History: COPD, Hypertension - Past Medical History Cardiac Medical History: Reports: Other - History of endocarditis with bioprosthetic aortic valve replacement Denies: Hx Atrial Fibrillation, Hx Coronary Artery Disease, Hx Heart Attack, Hx Hypertension Pulmonary Medical History: Reports: Hx Bronchitis, Hx COPD, Hx Pneumonia Denies: Hx Asthma Neurological Medical History: Reports: Hx Cerebrovascular Accident - NO ISSUES. Denies: Hx Seizures Endocrine Medical History: Denies: Hx Diabetes Mellitus Type 1, Hx Diabetes Mellitus Type 2, Hx Hyperthyroidism, Hx Hypothyroidism Renal/ Medical History: Reports: Hx End Stage Renal Disease, Hx Kidney Stones. Denies: Hx Peritoneal Dialysis Malignancy Medical History: Reports: Hx Breast Cancer, Hx Lung Cancer GI Medical History: Reports: Hx Crohn's Disease, Hx Gastroesophageal Reflux Disease, Hx Hiatal Hernia. 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 Denies: Hx Hepatitis Past Surgical History: Reports: Hx Abdominal Surgery - illeostomy, Hx Appendectomy, Hx Breast Surgery - R lumpectomy for malignancy, Hx Cardiac Surger y - Aortic valve replacement, Hx Colostomy, Hx Ileostomy - Status post total colectomy for Crohn's disease, Hx Open Heart Surgery - 2000, Hx Valve Replacement - Bovine aortic valve, Other. Denies: Hx Mastectomy, Hx Pacemaker - Immunizations Hx Diphtheria, Pertussis, Tetanus Vaccination: Yes Review of Systems - Review of Systems Constitutional: See HPI EENT: No symptoms reported Cardiovascular: No symptoms reported Respiratory: See HPI Gastrointestinal: No symptoms reported Genitourinary: No symptoms reported Musculoskeletal: No symptoms reported Skin: No symptoms reported Neurological/Psychological: No symptoms reported Physical Exam - Vital signs Vitals: Resp BP Pulse Ox 21 H 96/66 L 100 04/29/19 21:30 04/29/19 21:30 04/29/19 21:30 - Notes Notes: Is a very frail 73-year-old female who appears her stated age, no acute distress. Head is without any traumatic, pupils are equal round, reactive to light. Oral mucosa is moist. Uvula is midline. Heart is regular with holosystolic murmur. Lungs show diminished breath sounds but no wheezes, rales, rhonchi. Abdomen is soft. She has an ileostomy in place. Otherwise abdomen is nontender with normal active bowel sounds. Extreme is without cyanosis or clubbing. Skin is warm and dry. Patient is slightly drowsy but GCS is 15. She is oriented to person, place, time. 3+ out of 5 strength bilateral upper and lower extremities. No gross facial asymmetry. Extremities without cyanosis or clubbing. Course - Re-evaluation Re-evalutation: 04/29/19 22:51 Patient presents to the emergency department for evaluation of lethargy and wea kness. She is not very good historian. The patient's did arrive in the department. He notes that she is had decreased oral intake, but no other acute complaints or concerns. She is been taking her medications as prescribed. When she was discharged recently after repeat ostomy from [facility], he states her creatinine was under 3. Laboratory investigations were found to be markedly abnormal, with a venous pH of 7.01, a bicarb of 7, creatinine of over 14. IV fluids were changed to D5W with bicarb. Patient was given calcium gluconate, insulin, dextrose. At this point the patient needs emergent dialysis. Phone call is out to Dr. Cummings, awaiting his phone call. 04/29/19 23:[address] Cummings, who stated that emergent dialysis would not be possible tonight, but if she could be maintained into the morning, certainly they could dialyze her then. After getting off the phone with her I was notified by nursing that she was decompensating. I went into the room to find her in cardiac arrest. She was given calcium, bicarb, epinephrine. CPR was instituted. Please see nurse's notes for exact details and timing of medication administration. Patient was intubated under direct laryngoscopy, please see attached procedure note. Pulses were regained, cardiac activity verified on bedside ultrasound. Blood pressures have been borderline. Need for further access has been verified, will place left internal jugular catheter. 04/30/19 00:30 With the need for pressors, antibiotics, and fluids, patient needed central venous access. I spoke at length to her in regards to this. I explained the procedure in great detail, questions were sought and answered. Possible complications explained. Patient's verbally consented to placement of a left internal jugular catheter. I was in the room prepping the patient for central line placement, when she went back into ventricular tachycardia. It was pulseless. CPR was recommenced. Patient was given calcium, bicarb, epinephrine. She was then back in sinus tach for a brief amount of time. She then had pulseless V. tach, sustained. She was administered amiodarone. She converted back to sinus rhythm. She had another widening of the QRS which was further treated, please see nurse's notes. Patient's blood pressure continued to drop, second pressor was added. I went and spoke to the patient's . I explained to him that despite multiple attempts in medications, the patient's blood pressure and heart we were continuing to drop. It was at that point that the patient's declared that she was in fact a DNR, and had expressed wishes not to undergo resuscitation in the past. I explained to them of course that we would continue to honor any of his wishes at this point. He came back into the room and spent time with the patient. Patient's blood pressure was still requiring significant pressor support. Her heart rate has been in the 90-100 range, but QRS is widening. We discussed and he decided that no further heroic measures should be taken. We discussed comfort care. He was agreeable to weaning pressors, addressing pain, comfort measures only. Patient is still in the emergency department at this time. She is in critical condition. 04/30/19 02:01 I went back into reevaluate the patient. Electric Car Operator and are at the bedside. Patient is currently only on the Levophed drip, at 16 mics. Her blood pressure has been soft. I discussed withdrawal of pressor support. The patient's is amenable to this, but states his daughter is 25 to 30 minutes away. He asks that this be delayed until she arrived. Patient was restless, decision made to administer fentanyl. We will continue to monitor. 04/30/19 02:31 Discussion with patient's and daughter at bedside. Decision made to proceed with comfort care measures only. Amiodarone and Levophed drips will be discontinued. Patient is having intermittent shivering and signs of discomfort. We will treat with fentanyl. 04/30/19 03:52 Despite withdrawal of all supportive medications, patient's blood pressure has dropped, but her heart rate remains in the 60s. I again discussed patient's condition and prognosis with the patient's and daughter. He does want her to be full comfort care. He acknowledges that he does not believe she wanted to have been intubated, and states that he believes that she had a DNR on file in the hospital. We discussed withdrawal of the ET tube, and it was d ecided that this was appropriate. Respiratory therapy will enter the room to withdraw the ET tube. 04/30/19 03:54 04/30/19 05:18 Patient extubated without difficulty. She was suctioned. She was placed on her normal oxygen. He even after some time, patient's blood pressure was low but stable, heart rate remained in the 70s. She is hypoxic but not in significant respiratory distress. I spoke with Dr. Zavala, the patient will be admitted for comfort measures. 04/30/19 05:20 - Vital Signs Vital signs: Temp Pulse Resp BP Pulse Ox 98.1 F 71 23 H 62/40 L 84 L 04/29/19 21:55 04/29/19 21:55 04/30/19 05:00 04/30/19 04:52 04/30/19 05:00 - Laboratory Result Diagrams: 04/29/19 21:45 04/29/19 21:45 Laboratory results interpreted by me: 04/29/19 04/29/19 04/29/19 21:45 21:45 21:45 WBC 16.4 H RBC 3.42 L Hgb 10.3 L Hct 31.8 L RDW 16.8 H Seg Neuts % (Manual) 92 H Lymphocytes % (Manual) 4 L Abs Neuts (Manual) 15.1 H ABG pH ABG pO2 ABG HCO3 ABG Total CO2 ABG O2 Saturation VBG pH VBG HCO3 Sodium 132.1 L Potassium 7.5 H* Carbon Dioxide 9 L* Anion Gap 21 H BUN 185 H Creatinine 14.66 H Est GFR ( Amer) 3 L Est GFR (MDRD) Non-Af 2 L Glucose 131 H POC Glucose Urine Protein 100 H Urine Blood MODERATE H Leukocyte Esterase Rfl MODERATE H 04/29/19 04/29/19 04/29/19 22:08 22:10 22:54 WBC RBC Hgb Hct RDW Seg Neuts % (Manual) Lymphocytes % (Manual) Abs Neuts (Manual) ABG pH 6.98 L* ABG pO2 46.6 L ABG HCO3 8.3 L ABG Total CO2 9.4 L ABG O2 Saturation 59.7 L VBG pH 7.01 L* VBG HCO3 9.5 L Sodium Potassium Carbon Dioxide Anion Gap BUN Creatinine Est GFR ( Amer) Est GFR (MDRD) Non-Af Glucose POC Glucose 121 H Urine Protein Urine Blood Leukocyte Esterase Rfl - Diagnostic Test Radiology reviewed: Reports reviewed Radiology results interpreted by me: 04/29/19 22:51 Chest X-Ray 04/29/19 21:33 IMPRESSION: No acute cardiopulmonary disease. 04/30/19 01:12 Chest X-Ray 04/29/19 00:00 IMPRESSION: 1. Interval intubation. 2. Moderate mixed interstitial and airpace opacities. Differential diagnosis includes pulmonary edema, multifocal pneumonia, and chronic interstitial lung disease. Chest X-Ray 04/29/19 21:33 IMPRESSION: No acute cardiopulmonary disease. - EKG Interpretation by Me Additional EKG results interpreted by me: 04/29/19 22:51 Sinus mechanism with a rate of 79 bpm. Normal axis, left bundle branch block. When compared to prior study of February 16, 2019, T waves are largely unchanged, peaked in nature, but QRS duration has increased from 120 238 ms. Procedures - Intubation Orotracheal Airway evaluation: Normal anatomy Mallampati Classification: Class 2 Medications: Etomidate Intubation method: Orotracheal Blade type: Winston Blade size: 4 ETT size: 7.5 ETT secured at: Lips Breath Sounds after Intubation: Equal End tidal CO2 confirmed: Yes Post Intubation Xray: Yes Intubation Complications: No complications Critical Care Note - Critical Care Note Total time excluding time spent on procedures (mins): 85 Discharge - Discharge Clinical Impression: Cardiac arrest, Hyperkalemia, Acute on chronic renal failure, Metabolic acidos is Condition: Poor Disposition: ADMITTED INPATIENT Admitting Provider: Sally (Hospitalist) Unit Admitted: Medical Floor - Comfort care Referrals: CLINT REED MD [Primary Care Provider] - Follow up as needed
[2019-04-29 22:02] LABS: HEMATOCRIT 31.8 % (36.0-47.0); HEMOGLOBIN 10.3 g/dL (12.0-15.5); MEAN CORPUSCULAR HEMOGLOBIN 30.1 pg (27.0-33.4); MEAN CORPUSCULAR HGB CONC 32.3 g/dL (32.0-36.0); MEAN CORPUSCULAR VOLUME 93 fl (80-97); PLATELET COUNT 208 10^3/uL (150-450); RED BLOOD COUNT 3.42 10^6/uL (3.72-5.28); RED CELL DISTRIBUTION WIDTH 16.8 % (11.5-14.0); WHITE BLOOD COUNT 16.4 10^3/uL (4.0-10.5)
[2019-04-29 22:04] LABS: APPEARANCE,URINE TURBID; BILIRUBIN,URINE NEGATIVE (NEGATIVE); COLOR,URINE YELLOW; GLUCOSE, URINE NEGATIVE (NEGATIVE); KETONES,URINE NEGATIVE (NEGATIVE); PROTEIN,URINE 100 mg/dL (NEGATIVE); URINE SPECIFIC GRAVITY 1.016; UROBILINOGEN,URINE NEGATIVE mg/dL (<2.0)
[2019-04-29 22:07] LABS: INTERNATIONAL RATION (INR) 1.12; PROTHROMBIN TIME 14.5 SEC (11.4-15.4)
[2019-04-29 22:18] LABS: ABSOLUTE LYMPHOCYTES# (MANUAL) 0.7 10^3/uL (0.5-4.7); ABSOLUTE MONOCYTES # (MANUAL) 0.7 10^3/uL (0.1-1.4); ANISOCYTOSIS 1+; BASOPHILS % (MANUAL) 0 % (0-2); EOSINOPHILS % (MANUAL) 0 % (0-6); LYMPHOCYTES % (MANUAL) 4 % (13-45); MONOCYTES % (MANUAL) 4 % (3-13); SEGMENTED NEUTROPHILS % (MAN) 92 % (42-78); TOTAL CELLS COUNTED 100
[2019-04-29 22:19] LABS: PLATELET COMMENT ADEQUATE
[2019-04-29 22:23] LABS: VENOUS BLOOD BASE EXCESS -20.7 mmol/L; VENOUS BLOOD HCO3 9.5 mmol/L (20-32); VENOUS BLOOD PCO2 38.2 mmHg (35-63)
[2019-04-29 22:26] LABS: VENOUS BLOOD PH 7.01 (7.30-7.42)
[2019-04-29] MEDS ORDERED: DEXTROSE 5%-WATER 1000 ML 1,000 ML with SODIUM BICARBONATE 150 MEQ IV PRN ×2 (22:33)
[2019-04-29 22:35] LABS: ALBUMIN 3.8 g/dL (3.5-5.0); ALKALINE PHOSPHATASE 85 U/L (38-126); ASPARTATE AMINO TRANSFERASE 16 U/L (14-36); BILIRUBIN,DIRECT 0.4 mg/dL (0.0-0.4); BILIRUBIN,TOTAL 0.5 mg/dL (0.2-1.3); CALCIUM 10.1 mg/dL (8.4-10.2); CHLORIDE 102 mmol/L (98-107); GLUCOSE 131 mg/dL (75-110); TOTAL PROTEIN 6.7 g/dL (6.3-8.2)
[2019-04-29 22:36] LABS: BLOOD UREA NITROGEN 185 mg/dL (7-20)
[2019-04-29 22:40] LABS: ANION GAP 21 (5-19); CARBON DIOXIDE 9 mmol/L (22-30); POTASSIUM 7.5 mmol/L (3.6-5.0)
[2019-04-29] MEDS ORDERED: SODIUM BICARBONATE 8.4% INJ 50 MEQ/50 ML DISP.SYRIN ONE ×2 (22:40→23:57)
[2019-04-29] MEDS ORDERED: DEXTROSE 50%-WATER 25 GM/50 ML DISP.SYRIN IV ONE (22:40)
[2019-04-29] MEDS ORDERED: CALCIUM GLUCONATE 1000 MG/10 ML INJ IV ONE ×3 (22:40→23:57)
[2019-04-29] MEDS ORDERED: INSULIN REG, HUMAN 100 UNIT/ML 3 ML VIAL (PYX) IV ONE (22:40)
[2019-04-29] MEDS ORDERED: AZTREONAM INJ 1 GM VIAL IV ONE (22:44)
[2019-04-29] MEDS ORDERED: VANCOMYCIN HCL INJ 1000 MG VIAL IV ONE (22:44)
--- NOTE | 2019-04-29 22:45 | RADIOLOGY REPORT (SQ) ---
XR CHEST 1 VIEW EXAM DATE: 04/29/2019 9:33 PM OXYGRAPH OPERATOR HISTORY: AMS, hypotension. COMPARISON: 02/16/2019 FINDINGS: The heart size is within normal limits. No consolidation, pleural effusion, or pneumothorax is seen. No acute bony findings. Right central venous line is unchanged. Prior median sternotomy and fixation of a single left lower rib. Right axillary clips are seen. IMPRESSION: No acute cardiopulmonary disease.
[2019-04-29] MEDS ORDERED: MIDAZOLAM HCL 50 MG/100 ML RTUINJ ONE (23:16)
[2019-04-29] MEDS ORDERED: ALBUTEROL SULFATE 0.083% NEB 2.5 MG/3 ML AMPUL NEB ONE (23:25)
[2019-04-29] MEDS ORDERED: MIDAZOLAM 2 MG/2 ML INJ ONE ×2 (23:35→23:46)
[2019-04-29] MEDS ORDERED: FENTANYL CITRATE INJ/PF 100 MCG/2 ML AMPUL ONE (23:50)
[2019-04-29] MEDS ORDERED: MIDAZOLAM 2 MG/2 ML INJ IV ONE ×3 (23:53→23:55)
[2019-04-29] MEDS ORDERED: MIDAZOLAM HCL 50 MG/100 ML RTUINJ IV PRN (23:53)
[2019-04-30] MEDS ORDERED: AMIODARONE HCL 150 MG in DEXTROSE 5%-WATER 100 ML IV ONE ×2 (00:04→00:34)
[2019-04-30] MEDS ORDERED: EPINEPHRINE INJ 1 MG/10 ML DISP.SYRIN IV ONE (00:12)
[2019-04-30] MEDS ORDERED: FENTANYL CITRATE INJ/PF 100 MCG/2 ML AMPUL IV ONE ×4 (00:34→02:32)
[2019-04-30] MEDS ORDERED: DEXTROSE 5%-WATER 500 ML with AMIODARONE HCL 900 MG IV PRN ×2 (00:35)
--- NOTE | 2019-04-30 00:44 | RADIOLOGY REPORT (SQ) ---
EXAM DESCRIPTION: XR CHEST 1 VIEW COMPLETED DATE/TME: 04/29/2019 00:00 CLINICAL HISTORY: 73 years Female, POST INTUBATION COMPARISON: Same day. NUMBER OF VIEWS/TECHNIQUE: 1/AP FINDINGS: Moderate mixed interstitial and airspace opacity. Small blunting-effusion of the right costophrenic angle. Adequate appearing endotracheal tube. Adequate appearing enteric tube. Adequate appearing right jugular central line. Increased lung volume. Sternotomy. No pneumothorax. Osteotomy plate and screw fixation of the left lower lateral hemithorax. Atherosclerotic vascular disease. IMPRESSION: 1. Interval intubation. 2. Moderate mixed interstitial and airpace opacities. Differential diagnosis includes pulmonary edema, multifocal pneumonia, and chronic interstitial lung disease.
[2019-04-30] MEDS ORDERED: FENTANYL CITRATE INJ/PF 100 MCG/2 ML AMPUL ONE (00:54)
[2019-04-30] MEDS ORDERED: ALBUTEROL SULFATE 0.083% NEB 2.5 MG/3 ML AMPUL NEB ONE (01:03)
[2019-04-30] MEDS ORDERED: DEXTROSE 5%-WATER 250 ML with NOREPINEPHRINE BITARTRATE 4 MG IV PRN ×2 (02:23)
[2019-04-30] MEDS ORDERED: DEXTROSE 5%-WATER 250 ML with EPINEPHRINE/PF 1 MG IV PRN ×2 (02:23)
[2019-04-30] MEDS: MAGNESIUM SULFATE/D5W 1 GM/100 ML RTUPB IV SCH (02:36)
[2019-04-30] MEDS ORDERED: SODIUM BICARBONATE 8.4% INJ 50 MEQ/50 ML DISP.SYRIN IV ONE (03:13)
[2019-04-30 05:01] LABS: ARTERIAL BLOOD BASE EXCESS -22.3 mmol/L; ARTERIAL BLOOD FIO2 ROOM AIR; ARTERIAL BLOOD H2CO3 1.09 mmol/L (1.05-1.35); ARTERIAL BLOOD HCO3 8.3 mmol/L (20-24); ARTERIAL BLOOD O2 SATURATION 59.7 % (94-98); ARTERIAL BLOOD PCO2 36.3 mmHg (35-45); ARTERIAL BLOOD PO2 46.6 mmHg (80-100); ARTERIAL BLOOD TOTAL CO2 9.4 mmol/L (21-25)
[2019-04-30 05:04] LABS: ARTERIAL BLOOD PH 6.98 (7.35-7.45)
[2019-04-30] MEDS ORDERED: PROMETHAZINE HCL INJ 25 MG/1 ML VIAL IV PRN (05:28)
[2019-04-30] MEDS ORDERED: MAG HYDROX/AL HYDROX/SIMETH SUSP 30 ML UDCUP PO PRN (05:28)
[2019-04-30] MEDS ORDERED: MAGNESIUM HYDROXIDE SUSP 30 ML UDCUP PO PRN (05:28)
[2019-04-30] MEDS ORDERED: CHLORPROMAZINE HCL INJ 25 MG/1 ML AMPULE IV PRN (05:32)
[2019-04-30] MEDS ORDERED: ACETAMINOPHEN 650 MG SUPP.RECT PR PRN (05:32)
[2019-04-30] MEDS ORDERED: ACETAMINOPHEN 325 MG TABLET PO PRN (05:32)
[2019-04-30] MEDS ORDERED: LEVALBUTEROL HCL NEB 0.63 MG/3 ML AMPUL NEB PRN (05:32)
[2019-04-30] MEDS ORDERED: DIAZEPAM INJ 10 MG/2 ML DISP.SYRIN IV PRN (05:49)
[2019-04-30] MEDS ORDERED: ATROPINE SULFATE INJ 1 MG/1 ML VIAL IV PRN (05:50)
[2019-04-30 06:46] VITALS: BP 87/44
--- NOTE | 2019-04-30 06:58 | PDOC H&P ---
History of Present Illness Admission Date/PCP: 04/30/19 05:31 CLINT REED MD Patient complains of: Dyspnea History of Present Illness: FABRICIO BARR is a 73 year old female who presented to the emergency room with acute weakness and lethargy. Her family members indicate that she has become more weak and lethargic throughout the day of 04/29/2019 to the point where they felt that they needed to bring her to the hospital for evaluation. She has not been eating or drinking well and complains of generalized weakness. She denies other associated or accompanying signs and symptoms. She admits prior similar episodes of lesser severity. She has not identified any aggravating or sam liorating factors for her weakness. In the emergency room she was found to be hypotensive and lethargic. She sustained a cardiac arrest and was resuscitated after an extensive ACLS effort. After the resuscitation her offered that she had been hesitant to be intubated and probably would not have wanted to have been resuscitated. The family elected to wait for some other family members to arrive to say their goodbyes and then they wish to have her placed on comfort measures only. At the time of my evaluation she was able to open her eyes to verbal stimulation and said yes when I asked if she remembered me, however I am uncertain as to the veracity of her claim. Per the family's wishes that she will be DNR/DNI comfort measures only throughout the remainder of her hospital course. Past Medical History Cardiac Medical History: Reports: Other - History of endocarditis with bioprosthetic aortic valve replacement Denies: Atrial Fibrillation, Coronary Artery Disease, Myocardial Infarction, Hypertension Pulmonary Medical History: Reports: Bronchitis, Chronic Obstructive Pulmonary Disease (COPD), Pneumonia Denies: Asthma EENT Medical History: Denies: Ears - Hearing aids, Nose - Low allergic rhinitis Neurological Medical History: Denies: Seizures Endocrine Medical History: Denies: Diabetes Mellitus Type 1, Diabetes Mellitus Type 2, Hyperthyroidism, Hypothyroidism Renal/ Medical History: Reports: End Stage Renal Disease Malignancy Medical History: Reports: Breast Cancer, Lung Cancer GI Medical History: Reports: Crohn's Disease, Gastroesophageal Reflux Disease, Hiatal Hernia Denies: Cirrhosis, Hepatitis, Ulcerative Colitis Musculoskeltal Medical History: Reports: Arthritis, Gout Skin Medical History: Denies: Eczema, Psoriasis Psychiatric Medical History: Reports: Depression Denies: Alcohol Dependency, Substance Abuse, Tobacco Dependency Traumatic Medical History: Reports: None Hematology: Reports: Anemia Denies: Bleeding Tendencies Infectious Medical History: 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 Past Surgical History Past Surgical History: Reports: Appendectomy, Colostomy, Ileostomy - Status post total colectomy for Crohn's disease, Valve Replacement - Bovine aortic valve Social History Information Source: Relative Lives with: Spouse/Significant other Smoking Status: Former Smoker Electronic Cigarette use?: No Frequency of Alcohol Use: Social Hx Recreational Drug Use: No Drugs: None Hx Prescription Drug Abuse: No - Advance Directive Resuscitation Status: Full Code Surrogate healthcare decision maker:: Brooklyn Tejada Family History Family History: COPD, Hypertension Parental Family History Reviewed: Yes Children Family History Reviewed: No Sibling(s) Family History Reviewed.: Yes Medication/Allergy Home Medications: Alprazolam [Xanax 0.5 mg Tablet] 0.5 mg PO DAILYP PRN 12/24/18 Carboxymethylcellulose Sodium [Refresh Celluvisc Drops] 1 each OU BIDP PRN 12/24/18 Cyanocobalamin (Vitamin B-12) [Vitamin B-12 Inj 1000 Mcg/1 ml Vial] 1,000 mcg IM .[id number] 12/24/18 Ezetimibe [Zetia 10 mg Tablet] 10 mg PO DAILY 12/24/18 Febuxostat [Uloric 40 mg Tablet] 40 mg PO DAILY 12/24/18 Levalbuterol HCl [Xopenex Neb 0.63 mg/3 ml Ampul] 0.63 mg NEB RTQ12 12/24/18 Loperamide HCl [Imodium 2 mg Capsule] 2 mg PO MOWEFR@1000 12/24/18 Loratadine [Claritin 10 mg Tablet] 10 mg PO DAILY 12/24/18 Sertraline HCl [Zoloft] 50 mg PO DAILY 12/24/18 Albuterol Sulfate [Albuterol Sulfate Hfa] 2 puff IH Q6HP PRN 02/16/19 Magnesium Oxide [Mag-Oxide Magnesium] 200 mg PO DAILY 02/16/19 Omeprazole 20 mg PO DAILY 02/16/19 Allergies/Adverse Reactions: indomethacin [From Indocin] Allergy (Severe, Verified 07/20/18 12:34) BODY SWELLING LOWER EXTREMITIES metronidazole [From Flagyl] Allergy (Severe, Verified 07/20/18 12:34) VEIN AGITATION naproxen [From Naprosyn] Allergy (Severe, Verified 07/20/18 12:34) SWELLING LOWER EXTREMITIES amoxicillin Allergy (Intermediate, Verified 07/20/18 12:34) HIVES/ITCHING levofloxacin [From Levaquin] Allergy (Intermediate, Verified 07/20/18 12:34) ITCHING penicillin G Allergy (Intermediate, Verified 07/20/18 12:34) HIVES/ITCHING codeine Allergy (Mild, Verified 07/20/18 12:34) Nausea allopurinol Allergy (Unknown, Verified 07/20/18 12:34) cephalexin [From Keflex] Allergy (Unknown, Verified 07/20/18 12:34) Cephalosporins Allergy (Unknown, Verified 07/20/18 12:34) mesalamine [From Pentasa] Allergy (Unknown, Verified 07/20/18 12:34) Review of Systems ROS unobtainable: Due to mental status - Patient is lethargic and unable to provide intelligible responses to complex questions. Physical Exam Vital Signs: Temp Pulse Resp BP Pulse Ox 98.1 F 71 23 H 62/40 L 84 L 04/29/19 21:55 04/29/19 21:55 04/30/19 05:00 04/30/19 04:52 04/30/19 05:00 Intake & Output 04/28/19 04/29/19 04/30/19 23:59 23:59 23:59 Intake Total 1009 1532 Balance 1009 1532 Weight 47 kg General appearance: PRESENT: no acute distress, other - Lethargic Head exam: PRESENT: atraumatic, normocephalic Eye exam: PRESENT: conjunctiva pink. ABSENT: conjunctival injection, scleral icterus Ear exam: PRESENT: normal external ear exam. ABSENT: bleeding, drainage Mouth exam: PRESENT: dry mucosa, neck supple Neck exam: ABSENT: thyromegaly, tracheal deviation Respiratory exam: PRESENT: clear to auscultation delfino, symmetrical, unlabored Cardiovascular exam: PRESENT: RRR. ABSENT: clicks, gallop, rubs Pulses: PRESENT: normal radial pulses, normal dorsalis pedis pul Vascular exam: PRESENT: normal capillary refill. ABSENT: pallor GI/Abdominal exam: PRESENT: normal bowel sounds, soft Rectal exam: PRESENT: deferred Extremities exam: ABSENT: joint swelling, pedal edema Musculoskeletal exam: ABSENT: deformity, dislocation Neurological exam: PRESENT: altered - Lethargic, reflexes normal, other - Poorly responsive to verbal stimuli Psychiatric exam: PRESENT: flat affect, other - Lethargy Skin exam: ABSENT: jaundice, rash, urticaria Results Laboratory Results: 04/29/19 21:45 04/29/19 21:45 04/29/19 04/29/19 04/29/19 21:45 21:45 21:45 WBC 16.4 H RBC 3.42 L Hgb 10.3 L Hct 31.8 L MCV 93 MCH 30.1 MCHC 32.3 RDW 16.8 H Plt Count 208 Seg Neutrophils % Not Reportable Carbonic Acid HCO3/H2CO3 Ratio ABG pH ABG pCO2 ABG pO2 ABG HCO3 ABG O2 Saturation ABG Base Excess VBG pH VBG pCO2 VBG HCO3 VBG Base Excess FiO2 Sodium 132.1 L Potassium 7.5 H* Chloride 102 Carbon Dioxide 9 L* Anion Gap 21 H BUN 185 H Creatinine 14.66 H Est GFR ( Amer) 3 L Glucose 131 H Lactic Acid 0.8 Calcium 10.1 Total Bilirubin 0.5 AST 16 Alkaline Phosphatase 85 Total Protein 6.7 Albumin 3.8 Urine Color Urine Appearance Urine pH Ur Specific [place] Urine Protein Urine Glucose (UA) Urine Ketones Urine Blood Urine RBC (Auto) 04/29/19 04/29/19 04/29/19 21:45 22:10 22:54 WBC RBC Hgb Hct MCV MCH MCHC RDW Plt Count Seg Neutrophils % Carbonic Acid 1.09 HCO3/H2CO3 Ratio 7:1 ABG pH 6.98 L* ABG pCO2 36.3 ABG pO2 46.6 L ABG HCO3 8.3 L ABG O2 Saturation 59.7 L ABG Base Excess -22.3 VBG pH 7.01 L* VBG pCO2 38.2 VBG HCO3 9.5 L VBG Base Excess -20.7 FiO2 ROOM AIR Sodium Potassium Chloride Carbon Dioxide Anion Gap BUN Creatinine Est GFR ( Amer) Glucose Lactic Acid Calcium Total Bilirubin AST Alkaline Phosphatase Total Protein Albumin Urine Color YELLOW Urine Appearance TURBID Urine pH 6.0 Ur Specific [place] 1.016 Urine Protein 100 H Urine Glucose (UA) NEGATIVE Urine Ketones NEGATIVE Urine Blood MODERATE H Urine RBC (Auto) 23 04/29/19 21:45 Troponin I 0.281 Impressions: Chest X-Ray 04/29/19 21:33 IMPRESSION: No acute cardiopulmonary disease. Assessment and Plan - Diagnosis (1) Cardiac arrest Is this a current diagnosis for this admission?: Yes (2) Lethargy Is this a current diagnosis for this admission?: Yes (3) Hyperkalemia Is this a current diagnosis for this admission?: Yes (4) Leukocytosis Qualifiers: Leukocytosis type: unspecified Qualified Code(s): D72.829 - Elevated white blood cell count, unspecified Is this a current diagnosis for this admission?: Yes - Plan Summary Summary: Patient will be admitted to comfort measures only. She has ordered morphine sulfate 2 to 4 mg IV every 2 hours as needed pain, Valium 5 mg IV every 2 hours as needed agitation and anxiety. Patient also has other comfort measures in place. - Time Time Spent with patient: 15-24 minutes - Inpatient Certification Based on my medical assessment, after consideration of the patient's comorbidities, presenting symptoms, or acuity I expect that the services needed warrant INPATIENT care.: Yes I certify that my determination is in accordance with my understanding of Medicare's requirements for reasonable and necessary INPATIENT services [42 CFR 412.3e].: Yes Medical Necessity: Other
[2019-04-30] MEDS: MORPHINE SULFATE 10 MG/ML INJ IV PRN ×3 (07:39→13:02)
[2019-04-30] MEDS ORDERED: ETOMIDATE INJ/PF 20 MG/10 ML SDV IV ONE (07:58)
[2019-04-30] MEDS ORDERED: AMIODARONE HCL INJ 150 MG/3 ML VIAL IV ONE (09:04)
[2019-04-30] MEDS ORDERED: ATROPINE SULFATE INJ 1 MG/10 ML DISP.SYRIN IV ONE (09:04)
[2019-04-30] MEDS ORDERED: SODIUM BICARBONATE 8.4% INJ 50 MEQ/50 ML DISP.SYRIN ONE (09:04)
[2019-04-30] MEDS ORDERED: MAGNESIUM SULFATE PF/INJ 40 MEQ/10 ML SDV ONE (09:04)
[2019-04-30] MEDS ORDERED: EPINEPHRINE INJ 1 MG/10 ML DISP.SYRIN ONE (09:04)
[2019-04-30] MEDS ORDERED: NOREPINEPHRINE BITARTRATE INJ/PF 4 MG/4 ML SDV IV ONE (09:04)
[2019-04-30] MEDS ORDERED: CALCIUM GLUCONATE 1000 MG/10 ML INJ IV ONE (09:04)
--- NOTE | 2019-04-30 09:36 | EKG REPORT ---
SEVERITY:- ABNORMAL ECG - SINUS TACHYCARDIA NONSPECIFIC IVCD WITH LAD LVH WITH SECONDARY REPOLARIZATION ABNORMALITY LATERAL INFARCT, AGE INDETERMINATE : Confirmed by: Adonis Bermudez 30-Apr-2019 09:36:04
--- NOTE | 2019-04-30 09:36 | EKG REPORT ---
SEVERITY:- ABNORMAL ECG - SINUS RHYTHM PROBABLE LEFT ATRIAL ABNORMALITY LEFT BUNDLE BRANCH BLOCK : Confirmed by: Adonis Bermudez 30-Apr-2019 09:36:10
--- NOTE | 2019-04-30 18:11 | Death Summary ---
Summary Date : 04/30/19 Time of :: 14:00 Autopsy: No Resuscitation Status: Comfort Measures Only - Final Diagnosis (1) Cardiac arrest Is this a current diagnosis for this admission?: Yes (2) Acute on chronic renal failure Is this a current diagnosis for this admission?: Yes (3) Hyperkalemia Is this a current diagnosis for this admission?: Yes (4) Acute renal failure superimposed on stage 4 chronic kidney disease Is this a current diagnosis for this admission?: Yes Hospital Course:: This is a 73-year-old female who presented with severe hyperkalemia and acute renal failure. She arrested in the ER and was in pulseless V. tach. She was confirmed to be a DNR/DNI in the ER and was made comfort measures. She at 2 PM.
== END 2019-04-30 18:40 | disposition left against medical advice (07) | DRG 641 ==
LOC: ER 21:06 → EH 04-30 05:31 → 5 04-30 07:00
PROVIDERS: ADMIT Emergency Medicine; ATTEND Internal Medicine
PROC: 0BH17EZ Insertion of Endotracheal Airway into Trachea, Via Natural or Artificial Opening (ICD-10-PCS; principal; 2019-04-30)
PROC: 5A1935Z Respiratory Ventilation, Less than 24 Consecutive Hours (ICD-10-PCS; 2019-04-30)
DX: E87.5 Hyperkalemia (principal); N17.9 Acute kidney failure, unspecified; K50.90 Crohn's disease, unspecified, without complications; N18.4 Chronic kidney disease, stage 4 (severe); Z51.5 Encounter for palliative care; I46.9 Cardiac arrest, cause unspecified; Z93.3 Colostomy status; Z66 Do not resuscitate; Z95.2 Presence of prosthetic heart valve; J44.9 Chronic obstructive pulmonary disease, unspecified; Z86.73 Personal history of transient ischemic attack (TIA), and cerebral infarction without residual deficits; K21.9 Gastro-esophageal reflux disease without esophagitis; K44.9 Diaphragmatic hernia without obstruction or gangrene; M19.90 Unspecified osteoarthritis, unspecified site; F32.9 Major depressive disorder, single episode, unspecified; Z90.49 Acquired absence of other specified parts of digestive tract; Z85.3 Personal history of malignant neoplasm of breast; Z85.118 Personal history of other malignant neoplasm of bronchus and lung; Z88.5 Allergy status to narcotic agent; Z88.1 Allergy status to other antibiotic agents; Z88.0 Allergy status to penicillin; Z88.8 Allergy status to other drugs, medicaments and biological substances; Z88.3 Allergy status to other anti-infective agents
CPT/HCPCS: 36415; 71045; 80053; 81001; 82803; 82962; 83605; 84484; 85025; 85610; 87040; 87086; 87088; 87186; 93005; 93010; 94002; 94003; C1751; J0171; J0282; J0461; J0610; J1815; J2250; J2270; J3010; J3475; J3490; J7030; J7060